=== PATIENT | male | born 1935 | race Caucasian/White ===

== ENCOUNTER 2019-09-02 20:13 | Observation (INO) ==
--- NOTE | 2019-09-02 20:27 | CT Scan Report ---
CT head/brain wo con CLINICAL HISTORY: Confusion. Carpal speech. Possible acute stroke. COMPARISON STUDY: No previous studies for comparison. TECHNIQUE: Axial CT of the brain is performed from the vertex to the skull base. IV contrast was not administered for this examination. A dose lowering technique was utilized adhering to the principles of ALARA. CT DOSE: 537.48 mGy.cm FINDINGS: No intra or extra-axial mass lesions are visualized. There is no CT evidence of acute cortical infarc tion. There is no evidence of midline shift. There is no acute hemorrhage. No calvarial fractures ar e visualized. There are patchy white matter hypodensities likely on a small vessel basis. There is no evidence of pathologic ventricular dilatation. There is no evidence of acute sinusitis IMPRESSION: No acute intracranial findings ACT 112: Negative or not required by law. Electronically signed by: Josias Donohue M.D. 09/02/2019 8:26 PM
[2019-09-02] MEDS ORDERED: ASPIRIN 81 MG CHEW PO STA (20:37)
[2019-09-02] MEDS ORDERED: SODIUM CHLORIDE 0.9% 1000ML 1,000 ML IV ONE (20:37)
[2019-09-02 20:41] LABS: Basophils # (auto) 0.04 K/uL (0-0.2); Basophils % (auto) 0.4 %; Eosinophils # (auto) 0.26 K/uL (0-0.5); Eosinophils % (auto) 2.8 %; Hematocrit (blood only) 41.9 % (42-52); Hemoglobin 13.8 g/dL (14.0-18.0); Immature Granulocytes # (auto) 0.03 K/uL (0.00-0.02); Immature Granulocytes % (auto) 0.3 %; Lymphocytes # (auto) 1.54 K/uL (1.2-3.4); Lymphocytes % (auto) 16.5 %; Mean Corpuscular Hemoglobin 29.1 pg (25-34); Mean Corpuscular Hgb Conc 32.9 g/dL (32-36); Mean Corpuscular Volume 88.2 fL (80-100); Mean Platelet Volume 9.7 fL (7.4-10.4); Monocytes # (auto) 0.61 K/uL (0.11-0.59); Monocytes % (auto) 6.6 %; Neutrophils # (auto) 6.83 K/uL (1.4-6.5); Neutrophils % (auto) 73.4 %; Platelet Count 179 K/uL (130-400); RDW Coefficient of Variation 13.2 % (11.5-14.5); RDW Standard Deviation 42.1 fL (36.4-46.3); Red Blood Count 4.75 M/uL (4.7-6.1); White Blood Count 9.31 K/uL (4.8-10.8)
[2019-09-02 20:53] LABS: Partial Thromboplastin Ratio 0.9; Partial Thromboplastin Time 24.3 Seconds (21.0-31.0); Prothrombin Time 10.3 Seconds (9.0-12.0)
[2019-09-02 20:57] LABS: iSTAT Hemoglobin 14.3 g/dl (14.0-18.0); iSTAT Ionized Calcium 1.25 mmol/l (1.12-1.32); iSTAT Potassium 4.7 mmol/L (3.3-5.0)
[2019-09-02 20:57] LABS: Alanine Aminotransferase 18 U/L (12-78); Albumin Level 4.1 gm/dl (3.4-5.0); Aspartate Aminotransferase 16 U/L (15-37); BUN Creatinine Ratio 26.3 (10-20); Blood Urea Nitrogen 53 mg/dl (7-18); Calcium 9.5 mg/dl (8.5-10.1); Carbon Dioxide 26 mmol/L (21-32); Chloride 109 mmol/L (98-107); Creatinine Clr Calc Pharmacy 33.9 ml/min; Est GFR (African American) 34.6; Est GFR (Non-African American) 29.8; Glucose 113 mg/dl (70-99); Magnesium 1.9 mg/dl (1.8-2.4); Potassium 4.6 mmol/L (3.5-5.1); Sodium 139 mmol/L (136-145)
[2019-09-02 21:07] LABS: Alkaline Phosphatase 91 U/L (45-117); Bilirubin,Total 0.3 mg/dl (0.2-1); Total Protein 8.1 gm/dl (6.4-8.2); Troponin I < 0.015 ng/ml (0-0.045)
--- NOTE | 2019-09-02 22:54 | Emergency Department Note ---
Entered by Alize Gonzales acting as a scribe for Clay Fung M.D. History of Present Illness General Chief complaint: Stroke Alert Stated complaint: TROUBLE BREATHING Time Seen by Provider: 09/02/19 20:19 Source: patient and RN notes reviewed History of Present Illness Onset (ago): hour(s) 1 Location: head Pain Consistency: + other (episode) Quality: + other (stroke like symptoms ) Associated symptoms: + other (+confused; +gargled speech; +memory loss; -vision issues ) The patient is an 84 year old male, with past medical history of type 2 diabetes and sciatica, who presents to the Emergency Room with complaints of an episode of stroke like symptoms that began approximately 1 hour ago. The RN reports the patient was last known well around 1929. 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 The RN states the po ent was fine at this point, but the RN states the patient made a phone call right after the client to call his son, and the RN states this is when symptoms were first noticed. The son reports the patient seemed confused and had gargled speech. The RN states the patient could not remember the year or his birthday upon arrival. The patient reports he felt as if he just could not get words out during the episode. He notes he felt embarrassed. He states he was able to speak some, but he states he generally felt discombobulated. The patient admits his symptoms are improving now, including his speech. He denies recent fall or vision troubles. Home Medications Home Medications Medication Instructions Recorded Confirmed Type aspirin 81 mg PO QAM 10/22/18 09/02/19 History atorvastatin 10 mg PO QPM 10/22/18 09/02/19 History levothyroxine 75 mcg PO QAM 10/22/18 09/02/19 History metformin 500 mg PO BIDM 10/22/18 09/02/19 History acetaminophen 500 mg PO Q6H PRN 05/26/19 09/02/19 History sildenafil (pulm.hypertension) 60 - 100 mg PO DIRECTED PRN 05/26/19 09/02/19 History [Revatio] cholecalciferol (vitamin D3) 2,000 unit PO QAM 09/02/19 09/02/19 History [Vitamin D3] Allergies Allergy/AdvReac Type Severity Reaction Status Date / Time No Known Allergies Allergy Verified 09/02/19 20:34 Past Med/Surg History Medical History Anxiety Diabetes mellitus, type 2 NIDDM Foot drop, right GERD (gastroesophageal reflux disease) Hearing deficit BL IONE History of sciatica History of skin cancer REMOVED FROM FACE AND BACK Hyperlipidemia Hypertension Hypothyroidism Osteoarthritis Pneumonia Poor historian Snores Surgical History History of colonoscopy History of herniorrhaphy BL INGUINAL History of left cataract surgery Family History Other No significant family history Social History Preferred Language: Cameroonian Communication Ability: Effective 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 and A total of 10 systems reviewed and were otherwise negative Physical Exam Vital Signs Vital Signs - 24 hr 09/02/19 20:16 09/02/19 20:50 09/02/19 21:31 Temperature 36.8 C Temperature Source Oral Pulse Rate 84 Pulse Rate [Right Finger] 76 76 Respiratory Rate 18 20 24 Respiratory Effort / Characteristics Non-Labored Respiratory Depth Normal Normal Respiratory Pattern Regular Blood Pressure 168/99 H Blood Pressure [Right Arm] 154/96 H 132/81 Blood Pressure Mean 122 Blood Pressure Mean [Right Arm] 115 98 Blood Pressure Position [Right Arm] Sitting Pulse Oximetry 96 96 98 Oxygen Delivery Method Room Air Room Air Sepsis Recent Fever Within 48 Hours No Sepsis Action Taken by Nursing No Action Required 09/02/19 22:26 Temperature Temperature Source Pulse Rate Pulse Rate [Right Finger] 85 Respiratory Rate 18 Respiratory Effort / Characteristics Non-Labored Spontaneous Respiratory Depth Normal Respiratory Pattern Blood Pressure Blood Pressure [Right Arm] 174/101 H Blood Pressure Mean Blood Pressure Mean [Right Arm] 125 Blood Pressure Position [Right Arm] Sitting Pulse Oximetry 98 Oxygen Delivery Method Room Air Sepsis Recent Fever Within 48 Hours Sepsis Action Taken by Nursing GENERAL: Awake, alert, well-appearing, in no distress HENT: Normocephalic, atraumatic. EYES: Normal conjunctiva. Sclera non-icteric. RESPIRATORY: Clear to auscultation. No wheezes. Normal respiratory effort. CARDIAC: Normal rate. Normal rhythm. Extremities warm and well perfused. GI: Soft, non-distended. No tenderness to palpation. RECTAL: Deferred. MUSCULOSKELETAL: Atraumatic. Chest examination reveals no tenderness. LOWER EXTREMITIES: Calves are equal size bilaterally and non-tender. No edema NEURO: Normal sensorium. No motor deficits noted. No facial droop. No slurred speech. No aphasia. Slightly decreased right leg sensation that the patient reports is baseline for him. SKIN: Warm and dry. No rash or jaundice noted. Course Course 2014: Past medical records reviewed. The patient was evaluated in room B1. A complete history and physical exam was performed. 2030: I discussed the patient's case with Dr. Arnold. 2124: I reevaluated and updated the patient on his case. 2209: I reviewed the patient's case with Dr. Valdez-Hospitalren[facility] Matt. Dr. Valdez will evaluate the patient for further management. Consultations Consultation #1: I discussed the patient's case with Dr. Arnold. Time: 20:30 Consultation #2: I reviewed the patient's case with Dr. Valdez-Jennifer Matt. Dr. Valdez will evaluate the patient for further management. Time: 22:10 Administered Medications Discontinued Medications Aspirin (Aspirin Chew) 324 mg PO NOW STA Stop: 09/02/19 20:38 Last Admin: 09/02/19 20:55 Dose: 324 mg Documented by: [id number] Sodium Chloride (Nss 1000ml) 1,000 mls @ 999 mls/hr IV .Q1H1M ONE Stop: 09/02/19 21:37 Last Infusion: 09/02/19 21:32 Dose: 0 mls/hr Documented by: [id number] Admin: 09/02/19 20:40 Dose: 999 mls/hr Documented by: [id number] Medical Decision Making Differential Diagnosis Differential Diagnosis includes but is not limited to ischemic Stroke, hemorrhagic stroke, bells palsy, mass, neoplasm, migraine headache, seizure, subarachnoid hemorrhage, TIA, and transient global amnesia. Medical Records Attestation: I reviewed the patient's medical records. Home Medications Current Medication List: was personally reviewed by me Laboratory Data Attestation: I reviewed the patient's lab results. Result diagrams: 09/02/19 20:34 09/02/19 20:34 Lab Results 09/02/19 09/02/19 09/02/19 Range/Units 20:34 20:34 20:34 WBC 9.31 (4.8-10.8) K/uL RBC 4.75 (4.7-6.1) M/uL Hgb 13.8 L (14.0-18.0) g/dL POC Hgb (14.0-18.0) g/dl Hct 41.9 L (42-52) % POC Hct (42-52) % MCV 88.2 (80-100) fL MCH 29.1 (25-34) pg MCHC 32.9 (32-36) g/dL RDW Std Deviation 42.1 (36.4-46.3) fL RDW Coeff of Umesh 13.2 (11.5-14.5) % Plt Count 179 (130-400) K/uL MPV 9.7 (7.4-10.4) fL Immature Gran % (Auto) 0.3 % Neut % (Auto) 73.4 % Lymph % (Auto) 16.5 % Alcorn % (Auto) 6.6 % Eos % (Auto) 2.8 % Baso % (Auto) 0.4 % Immature Gran # (Auto) 0.03 H (0.00-0.02) K/uL Neut # (Auto) 6.83 H (1.4-6.5) K/uL Lymph # (Auto) 1.54 (1.2-3.4) K/uL Alcorn # (Auto) 0.61 H (0.11-0.59) K/uL Eos # (Auto) 0.26 (0-0.5) K/uL Baso # (Auto) 0.04 (0-0.2) K/uL PT 10.3 (9.0-12.0) Seconds INR 1.0 (0.9-1.1) APTT 24.3 (21.0-31.0) Seconds PTT Ratio 0.9 POC Sodium (135-144) mmol/L Sodium 139 (136-145) mmol/L POC Potassium (3.3-5.0) mmol/L Potassium 4.6 (3.5-5.1) mmol/L POC Chloride (101-112) mmol/L Chloride 109 H (98-107) mmol/L Carbon Dioxide 26 (21-32) mmol/L POC Total CO2 (24-31) mEq/l Anion Gap 4.0 (3-11) POC Anion Gap (16-25) mmol/L POC BUN (7-18) mg/dl BUN 53 H (7-18) mg/dl Creatinine 2.02 H (0.6-1.4) mg/dl POC Creatinine (0.6-1.3) mg/dl Est Cr Clr Drug Dosing 33.9 ml/min Est GFR ( Amer) 34.6 Est GFR (Non-Af Amer) 29.8 BUN/Creatinine Ratio 26.3 H (10-20) Glucose 113 H (70-99) mg/dl POC Glucose (70-99) mg/dl POC Glucose (other) (70-99) mg/dl Calcium 9.5 (8.5-10.1) mg/dl POC Ioniz Calcium Ulices (1.12-1.32) mmol/l Magnesium 1.9 (1.8-2.4) mg/dl Total Bilirubin 0.3 (0.2-1) mg/dl AST 16 (15-37) U/L ALT 18 (12-78) U/L Alkaline Phosphatase 91 (45-117) U/L Troponin I < 0.015 (0-0.045) ng/ml Total Protein 8.1 (6.4-8.2) gm/dl Albumin 4.1 (3.4-5.0) gm/dl Globulin 4.0 (2.5-4.0) gm/dl Albumin/Globulin Ratio 1.0 (0.9-2) TSH 2.430 (0.300-4.500) uIu/ml Blood Type Antibody Screen 09/02/19 09/02/19 09/02/19 Range/Units 20:34 20:38 20:42 WBC (4.8-10.8) K/uL RBC (4.7-6.1) M/uL Hgb (14.0-18.0) g/dL POC Hgb 14.3 (14.0-18.0) g/dl Hct (42-52) % POC Hct 42 (42-52) % MCV (80-100) fL MCH (25-34) pg MCHC (32-36) g/dL RDW Std Deviation (36.4-46.3) fL RDW Coeff of Umesh (11.5-14.5) % Plt Count (130-400) K/uL MPV (7.4-10.4) fL Immature Gran % (Auto) % Neut % (Auto) % Lymph % (Auto) % Alcorn % (Auto) % Eos % (Auto) % Baso % (Auto) % Immature Gran # (Auto) (0.00-0.02) K/uL Neut # (Auto) (1.4-6.5) K/uL Lymph # (Auto) (1.2-3.4) K/uL Alcorn # (Auto) (0.11-0.59) K/uL Eos # (Auto) (0-0.5) K/uL Baso # (Auto) (0-0.2) K/uL PT (9.0-12.0) Seconds INR (0.9-1.1) APTT (21.0-31.0) Seconds PTT Ratio POC Sodium 139 (135-144) mmol/L Sodium (136-145) mmol/L POC Potassium 4.7 (3.3-5.0) mmol/L Potassium (3.5-5.1) mmol/L POC Chloride 107 (101-112) mmol/L Chloride (98-107) mmol/L Carbon Dioxide (21-32) mmol/L POC Total CO2 24 (24-31) mEq/l Anion Gap (3-11) POC Anion Gap 14.0 L (16-25) mmol/L POC BUN 48 H (7-18) mg/dl BUN (7-18) mg/dl Creatinine (0.6-1.4) mg/dl POC Creatinine 2.0 H (0.6-1.3) mg/dl Est Cr Clr Drug Dosing ml/min Est GFR ( Amer) Est GFR (Non-Af Amer) BUN/Creatinine Ratio (10-20) Glucose (70-99) mg/dl POC Glucose 97 (70-99) mg/dl POC Glucose (other) 112 H (70-99) mg/dl Calcium (8.5-10.1) mg/dl POC Ioniz Calcium Ulices 1.25 (1.12-1.32) mmol/l Magnesium (1.8-2.4) mg/dl Total Bilirubin (0.2-1) mg/dl AST (15-37) U/L ALT (12-78) U/L Alkaline Phosphatase (45-117) U/L Troponin I (0-0.045) ng/ml Total Protein (6.4-8.2) gm/dl Albumin (3.4-5.0) gm/dl Globulin (2.5-4.0) gm/dl Albumin/Globulin Ratio (0.9-2) TSH (0.300-4.500) uIu/ml Blood Type A Positive Antibody Screen NEGATIVE Imaging Data Radiologist's Impression: Radiology results as stated below per my review and the radiologist's interpretation: CT head/brain wo con CLINICAL HISTORY: Confusion. Carpal speech. Possible acute stroke. COMPARISON STUDY: No previous studies for comparison. TECHNIQUE: Axial CT of the brain is performed from the vertex to the skull base. IV contrast was not administered for this examination. A dose lowering technique was utilized adhering to the principles of ALARA. CT DOSE: 537.48 mGy.cm FINDINGS: No intra or extra-axial mass lesions are visualized. There is no CT evidence of acute cortical infarction. There is no evidence of midline shift. There is no acute hemorrhage. No calvarial fractures are visualized. There are patchy white matter hypodensities likely on a small vessel basis. There is no evidence of pathologic ventricular dilatation. There is no evidence of acute sinusitis IMPRESSION: No acute intracranial findings ACT 112: Negative or not required by law. Electronically signed by: Josias Donohue M.D. 09/02/2019 8:26 PM ECG Data Attestation: I personally reviewed and interpreted this ECG as follows: Indication: + other (stroke alert) Rate (beats per minute): 85 Rhythm: + normal sinus ECG Intervals/blocks: + Normal QT-c ECG Bivins: + Normal ECG ST segments: no ST depression and no ST elevation ECG Findings: no PACs Blood Pressure Blood Pressure Findings: Elevated blood pressure Blood Pressure Disposition: further management by hospitalist NICK Narrative Patient is a 84-year-old with a history of hypertension, hypothyroidism, and diabetes presenting today with onset around 730 of 30 to 45 minutes of aphasia and garbled speech. No other neurological deficits acutely reported. No pain reported. No trauma reported. Made a stroke alert in triage. CT head without acute findings. Basic labs show evidence of chronic kidney disease it does appear slightly worse than previous; this precludes CT angiograms and will need MRI/MRA workup as inpatient. NIH is currently 0 and appears back at baseline. Given full dose aspirin. Discussed with tele-stroke at [facility] who agree. No indication for TPA at this time given his lack of symptoms. No other acute abnormality noted. Believe this is consistent with a TIA. Discussed with the patient and the [facility] hospitalist for further evaluation in the hospital. Impression & Plan TIA (transient ischemic attack) Discharge Plan Visit Data Chief Complaint: Stroke Alert Stated Complaint: TROUBLE BREATHING Other Complaint: Neuro Symptoms/Deficit ED Provider: Clay Fung Discharge Problem: TIA (transient ischemic attack) Patient Disposition: Being Evaluated by Hospitalist Forms Stand Alone Forms: My [facility] [employer] Prescriptions Prescriptions: No Action metformin 500 mg Tablet 500 mg PO BIDM RF: 0 atorvastatin 10 mg Tablet 10 mg PO QPM RF: 0 aspirin 81 mg Tablet,Delayed Release (Dr/Ec) 81 mg PO QAM RF: 0 levothyroxine 75 mcg Tablet 75 mcg PO QAM RF: 0 acetaminophen 500 mg Tablet 500 mg PO Q6H PRN (Reason: Pain) RF: 0 sildenafil (pulm.hypertension) [Revatio] 20 mg Tablet 60 - 100 mg PO DIRECTED PRN (Reason: Edema) RF: 0 cholecalciferol (vitamin D3) [Vitamin D3] 2,000 unit Tablet 2,000 unit PO QAM RF: 0 Referrals Referrals: Pranay Addison MD [Primary Care Provider] - The scribe's documentation has been prepared under my direction and personally reviewed by me in its entirety. I confirm that the note above accurately refle cts all work, treatment, procedures, and medical decision making performed by me.
[2019-09-02 22:55] LABS: Appearance Urine Cloudy (Clear); Bacteria Urine Automated Negative (Negative); Bilirubin Urine Negative (Negative); Blood Urine Negative (Negative); Color Urine Yellow; Glucose Urine UA Negative (Negative); Ketones Urine Negative (Negative); Leukocyte Esterase Urine Trace (Negative); Nitrite Urine Negative (Negative); Protein Urine Negative (Negative); RBC Urine Automated 0-4 /hpf (0-4); Specific Gravity Urine 1.019 (1.000-1.030); Urobilinogen Urine Negative (Negative); WBC Urine Automated 0 /hpf (0-5)
--- NOTE | 2019-09-02 22:56 | History & Physical Report ---
Date of Service September 02, 2019 Assessment & Plan (1) TIA (transient ischemic attack): Presenting as aphasia symptoms ? Aspirin failure Hypertension, elevated secondary to above Hyperlipidemia on statin Rx DM2 on oral medications, reasonable control as of recent outpatient hemoglobin A1c of 7.21 May 2019 CRI, creatinine close to baseline OBS Medical telemetry Neurochecks Add Plavix to aspirin for possible aspirin failure for now MRI/MRA of the brain Additional stroke work-up pending MRI result update lipid profile, hemoglobin A1c Neurology consult RE TIA Permissive hypertension until stroke ruled out Basal insulin, ISS BG goal [id number] DVT prophylaxis Heparin subcu Full code Patient's children requesting updates from providers. Mr. Pranay Irizarry (son), contact #[phone]. Mali Grey (daughter), contact #[phone]. Patient family will notify [facility] [employer] of n first Taylor change from Obed to Smith on next outpatient visit. History of Present Illness Chief Complaint: Trouble getting words out Primary Care Provider: Pranay Addison MD Patient currently listed as Obed Irizarry (former name) and Quintura. History obtained from patient, family, and records. Medical history significant for hyperlipidemia, hypothyroidism, DM2 on oral medications, CRI (baseline creatinine 1.4-1.9). This afternoon patient had trouble getting words out while talking to a client on the phone. Symptoms persistent until patient got home. No headache, chest pain, S OB. No prior episodes as per patient. Stroke alert called upon arrival at the ER. Symptoms currently improving as per family. 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 Allergies Allergy/AdvReac Type Severity Reaction Status Date / Time No Known Allergies Allergy Verified 09/02/19 20:34 Home Medications Home Medications Medication Instructions Recorded Confirmed Type aspirin 81 mg PO QAM 10/22/18 09/02/19 History atorvastatin 10 mg PO QPM 10/22/18 09/02/19 History levothyroxine 75 mcg PO QAM 10/22/18 09/02/19 History metformin 500 mg PO BIDM 10/22/18 09/02/19 History acetaminophen 500 mg PO Q6H PRN 05/26/19 09/02/19 History sildenafil (pulm.hypertension) 60 - 100 mg PO DIRECTED PRN 05/26/19 09/02/19 History [Revatio] cholecalciferol (vitamin D3) 2,000 unit PO QAM 09/02/19 09/02/19 History [Vitamin D3] Past Med/Surg History Medical History Anxiety Diabetes mellitus, type 2 NIDDM Foot drop, right GERD (gastroesophageal reflux disease) Hearing deficit BL GAMBELL History of sciatica History of skin cancer REMOVED FROM FACE AND BACK Hyperlipidemia Hypertension Hypothyroidism Osteoarthritis Pneumonia Poor historian Snores Surgical History History of colonoscopy History of herniorrhaphy BL INGUINAL History of left cataract surgery Family History Other No significant family history Social History Preferred Language: Mongolian Communication Ability: Effective Pot Puller Required: No Beliefs That Will Affect Care: None Current Living Situation: Spouse Other Information That Helps Us Care for You: No Feels Safe at Home: Yes Safety Concerns: Feels Safe At This Time Smoking Status: Never smoker Do You Dip or Chew Tobacco: No ; Second Hand Exposure: No ; Tobacco Cessation Education Requested by Patient: No Hx Alcohol Use: No Hx Substance Use: No Review of Systems Review of Systems: As per HPI, all 10 systems reviewed, all other ROS negative Physical Exam Physical Exam: GENERAL: Comfortable, obese, slightly hard of hearing, some word finding difficulty, no respiratory distress SKIN: Normal color, warm HEENT: [place] palpebral conjunctivae, no ptosis, dry buccal mucosa NECK : Supple, no tenderness CHEST : CTA, no tenderness HEART : RRR, no obvious murmurs ABDOMEN: Some distention, nontender EXTREMITIES : No LE swelling/tenderness, no other conspicuous deformities noted NEUROLOGIC : Coherent, no facial asymmetry, mild hearing impairment, some word finding difficulty, no other gross focality Results & Data Vital Signs (Past 12 Hours) Vital Signs Temp Pulse Pulse Resp BP BP Pulse Ox 09/02/19 22:26 85 18 174/101 H 98 09/02/19 21:31 76 24 132/81 98 09/02/19 20:50 76 20 154/96 H 96 09/02/19 20:16 36.8 C 84 18 168/99 H 96 Laboratory Results Laboratory Results WBC 9.31 K/uL (4.8-10.8) 09/02/19 20:34 RBC 4.75 M/uL (4.7-6.1) 09/02/19 20:34 Hgb 13.8 g/dL (14.0-18.0) L 09/02/19 20:34 POC Hgb 14.3 g/dl (14.0-18.0) 09/02/19 20:42 Hct 41.9 % (42-52) L 09/02/19 20:34 POC Hct 42 % (42-52) 09/02/19 20:42 MCV 88.2 fL (80-100) 09/02/19: MCH 29.1 pg (25-34) 09/02/19 20: MCHC 32.9 g/dL (32-36) 09/02/19 20: RDW Std Deviation 42.1 fL (36.4-46.3) 09/02/19: RDW Coeff of Umesh 13.2 % (11.5-14.5) 09/02/19:34 Plt Count 179 K/uL (130-400) 09/02/19 20: MPV 9.7 fL (7.4-10.4) 09/02/19 20:34 Immature Gran % (Auto) 0.3 % 09/02/19 20:34 Neut % (Auto) 73.4 % 09/02/19 20:34 Lymph % (Auto) 16.5 % 09/02/19 20:34 [place] % (Auto) 6.6 % 09/02/19 20:34 Eos % (Auto) 2.8 % 09/02/19 20:34 Baso % (Auto) 0.4 % 09/02/19:34 Immature Gran # (Auto) 0.03 K/uL (0.00-0.02) H 09/02/19 20:34 Neut # (Auto) 6.83 K/uL (1.4-6.5) H 09/02/19 20:34 Lymph # (Auto) 1.54 K/uL (1.2-3.4) 09/02/19 20:34 Davidson # (Auto) 0.61 K/uL (0.11-0.59) H 09/02/19 20:34 Eos # (Auto) 0.26 K/uL (0-0.5) 09/02/19 20:34 Baso # (Auto) 0.04 K/uL (0-0.2) 09/02/19 20:34 PT 10.3 Seconds (9.0-12.0) 09/02/19 20:34 INR 1.0 (0.9-1.1) 09/02/19 20:34 APTT 24.3 Seconds (21.0-31.0) 09/02/19 20:34 PTT Ratio 0.9 09/02/19 20:34 POC Sodium 139 mmol/L (135-144) 09/02/19 20: Sodium 139 mmol/L (136-145) 09/02/19 20:34 POC Potassium 4.7 mmol/L (3.3-5.0) 09/02/19 20:42 Potassium 4.6 mmol/L (3.5-5.1) 09/02/19 20:34 POC Chloride 107 mmol/L (101-112) 09/02/19 20:42 Chloride 109 mmol/L (98-107) H 09/02/19 20:34 Carbon Dioxide 26 mmol/L (21-32) 09/02/19 20:34 POC Total CO2 24 mEq/l (24-31) 09/02/19 20:42 Anion Gap 4.0 (3-11) 09/02/19 20:34 POC Anion Gap 14.0 mmol/L (16-25) L 09/02/19 20:42 POC BUN 48 mg/dl (7-18) H 09/02/19 20:42 BUN 53 mg/dl (7-18) H 09/02/19 20:34 Creatinine 2.02 mg/dl (0.6-1.4) H 09/02/19 20:34 POC Creatinine 2.0 mg/dl (0.6-1.3) H 09/02/19 20:42 Est Cr Clr Drug Dosing 33.9 ml/min 09/02/19 20:34 Est GFR ( Amer) 34.6 09/02/19 20:34 Est GFR (Non-Af Amer) 29.8 09/02/19 20:34 BUN/Creatinine Ratio 26.3 (10-20) H 09/02/19 20:34 Glucose 113 mg/dl (70-99) H 09/02/19 20:34 POC Glucose 97 mg/dl (70-99) 09/02/19 20:38 POC Glucose (other) 112 mg/dl (70-99) H 09/02/19 20:42 Calcium 9.5 mg/dl (8.5-10.1) 09/02/19 20:34 POC Ioniz Calcium Ulices 1.25 mmol/l (1.12-1.32) 09/02/19 20:42 Magnesium 1.9 mg/dl (1.8-2.4) 09/02/19:34 Total Bilirubin 0.3 mg/dl (0.2-1) 09/02/19 20:34 AST 16 U/L (15-37) 09/02/19: ALT 18 U/L (12-78) 09/02/19: Alkaline Phosphatase 91 U/L (45-117) 09/02/19: Troponin I < 0.015 ng/ml (0-0.045) 09/02/19:34 Total Protein 8.1 gm/dl (6.4-8.2) 09/02/19: Albumin 4.1 gm/dl (3.4-5.0) 09/02/19: Globulin 4.0 gm/dl (2.5-4.0) 09/02/19 Albumin/Globulin Ratio 1.0 (0.9-2) 09/02/19: TSH 2.430 uIu/ml (0.300-4.500) 09/02/19 20:34 Urine Color Yellow 09/02/19: Urine Appearance Cloudy (Clear) A 09/02/19: Urine pH 5.0 (4.5-7.5) 09/02/19: Ur Specific [place] 1.019 (1.000-1.030) 09/02/19 22: Urine Protein Negative (Negative) 09/02/19: Urine Glucose (UA) Negative (Negative) 09/02/19 Urine Ketones Negative (Negative) 01/15/20 22:25 Urine Blood Negative (Negative) 09/02/19 22:25 Urine Nitrite Negative (Negative) 09/02/19 22:25 Urine Bilirubin Negative (Negative) 09/02/19 22: Urine Urobilinogen Negative (Negative) 09/02/19 22:25 Ur Leukocyte Esterase Trace (Negative) H 09/02/19 22:25 Urine WBC (Auto) 0 /hpf (0-5) 09/02/19 22:25 Urine RBC (Auto) 0-4 /hpf (0-4) 09/02/19 22: U Hyaline Cast (Auto) 1-5 /lpf (0-5) 09/02/19 22:25 U Epithel Cells (Auto) 5-10 /lpf (0-5) H 09/02/19 22:25 Urine Bacteria (Auto) Negative (Negative) 09/02/19 22:25 Blood Type A Positive 09/02/19 20:34 Antibody Screen NEGATIVE 09/02/19 20:[address] head: No acute intracranial findings Chest x-ray as per my interpretation cardiomegaly, atelectasis EKG as per my interpretation : Rate 85, NSR, LAD, LAFB, no ischemia
[2019-09-02] MEDS ORDERED: CLOPIDOGREL BISULFATE 75 MG TAB PO STA (23:03)
[2019-09-03] MEDS ORDERED: DEXTROSE 50% 50 ML SYRINGE IV PRN (00:56)
[2019-09-03] MEDS ORDERED: ACETAMINOPHEN 325 MG TAB PO PRN (00:56)
[2019-09-03] MEDS ORDERED: CARBOHYDRATES FOR HYPOGLYCEMIA PO PRN (00:56)
[2019-09-03] MEDS ORDERED: ACETAMINOPHEN 500 MG TAB PO PRN (00:56)
[2019-09-03] MEDS ORDERED: PROMETHAZINE HCL 12.5 MG in SODIUM CHLORIDE 0.9% 50 ML IV PRN (00:56)
[2019-09-03] MEDS ORDERED: GLUCAGON FOR INJ 1 MG VIAL SQ PRN (00:56)
[2019-09-03] MEDS ORDERED: GLUCOSE 10 TABS/TUBE PO PRN (00:56)
[2019-09-03] MEDS ORDERED: GLUCOSE 40% GEL 15 GM TUBE PO PRN (00:56)
[2019-09-03] MEDS ORDERED: NITROGLYCERIN SL 0.4 MG/TAB TAB SL PRN (00:56)
[2019-09-03] MEDS ORDERED: TRAMADOL HCL 50 MG TABLET PO PRN (00:56)
[2019-09-03] MEDS: INSULIN ASPART 100 UNITS/ML 3 ML PEN SC SCH ×5 (01:35→20:57)
[2019-09-03] MEDS: LEVOTHYROXINE SODIUM 75 MCG TABLET PO SCH (05:45)
[2019-09-03] MEDS: HEPARIN SOD 5,000 UNIT/0.5 ML VIAL SQ SCH ×3 (05:45→20:57)
[2019-09-03 06:09] LABS: Estimated Average Glucose 160 mg/dl; Hemoglobin A1C 7.2 % (4.5-5.6)
--- NOTE | 2019-09-03 07:01 | XRay Report ---
XR chest 1V portable CLINICAL HISTORY: 84 years-old Male presenting with renal failure. TECHNIQUE: Portable upright AP view of the chest was obtained. COMPARISON: 05/26/2019. FINDINGS: Cardiac silhouette moderately enlarged. Pulmonary vasculature is mildly engorged. Mild interstitial p rominence. Mildly low lung volumes. No focal opacity. No large effusion or pneumothorax. Degenerative changes of the thoracic spine. Left retrocardiac added shadow may represent a tortuous descending th oracic aorta or hiatal hernia. IMPRESSION: 1. Cardiomegaly with mild volume overload and congestive change. No sujatha pulmonary edema. 2. Low lung volumes with hypoventilatory changes. ACT 112: Negative or not required by law. Electronically signed by: Harvey Padgett M.D. 09/03/2019 6:59 AM
--- NOTE | 2019-09-03 07:33 | Magnetic Resonance Report ---
MRI OF THE BRAIN WITHOUT CONTRAST CLINICAL HISTORY: Transient ischemic attack DIFFICULTY WITH SPEECH. COMPARISON STUDY: [address] dated 09/02/2019 FINDINGS: Sagittal T1, axial diffusion, proton density and T2 weighted axial, coronal FLAIR, and axial T1-weigh raheem images were acquired. No intra or extra-axial mass lesions are visualized There is a 15 mm focus of restricted water diffusion involving the left caudate. The findings are ind icative of acute/subacute infarct. There is no evidence of ventricular dilatation. Proton density T2-weighted and FLAIR images reveal subtle increased FLAIR signal within the left caud ate consistent with an infarct, likely greater than 12 hours old. There are no abnormal flow voids. IMPRESSION: 15 mm focus of restricted water diffusion involving the left caudate. The findings are i ndicative of acute/subacute infarct. ACT 112: Negative or not required by law. Electronically signed by: Josias Donohue M.D. 09/03/2019 7:31 AM
--- NOTE | 2019-09-03 07:43 | Magnetic Resonance Report ---
MR angio head wo con CLINICAL HISTORY: 84 years-old Male presenting with TIA, contacting iterative disturbance, speech dif ficulty, acute to subacute left caudate infarct. TECHNIQUE: MR angiography of the head was performed without the use of intravenous contrast using 3-D [id number] technique. 3-D volumetric and/or maximum intensity projection (MIP) images were subse quently reconstructed for review. IV contrast: None. COMPARISON: None. FINDINGS: Localizer images: Unremarkable. Anterior circulation: Intracranial portions of the internal carotid arteries patent to the level of t he termini. Anterior cerebral arteries patent. Middle cerebral arteries patent. Anterior communicatin g artery patent. Posterior circulation: Codominant vertebral arteries. Intradural portions of the vertebral arteries p atent. Posterior inferior cerebellar arteries patent. Basilar artery patent. Anterior inferior cerebe llar arteries poorly visualized. Superior cerebellar arteries patent. Posterior cerebral arteries pat ent. Posterior communicating arteries patent. IMPRESSION: 1. No significant stenosis, aneurysm, or focal vessel occlusion. ACT 112: Negative or not required by law. Electronically signed by: Harvey Padgett M.D. 09/03/2019 7:42 AM
[2019-09-03] MEDS: ASPIRIN 81 MG ECTAB PO SCH (07:59)
[2019-09-03] MEDS: CLOPIDOGREL BISULFATE 75 MG TAB PO SCH (07:59)
[2019-09-03 08:00] LABS: Basophils # (auto) 0.03 K/uL (0-0.2); Basophils % (auto) 0.4 %; Eosinophils # (auto) 0.25 K/uL (0-0.5); Eosinophils % (auto) 3.5 %; Hematocrit (blood only) 37.8 % (42-52); Hemoglobin 12.6 g/dL (14.0-18.0); Immature Granulocytes # (auto) 0.03 K/uL (0.00-0.02); Immature Granulocytes % (auto) 0.4 %; Lymphocytes # (auto) 1.43 K/uL (1.2-3.4); Lymphocytes % (auto) 19.8 %; Mean Corpuscular Hgb Conc 33.3 g/dL (32-36); Mean Corpuscular Volume 86.9 fL (80-100); Mean Platelet Volume 9.5 fL (7.4-10.4); Monocytes # (auto) 0.54 K/uL (0.11-0.59); Monocytes % (auto) 7.5 %; Neutrophils # (auto) 4.94 K/uL (1.4-6.5); Neutrophils % (auto) 68.4 %; Platelet Count 153 K/uL (130-400); RDW Coefficient of Variation 13.1 % (11.5-14.5); Red Blood Count 4.35 M/uL (4.7-6.1); White Blood Count 7.22 K/uL (4.8-10.8)
[2019-09-03 08:26] LABS: BUN Creatinine Ratio 25.8 (10-20); Calcium 8.9 mg/dl (8.5-10.1); Creatinine Clr Calc Pharmacy 38.7 ml/min; Est GFR (African American) 40.3; Est GFR (Non-African American) 34.8; Potassium 4.5 mmol/L (3.5-5.1)
[2019-09-03] MEDS ORDERED: ASPIRIN 81 MG ECTAB PO SCH (09:00)
[2019-09-03] MEDS: INSULIN GLARGINE SOLOSTAR 100 UNITS/ML 3 ML PEN SC SCH (09:18)
--- NOTE | 2019-09-03 09:40 | Hospitalist Progress Note ---
Date of Service September 03, 2019 Assessment & Plan (1) Ischemic stroke: MRI brain 15 mm L caudate infarct Presenting as aphasia symptoms ? Aspirin failure - MRI/MRA of the brain obtained, significant for 15 mm left caudate infarct (as above) - pt admitted to Medical telemetry - remained in sinus rhythm - cont. Neurochecks - Add Plavix 75 mg daily to aspirin 81 mg daily x 21 days, then plavix alone for life - Neurology consult RE TIA - Echo - pending Hypertension - was elevated on admission, secondary to above - permissive hypertension on admission - now at goal Hyperlipidemia - cont. home statin - current lipid panel : LDL 66, TC 128, TG 75 DM2 on oral medications, reasonable control - current HbA1c 7.2% - Basal insulin, ISS BG goal [id number] - cont. to monitor CRI, creatinine close to baseline - current 1.76, was 1.66 in 05/2019 DVT prophylaxis Heparin subcu Code: Full code Patient's children can be contacted at Mr. Pranay Irizarry (son), contact #[phone]. Mali Grey (daughter), contact #[phone]. Patient family will notify [facility] of first name change from Obed to Smith on next outpatient visit. Subjective Patient is lying in bed, in no acute distress. Denies any chest pain, shortness of breath, abdominal pain, nausea or vomiting. Also denies any fevers or chills. 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 Says he still has the word finding difficulty and gets little confused. Review of Systems Review of Systems: All systems reviewed & are unremarkable except as noted in HPI & below Constitutional: no fever, no chills and no fatigue Respiratory: no cough and no dyspnea Cardiovascular: no chest pain, no palpitations and no edema Gastrointestinal: no abdominal pain, no nausea and no vomiting Neurologic: + abnormal speech (Word finding difficulty) Physical Exam Physical Exam: GENERAL: Elderly male lying in bed, in no acute distress, slightly hard of hearing, some word finding difficulty HEENT: Normocephalic, atraumatic, EOMI, PERRL, dry buccal mucosa NECK : Supple, no tenderness RESP : CTAB, no wheezing, rhonchi or crackles HEART : RRR, no obvious murmurs ABDOMEN: Normal bowel sounds, soft, obese, some distention, nontender EXTREMITIES : No LE swelling/tenderness, strength 5 out of 5 in all major muscle groups, moves all 4 extremities spontaneously SKIN: warm, dry NEUROLOGIC : Alert and oriented x3, no facial asymmetry, mild hearing impairment, some word finding difficulty, no sensory was noted, moves all 4 extremities spontaneously Results & Data Vital Signs (Past 12 Hours) Vital Signs Temp Pulse Pulse Resp BP BP BP 09/03/19 07:39 78 09/03/19 07:32 36.6 C 64 16 146/85 H 09/03/19 04:53 83 09/03/19 04:00 36.7 C 69 16 129/70 09/03/19 01:00 36.7 C 100 H 20 142/91 H 09/03/19 00:36 77 18 119/69 09/02/19 22:26 85 18 174/101 H Pulse Ox 09/03/19 07:39 09/03/19 07:32 94 09/03/19 04:53 09/03/19 04:00 97 09/03/19 01:00 96 09/03/19 00:36 96 09/02/19 22:26 98 Laboratory Results 09/03/19 09/03/19 09/03/19 Range/Units 07:35 07:35 01:21 WBC 7.22 (4.8-10.8) K/uL RBC 4.35 L (4.7-6.1) M/uL Hgb 12.6 L (14.0-18.0) g/dL POC Hgb (14.0-18.0) g/dl Hct 37.8 L (42-52) % POC Hct (42-52) % MCV 86.9 (80-100) fL MCH 29.0 (25-34) pg MCHC 33.3 (32-36) g/dL RDW Std Deviation 42.0 (36.4-46.3) fL RDW Coeff of Umesh 13.1 (11.5-14.5) % Plt Count 153 (130-400) K/uL MPV 9.5 (7.4-10.4) fL Immature Gran % (Auto) 0.4 % Neut % (Auto) 68.4 % Lymph % (Auto) 19.8 % Coles % (Auto) 7.5 % Eos % (Auto) 3.5 % Baso % (Auto) 0.4 % Immature Gran # (Auto) 0.03 H (0.00-0.02) K/uL Neut # (Auto) 4.94 (1.4-6.5) K/uL Lymph # (Auto) 1.43 (1.2-3.4) K/uL Coles # (Auto) 0.54 (0.11-0.59) K/uL Eos # (Auto) 0.25 (0-0.5) K/uL Baso # (Auto) 0.03 (0-0.2) K/uL PT (9.0-12.0) Seconds INR (0.9-1.1) APTT (21.0-31.0) Seconds PTT Ratio POC Sodium (135-144) mmol/L Sodium 139 (136-145) mmol/L POC Potassium (3.3-5.0) mmol/L Potassium 4.5 (3.5-5.1) mmol/L POC Chloride (101-112) mmol/L Chloride 110 H (98-107) mmol/L Carbon Dioxide 25 (21-32) mmol/L POC Total CO2 (24-31) mEq/l Anion Gap 4.0 (3-11) POC Anion Gap (16-25) mmol/L POC BUN (7-18) mg/dl BUN 46 H (7-18) mg/dl Creatinine 1.78 H (0.6-1.4) mg/dl POC Creatinine (0.6-1.3) mg/dl Est Cr Clr Drug Dosing 38.7 ml/min Est GFR ( Amer) 40.3 Est GFR (Non-Af Amer) 34.8 BUN/Creatinine Ratio 25.8 H (10-20) Glucose 113 H (70-99) mg/dl POC Glucose 100 H (70-99) mg/dl POC Glucose (other) (70-99) mg/dl Estimat Average Glucose mg/dl Hemoglobin A1c (4.5-5.6) % Calcium 8.9 (8.5-10.1) mg/dl POC Ioniz Calcium Ulices (1.12-1.32) mmol/l Magnesium (1.8-2.4) mg/dl Total Bilirubin (0.2-1) mg/dl AST (15-37) U/L ALT (12-78) U/L Alkaline Phosphatase (45-117) U/L Troponin I (0-0.045) ng/ml Total Protein (6.4-8.2) gm/dl Albumin (3.4-5.0) gm/dl Globulin (2.5-4.0) gm/dl Albumin/Globulin Ratio (0.9-2) Triglycerides 75 (0-150) mg/dl Cholesterol 128 (0-200) mg/dl LDL Cholesterol, Calc 66 mg/dl VLDL Cholesterol, Calc 15 mg/dl HDL Cholesterol 47 mg/dl Cholesterol/HDL Ratio 3 TSH (0.300-4.500) uIu/ml Urine Color Urine Appearance (Clear) Urine pH (4.5-7.5) Ur Specific [place] (1.000-1.030) Urine Protein (Negative) Urine Glucose (UA) (Negative) Urine Ketones (Negative) Urine Blood (Negative) Urine Nitrite (Negative) Urine Bilirubin (Negative) Urine Urobilinogen (Negative) Ur Leukocyte Esterase (Negative) Urine WBC (Auto) (0-5) /hpf Urine RBC (Auto) (0-4) /hpf U Hyaline Cast (Auto) (0-5) /lpf U Epithel Cells (Auto) (0-5) /lpf Urine Bacteria (Auto) (Negative) Blood Type Antibody Screen 09/02/19 09/02/19 09/02/19 Range/Units 22:25 20:42 20:38 WBC (4.8-10.8) K/uL RBC (4.7-6.1) M/uL Hgb (14.0-18.0) g/dL POC Hgb 14.3 (14.0-18.0) g/dl Hct (42-52) % POC Hct 42 (42-52) % MCV (80-100) fL MCH (25-34) pg MCHC (32-36) g/dL RDW Std Deviation (36.4-46.3) fL RDW Coeff of Umesh (11.5-14.5) % Plt Count (130-400) K/uL MPV (7.4-10.4) fL Immature Gran % (Auto) % Neut % (Auto) % Lymph % (Auto) % Coles % (Auto) % Eos % (Auto) % Baso % (Auto) % Immature Gran # (Auto) (0.00-0.02) K/uL Neut # (Auto) (1.4-6.5) K/uL Lymph # (Auto) (1.2-3.4) K/uL Coles # (Auto) (0.11-0.59) K/uL Eos # (Auto) (0-0.5) K/uL Baso # (Auto) (0-0.2) K/uL PT (9.0-12.0) Seconds INR (0.9-1.1) APTT (21.0-31.0) Seconds PTT Ratio POC Sodium 139 (135-144) mmol/L Sodium (136-145) mmol/L POC Potassium 4.7 (3.3-5.0) mmol/L Potassium (3.5-5.1) mmol/L POC Chloride 107 (101-112) mmol/L Chloride (98-107) mmol/L Carbon Dioxide (21-32) mmol/L POC Total CO2 24 (24-31) mEq/l Anion Gap (3-11) POC Anion Gap 14.0 L (16-25) mmol/L POC BUN 48 H (7-18) mg/dl BUN (7-18) mg/dl Creatinine (0.6-1.4) mg/dl POC Creatinine 2.0 H (0.6-1.3) mg/dl Est Cr Clr Drug Dosing ml/min Est GFR ( Amer) Est GFR (Non-Af Amer) BUN/Creatinine Ratio (10-20) Glucose (70-99) mg/dl POC Glucose 97 (70-99) mg/dl POC Glucose (other) 112 H (70-99) mg/dl Estimat Average Glucose mg/dl Hemoglobin A1c (4.5-5.6) % Calcium (8.5-10.1) mg/dl POC Ioniz Calcium Ulices 1.25 (1.12-1.32) mmol/l Magnesium (1.8-2.4) mg/dl Total Bilirubin (0.2-1) mg/dl AST (15-37) U/L ALT (12-78) U/L Alkaline Phosphatase (45-117) U/L Troponin I (0-0.045) ng/ml Total Protein (6.4-8.2) gm/dl Albumin (3.4-5.0) gm/dl Globulin (2.5-4.0) gm/dl Albumin/Globulin Ratio (0.9-2) Triglycerides (0-150) mg/dl Cholesterol (0-200) mg/dl LDL Cholesterol, Calc mg/dl VLDL Cholesterol, Calc mg/dl HDL Cholesterol mg/dl Cholesterol/HDL Ratio TSH (0.300-4.500) uIu/ml Urine Color Yellow Urine Appearance Cloudy A (Clear) Urine pH 5.0 (4.5-7.5) Ur Specific [place] 1.019 (1.000-1.030) Urine Protein Negative (Negative) Urine Glucose (UA) Negative (Negative) Urine Ketones Negative (Negative) Urine Blood Negative (Negative) Urine Nitrite Negative (Negative) Urine Bilirubin Negative (Negative) Urine Urobilinogen Negative (Negative) Ur Leukocyte Esterase Trace H (Negative) Urine WBC (Auto) 0 (0-5) /hpf Urine RBC (Auto) 0-4 (0-4) /hpf U Hyaline Cast (Auto) 1-5 (0-5) /lpf U Epithel Cells (Auto) 5-10 H (0-5) /lpf Urine Bacteria (Auto) Negative (Negative) Blood Type Antibody Screen 09/02/19 09/02/19 09/02/19 Range/Units 20:34 20:34 20:34 WBC (4.8-10.8) K/uL RBC (4.7-6.1) M/uL Hgb (14.0-18.0) g/dL POC Hgb (14.0-18.0) g/dl Hct (42-52) % POC Hct (42-52) % MCV (80-100) fL MCH (25-34) pg MCHC (32-36) g/dL RDW Std Deviation (36.4-46.3) fL RDW Coeff of Umesh (11.5-14.5) % Plt Count (130-400) K/uL MPV (7.4-10.4) fL Immature Gran % (Auto) % Neut % (Auto) % Lymph % (Auto) % Coles % (Auto) % Eos % (Auto) % Baso % (Auto) % Immature Gran # (Auto) (0.00-0.02) K/uL Neut # (Auto) (1.4-6.5) K/uL Lymph # (Auto) (1.2-3.4) K/uL Coles # (Auto) (0.11-0.59) K/uL Eos # (Auto) (0-0.5) K/uL Baso # (Auto) (0-0.2) K/uL PT (9.0-12.0) Seconds INR (0.9-1.1) APTT (21.0-31.0) Seconds PTT Ratio POC Sodium (135-144) mmol/L Sodium 139 (136-145) mmol/L POC Potassium (3.3-5.0) mmol/L Potassium 4.6 (3.5-5.1) mmol/L POC Chloride (101-112) mmol/L Chloride 109 H (98-107) mmol/L Carbon Dioxide 26 (21-32) mmol/L POC Total CO2 (24-31) mEq/l Anion Gap 4.0 (3-11) POC Anion Gap (16-25) mmol/L POC BUN (7-18) mg/dl BUN 53 H (7-18) mg/dl Creatinine 2.02 H (0.6-1.4) mg/dl POC Creatinine (0.6-1.3) mg/dl Est Cr Clr Drug Dosing 33.9 ml/min Est GFR ( Amer) 34.6 Est GFR (Non-Af Amer) 29.8 BUN/Creatinine Ratio 26.3 H (10-20) Glucose 113 H (70-99) mg/dl POC Glucose (70-99) mg/dl POC Glucose (other) (70-99) mg/dl Estimat Average Glucose 160 mg/dl Hemoglobin A1c 7.2 H (4.5-5.6) % Calcium 9.5 (8.5-10.1) mg/dl POC Ioniz Calcium Ulices (1.12-1.32) mmol/l Magnesium 1.9 (1.8-2.4) mg/dl Total Bilirubin 0.3 (0.2-1) mg/dl AST 16 (15-37) U/L ALT 18 (12-78) U/L Alkaline Phosphatase 91 (45-117) U/L Troponin I < 0.015 (0-0.045) ng/ml Total Protein 8.1 (6.4-8.2) gm/dl Albumin 4.1 (3.4-5.0) gm/dl Globulin 4.0 (2.5-4.0) gm/dl Albumin/Globulin Ratio 1.0 (0.9-2) Triglycerides (0-150) mg/dl Cholesterol (0-200) mg/dl LDL Cholesterol, Calc mg/dl VLDL Cholesterol, Calc mg/dl HDL Cholesterol mg/dl Cholesterol/HDL Ratio TSH 2.430 (0.300-4.500) uIu/ml Urine Color Urine Appearance (Clear) Urine pH (4.5-7.5) Ur Specific [place] (1.000-1.030) Urine Protein (Negative) Urine Glucose (UA) (Negative) Urine Ketones (Negative) Urine Blood (Negative) Urine Nitrite (Negative) Urine Bilirubin (Negative) Urine Urobilinogen (Negative) Ur Leukocyte Esterase (Negative) Urine WBC (Auto) (0-5) /hpf Urine RBC (Auto) (0-4) /hpf U Hyaline Cast (Auto) (0-5) /lpf U Epithel Cells (Auto) (0-5) /lpf Urine Bacteria (Auto) (Negative) Blood Type A Positive Antibody Screen NEGATIVE 09/02/19 09/02/19 Range/Units 20:34 20:34 WBC 9.31 (4.8-10.8) K/uL RBC 4.75 (4.7-6.1) M/uL Hgb 13.8 L (14.0-18.0) g/dL POC Hgb (14.0-18.0) g/dl Hct 41.9 L (42-52) % POC Hct (42-52) % MCV 88.2 (80-100) fL MCH 29.1 (25-34) pg MCHC 32.9 (32-36) g/dL RDW Std Deviation 42.1 (36.4-46.3) fL RDW Coeff of Umesh 13.2 (11.5-14.5) % Plt Count 179 (130-400) K/uL MPV 9.7 (7.4-10.4) fL Immature Gran % (Auto) 0.3 % Neut % (Auto) 73.4 % Lymph % (Auto) 16.5 % Coles % (Auto) 6.6 % Eos % (Auto) 2.8 % Baso % (Auto) 0.4 % Immature Gran # (Auto) 0.03 H (0.00-0.02) K/uL Neut # (Auto) 6.83 H (1.4-6.5) K/uL Lymph # (Auto) 1.54 (1.2-3.4) K/uL Coles # (Auto) 0.61 H (0.11-0.59) K/uL Eos # (Auto) 0.26 (0-0.5) K/uL Baso # (Auto) 0.04 (0-0.2) K/uL PT 10.3 (9.0-12.0) Seconds INR 1.0 (0.9-1.1) APTT 24.3 (21.0-31.0) Seconds PTT Ratio 0.9 POC Sodium (135-144) mmol/L Sodium (136-145) mmol/L POC Potassium (3.3-5.0) mmol/L Potassium (3.5-5.1) mmol/L POC Chloride (101-112) mmol/L Chloride (98-107) mmol/L Carbon Dioxide (21-32) mmol/L POC Total CO2 (24-31) mEq/l Anion Gap (3-11) POC Anion Gap (16-25) mmol/L POC BUN (7-18) mg/dl BUN (7-18) mg/dl Creatinine (0.6-1.4) mg/dl POC Creatinine (0.6-1.3) mg/dl Est Cr Clr Drug Dosing ml/min Est GFR ( Amer) Est GFR (Non-Af Amer) BUN/Creatinine Ratio (10-20) Glucose (70-99) mg/dl POC Glucose (70-99) mg/dl POC Glucose (other) (70-99) mg/dl Estimat Average Glucose mg/dl Hemoglobin A1c (4.5-5.6) % Calcium (8.5-10.1) mg/dl POC Ioniz Calcium Ulices (1.12-1.32) mmol/l Magnesium (1.8-2.4) mg/dl Total Bilirubin (0.2-1) mg/dl AST (15-37) U/L ALT (12-78) U/L Alkaline Phosphatase (45-117) U/L Troponin I (0-0.045) ng/ml Total Protein (6.4-8.2) gm/dl Albumin (3.4-5.0) gm/dl Globulin (2.5-4.0) gm/dl Albumin/Globulin Ratio (0.9-2) Triglycerides (0-150) mg/dl Cholesterol (0-200) mg/dl LDL Cholesterol, Calc mg/dl VLDL Cholesterol, Calc mg/dl HDL Cholesterol mg/dl Cholesterol/HDL Ratio TSH (0.300-4.500) uIu/ml Urine Color Urine Appearance (Clear) Urine pH (4.5-7.5) Ur Specific [place] (1.000-1.030) Urine Protein (Negative) Urine Glucose (UA) (Negative) Urine Ketones (Negative) Urine Blood (Negative) Urine Nitrite (Negative) Urine Bilirubin (Negative) Urine Urobilinogen (Negative) Ur Leukocyte Esterase (Negative) Urine WBC (Auto) (0-5) /hpf Urine RBC (Auto) (0-4) /hpf U Hyaline Cast (Auto) (0-5) /lpf U Epithel Cells (Auto) (0-5) /lpf Urine Bacteria (Auto) (Negative) Blood Type Antibody Screen Diagnostic Findings MRI 09/03/2019 FINDINGS: Sagittal T1, axial diffusion, proton density and T2 weighted axial, coronal FLAIR, and axial T1-weighted images were acquired. No intra or extra-axial mass lesions are visualized There is a 15 mm focus of restricted water diffusion involving the left caudate. The findings are indicative of acute/subacute infarct. There is no evidence of ventricular dilatation. Proton density T2-weighted and FLAIR images reveal subtle increased FLAIR signal within the left caudate consistent with an infarct, likely greater than 12 hours old. There are no abnormal flow voids. IMPRESSION: 15 mm focus of restricted water diffusion involving the left caudate. The findings are indicative of acute/subacute infarct. MRA 09/03 FINDINGS: Localizer images: Unremarkable. Anterior circulation: Intracranial portions of the internal carotid arteries patent to the level of the termini. Anterior cerebral arteries patent. Middle cerebral arteries patent. Anterior communicating artery patent. Posterior circulation: Codominant vertebral arteries. Intradural portions of the vertebral arteries patent. Posterior inferior cerebellar arteries patent. Basilar artery patent. Anterior inferior cerebellar arteries poorly visualized. Superior cerebellar arteries patent. Posterior cerebral arteries patent. Posterior communicating arteries patent. IMPRESSION: 1. No significant stenosis, aneurysm, or focal vessel occlusion. Medications Administered Current Inpatient Medications Acetaminophen (Tylenol) 650 mg PO Q4H PRN PRN Reason: Pain or Fever Stop: 10/03/19 00:55 Aspirin (Ecotrin Ectab) 81 mg PO QAM [facility] Stop: 10/03/19 08:59 Last Admin: 09/03/19 07:59 Dose: 81 mg Documented by: Atorvastatin Calcium (Lipitor) 10 mg PO QPM [facility] Stop: 10/03/19 20:59 Clopidogrel Bisulfate (Plavix) 75 mg PO QAM [facility] Stop: 10/03/19 08:59 Last Admin: 09/03/19 07:59 Dose: 75 mg Documented by: Dextrose (Dextrose 50%) 25 - 50 ml IV UD PRN; Protocol PRN Reason: Hypoglycemia Protocol Stop: 10/03/19 00:55 Glucagon (Glucagen) 1 mg SQ UD PRN; Protocol PRN Reason: Hypoglycemia Protocol Stop: 10/03/19 00:55 Glucose (Dex4 Glucose) 4 - 8 tabs PO UD PRN; Protocol PRN Reason: Hypoglycemia Protocol Stop: 10/03/19 00:55 Glucose (Glucose 40%) 15 - 30 gm PO UD PRN; Protocol PRN Reason: Hypoglycemia Protocol Stop: 10/03/19 00:55 Heparin Sodium (Porcine) (Heparin Sodium (Porcine)) 5,000 units SQ Q8 [facility] Stop: 10/03/19 05:59 Last Admin: 09/03/19 05:45 Dose: 5,000 units Documented by: Promethazine HCl 12.5 mg/ (Sodium Chloride) 50.5 mls @ 202 mls/hr IV Q6H PRN PRN Reason: Nausea And Vomiting Stop: 10/03/19 00:55 Insulin Aspart (Novolog Flexpen) 0 units SC ACHS [facility] Stop: 10/03/19 00:55 Last Admin: 09/03/19 09:18 Dose: 3 units Documented by: Insulin Glargine (Lantus Solostar Pen) 5 units SC DAILY [facility] Stop: 10/03/19 08:59 Last Admin: 09/03/19 09:18 Dose: 5 units Documented by: Levothyroxine Sodium (Synthroid) 75 mcg PO DAILYBB [facility] Stop: 10/03/19 06:29 Last Admin: 09/03/19 05:45 Dose: 75 mcg Documented by: Miscellaneous (Carbohydrates For Hypoglycemia) 15 - 30 gm PO UD PRN PRN Reason: Hypoglycemia Protocol Stop: 10/03/19 00:55 Nitroglycerin (Nitrostat) 0.4 mg SL UD PRN PRN Reason: Chest Pain Stop: 10/03/19 00:55 Tramadol HCl (Ultram) 25 mg PO Q4H PRN PRN Reason: Pain Stop: 10/03/19 00:55
[2019-09-03] MEDS ORDERED: PERFLUTREN LIPID MICROSPHERE (DEFINITY) IV ONE (13:39)
--- NOTE | 2019-09-03 15:04 | Neurology Consultation ---
Date of Consultation September 03, 2019 Assessment & Plan (1) Ischemic stroke: 1. MRI brain 15 mm L caudate infact 2. Carotid doppler -no significant stenosis 3. TTE- no ASD 4. start plavix 75 mg daily along with aspirin 81 mg daily x 21 day then plavix for life 5. PT/OT speech for any discharge needs 6. optimize HTN, HLD, DM LDL <70 7. ZIO as outpatient ok to discharge when medically stable follow up with neurology in 4-6 weeks after discharge Drea Menezes [facility] Supervising Physician Co-Signing Physician Notes I have seen and discussed above patient with Dr Drea Barr, neurology. Pt seen and examined. 30 min of expressive aphasia. MRI L caudate infarct, echo, neg, carotid neg. Exam notable for no aphasia, CN abnl UE abnl. Query min rle weakness. Imp caudate infarct, dual antipt as described .Rec zio as outpt. EDDIE Barr MD History of Present Illness Reason for Consultation: TIA/CVA Requesting Physician: Stephen Priest MD Attending Physician: Stephen Priest MD History of Present Illness Smith is an 84 year old male PMH-DM 2 and sciatica, who presents to [facility] with complaints of an episode dysphasia started about 1 hours prior to arrival. He was working and talking to a client on the phone just prior to 1930. he went to retrieve a job book and right after he picked up the book he returned home. He called his son and noticed he could get his words out. he was confused because he couldn't understand why he couldn't explain anything to his son. He felt as if he just could not get words out during the episode. He generally felt discombobulated. This lasted until he was admitted and his speech started to clear up. He has never had this happen in the past. His brother had a stroke but he is uncertain the circumstances. He was not aware that his blood pressure was elevated prior to the stroke. Never smoked, minimal caffeine, no EtoH or other drugs, he was on a baby aspirin daily prior to the event denies CP, SOB, abdominal pain, one sided weakness, numbness tingling falls, N, V, new bowel or bladder issues, falls. Allergies Allergy/AdvReac Type Severity Reaction Status Date / Time No Known Allergies Allergy Verified 09/02/19 20:34 Home Medications Home Medications Medication Instructions Recorded Confirmed Type aspirin 81 mg PO QAM 10/22/18 09/02/19 History atorvastatin 10 mg PO QPM 10/22/18 09/02/19 History levothyroxine 75 mcg PO QAM 10/22/18 09/02/19 History metformin 500 mg PO BIDM 10/22/18 09/02/19 History acetaminophen 500 mg PO Q6H PRN 05/26/19 09/02/19 History sildenafil (pulm.hypertension) 60 - 100 mg PO DIRECTED PRN 05/26/19 09/02/19 History [Revatio] cholecalciferol (vitamin D3) 2,000 unit PO QAM 09/02/19 09/02/19 History [Vitamin D3] Patient History Medical History Anxiety Diabetes mellitus, type 2 NIDDM Foot drop, right GERD (gastroesophageal reflux disease) Hearing deficit [place] History of sciatica History of skin cancer REMOVED FROM FACE AND BACK Hyperlipidemia Hypertension Hypothyroidism Osteoarthritis Pneumonia Poor historian Snores Surgical History History of colonoscopy History of herniorrhaphy BL INGUINAL History of left cataract surgery Family History Other No significant family history Social History Preferred Language: Senegalese Communication Ability: Effective 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 Beliefs That Will Affect Care: None Current Living Situation: Spouse Other Information That Helps Us Care for You: No Feels Safe at Home: Yes Safety Concerns: Feels Safe At This Time Smoking Status: Never smoker Do You Dip or Chew Tobacco: No ; Second Hand Exposure: No ; Tobacco Cessation Education Requested by Patient: No Hx Alcohol Use: No Hx Substance Use: No Physical Exam Physical Exam: Physical Exam: Constitutional: appearance over nourished, healthy and normal Ears, Nose, Mouth and Throat: mucous membranes moist, no injection and skin normal, eyes normal Cardiovascular: normal S-1 and S-2 and regular rate and rhythm Respiratory: clear to auscultation (CTA) Musculoskeletal: no peripheral edema and good distal pulses Skin: no stigmata of neurocutaneous disease noted and normal and intact Eyes: extraocular muscles intact (EOMI) and pupils equal, round and reactive to light (PERRL), gross peripheral vision intact NEUROLOGIC EXAMINATION: Mental status: Alert and interactive Oriented to [facility], identifies button, pen thumb. Oriented to person Speech fluent with no evidence of aphasia, no ifs ands or buts, closes eye, stick out tongue points to ceiling with right hand Cranial Nerves smile eye brow raise symmetric Reflexes: Deep tendon reflexes were symmetrical and graded 2/5. down going toes. Sensory: light cool vibration intact, GT proprioception intact Coordination: finger to nose no bi pass Gait/Stance: Posture normal. up and walking with PT tandem gait Motor: Negative for pronator drift of out stretched arms with eyes closed. Strength: biceps triceps deltoids hand manager parking intrinsics bilaterally 5/5, hip flex plantar flex ext bilaterally 5/5 Results & Data Vital Signs (Past 12 Hours) Vital Signs Temp Pulse Pulse Resp BP BP Pulse Ox 09/03/19 11:26 36.5 C 77 20 142/88 H 96 09/03/19 07:39 78 09/03/19 07:32 36.6 C 64 16 146/85 H 94 09/03/19 04:53 83 09/03/19 04:00 36.7 C 69 16 129/70 97 Laboratory Results Abnormal lab results 09/02/19 09/02/19 09/02/19 Range/Units 20:34 20:34 20:34 RBC (4.7-6.1) M/uL Hgb 13.8 L (14.0-18.0) g/dL Hct 41.9 L (42-52) % Immature Gran # (Auto) 0.03 H (0.00-0.02) K/uL Neut # (Auto) 6.83 H (1.4-6.5) K/uL [place] # (Auto) 0.61 H (0.11-0.59) K/uL Chloride 109 H (98-107) mmol/L POC Anion Gap (16-25) mmol/L POC BUN (7-18) mg/dl BUN 53 H (7-18) mg/dl Creatinine 2.02 H (0.6-1.4) mg/dl POC Creatinine (0.6-1.3) mg/dl BUN/Creatinine Ratio 26.3 H (10-20) Glucose 113 H (70-99) mg/dl POC Glucose (70-99) mg/dl POC Glucose (other) (70-99) mg/dl Hemoglobin A1c 7.2 H (4.5-5.6) % Urine Appearance (Clear) Ur Leukocyte Esterase (Negative) U Epithel Cells (Auto) (0-5) /[facility] 09/02/19 09/02/19 09/03/19 Range/Units 20:42 22:25 01:21 RBC (4.7-6.1) M/uL Hgb (14.0-18.0) g/dL Hct (42-52) % Immature Gran # (Auto) (0.00-0.02) K/uL Neut # (Auto) (1.4-6.5) K/uL [place] # (Auto) (0.11-0.59) K/uL Chloride (98-107) mmol/L POC Anion Gap 14.0 L (16-25) mmol/L POC BUN 48 H (7-18) mg/dl BUN (7-18) mg/dl Creatinine (0.6-1.4) mg/dl POC Creatinine 2.0 H (0.6-1.3) mg/dl BUN/Creatinine Ratio (10-20) Glucose (70-99) mg/dl POC Glucose 100 H (70-99) mg/dl POC Glucose (other) 112 H (70-99) mg/dl Hemoglobin A1c (4.5-5.6) % Urine Appearance Cloudy A (Clear) Ur Leukocyte Esterase Trace H (Negative) U Epithel Cells (Auto) 5-10 H (0-5) /[facility] 09/03/19 09/03/19 09/03/19 Range/Units 07:35 07:35 07:39 RBC 4.35 L (4.7-6.1) M/uL Hgb 12.6 L (14.0-18.0) g/dL Hct 37.8 L (42-52) % Immature Gran # (Auto) 0.03 H (0.00-0.02) K/uL Neut # (Auto) (1.4-6.5) K/uL [place] # (Auto) (0.11-0.59) K/uL Chloride 110 H (98-107) mmol/L POC Anion Gap (16-25) mmol/L POC BUN (7-18) mg/dl BUN 46 H (7-18) mg/dl Creatinine 1.78 H (0.6-1.4) mg/dl POC Creatinine (0.6-1.3) mg/dl BUN/Creatinine Ratio 25.8 H (10-20) Glucose 113 H (70-99) mg/dl POC Glucose 117 H (70-99) mg/dl POC Glucose (other) (70-99) mg/dl Hemoglobin A1c (4.5-5.6) % Urine Appearance (Clear) Ur Leukocyte Esterase (Negative) U Epithel Cells (Auto) (0-5) /lpf Diagnostic Findings CT head- No acute intracranial findings CXR- Cardiomegaly with mild volume overload and congestive change. No sujatha pulmonary edema. Low lung volumes with hypoventilatory changes. MRI brain -15 mm focus of restricted water diffusion involving the left caudate. The findings are indicative of acute/subacute infarct. MRA head-No significant stenosis, aneurysm, or focal vessel occlusion. carotid doppler-No hemodynamically significant stenosis seen within the carotid arteries. Moderate plaque formation bilaterally TTE- 55-60% EF no ASD
--- NOTE | 2019-09-03 16:09 | Ultrasound Report ---
US carotid doppler BI HISTORY: Mental status change L caudate infarct COMPARISON: None. TECHNIQUE: Real-time, grayscale, and color Doppler sonography of the carotid arteries was performed. Imaging reviewed in the transverse and longitudinal planes. All measurements were calculated based on NASCET criteria. FINDINGS: Antegrade flow is seen in the bilateral vertebral arteries. The brachial pressures are hemodynamically similar. Moderate plaque formation bilaterally The peak systolic velocity within the right ICA is 54. The right systolic ratio is 1.0. The peak systolic velocity within the left ICA is 47. The left systolic ratio is 0.8. IMPRESSION: No hemodynamically significant stenosis seen within the carotid arteries. Moderate plaque formation b ilaterally ACT 112: Negative or not required by law. The above report was generated using voice recognition software. It may contain grammatical, syntax or spelling errors. Electronically signed by: Jose F Lang M.D. 09/03/2019 4:08 PM
--- NOTE | 2019-09-03 16:46 | Electrocardiogram Report ---
Test Reason : Blood Pressure : / mmHG Vent. Rate : 085 BPM Atrial Rate : 085 BPM P-R Int : 176 ms QRS Dur : 094 ms QT Int : 360 ms P-R-T Axes : 033 -22 013 degrees QTc Int : 428 ms Normal sinus rhythm Normal ECG When compared with ECG of 26-MAY-2019 00:37, No significant change was found Confirmed by Adi Stiles ([id number]) on 09/03/2019 4:45:44 PM Referred By: REFERRED SELF Confirmed By:Adi Stiles
[2019-09-03] MEDS ORDERED: ATORVASTATIN 10 MG TAB PO SCH (21:00)
[2019-09-04] MEDS: LEVOTHYROXINE SODIUM 75 MCG TABLET PO SCH (05:59)
[2019-09-04] MEDS: HEPARIN SOD 5,000 UNIT/0.5 ML VIAL SQ SCH (05:59)
[2019-09-04] MEDS: ASPIRIN 81 MG ECTAB PO SCH (09:48)
[2019-09-04] MEDS: CLOPIDOGREL BISULFATE 75 MG TAB PO SCH (09:48)
[2019-09-04] MEDS: INSULIN GLARGINE SOLOSTAR 100 UNITS/ML 3 ML PEN SC SCH (09:48)
[2019-09-04] MEDS: INSULIN ASPART 100 UNITS/ML 3 ML PEN SC SCH ×2 (09:48→12:28)
--- NOTE | 2019-09-04 11:27 | Discharge Summary ---
Date of Service September 04, 2019 Admission HPI Per Admitting Provider Patient currently listed as Obed Irizarry (former name) and [place]. History obtained from patient, family, and records. Medical history significant for hyperlipidemia, hypothyroidism, DM2 on oral medications, CRI (baseline creatinine 1.4-1.9). This afternoon patient had trouble getting words out while talking to a client on the phone. Symptoms persistent until patient got home. No headache, chest pain, S OB. No prior episodes as per patient. Stroke alert called upon arrival at the ER. Symptoms currently improving as per family. 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 Admission Exam Per Admitting Provider GENERAL: Comfortable, obese, slightly hard of hearing, some word finding difficulty, no respiratory distress SKIN: Normal color, warm HEENT: [place] palpebral conjunctivae, no ptosis, dry buccal mucosa NECK : Supple, no tenderness CHEST : CTA, no tenderness HEART : RRR, no obvious murmurs ABDOMEN: Some distention, nontender EXTREMITIES : No LE swelling/tenderness, no other conspicuous deformities noted NEUROLOGIC : Coherent, no facial asymmetry, mild hearing impairment, some word finding difficulty, no other gross focality Principal Diagnosis Ischemic stroke (Left caudate) Discharge Exam GENERAL: Elderly male lying in bed, in no acute distress, slightly hard of hearing, some word finding difficulty HEENT: Normocephalic, atraumatic, EOMI, PERRL NECK : Supple, no tenderness RESP : CTAB, no wheezing, rhonchi or crackles HEART : RRR, no obvious murmurs ABDOMEN: Normal bowel sounds, soft, obese, some distention, nontender EXTREMITIES : No LE swelling/tenderness, strength 5 out of 5 in all major muscle groups, moves all 4 extremities spontaneously SKIN: warm, dry NEUROLOGIC : Alert and oriented x3, no facial asymmetry, mild hearing impairment, no sensory loss noted, moves all 4 extremities spontaneously Discharge Data Allergies Allergy/AdvReac Type Severity Reaction Status Date / Time No Known Allergies Allergy Verified 09/02/19 20:34 Consultations 09/02/19 23:01 ED Decision to Admit Stat 09/03/19 00:56 Consult Case Management - Discharge Planning Routine Consult Neurology Routine Ordered Studies 09/02/19 20:19 CT head/brain wo con Stat FINDINGS: No intra or extra-axial mass lesions are visualized. There is no CT evidence of acute cortical infarction. There is no evidence of midline shift. There is no acute hemorrhage. No calvarial fractures are visualized. There are patchy white matter hypodensities likely on a small vessel basis. There is no evidence of pathologic ventricular dilatation. There is no evidence of acute sinusitis IMPRESSION: No acute intracranial findings 09/03/19 00:56 MR angio head wo con Routine FINDINGS: Localizer images: Unremarkable. Anterior circulation: Intracranial portions of the internal carotid arteries patent to the level of the termini. Anterior cerebral arteries patent. Middle cerebral arteries patent. Anterior communicating artery patent. Posterior circulation: Codominant vertebral arteries. Intradural portions of the vertebral arteries patent. Posterior inferior cerebellar arteries patent. Basilar artery patent. Anterior inferior cerebellar arteries poorly visualized. Superior cerebellar arteries patent. Posterior cerebral arteries patent. Posterior communicating arteries patent. IMPRESSION: 1. No significant stenosis, aneurysm, or focal vessel occlusion. MR brain wo con Routine FINDINGS: Sagittal T1, axial diffusion, proton density and T2 weighted axial, coronal FLAIR, and axial T1-weighted images were acquired. No intra or extra-axial mass lesions are visualized There is a 15 mm focus of restricted water diffusion involving the left caudate. The findings are indicative of acute/subacute infarct. There is no evidence of ventricular dilatation. Proton density T2-weighted and FLAIR images reveal subtle increased FLAIR signal within the left caudate consistent with an infarct, likely greater than 12 hours old. There are no abnormal flow voids. IMPRESSION: 15 mm focus of restricted water diffusion involving the left caudate. The findings are indicative of acute/subacute infarct. 09/03/19 13:07 US carotid doppler BI Routine IMPRESSION: No hemodynamically significant stenosis seen within the carotid arteries. Moderate plaque formation bilaterally Hospital Course (1) Ischemic stroke: MRI brain 15 mm L caudate infarct Presenting as aphasia symptoms ? Aspirin failure - MRI/MRA of the brain obtained, significant for 15 mm left caudate infarct (as above) - pt admitted to Medical telemetry - remained in sinus rhythm - cont. Neurochecks - Add Plavix 75 mg daily to aspirin 81 mg daily x 21 days, then plavix alone for life - Neurology consult RE TIA, recommend outpt. ZIO patch for poss. arrhythmia monitoring - Echo - unremarkable, no interatrial shunt, EF 55-60%, mild AR, mild MR, mild TR Hypertension - was elevated on admission, secondary to above - permissive hypertension on admission - now at goal Hyperlipidemia - cont. home statin - current lipid panel : LDL 66, TC 128, TG 75 DM2 on oral medications, reasonable control - current HbA1c 7.2% - Basal insulin, ISS BG goal [id number] - cont. to monitor CRI, creatinine close to baseline - current 1.76, was 1.66 in 05/2019 DVT prophylaxis Heparin subcu Code: Full code Patient's children can be contacted at Mr. Pranay Irizarry (son), contact #[phone]. Mali Grey (daughter), contact #[phone]. Patient family will notify Harperer of first name change from Obed to Smith on next outpatient visit. Total Time Total Time Spent Total Time Spent (In Minutes): 40 Total Time Includes: Examination of the Patient, Discharge Planning, Medication Reconciliation and Communication With Other Providers Discharge Plan Discharge Items Patient Disposition: Home - Self-Care Reason For Visit: TIA Discharge Diagnosis: Ischemic stroke Activity: Resume your previous activity Activity Comment: as tolerated, pace yourself, ask for help as needed Non-emergency contact: Primary Care Provider and Neurologist Call non-emergency contact if: you have any medication questions and your symptoms worsen Follow-up/Referrals: Pranay Addison MD [Primary Care Provider] - 09/08/19 2:00 pm Diet: Carb Consistent or DM2 and Heart Healthy Addtl Attending Provider Instructions: Make sure to follow-up with primary care provider on September 08, at 2 PM, with Dr. Addison. You will also need to follow-up with neurology, Mrs. Drea Menezes on October 12, at 8 AM. Start taking a new medication, Plavix 75 mg daily along with aspirin 81 mg daily for next 21 days. Then continue to take Plavix alone, indefinitely. Make sure to continue taking your atorvastatin. It is recommended by neurology, that you have a study done for arrhythmia/irregular heartbeat, with ZIO patch, as outpatient. This can be arranged by your PCP. Please make sure to read instructions below in detail: Risk Factors for Stroke: You can reduce your chances of stroke by working with your medical provider to adopt a healthy lifestyle. Some specific ways to lower your chance of stroke are: * If you are a smoker, now is the time to stop smoking cigarettes * If you are diabetic, improve the control of your blood sugars * Avoid excessive amounts of alcohol * Control high blood pressure * Lose weight if you are overweight * Be sure to lead an active lifestyle * Eat a healthy diet low in salt, cholesterol and fat You should know about other risk factors for stroke that you are unable to control. These include: * Age 55 years or older * Male gender * Certain racial groups: , or / * Family History of Stroke, Mini stroke or Heart Attack * Sickle Cell Disease Follow Up: It is important for you to keep your follow up appointments with your medical provider. Who to Call and When: Medical Emergencies: Call 911 immediately if you experience any of the following warning signs and symptoms of Stroke: * Sudden numbness or weakness of the face, arm or leg, especially on one side of the body * Sudden confusion, trouble speaking or understanding * Sudden trouble seeing in one or both eyes * Sudden trouble walking, dizziness, loss of balance or coordination * Sudden severe headache with no cause Do not delay calling 911 if you experience any warning signs or symptoms of a stroke. Delay in seeking medical attention may affect what treatments can be given to you. . Pending Studies at Discharge: No Stand-Alone Forms: My [facility], Smoking Cessation Medications and DC Order Prescriptions: New clopidogrel 75 mg Tablet 75 mg PO QAM 30 Days Qty: 30 RF: 0 Continued metformin 500 mg Tablet 500 mg PO BIDM RF: 0 atorvastatin 10 mg Tablet 10 mg PO QPM RF: 0 aspirin 81 mg Tablet,Delayed Release (Dr/Ec) 81 mg PO QAM RF: 0 levothyroxine 75 mcg Tablet 75 mcg PO QAM RF: 0 acetaminophen 500 mg Tablet 500 mg PO Q6H PRN (Reason: Pain) RF: 0 sildenafil (pulm.hypertension) [Revatio] 20 mg Tablet 60 - 100 mg PO DIRECTED PRN (Reason: Edema) RF: 0 cholecalciferol (vitamin D3) [Vitamin D3] 2,000 unit Tablet 2,000 unit PO QAM RF: 0 Discharge Orders: Discharge Order (Routine); Ordered 09/04/19 Ordered By: Stephen Priest Admission Data Admit Date/Time: 09/02/19 23:00 Attending Provider: Stephen Priest Admit Provider: Oconer,Axel N. Primary Care Provider: Pranay Addison. Other Providers: Axel Valdez ; Drea Menezes ; Pranay Cisneros ; Drea Barr ; Dayday Ludwig Other Interventions: Discharge Summary Assessment (RN) Last Done: 09/04/19 11:42 DC Date/Time DO NOT enter until pt leaves facility: 09/04/19 13:51
--- NOTE | 2019-09-24 16:28 | Coding Query ---
A supporting diagnosis is required for the test/procedure performed on this patient in order for us to be reimbursed by the patient's insurance. Please provide a supporting diagnosis for the following test/procedure listed below next to the test name along with your signature. *If there is no additional diagnosis for this patient that would support the following test/procedure please document that below next to the test/procedure. Test(s)/Procedure(s) that require a supporting diagnosis: (CAROTID DOP)DUPLEX NECK ARTER DIAGNOSIS: TIA/CVA Provider Signature: Date: Thank you Lizeth Braxton Health Information Management Once completed, please kindly fax back to [phone] For questions please call [phone] KRISTA
== END 2019-09-04 13:51 | disposition home or self-care (01) ==
LOC: 2N 20:13 → ED 20:13 → MERGE 20:13 → SUATTDRO 23:00 → 2N 09-03 00:36

== ENCOUNTER 2020-07-08 11:03 | Inpatient (IN) ==
[2020-07-08] MEDS ORDERED: OPTIRAY 320 125ml IV ONE (11:19)
--- NOTE | 2020-07-08 11:34 | CT Scan Report ---
CT OF THE HEAD WITHOUT CONTRAST CLINICAL HISTORY: Stroke evaluation. Right-sided facial droop. Slurred speech. COMPARISON STUDY: Head CT September 02, 2019. MRI of the brain September 03, 2019. TECHNIQUE: Helical axial images of the head were obtained without IV contrast. Automated exposure con trol was utilized for the study. A dose lowering technique was utilized adhering to the principles o f ALARA. FINDINGS: No acute intracranial hemorrhage, midline shift or mass effect is present. Note is made of an old infarct within left caudate head measures 1.1 cm. The ventricular system is unremarkable. The basal cisterns are patent. No extra-axial collections are present. There are no findings to suggest a cute dural sinus thrombosis or acute territorial infarct. No significant calvarial abnormalities are present. Visualized portions of the sinuses and mastoid air cells are clear. IMPRESSION: No acute intracranial findings. ACT 112: Negative or not required by law. Electronically signed by: Luis Rubin M.D. 07/08/2020 11:33 AM
--- NOTE | 2020-07-08 11:38 | CT Scan Report ---
CTA ANGIOGRAPHY OF THE HEAD CLINICAL HISTORY: Stroke evaluation. COMPARISON STUDY: MRA of the head September 03, 2019. TECHNIQUE: Helical axial images of the head were obtained following uneventful intravenous administr ation of 119 cc of Optiray 320. Sagittal and coronal reconstructions were viewed as well as maximal i ntensity projections on an independent 3-D workstation. Automated exposure control was utilized for the study. A dose lowering technique was utilized adhering to the principles of ALARA. FINDINGS: No acute intracranial hemorrhage, midline shift or mass effect is present. The ventricular system is normal. The basilar cisterns are patent. There are no extra axial collections. No findings are noted to suggest acute dural sinus thrombosis or acute territorial infarct. There is an old infar ct within the left caudate head. The bilateral M1, M2, A1 and A2 segments are patent. No central vess el occlusion is noted. There is no intracranial aneurysm. Posterior circulation is intact. IMPRESSION: Unremarkable CTA of the head. No central vessel occlusion. ACT 112: Negative or not required by law. Electronically signed by: Luis Rubin M.D. 07/08/2020 11:37 AM
[2020-07-08 11:46] LABS: Basophils # (auto) 0.01 K/uL (0-0.2); Basophils % (auto) 0.2 %; Eosinophils # (auto) 0.09 K/uL (0-0.5); Eosinophils % (auto) 1.5 %; Hematocrit (blood only) 43.7 % (42-52); Hemoglobin 14.4 g/dL (14.0-18.0); Immature Granulocytes # (auto) 0.02 K/uL (0.00-0.02); Immature Granulocytes % (auto) 0.3 %; Lymphocytes # (auto) 1.03 K/uL (1.2-3.4); Lymphocytes % (auto) 16.7 %; Mean Corpuscular Volume 88.1 fL (80-100); Mean Platelet Volume 9.7 fL (7.4-10.4); Monocytes # (auto) 0.89 K/uL (0.11-0.59); Monocytes % (auto) 14.4 %; Neutrophils # (auto) 4.14 K/uL (1.4-6.5); Neutrophils % (auto) 66.9 %; Platelet Count 138 K/uL (130-400); RDW Standard Deviation 45.3 fL (36.4-46.3); Red Blood Count 4.96 M/uL (4.7-6.1); White Blood Count 6.18 K/uL (4.8-10.8)
[2020-07-08 11:46] LABS: iSTAT Creatinine 1.9 mg/dl (0.6-1.3); iSTAT Hemoglobin 15.3 g/dl (14.0-18.0); iSTAT Ionized Calcium 1.16 mmol/l (1.12-1.32); iSTAT Potassium 4.7 mmol/L (3.3-5.0)
--- NOTE | 2020-07-08 11:49 | CT Scan Report ---
NECK CTA HISTORY: Right-sided facial droop. Slurred speech. Stroke evaluation TECHNIQUE: Multiaxial CT images of the neck were performed following the intravenous administration o f contrast to evaluate the major cervical vessels. Maximum intensity projection images were also obta ined. All measurements were calculated based on NASCET criteria. A dose lowering technique was utili zed adhering to the principles of ALARA. COMPARISON STUDY: None. FINDINGS: The aortic arch and proximal great vessels are widely patent. There is no significant sten osis, occlusion, or dissection identified within the bilateral common carotid, internal carotid, or v ertebral arteries. Mild calcified plaque within the right carotid bifurcation. IMPRESSION: No significant stenosis, occlusion, or dissection identified within the carotid or vertebral arteries . ACT 112: Negative or not required by law. Electronically signed by: Jason Rooney M.D. 07/08/2020 11:48 AM
[2020-07-08 11:55] LABS: Partial Thromboplastin Ratio 0.9; Partial Thromboplastin Time 24.4 Seconds (21.0-31.0); Prothrombin Time 10.7 Seconds (9.0-12.0)
[2020-07-08 12:06] LABS: Alanine Aminotransferase 22 U/L (12-78); Albumin Level 3.9 gm/dl (3.4-5.0); Aspartate Aminotransferase 21 U/L (15-37); BUN Creatinine Ratio 24.8 (10-20); Blood Urea Nitrogen 51 mg/dl (7-18); Calcium 8.7 mg/dl (8.5-10.1); Carbon Dioxide 24 mmol/L (21-32); Chloride 107 mmol/L (98-107); Creatinine Clr Calc Pharmacy 31.9 ml/min; Est GFR (African American) 33.3; Est GFR (Non-African American) 28.8; Glucose 157 mg/dl (70-99); Magnesium 2.1 mg/dl (1.8-2.4); Potassium 4.5 mmol/L (3.5-5.1); Sodium 136 mmol/L (136-145)
--- NOTE | 2020-07-08 12:07 | Emergency Department Note ---
Impression & Plan Acute CVA (cerebrovascular accident), Dysarthria ED Provider Note NAME: PAULINE MODI AGE: 85 SEX: M : 1935 ARRIVES VIA: Walk-In INFORMANT: Patient, ED PROVIDER(S): Ryan Bell DO CHIEF COMPLAINT: Weakness HPI: The patient is an 85-year-old male who presented to the emergency department for an evaluation of dysarthria. The patient states he felt in his normal state of health last evening went to bed at his normal time. When he woke up today he was noticing that he was having difficulty speaking. The patient denied having headache. He denies having any fever or chills. He denies having any nausea or vomiting. His became aware of the symptoms when he was trying to talk to her. She also noticed that when he was drinking coffee the coffee was running down the left side of his mouth. She did not note any specific facial droop. She did not notice that he was confused. She did notice that he was having difficulty forming his words and this is atypical for him. The patient states that he has a history of a stroke in the spring. He is unsure of the cause of the stroke. He denies having any history of atrial fibrillation. He denies having any history of recent falls. He states his symptoms are mildly improved at this time. ROS: See above HPI for pertinent positives & negatives. A total of 10 systems reviewed and were otherwise negative. PAST MEDICAL HISTORY: See Below PAST SURGICAL HISTORY: See Below FAMILY HISTORY: See Below SOCIAL HISTORY: See Below HOME MEDICATIONS: See Below ALLERGIES: See Below VITALS: See Below PHYSICAL EXAMINATION: GENERAL: Patient is awake alert in no acute distress patient is resting comfortably and showing no signs of anxiety EYES: The conjunctivae are clear. The pupils are round and reactive. EARS, NOSE, MOUTH AND THROAT: The nose is without any evidence of any deformity. NECK: The neck is nontender and supple. RESPIRATORY: Normal respiratory effort is noted there is no evidence of wheezing rhonchi or rales CARDIOVASCULAR: Regular rate and rhythm noted there no murmurs rubs or gallops normal S1 normal S2. GASTROINTESTINAL: The abdomen is soft. Abdomen is nontender. MUSCULOSKELETAL/EXTREMITIES: There is no evidence of gross deformity full range of motion is noted in the hips and shoulders. SKIN: There is no obvious evidence of any rash. Trace pedal edema was noted bilaterally. NEUROLOGIC: Patient is awake alert and oriented x3. Speech is slurred. There is no definite facial droop noted. Embroiderer Hand strength is symmetric. The patient is able to hold each leg off the bed for greater than 5 seconds. MEDICAL DECISION MAKING: The patient is an 85-year-old male who presented to the emergency department for an evaluation of possible strokelike symptoms. The patient was noted to have a facial droop and difficulty speaking by his significant other. The patient's symptoms were mildly improved while he was in the emergency department. I discussed the patient's laboratory and radiographic studies with him as well as his significant other. The patient was made a stroke alert because his symptoms were greater than 3 hours ago no TPA was considered. He did not appear to have signs of large vessel occlusion. I discussed the patient's condition with him. Because of his symptoms I also [facility] He was also found to have an elevation in his creatinine compared to baseline. He was treated with IV fluids. Triage Nursing notes reviewed. Prior medical records reviewed Vital Signs: reviewed and remarkable for no significant abnormalities Differential diagnosis: Infection, dehydration, metabolic abnormality, hypo/hyperglycemia, electrolyte disturbance, anemia, hypoxia, cardiac sources, intracerebral event, toxicologic, neurologic, as well as other pathologies. ER treatment provided: See below Diagnostics interpreted by me: ECG: EKG was obtained in the emergency department. My interpretation is sinus rhythm at 98 bpm. Frequent PACs were noted. There were no PVCs. There was no acute ST segment abnormalities noted. This was compared to a tracing from September 02, 2019. The PACs are new otherwise no specific changes are noted. Cardiac Monitoring: An order was placed for continuous cardiac monitoring. The monitor shows a rate of 89 bpm with sinus rhythm. Laboratory studies: As stated above and show below. Imaging studies: See below Consultation(s): I discussed this case with Jackie who is [facility] ED COURSE: Procedures: none PDMP:reviewed and no issues Critical Care: I have personally spent greater than 40 minutes of critical care time in the direct management of this patient. This includes bedside care, interpretation of diagnostic studies, and testing, discussion with consultants, patient, and family members, and other required patient management activities. This 40 minutes is in excess of all separately billable procedures. Past Med/Surg History Medical History (Updated 07/08/20 @ 14:46 by Jackie Desai PA-C) Anxiety Diabetes mellitus, type 2 NIDDM Foot drop, right GERD (gastroesophageal reflux disease) Hearing deficit BL DIOMEDE History of sciatica History of skin cancer REMOVED FROM FACE AND BACK Hyperlipidemia Hypertension Hypothyroidism Osteoarthritis Pneumonia Poor historian Snores Surgical History History of colonoscopy History of herniorrhaphy BL INGUINAL History of left cataract surgery Family History Brother Stroke Mother Breast cancer Sister Breast cancer Social History Smoking Status: Never smoker Second Hand Exposure: No; Hx Alcohol Use: No Hx Substance Use: No Preferred Language: [place] Zealander Communication Ability: Effective Manager Employee Benefits Required: No Beliefs That Will Affect Care: None Current Living Situation: Spouse Feels Safe at Home: Yes Assistive Devices: Glasses Allergies Allergies Allergy/AdvReac Type Severity Reaction Status Date / Time lisinopril AdvReac Intermediate cough Verified 07/08/20 12:16 Home Meds Home Medications Medication Instructions Recorded Confirmed atorvastatin 10 mg PO QPM 10/22/18 07/08/20 levothyroxine 75 mcg PO QAM 10/22/18 07/08/20 metformin 500 mg PO BIDM 10/22/18 07/08/20 cholecalciferol (vitamin D3) 2,000 unit PO QAM 09/02/19 07/08/20 [Vitamin D3] clopidogrel 75 mg PO DAILY 07/08/20 07/08/20 Results & Data (ED) Vital Signs Vital Signs - 24 hr 07/08/20 11:04 07/08/20 11:31 07/08/20 11:38 Temperature 36.8 C Temperature Source Oral Pulse Rate 92 H 92 H 98 H Pulse Rate from SpO2 Sensor 99 H 99 H Respiratory Rate 20 19 24 Respiratory Effort / Characteristics Non-Labored Spontaneous Respiratory Depth Normal Respiratory Pattern Regular Blood Pressure 148/82 H 150/99 H Blood Pressure Mean 104 107 Pulse Oximetry 96 95 96 Oxygen Delivery Method Room Air Sepsis Recent Fever Within 48 Hours No Sepsis New/Unexplained Change in Mental Status N/A Sepsis Action Taken by Nursing No Action Required 07/08/20 11:45 07/08/20 12:00 07/08/20 12:15 Temperature Temperature Source Pulse Rate 93 H 79 118 H Pulse Rate from SpO2 Sensor 100 H 119 H 117 H Respiratory Rate 24 23 24 Respiratory Effort / Characteristics Respiratory Depth Respiratory Pattern Blood Pressure 132/85 Blood Pressure Mean 102 Pulse Oximetry 94 94 94 Oxygen Delivery Method Sepsis Recent Fever Within 48 Hours Sepsis New/Unexplained Change in Mental Status Sepsis Action Taken by Nursing 07/08/20 12:30 07/08/20 12:31 07/08/20 12:45 Temperature Temperature Source Pulse Rate 111 H 104 H 101 H Pulse Rate from SpO2 Sensor 103 H 105 H 102 H Respiratory Rate 19 17 Respiratory Effort / Characteristics Respiratory Depth Respiratory Pattern Blood Pressure 115/75 Blood Pressure Mean 80 Pulse Oximetry 95 98 99 Oxygen Delivery Method Sepsis Recent Fever Within 48 Hours Sepsis New/Unexplained Change in Mental Status Sepsis Action Taken by [facility] Medications Current Medication List: was personally reviewed by me Laboratory Data Attestation: I reviewed the patient's lab results. Result diagrams: 07/08/20 11:15 07/08/20 11:15 Lab Results 07/08/20 07/08/20 07/08/20 Range/Units 11:15 11:15 11:15 WBC 6.18 (4.8-10.8) K/uL RBC 4.96 (4.7-6.1) M/uL Hgb 14.4 (14.0-18.0) g/dL POC Hgb (14.0-18.0) g/dl Hct 43.7 (42-52) % POC Hct (42-52) % MCV 88.1 (80-100) fL MCH 29.0 (25-34) pg MCHC 33.0 (32-36) g/dL RDW Std Deviation 45.3 (36.4-46.3) fL RDW Coeff of Umesh 14.0 (11.5-14.5) % Plt Count 138 (130-400) K/uL MPV 9.7 (7.4-10.4) fL Immature Gran % (Auto) 0.3 % Neut % (Auto) 66.9 % Lymph % (Auto) 16.7 % Motley % (Auto) 14.4 % Eos % (Auto) 1.5 % Baso % (Auto) 0.2 % Neut # (Auto) 4.14 (1.4-6.5) K/uL Lymph # (Auto) 1.03 L (1.2-3.4) K/uL Motley # (Auto) 0.89 H (0.11-0.59) K/uL Eos # (Auto) 0.09 (0-0.5) K/uL Baso # (Auto) 0.01 (0-0.2) K/uL Immature Gran # (Auto) 0.02 (0.00-0.02) K/uL PT 10.7 (9.0-12.0) Seconds INR 1.0 (0.9-1.1) APTT 24.4 (21.0-31.0) Seconds PTT Ratio 0.9 POC Sodium (135-144) mmol/L Sodium 136 (136-145) mmol/L POC Potassium (3.3-5.0) mmol/L Potassium 4.5 (3.5-5.1) mmol/L POC Chloride (101-112) mmol/L Chloride 107 (98-107) mmol/L Carbon Dioxide 24 (21-32) mmol/L POC Total CO2 (24-31) mmol/L Anion Gap 5.0 (3-11) POC Anion Gap (16-25) mmol/L POC BUN (7-18) mg/dl BUN 51 H (7-18) mg/dl Creatinine 2.07 H (0.6-1.4) mg/dl POC Creatinine (0.6-1.3) mg/dl Est Cr Clr Drug Dosing 31.9 ml/min Est GFR ( Amer) 33.3 Est GFR (Non-Af Amer) 28.8 BUN/Creatinine Ratio 24.8 H (10-20) Glucose 157 H (70-99) mg/dl POC Glucose (other) (70-99) mg/dl Calcium 8.7 (8.5-10.1) mg/dl POC Ioniz Calcium Ulices (1.12-1.32) mmol/l Magnesium 2.1 (1.8-2.4) mg/dl Total Bilirubin 0.5 (0.2-1) mg/dl AST 21 (15-37) U/L ALT 22 (12-78) U/L Alkaline Phosphatase 100 (45-117) U/L Troponin I < 0.015 (0-0.045) ng/ml Total Protein 8.0 (6.4-8.2) gm/dl Albumin 3.9 (3.4-5.0) gm/dl Globulin 4.1 H (2.5-4.0) gm/dl Albumin/Globulin Ratio 1.0 (0.9-2) SARS-CoV-2, RNA, NAAT (NEGATIVE) SARS-CoV-2 Ag (Rapid) (Negative) 07/08/20 07/08/20 07/08/20 Range/Units 11:32 13:52 Unknown WBC (4.8-10.8) K/uL RBC (4.7-6.1) M/uL Hgb (14.0-18.0) g/dL POC Hgb 15.3 (14.0-18.0) g/dl Hct (42-52) % POC Hct 45 (42-52) % MCV (80-100) fL MCH (25-34) pg MCHC (32-36) g/dL RDW Std Deviation (36.4-46.3) fL RDW Coeff of Umesh (11.5-14.5) % Plt Count (130-400) K/uL MPV (7.4-10.4) fL Immature Gran % (Auto) % Neut % (Auto) % Lymph % (Auto) % Motley % (Auto) % Eos % (Auto) % Baso % (Auto) % Neut # (Auto) (1.4-6.5) K/uL Lymph # (Auto) (1.2-3.4) K/uL Motley # (Auto) (0.11-0.59) K/uL Eos # (Auto) (0-0.5) K/uL Baso # (Auto) (0-0.2) K/uL Immature Gran # (Auto) (0.00-0.02) K/uL PT (9.0-12.0) Seconds INR (0.9-1.1) APTT (21.0-31.0) Seconds PTT Ratio POC Sodium 139 (135-144) mmol/L Sodium (136-145) mmol/L POC Potassium 4.7 (3.3-5.0) mmol/L Potassium (3.5-5.1) mmol/L POC Chloride 106 (101-112) mmol/L Chloride (98-107) mmol/L Carbon Dioxide (21-32) mmol/L POC Total CO2 23 L (24-31) mmol/L Anion Gap (3-11) POC Anion Gap 15.0 L (16-25) mmol/L POC BUN 54 H (7-18) mg/dl BUN (7-18) mg/dl Creatinine (0.6-1.4) mg/dl POC Creatinine 1.9 H (0.6-1.3) mg/dl Est Cr Clr Drug Dosing ml/min Est GFR ( Amer) Est GFR (Non-Af Amer) BUN/Creatinine Ratio (10-20) Glucose (70-99) mg/dl POC Glucose (other) 159 H (70-99) mg/dl Calcium (8.5-10.1) mg/dl POC Ioniz Calcium Ulices 1.16 (1.12-1.32) mmol/l Magnesium (1.8-2.4) mg/dl Total Bilirubin (0.2-1) mg/dl AST (15-37) U/L ALT (12-78) U/L Alkaline Phosphatase (45-117) U/L Troponin I (0-0.045) ng/ml Total Protein (6.4-8.2) gm/dl Albumin (3.4-5.0) gm/dl Globulin (2.5-4.0) gm/dl Albumin/Globulin Ratio (0.9-2) SARS-CoV-2, RNA, NAAT POSITIVE A* (NEGATIVE) SARS-CoV-2 Ag (Rapid) Positive A* (Negative) Administered Medications Discontinued Medications Ioversol (Optiray 320 125ml) 119 ml IV ONCE ONE Stop: 07/08/20 11:20 Last Admin: 07/08/20 11:20 Dose: 119 ml Documented by: [id number] Imaging Data Radiologist's Impression: Patient: PAULINE MODI Admit Date: 07/08/20 MR#: [id number] Address1: [address] [place] [address] Acct ID:[id number] Address2: Date: 1935 [facility] Zip: [place] [address] Age: 85 Location: ED Sex: M Room/Bed: Att Phy: Diagnosis: POSSIBLE MINI STROKE Joanna Phy: Pranay Addison III, MD Service Date: 07/08/20 [facility] Phy: Interpreting Phy: Lius Rubin MD Admit Phy: Ordering Phy: Ryan Bell DO cc: ~ XR chest 1V portable CLINICAL HISTORY: weak COMPARISON STUDY: Chest radiograph 10/03/2019. FINDINGS: Lung volumes are mildly diminished. This is unchanged. There is no pneumothorax or pleural effusion. There is no evidence for pulmonary edema. Cardiomediastinal silhouette is stable. Left basilar opacity favors atelectasis. No consolidation is identified to suggest pneumonia. IMPRESSION: No significant change in appearance of the chest. Low lung volumes with left basilar opacity that favors atelectasis. ACT 112: Negative or not required by law. Electronically signed by: Luis Rubin M.D. 07/08/2020 12:38 PM Dictated: 07/08/20 1235 Transcribed: 07/08/20 1235 Patient: PAULINE MODI Admit Date: 07/08/20 MR#: [id number] Address1: [address] [place] [address] Acct ID:[id number] Address2: Date: 1935 [facility] Zip: [place] [address] Age: 85 Location: ED Sex: M Room/Bed: Att Phy: Diagnosis: POSSIBLE MINI STROKE Joanna Phy: Pranay Addison III, MD Service Date: 07/08/20 [facility] Phy: Interpreting Phy: Jason Rooney MD Admit Phy: Ordering Phy: Ryan Bell DO cc: ~ NECK CTA HISTORY: Right-sided facial droop. Slurred speech. Stroke evaluation TECHNIQUE: Multiaxial CT images of the neck were performed following the intravenous administration of contrast to evaluate the major cervical vessels. Maximum intensity projection images were also obtained. All measurements were calculated based on NASCET criteria. A dose lowering technique was utilized adhering to the principles of ALARA. COMPARISON STUDY: None. FINDINGS: The aortic arch and proximal great vessels are widely patent. There is no significant stenosis, occlusion, or dissection identified within the bilateral common carotid, internal carotid, or vertebral arteries. Mild calcified plaque within the right carotid bifurcation. IMPRESSION: No significant stenosis, occlusion, or dissection identified within the carotid or vertebral arteries. ACT 112: Negative or not required by law. Electronically signed by: Jason Rooney M.D. 07/08/2020 11:48 AM Dictated: 07/08/20 1137 Transcribed: 07/08/20 113 Patient: PAULINE MODI Admit Date: 07/08/20 MR#: [id number] Address1: [address] Acct ID:[id number] Address2: Date: 1935 [facility] Zip: [place] [address] Age: 85 Location: ED Sex: M Room/Bed: Att Phy: Diagnosis: POSSIBLE MINI STROKE Joanna Phy: Pranay Addison III, MD Service Date: 07/08/20 Fam Phy: Interpreting Phy: Luis Rubin MD Admit Phy: Ordering Phy: Ryan Bell DO cc: ~ CTA ANGIOGRAPHY OF THE HEAD CLINICAL HISTORY: Stroke evaluation. COMPARISON STUDY: MRA of the head September 03, 2019. TECHNIQUE: Helical axial images of the head were obtained following uneventful intravenous administration of 119 cc of Optiray 320. Sagittal and coronal reconstructions were viewed as well as maximal intensity projections on an independent 3-D workstation. Automated exposure control was utilized for the study. A dose lowering technique was utilized adhering to the principles of ALARA. FINDINGS: No acute intracranial hemorrhage, midline shift or mass effect is present. The ventricular system is normal. The basilar cisterns are patent. There are no extra axial collections. No findings are noted to suggest acute dural sinus thrombosis or acute territorial infarct. 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 The bilateral M1, M2, A1 and A2 segments are patent. No central vessel occlusion is noted. There is no intracranial aneurysm. Posterior circulation is intact. IMPRESSION: Unremarkable CTA of the head. No central vessel occlusion. ACT 112: Negative or not required by law. Electronically signed by: Luis Rubin M.D. 07/08/2020 11:37 AM Dictated: 07/08/20 1129 Transcribed: 07/08/20 1133 Patient: PAULINE MODI Admit Date: 07/08/20 MR#: [id number] Address1: [address] [facility] Acct ID:[id number] Address2: Date: 1935 [facility] Zip: [place] [address] Age: 85 Location: ED Sex: M Room/Bed: Att Phy: Diagnosis: POSSIBLE MINI STROKE Joanna Phy: Pranay Addison III, MD Service Date: 07/08/20 [facility] Phy: Interpreting Phy: Luis Rubin MD Admit Phy: Ordering Phy: Ryan Bell, cc: ~ CT OF THE HEAD WITHOUT CONTRAST CLINICAL HISTORY: Stroke evaluation. Right-sided facial droop. Slurred speech. COMPARISON STUDY: Head CT September 02, 2019. MRI of the brain September 03, 2019. TECHNIQUE: Helical axial images of the head were obtained without IV contrast. Automated exposure control was utilized for the study. A dose lowering technique was utilized adhering to the principles of ALARA. FINDINGS: No acute intracranial hemorrhage, midline shift or mass effect is present. Note is made of an old infarct within left caudate head measures 1.1 cm. The ventricular system is unremarkable. The basal cisterns are patent. No extra-axial collections are present. There are no findings to suggest acute dural sinus thrombosis or acute territorial infarct. No significant calvarial abnormalities are present. Visualized portions of the sinuses and mastoid air cells are clear. IMPRESSION: No acute intracranial findings. ACT 112: Negative or not required by law. Electronically signed by: Luis Rubin M.D. 07/08/2020 11:33 AM Dictated: 07/08/20 1128 Transcribed: 07/08/20 1129 Blood Pressure Blood Pressure Findings: Normal blood pressure Discharge Plan Visit Data Chief Complaint: TIA Symptoms Stated Complaint: POSSIBLE MINI STROKE ED Provider: Ryan Bell Discharge Problem: Acute CVA (cerebrovascular accident), Dysarthria Patient Disposition: Being Evaluated by Hospitalist Condition: Good Forms Stand Alone Forms: My [facility] rankdesk Prescriptions Prescriptions: No Action metformin 500 mg Tablet 500 mg PO BIDM RF: 0 atorvastatin 10 mg Tablet 10 mg PO QPM RF: 0 levothyroxine 75 mcg Tablet 75 mcg PO QAM RF: 0 clopidogrel 75 mg tablet 75 mg PO DAILY RF: 0 cholecalciferol (vitamin D3) [Vitamin D3] 2,000 unit Tablet 2,000 unit PO QAM RF: 0 Referrals Referrals: Pranay Addison MD [Primary Care Provider] -
[2020-07-08 12:11] LABS: Alkaline Phosphatase 100 U/L (45-117); Bilirubin,Total 0.5 mg/dl (0.2-1); Globulin 4.1 gm/dl (2.5-4.0); Troponin I < 0.015 ng/ml (0-0.045)
--- NOTE | 2020-07-08 12:40 | XRay Report ---
XR chest 1V portable CLINICAL HISTORY: weak COMPARISON STUDY: Chest radiograph 10/03/2019. FINDINGS: Lung volumes are mildly diminished. This is unchanged. There is no pneumothorax or pleural effusion. There is no evidence for pulmonary edema. Cardiomediastinal silhouette is stable. Left basi lar opacity favors atelectasis. No consolidation is identified to suggest pneumonia. IMPRESSION: No significant change in appearance of the chest. Low lung volumes with left basilar opa city that favors atelectasis. ACT 112: Negative or not required by law. Electronically signed by: Luis Rubin M.D. 07/08/2020 12:38 PM
--- NOTE | 2020-07-08 12:58 | Electrocardiogram Report ---
Test Reason : Blood Pressure : / mmHG Vent. Rate : 098 BPM Atrial Rate : 098 BPM P-R Int : 170 ms QRS Dur : 104 ms QT Int : 348 ms P-R-T Axes : 031 -35 015 degrees QTc Int : 444 ms Sinus rhythm with Premature atrial complexes Left axis deviation Poor R wave progression, consider anterior AR vs. lead placement vs. LVH Abnormal ECG When compared with ECG of 02-SEP-2019 20:26, Premature atrial complexes are now Present Confirmed by Ryan Orr ([id number]) on 07/08/2020 12:58:24 PM Referred By: REFERRED SELF Confirmed By:Ryan Orr
--- NOTE | 2020-07-08 13:20 | History & Physical Report ---
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 In ED he remained hemodynamically stable. He was mildly hypertensive. His CBC was generally unremarkable, CMP notable for elevated BUN 15, creatinine 2.07, glucose 157. He underwent head CT and CTA of head neck which revealed old left caudate infarct 1.1 cm but otherwise no other abnormality. He was recommended for admission for further stroke work-up. Of significance patient was hospitalized 08/2019 secondary to difficulty with speech. During that admission he was already on aspirin. MRI confirmed left caudate infarct. He was then placed on aspirin and Plavix regimen for 21 days and then Plavix therapy alone. admit to PCU consult neuro keep NPO until seen by speech rectal ASA 300mg MRI PT/OT/ST pema cantor anabel a.m. echocardiogram 08/2019 revealed EF 55 to 60%, aortic valve sclerosis, mild MR/TR, no ASD when NPO lifted increase statin to 40mg daily and continue plavix (3) Diabetes mellitus, type 2: last a1C 7.8 06/20/20 hold metformin recommend stricter control given recurrent stroke lantus/novolog per protocol (4) Hypertension: pt with hx of hypertension allow for permissive HTN currently not on any oral antihypertensives (5) Hyperlipidemia: continue statin increase from 10mg to 40mg when NPO lifted (6) CKD (chronic kidney disease) stage 3, GFR 30-59 ml/min: baseline cr 1.4-1.9 bun/cr 51 and 2.07 monitor renal fxn NSS 80cc/hr x 2 L - pt did have CTAs hold metformin, avoid nephrotoxic agents (7) Hypothyroidism: on levothyroxine as outpt (8) DVT prophylaxis: SCD/TEDS for now Disposition: admit to PCU Follow up: PCP Dr. Addison upon discharge Pt was seen and examined in collaboration with Dr. Deleon, please see addendum History of Present Illness Chief Complaint: Difficulty speaking and left-sided facial droop since this morning at 6 AM. 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 His last known time well was 8 PM last evening when he went to bed. is at bedside. He states when he woke up this morning he had difficulty speaking and getting words out, mild left facial droop and when he went for breakfast and try to drink his coffee it came out his left side. He denies any difficulty swallowing and did take his medications this morning including Plavix, Metformin, vitamin D and atorvastatin. He states he has been compliant with his Plavix. He denies any extremity weakness, fever, chills, sweats, dizziness, lightheadedness, headache, change in vision or hearing, sore throat, URI symptoms, chest pain, shortness of breath, nausea, vomiting, abdominal pain, change in bowel or urinary habits. He does have a chronic cough and attributes to postnasal drip but denies any change. He does admit to weight loss approximately 10 pounds over the last 2 weeks. He states over the last year or so he is went from 240 down to 200. feels he is not eating as well. confirms above symptoms. Of significance in [facility] patient is found under [facility]. In ED he remained hemodynamically stable. He was mildly hypertensive. His CBC was generally unremarkable, CMP notable for elevated BUN 15, creatinine 2.07, glucose 157. He underwent head CT and CTA of head neck which revealed old left caudate inf arct 1.1 cm but otherwise no other abnormality. He was recommended for admission for further stroke work-up. Of significance patient was hospitalized 08/2019 secondary to difficulty with speech. During that admission he was already on aspirin. MRI confirmed left caudate infarct. He was then placed on aspirin and Plavix regimen for 21 days and then Plavix therapy alone. Allergies Allergy/AdvReac Type Severity Reaction Status Date / Time lisinopril AdvReac Intermediate cough Verified 07/08/20 12:16 Home Medications Medication Instructions Recorded Confirmed Type atorvastatin 10 mg PO QPM 10/22/18 07/08/20 History levothyroxine 75 mcg PO QAM 10/22/18 07/08/20 History metformin 500 mg PO BIDM 10/22/18 07/08/20 History cholecalciferol (vitamin D3) 2,000 unit PO QAM 09/02/19 07/08/20 History [Vitamin D3] clopidogrel 75 mg PO DAILY 07/08/20 07/08/20 History Past Med/Surg History Medical History (Updated 07/08/20 @ 14:46 by Jackie Desai PA-C) Anxiety Diabetes mellitus, type 2 NIDDM Foot drop, right GERD (gastroesophageal reflux disease) Hearing deficit [facility] [place] History of sciatica History of skin cancer REMOVED FROM FACE AND BACK Hyperlipidemia Hypertension Hypothyroidism Osteoarthritis Pneumonia Poor historian [employer] Surgical History History of colonoscopy History of herniorrhaphy [facility] [place] History of left cataract surgery Family History Brother Stroke Mother Breast cancer Sister Breast cancer Social History Smoking Status: Never smoker Second Hand Exposure: No; Do You Dip or Chew Tobacco: No; Tobacco Cessation Education Requested by Patient: No Hx Alcohol Use: No Hx Substance Use: No Preferred Language: [place] Communication Ability: Effective 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 Beliefs That Will Affect Care: None Current Living Situation: Spouse Other Information That Helps Us Care for You: No Feels Safe at Home: Yes Safety Concerns: Feels Safe At This Time Assistive Devices: None Review of Systems Review of Systems: All systems reviewed & are unremarkable except as noted in HPI & below Physical Exam Physical Exam: Constitutional: WD/WN, vitals as above, NAD, sitting up in bed, pleasant, conversing easily, but does have slurred speech Head: Normocephalic, Atraumatic Eyes: PERRL, conjunctivae normal, anicteric sclerae ENMT: external ear and nose normal, oropharynx normal, uvula midline elevates upon phonation Neck: trachea midline, no thyromegaly normal visual inspection Respiratory: normal respiratory effort, lungs clear to auscultation, no wheeze, rales, rhonchi. Normal insp/exp effort, no accessory muscle use Cardiovascular: RRR, 1/6 LUIS ENRIQUE noted RUSB, no radiation to carotid,no edema Vessels: no JVD or carotid bruit Chest: normal inspection of chest Abdomen: normal bowel sounds, soft, nontender, no hepatosplenomegaly Musculoskeletal: no cyanosis or clubbing, extremities motor strength 5/5 Skin: no rashes, warm and dry normal turgor Neurologic: PERRL, EOMI, accommodation nl, trace left facial droop, positive dysarthria CN's II-XI otherwise intact bilaterally and moves all extremities, point to point intact Psychiatric: A+Ox3, euthymic affect : deferred Results & Data Results & Data ([facility]) Vital Signs (Past 12 Hours) Vital Signs Temp Pulse Resp BP Pulse Ox 07/08/20 11:45 93 H 24 94 07/08/20 11:38 98 H 24 96 07/08/20 11:31 92 H 19 150/99 H 95 07/08/20 11:04 36.8 C 92 H 20 148/82 H 96 Laboratory Results Short CBC 07/08/20 07/08/20 Range/Units 11:15 11:15 WBC 6.18 (4.8-10.8) K/uL Hgb 14.4 (14.0-18.0) g/dL Hct 43.7 (42-52) % Plt Count 138 (130-400) K/uL Creatinine 2.07 H (0.6-1.4) mg/dl BMP 07/08/20 11:15 Sodium 136 Potassium 4.5 Chloride 107 Carbon Dioxide 24 BUN 51 H Creatinine 2.07 H Glucose 157 H Calcium 8.7 Cardiac Enzymes 07/08/20 Range/Units 11:15 Troponin I < 0.015 (0-0.045) ng/ml Liver Function 07/08/20 Range/Units 11:15 Total Bilirubin 0.5 (0.2-1) mg/dl AST 21 (15-37) U/L ALT 22 (12-78) U/L Alkaline Phosphatase 100 (45-117) U/L Albumin 3.9 (3.4-5.0) gm/dl Diagnostic Findings CXR: IMPRESSION: No significant change in appearance of the chest. Low lung volumes with left basilar opacity that favors atelectasis. Head/Neck CTA: IMPRESSION: No significant stenosis, occlusion, or dissection identified within the carotid or vertebral arteries. IMPRESSION: Unremarkable CTA of the head. No central vessel occlusion. Head CT: FINDINGS: No acute intracranial hemorrhage, midline shift or mass effect is present. Note is made of an old infarct within left caudate head measures 1.1 cm. The ventricular system is unremarkable. The basal cisterns are patent. No extra-axial collections are present. There are no findings to suggest acute dural sinus thrombosis or acute territorial infarct. No significant calvarial abnormalities are present. Visualized portions of the sinuses and mastoid air cells are clear. IMPRESSION: No acute intracranial findings. Medications Administered Discontinued Medications Ioversol (Optiray 320 125ml) 119 ml IV ONCE ONE Stop: 07/08/20 11:20 Last Admin: 07/08/20 11: Dose: 119 ml Documented by: [id number] ECG Rate (beats per minute): 98 Rhythm: normal sinus Findings: + PAC Code Status & VTE Plan Code Status Full Code VTE Prophylaxis Plan VTE Prophylaxis will be ordered: Yes Supervising Physician Co-Signing Physician Notes Patient is an 85-year-old male with history of diabetes, hypertension, hyperlipidemia, hypothyroidism, pulmonary fibrosis, history of CVA and other medical problems presents with history of dysarthria, expressive aphasia and left-sided facial droop since this morning. Denies any focal weakness of extremities. He denies any odynophagia. Also denies chest pain, shortness of breath, dizziness. He admits to drinking coffee this morning which came out from left side. He also had chronic cough which she attributes to postnasal drip. Please review HPI for complete details of presentation. He was tested positive for Covid screen while in ED. CT head, head CTA, neck CTA were unremarkable. On exam patient is well-built and nourished, no apparent distress, normocephalic atraumatic,+ slurred speech, lungs--normal breath sounds, clear to auscultation, S1-S2,+ tachycardia, soft systolic murmur, no pedal edema, abdomen soft, nontender, normal bowel sounds, alert, awake, oriented, grossly no focal deficits other than dysarthria. Patient is admitted for management of strokelike symptoms. Unable to get MRI brain given positive Covid screen. Will repeat CT head tomorrow. Will consult neurology for input. Continue Plavix, Lipitor and consider adding aspirin if repeat CT suggestive of acute CVA. Monitor on telemetry to rule out any arrhythmias. Patient received aspirin suppository in ED. Agree with checking lipid panel, echo. Currently patient is saturating well on room air. He does not meet any criteria for remdesivir or dexamethasone. Will monitor for any desaturation. Covid markers will be checked. Will request speech eval, PT OT. I personally reviewed the record. Patient is interviewed and examined at bedside. Patient's care is coordinated with Jackie Desai PA-C. Please refer to the documentation above for details of patient's presentation and for discussion of other issues.
[2020-07-08] MEDS ORDERED: SODIUM CHLORIDE 0.9% 500 ML IV ONE (14:44)
[2020-07-08] MEDS ORDERED: ASPIRIN 300 MG SUPP PR ONE (18:30)
[2020-07-08] MEDS ORDERED: ONDANSETRON INJ 2 MG/ML 2 ML VIAL IV PRN (18:47)
[2020-07-08] MEDS ORDERED: DEXTROSE 50% 50 ML SYRINGE IV PRN (18:47)
[2020-07-08] MEDS ORDERED: GLUCAGON FOR INJ 1 MG VIAL SQ PRN (18:47)
[2020-07-08] MEDS ORDERED: GLUCOSE 10 TABS/TUBE PO PRN (18:47)
[2020-07-08] MEDS ORDERED: PHARMACIST DISCHARGE MED REC CONSULT PRN (18:47)
[2020-07-08] MEDS ORDERED: CARBOHYDRATES FOR HYPOGLYCEMIA PO PRN (18:47)
[2020-07-08] MEDS ORDERED: GLUCOSE 40% GEL 15 GM TUBE PO PRN (18:47)
[2020-07-08 20:02] LABS: D Dimer 470 ug/L FEU (0-500)
[2020-07-08 20:14] LABS: C Reactive Protein 1.32 mg/dl (0-0.29)
[2020-07-08] MEDS: INSULIN ASPART 100 UNITS/ML 3 ML PEN SC SCH ×2 (20:34→20:35)
[2020-07-08] MEDS: INSULIN GLARGINE SOLOSTAR 100 UNITS/ML 3 ML PEN SC SCH (20:35)
[2020-07-08] MEDS: SODIUM CHLORIDE 0.9% 1000ML 1,000 ML IV SCH (22:06)
[2020-07-08] MEDS: HEPARIN SOD 5,000 UNIT/0.5 ML VIAL SQ SCH (22:07)
[2020-07-09] MEDS: HEPARIN SOD 5,000 UNIT/0.5 ML VIAL SQ SCH ×3 (06:24→21:24)
[2020-07-09] MEDS: LEVOTHYROXINE SODIUM 75 MCG TABLET PO SCH (06:24)
[2020-07-09 06:49] LABS: Basophils # (auto) 0.01 K/uL (0-0.2); Basophils % (auto) 0.2 %; Eosinophils # (auto) 0.06 K/uL (0-0.5); Eosinophils % (auto) 1.2 %; Hematocrit (blood only) 41.9 % (42-52); Hemoglobin 13.8 g/dL (14.0-18.0); Immature Granulocytes # (auto) 0.01 K/uL (0.00-0.02); Immature Granulocytes % (auto) 0.2 %; Lymphocytes # (auto) 0.86 K/uL (1.2-3.4); Mean Corpuscular Hemoglobin 28.6 pg (25-34); Mean Corpuscular Hgb Conc 32.9 g/dL (32-36); Mean Corpuscular Volume 86.7 fL (80-100); Mean Platelet Volume 9.6 fL (7.4-10.4); Monocytes # (auto) 0.58 K/uL (0.11-0.59); Monocytes % (auto) 11.5 %; Neutrophils # (auto) 3.53 K/uL (1.4-6.5); Neutrophils % (auto) 69.9 %; Platelet Count 124 K/uL (130-400); RDW Coefficient of Variation 14.1 % (11.5-14.5); RDW Standard Deviation 44.1 fL (36.4-46.3); Red Blood Count 4.83 M/uL (4.7-6.1); White Blood Count 5.05 K/uL (4.8-10.8)
[2020-07-09 07:28] LABS: BUN Creatinine Ratio 25.5 (10-20); Calcium 8.2 mg/dl (8.5-10.1); Creatinine Clr Calc Pharmacy 36.3 ml/min; Est GFR (African American) 38.9; Est GFR (Non-African American) 33.6; Potassium 4.2 mmol/L (3.5-5.1)
[2020-07-09] MEDS: SODIUM CHLORIDE 0.9% 1000ML 1,000 ML IV SCH (09:27)
[2020-07-09] MEDS: CHOLECALCIFEROL 1,000 UNITS 25 MCG TAB PO SCH (09:28)
[2020-07-09] MEDS: CLOPIDOGREL BISULFATE 75 MG TAB PO SCH (09:28)
[2020-07-09] MEDS: ATORVASTATIN 40 MG TAB PO SCH (09:28)
[2020-07-09] MEDS: INSULIN GLARGINE SOLOSTAR 100 UNITS/ML 3 ML PEN SC SCH ×2 (09:30→20:53)
[2020-07-09] MEDS: INSULIN ASPART 100 UNITS/ML 3 ML PEN SC SCH ×4 (09:34→20:53)
--- NOTE | 2020-07-09 10:47 | Consultation Report ---
DATE OF CONSULTATION: 07/09/2020 REASON FOR CONSULTATION: Dysarthria. HISTORY OF PRESENT ILLNESS: The patient is an 85-year-old right-handed male with history of a left caudate stroke this year. He awakened yesterday morning with dysarthria and a left facial droop. Apparently, his last known well was 8:00 p.m. and he was not a candidate for TPA. He denied any dysphagia, change in vision, double vision, vertigo, unilateral weakness, or numbness. He was said to have a left facial droop. He denies any word finding difficulty. There is no accompanying headache. He has a chronic cough, which is unchanged. He has lost 10 pounds over the last 2 weeks, but he indicates that was voluntary. He has not had any head or neck injury. He is on Plavix monotherapy for stroke prophylaxis. The patient indicates he is somewhat improved today. PAST MEDICAL HISTORY: Notable for diabetes, right foot drop, reflux, hearing deficit, sciatica, skin cancer, hyperlipidemia, hypertension, hypothyroidism, osteoarthritis, pneumonia and snoring. PAST SURGICAL HISTORY: Colonoscopy, herniorrhaphy, bilateral inguinal hernia and left cataract surgery. SOCIAL HISTORY: Nonsmoker, nondrinker. The patient runs his own business. FAMILY HISTORY: Brother with stroke. None of his family members are currently ill. He has no known COVID exposure. HOME MEDICATIONS: Atorvastatin, levothyroxine, metformin, vitamin D3 and Plavix. ALLERGIES: LISINOPRIL WITH A SIDE EFFECT BEING COUGH. DIAGNOSTICS: White count, H and H and platelet count are normal; pCO2 is 23, BUN 54 and creatinine 2.07, which is above baseline. Glucose 157. Transaminases normal. LDL 74. COVID screen positive. Chest x-ray; low lung volumes with left basilar opacity favoring atelectasis. CTA of head and neck is unremarkable. CT of head shows an old infarct in the left caudate head. Electrocardiogram; sinus rhythm with PACs, left axis deviation. PHYSICAL EXAMINATION: VITAL SIGNS: 37.1, 109, 18, 136/86. NEUROLOGIC: The patient is awake and alert. His speech is dysarthric. He is oriented to person and place and time. No right/left confusion. Normal naming, repetitions and 3-step commands. His speech is dysarthric, possibly mildly nasally so. Pupils are equal. There is normal motility, normal visual stevenson, normal facial sensation. There is no sujatha unilateral facial weakness. Tongue appears to be midline. Tongue protrusion into cheek may be mildly weaker to the left than the right. Uvula elevates symmetrically. Gag is intact bilaterally. No tongue atrophy or fasciculations are noted. There is normal bulk and tone. There may be some mild atrophy of the tibialis anteriors bilaterally. Strength appears grossly symmetric and full. There may be some mild weakness of the left triceps and biceps, although the patient has left shoulder pain which limits the testing. There is not any obvious drift and there is not any obvious asymmetry of rapid alternating movements. His reflexes were symmetric. [id number] was mildly tremulous, but not dystaxic. [id number] was normal. Sensation is intact to light touch bilaterally. Hammer toes are noted, no peripheral embolic phenomenon noted in toes. IMPRESSION: Sudden dysarthria, suspect small stroke, localization unclear, difficult to localize due to the absence of other neurologic symptoms. Query brainstem. PLAN: MRI if MRI is able to perform on COVID positive patient. There is no urgency in getting one done, although the localization would be helpful. If it is unable to be performed could perform as outpt. Add aspirin to Plavix and patient will continue dual therapy. LDL seems close to goal, which is 70 or less. Good control of diabetes and blood pressure in the long run. The patient will need speech therapy. We will follow with you. KRISTA
--- NOTE | 2020-07-09 12:40 | CT Scan Report ---
HEAD CT NONCONTRAST CT DOSE: 614.27 mGy.cm HISTORY: Slurred speech. repeat for CVA TECHNIQUE: Multiaxial CT images of the head were performed without the use of intravenous contrast. A utomated exposure control was utilized for this study. A dose lowering technique was utilized adheri ng to the principles of ALARA. Comparison: Head CT 07/08/2020. Findings: The paranasal sinuses and mastoid air cells are clear. The calvarium and skull base are int act. There is no mass, hematoma, midline shift, acute infarct. White matter hypodensity is nonspecifi c but suggestive of microvascular ischemic change. The ventricles and sulci demonstrate mild age-rela raheem involutional changes. Old lacunar infarct within the left caudate is again noted. Impression: No significant change compared to the prior study. No acute intracranial abnormality. ACT 112: Negative or not required by law. Electronically signed by: Jason Rooney M.D. 07/09/2020 12:38 PM
[2020-07-09] MEDS: ASPIRIN 81 MG CHEW PO SCH (12:46)
--- NOTE | 2020-07-09 16:37 | Hospitalist Progress Note ---
Date of Service July 09, 2020 Assessment & Plan (1) Acute CVA (cerebrovascular accident): acute stroke deficit with confirmed finding of left frontal infarct on MRI. Cont ASA, Plavix and statin. Speech/Permissive HTN for 48 hours. PT/OT to see. PT is tolerating PO and ambulating close to baseline. He is mentating at baseline without deficits. (2) COVID-19: asymptomatic at this time and not requiring oxygen. CXR is clear. May be discharged from the hospital to quarantine with , who is also positive, at home x 10 days. (3) History of CVA (cerebrovascular accident): Has been on Plavix monotherapy. ASA added with new deficits. No events on telemetry reviewed overnight. (4) Diabetes mellitus, type 2: uncontrolled as outpatient, basal bolus insulin for now. hold metformin. (5) Hyperlipidemia: cont Lipitor 40mg daily. (6) CKD (chronic kidney disease) stage 3, GFR 30-59 ml/min: at baseline. re-evaluate metformin use at baseline. metformin not the best agent in someone >80 yrs old. (7) Hypothyroidism: chronic, stable. Cont home Synthroid (8) DVT prophylaxis: SCDs/ambulation Full Code Dispo-dc to home in am. Juanita Sky DO [facility] Hospitalist Admission and Anticipated Discharge Date Admission Date: July 08, 2020 Subjective cc: stroke like symptoms -awoke with dysarthria and facial droop -patient denies dysphagia -reports ?some improvement in dysarthria today -denies other stroke symptoms at this time. -denies cough, fevers, chills, tested +today but is not symptomatic Review of Systems Review of Systems: All systems reviewed & are unremarkable except as noted in Subjective Physical Exam Physical Exam: CONSTITUTIONAL: WNWD, vitals as above, generally well- appearing EYES: EOMI bilaterally, PERRL, normal conjunctivae, no scleral icterus ENT: external ear and nose normal, oropharynx clear, MMM NECK: trachea midline, no lymphadenopathy RESPIRATORY: clear to auscultation bilaterally, no crackles, rales or wheezes, normal respiratory effort CARDIOVASCULAR: regular rate and rhythm, S1 and 2 heard without murmurs, gallops or rubs, no JVD, no peripheral edema GASTROINTESTINAL: soft, nontender, nondistended, no guarding MUSCULOSKELETAL: strength 5/5 throughout, head is normocephalic and atraumatic SKIN: warm and dry NEUROLOGIC: patellar DTRs 2+ bilat. PERRL, EOMI, no facial palsy, + dysarthria. CN 2-12 grossly intact, no sensory deficit, normal cognition, abnl speech, no tremor PSYCHIATRIC: alert cooperative and oriented to person, place and time. Results & Data Results & Data ([facility]) Vital Signs (Past 12 Hours) Vital Signs Temp Pulse Pulse Resp BP Pulse Ox 07/09/20 16:04 94 H 07/09/20 11:44 37.1 C 96 H 20 138/81 95 07/09/20 07:56 37.1 C 109 H 18 136/86 95 Laboratory Results Short CBC 07/09/20 Range/Units 05:58 WBC 5.05 (4.8-10.8) K/uL Hgb 13.8 L (14.0-18.0) g/dL Hct 41.9 L (42-52) % Plt Count 124 L (130-400) K/uL BMP 07/09/20 05:58 Sodium 137 Potassium 4.2 Chloride 110 H Carbon Dioxide 23 BUN 46 H Creatinine 1.82 H Glucose 121 H Calcium 8.2 L Cardiac Enzymes 07/08/20 Range/Units 19:32 Total Creatine Kinase 108 (39-308) U/L Medications Administered Current Inpatient Medications Aspirin (Aspirin 81 Mg Chew) 81 mg PO DAILY ISAEL Stop: 08/08/20 10:29 Last Admin: 07/09/20 12:46 Dose: 81 mg Documented by: Atorvastatin Calcium (Atorvastatin 40 Mg Tab) 40 mg PO QA ISAEL Stop: 08/08/20 08:59 Last Admin: 07/09/20 09:28 Dose: 40 mg Documented by: Clopidogrel Bisulfate (Clopidogrel Bisulfate 75 Mg Tab) 75 mg PO DAILY ISAEL Stop: 08/08/20 08:59 Last Admin: 07/09/20 09:28 Dose: 75 mg Documented by: Dextrose (Dextrose 50% 50 Ml Syringe) 25 - 50 ml IV UD PRN; Protocol PRN Reason: Hypoglycemia Protocol Stop: 08/07/20 18:46 Glucagon (Glucagon For Inj 1 Mg Vial) 1 mg SQ UD PRN; Protocol PRN Reason: Hypoglycemia Protocol Stop: 08/07/20 18:46 Glucose (Glucose 10 Tabs/Tube) 4 - 8 tabs PO UD PRN; Protocol PRN Reason: Hypoglycemia Protocol Stop: 08/07/20 18:46 Glucose (Glucose 40% Gel 15 Gm Tube) 15 - 30 gm PO UD PRN; Protocol PRN Reason: Hypoglycemia Protocol Stop: 08/07/20 18:46 Heparin Sodium (Porcine) (Heparin Sod 5,000 Unit/0.5 Ml Vial) 5,000 units SQ Q8 ISAEL Stop: 08/07/20 21:59 Last Admin: 07/09/20 12:54 Dose: 5,000 units Documented by: Insulin Aspart (Insulin Aspart 100 Units/Ml 3 Ml Pen) 0 units SC ACHS [facility] Stop: 08/07/20 18:46 Last Admin: 07/09/20 12:55 Dose: 2 units Documented by: Insulin Glargine (Insulin Glargine Solostar 100 Units/Ml 3 Ml Pen) 0 units SC BID [facility]; Protocol Stop: 08/07/20 20:59 Last Admin: 07/09/20 09:30 Dose: Not Given Documented by: Levothyroxine Sodium (Levothyroxine Sodium 75 Mcg Tablet) 75 mcg PO DAILYBB [facility] Stop: 08/08/20 06:29 Last Admin: 07/09/20 06:24 Dose: 75 mcg Documented by: Miscellaneous (Carbohydrates For Hypoglycemia ) 15 - 30 gm PO UD PRN PRN Reason: Hypoglycemia Protocol Stop: 08/07/20 18:46 Miscellaneous Information (Pharmacist Discharge Med Rec Consult) 1 ea N/A UD PRN PRN Reason: Consult Stop: 08/07/20 18:46 Ondansetron HCl (Ondansetron Inj 2 Mg/Ml 2 Ml Vial) 4 mg IV Q6H PRN PRN Reason: Nausea Stop: 08/07/20 18:46 Vitamin D (Cholecalciferol 1,000 Units 25 Mcg Tab) 2,000 units PO QAM [facility] Stop: 08/08/20 08:59 Last Admin: 07/09/20 09:28 Dose: 2,000 units Documented by:
--- NOTE | 2020-07-09 18:06 | Magnetic Resonance Report ---
Brain MRI WITHOUT CONTRAST HISTORY: sudden dysarthria, no other signs, cov +, TECHNIQUE: Multiplanar multisequence MRI of the brain was performed without the use of contrast. COMPARISON STUDY: Head CT 07/09/2020. FINDINGS: There is a 1 cm focus of restricted diffusion within the left frontal periventricular white matter consistent with an acute infarct. The midline structures are intact. The ventricles and sulci demonstrate mild age-related involutional changes. There is no mass, hematoma, midline shift. Mild m ucosal thickening within the paranasal sinuses. The mastoid air cells are clear. The major vascular f low-voids at the skull base are well-maintained. IMPRESSION: A 1 cm acute left frontal periventricular infarct. ACT 112: Negative or not required by law. Electronically signed by: Jason Rooney M.D. 07/09/2020 6:05 PM
[2020-07-09] MEDS ORDERED: ACETAMINOPHEN 325 MG TAB PO STA (20:07)
[2020-07-09] MEDS ORDERED: SODIUM CHLORIDE 0.9% 500 ML IV ONE (20:10)
[2020-07-09 21:27] LABS: Thyroid Stimulating Hormone 0.977 uIu/ml (0.300-4.500)
[2020-07-09 23:06] LABS: Appearance Urine Clear (Clear); Bilirubin Urine Negative (Negative); Blood Urine Negative (Negative); Color Urine Yellow; Glucose Urine UA Negative (Negative); Ketones Urine Negative (Negative); Leukocyte Esterase Urine Negative (Negative); Nitrite Urine Negative (Negative); Protein Urine 1+ (Negative); RBC Urine Automated 0-4 /hpf (0-4); Specific Gravity Urine 1.025 (1.000-1.030); Urobilinogen Urine Negative (Negative)
[2020-07-09 23:40] LABS: Bacteria Urine Automated 1+ (Negative); Mucus Urine Present (None Prsent)
[2020-07-10] MEDS: HEPARIN SOD 5,000 UNIT/0.5 ML VIAL SQ SCH ×2 (05:20→12:21)
[2020-07-10] MEDS: LEVOTHYROXINE SODIUM 75 MCG TABLET PO SCH (05:20)
[2020-07-10 06:52] LABS: Basophils # (auto) 0.01 K/uL (0-0.2); Basophils % (auto) 0.2 %; Eosinophils # (auto) 0.04 K/uL (0-0.5); Eosinophils % (auto) 0.9 %; Hematocrit (blood only) 42.3 % (42-52); Hemoglobin 13.9 g/dL (14.0-18.0); Lymphocytes # (auto) 0.82 K/uL (1.2-3.4); Lymphocytes % (auto) 18.7 %; Mean Corpuscular Hemoglobin 28.8 pg (25-34); Mean Corpuscular Hgb Conc 32.9 g/dL (32-36); Mean Corpuscular Volume 87.8 fL (80-100); Mean Platelet Volume 9.5 fL (7.4-10.4); Monocytes # (auto) 0.57 K/uL (0.11-0.59); Neutrophils # (auto) 2.95 K/uL (1.4-6.5); Neutrophils % (auto) 67.2 %; Platelet Count 121 K/uL (130-400); RDW Coefficient of Variation 14.1 % (11.5-14.5); RDW Standard Deviation 45.4 fL (36.4-46.3); Red Blood Count 4.82 M/uL (4.7-6.1); White Blood Count 4.39 K/uL (4.8-10.8)
[2020-07-10 07:19] LABS: BUN Creatinine Ratio 23.1 (10-20); Calcium 8.6 mg/dl (8.5-10.1); Creatinine Clr Calc Pharmacy 34.2 ml/min; Est GFR (African American) 36.3; Est GFR (Non-African American) 31.3; Potassium 4.2 mmol/L (3.5-5.1)
[2020-07-10] MEDS ORDERED: METOPROLOL TARTRATE 25 MG TAB PO SCH (07:55)
[2020-07-10] MEDS: CHOLECALCIFEROL 1,000 UNITS 25 MCG TAB PO SCH (08:27)
[2020-07-10] MEDS: ATORVASTATIN 40 MG TAB PO SCH (08:27)
[2020-07-10] MEDS: CLOPIDOGREL BISULFATE 75 MG TAB PO SCH (08:27)
[2020-07-10] MEDS: ASPIRIN 81 MG CHEW PO SCH (08:27)
[2020-07-10] MEDS: INSULIN GLARGINE SOLOSTAR 100 UNITS/ML 3 ML PEN SC SCH (08:28)
[2020-07-10] MEDS: INSULIN ASPART 100 UNITS/ML 3 ML PEN SC SCH ×2 (08:29→12:21)
--- NOTE | 2020-07-10 08:42 | XRay Report ---
XR chest 1V portable CLINICAL HISTORY: fever COMPARISON STUDY: 07/08/2020 FINDINGS: The heart is enlarged. There are bibasilar opacities, atelectatic versus infectious/inflamm atory. There is no overt failure. There are no large pleural effusions.[ IMPRESSION: 1. Cardiomegaly 2. Low lung volumes with bibasilar opacities, atelectatic versus infectious/inflammatory. ACT 112: Negative or not required by law. Electronically signed by: Josias Donohue M.D. 07/10/2020 8:41 AM
[2020-07-10] MEDS ORDERED: STROKE PATIENT DISCHARGE STA (14:09)
--- NOTE | 2020-07-10 14:10 | Discharge Summary ---
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 His last known time well was 8 PM last evening when he went to bed. is at bedside. He states when he woke up this morning he had difficulty speaking and getting words out, mild left facial droop and when he went for breakfast and try to drink his coffee it came out his left side. He denies any difficulty swallowing and did take his medications this morning including Plavix, Metformin, vitamin D and atorvastatin. He states he has been compliant with his Plavix. He denies any extremity weakness, fever, chills, sweats, dizziness, lightheadedness, headache, change in vision or hearing, sore throat, URI symptoms, chest pain, shortness of breath, nausea, vomiting, abdominal pain, change in bowel or urinary habits. He does have a chronic cough and attributes to postnasal drip but denies any change. He does admit to weight loss approximately 10 pounds over the last 2 weeks. He states over the last year or so he is went from 240 down to 200. feels he is not eating as well. confirms above symptoms. Of significance in [facility] patient is found under [facility]. In ED he remained hemodynamically stable. He was mildly hypertensive. His CBC was generally unremarkable, CMP notable for elevated BUN 15, creatinine 2.07, glucose 157. He underwent head CT and CTA of head neck which revealed old left caudate infarct 1.1 cm but otherwise no other abnormality. He was recommended for admission for further stroke work-up. Of significance patient was hospitalized 08/2019 secondary to difficulty with speech. During that admission he was already on aspirin. MRI confirmed left caudate infarct. He was then placed on aspirin and Plavix regimen for 21 days and then Plavix therapy alone. Admission Exam Per Admitting Provider Constitutional: WD/WN, vitals as above, NAD, sitting up in bed, pleasant, conversing easily, but does have slurred speech Head: Normocephalic, Atraumatic Eyes: PERRL, conjunctivae normal, anicteric sclerae ENMT: external ear and nose normal, oropharynx normal, uvula midline elevates upon phonation Neck: trachea midline, no thyromegaly normal visual inspection Respiratory: normal respiratory effort, lungs clear to aus cultation, no wheeze, rales, rhonchi. Normal insp/exp effort, no accessory muscle use Cardiovascular: RRR, 1/6 LUIS ENRIQUE noted RUSB, no radiation to carotid,no edema Vessels: no JVD or carotid bruit Chest: normal inspection of chest Abdomen: normal bowel sounds, soft, nontender, no hepatosplenomegaly Musculoskeletal: no cyanosis or clubbing, extremities motor strength 5/5 Skin: no rashes, warm and dry normal turgor Neurologic: PERRL, EOMI, accommodation nl, trace left facial droop, positive dysarthria CN's II-XI otherwise intact bilaterally and moves all extremities, point to point intact Psychiatric: A+Ox3, euthymic affect : deferred Principal Diagnosis Acute L frontal stroke COVID-19 positive Discharge Exam CONSTITUTIONAL: WNWD, vitals as above, generally well-appearing EYES: EOMI bilaterally, PERRL, normal conjunctivae, no scleral icterus ENT: external ear and nose normal, oropharynx clear, MMM NECK: trachea midline, no lymphadenopathy RESPIRATORY: clear to auscultation bilaterally, no crackles, rales or wheezes, normal respiratory effort CARDIOVASCULAR: regular rate and rhythm, S1 and 2 heard without murmurs, gallops or rubs, no JVD, no peripheral edema GASTROINTESTINAL: soft, nontender, nondistended, no guarding MUSCULOSKELETAL: strength 5/5 throughout, head is normocephalic and atraumatic SKIN: warm and dry NEUROLOGIC: patellar DTRs 2+ bilat. PERRL, EOMI, no facial palsy, + dysarthria. CN 2-12 grossly intact, no sensory deficit, normal cognition, abnl speech, no tremor PSYCHIATRIC: alert cooperative and oriented to person, place and time. Discharge Data Allergies Allergy/AdvReac Type Severity Reaction Status Date / Time lisinopril AdvReac Intermediate cough Verified 07/08/20 12:16 Consultations 07/08/20 12:14 ED Decision to Admit Stat 07/08/20 12:27 Consult Neurology Routine 07/08/20 18:47 Consult Case Management - Discharge Planning Routine Ordered Studies 07/08/20 11:09 CT angio head w con Stat CT angio neck with con Stat CT head/brain wo con Stat 07/09/20 09:00 CT head/brain wo con Routine 07/09/20 10:23 MR brain wo con Routine Hospital Course (1) Acute CVA (cerebrovascular accident): acute stroke deficit with confirmed finding of left frontal infarct on MRI. Cont ASA, Plavix and statin. Permissive hypertension allowed for first 48 hours. At time of discharge he was mentating and ambulating at baseline and cleared to return home by PT and OT. (2) COVID-19: asymptomatic at this time and not requiring oxygen. CXR is clear. May be discharged from the hospital to quarantine with , who is also positive, at home x 10 days. (3) History of CVA (cerebrovascular accident): Has been on Plavix monotherapy. ASA added with new deficits. No events on telemetry during this hospitalization which was reviewed. (4) Diabetes mellitus, type 2: uncontrolled as outpatient, address this as outpatient with PCP. Total Time Total Time Spent Total Time Spent (In Minutes): 60 Total Time Includes: Examination of the Patient, Discharge Planning, Medication Reconciliation and Communication With Other Providers Discharge Plan Discharge Items Patient Disposition: Home - Self-Care Reason For Visit: STROKE SYMPTOMS Discharge Diagnosis: Acute L frontal stroke COVID-19 positive Condition on Discharge: Good Activity: Resume your previous activity Non-emergency contact: Primary Care Provider Call non-emergency contact if: you have any medication questions, your symptoms worsen, your pain is not controlled, your pain is worsening and you have a fever Follow-up/Referrals: Pranay Addison MD [Primary Care Provider] - Diet: Carb Consistent or DM2 Diet Texture: Easy to Chew Addtl Attending Provider Instructions: Please take all medications as instructed on discharge list below. It is recommended that you follow-up with your primary care physician with a telehealth visit within one week of discharge from the hospital to ensure you are still doing well. Someone will contact you regarding scheduling of this after the weekend. You have been started on a low dose beta buck called metoprolol to slow your heart rate. It is probable that this may be from coronavirus infection, and that you may no longer need metoprolol after you have recovered from this infection. This will need to be re-evaluated by your primary care physician during follow-up appointments over the next couple of months. Please follow the quarantine instructions for COVID-19 per CDC guidelines, which ask those who test positive to self-quarantine away from other people for a minimum of 10 days. Only come off quarantine if during the last 3 days of this quarantine you have no fever and have improved symptoms. For further public health guidance and quarantine information, please see the references listed below. It was a pleasure taking care of you! Please call if you have any questions or problems. You can reach a [facility] hospitalist on duty at [facility] 24 hours a day by calling [phone]. Take care of yourself. Juanita Sky, DO [facility] Hospitalist Addtl [employer] Provider Instructions: Home Isolation COVID-19 Instructions The following information about Home Isolation is from the CDC Website: https://www.cdc.gov/coronavirus/2019-ncov/hcp/ombavzgd-wistrun-rcwdgp.html Stay home except to get medical care People who are mildly ill with COVID-19 are able to isolate at home during their illness. You should restrict activities outside your home, except for getting medical care. Do not go to work, school, or public areas. Avoid using public transportation, ride-sharing, or taxis. Separate yourself from other people and animals in your home People: As much as possible, you should stay in a specific room and away from other people in your home. Also, you should use a separate bathroom, if available. Animals: You should restrict contact with pets and other animals while you are sick with COVID-19, just like you would around other people. Although there have not been reports of pets or other animals becoming sick with COVID-19, it is still recommended that people sick with COVID-19 limit contact with animals until more information is known about the virus. When possible, have another member of your household care for your animals while you are sick. If you are sick with COVID-19, avoid contact with your pet, including petting, snuggling, being kissed or licked, and sharing food. If you must care for your pet or be around animals while you are sick, wash your hands before and after you interact with pets and wear a face mask. Call ahead before visiting your doctor If you have a medical appointment, call the healthcare provider and tell them that you have or may have COVID-19. This will help the healthcare providers office take steps to keep other people from getting infected or exposed. Wear a face mask You should wear a face mask when you are around other people (e.g., sharing a room or vehicle) or pets and before you enter a healthcare providers office. If you are not able to wear a face mask (for example, because it causes trouble breathing), then people who live with you should not stay in the same room with you, or they should wear a face mask if they enter your room. Cover your coughs and sneezes Cover your mouth and nose with a tissue when you cough or sneeze. Throw used tissues in a lined trash can. Immediately wash your hands with soap and water for at least 20 seconds or, if soap and water are not available, clean your hands with an alcohol-based hand student development advisor that contains at least 60% alcohol. Clean your hands often Wash your hands often with soap and water for at least 20 seconds, especially after blowing your nose, coughing, or sneezing; going to the bathroom; and before eating or preparing food. If soap and water are not readily available, use an alcohol-based hand student development advisor with at least 60% alcohol, covering all surfaces of your hands and rubbing them together until they feel dry. Soap and water are the best option if hands are visibly dirty. Avoid touching your eyes, nose, and mouth with unwashed hands. Avoid sharing personal household items You should not share dishes, drinking glasses, cups, eating utensils, towels, or bedding with other people or pets in your home. After using these items, they should be washed thoroughly with soap and water. Clean all high-touch surfaces everyday High touch surfaces include counters, tabletops, doorknobs, bathroom fixtures, toilets, phones, keyboards, tablets, and bedside tables. Also, clean any surfaces that may have blood, stool, or body fluids on them. Use a household cleaning spray or wipe, according to the label instructions. Labels contain instructions for safe and effective use of the cleaning product including precautions you should take when applying the product, such as wearing gloves and making sure you have good ventilation during use of the product. Monitor your symptoms Seek prompt medical attention if your illness is worsening (e.g., difficulty breathing).Beforeseeking care, call your healthcare provider and tell them that you have, or are being evaluated for, COVID-19. Put on a face mask before you enter the facility. These steps will help the healthcare providers office to keep other people in the office or waiting room from getting infected or exposed. Ask your healthcare provider to call the local or state health department. Persons who are placed under active monitoring or facilitated self- monitoring should follow instructions provided by their local health department or occupational health professionals, as appropriate. When working with your local health department check their available hours. If you have a medical emergency and need to call 911, notify the dispatch personnel that you have, or are being evaluated for COVID-19. If possible, put on a face mask before emergency medical services arrive. Discontinuing home isolation Patients with confirmed COVID-19 should remain under home isolation precautions until the risk of secondary transmission to others is thought to be low. The decision to discontinue home isolation precautions should be made on a [id number] basis, in consultation with healthcare providers and [facility] and [facility] departments. Risk Factors for Stroke: You can reduce your chances of stroke by working with your medical provider to adopt a healthy lifestyle. Some specific ways to lower your chance of stroke are: * If you are a smoker, now is the time to stop smoking cigarettes * If you are diabetic, improve the control of your blood sugars * Avoid excessive amounts of alcohol * Control high blood pressure * Lose weight if you are overweight * Be sure to lead an active lifestyle * Eat a healthy diet low in salt, cholesterol and fat You should know about other risk factors for stroke that you are unable to control. These include: * Age 55 years or older * Male gender * Certain racial groups: , or / * Family History of Stroke, Mini stroke or Heart Attack * Sickle Cell Disease Follow Up: It is important for you to keep your follow up appointments with your medical provider. Who to Call and When: Medical Emergencies: Call 911 immediately if you experience any of the following warning signs and symptoms of Stroke: * Sudden numbness or weakness of the face, arm or leg, especially on one side of the body * Sudden confusion, trouble speaking or understanding * Sudden trouble seeing in one or both eyes * Sudden trouble walking, dizziness, loss of balance or coordination * Sudden severe headache with no cause Do not delay calling 911 if you experience any warning signs or symptoms of a stroke. Delay in seeking medical attention may affect what treatments can be given to you. . Pending Studies at Discharge: No Stand-Alone Forms: Medications to Prevent Stroke, [facility] Medications and DC Order Prescriptions: New atorvastatin 40 mg Tablet 40 mg PO QAM Qty: 30 RF: 1 metoprolol tartrate 25 mg Tablet 12.5 mg PO BID Qty: 30 RF: 0 aspirin 81 mg tablet,delayed release (DR/EC) 81 mg PO DAILY Qty: 90 RF: 1 Continued metformin 500 mg Tablet 500 mg PO BIDM RF: 0 levothyroxine 75 mcg Tablet 75 mcg PO QAM RF: 0 clopidogrel 75 mg tablet 75 mg PO DAILY RF: 0 cholecalciferol (vitamin D3) [Vitamin D3] 2,000 unit Tablet 2,000 unit PO QAM RF: 0 Discontinued atorvastatin 10 mg Tablet 10 mg PO QPM RF: 0 Discharge Orders: Discharge Order (Routine); Ordered 07/10/20 Ordered By: Juanita Sky Admission Data Admit Date/Time: 07/10/20 00:20 Attending Provider: Juanita Sky Admit Provider: Franco Deleon Primary Care Provider: Pranay Addison Other Providers: Drea Barr ; Franco Deleon ; [facility]
--- NOTE | 2020-07-10 14:28 | Pharmacy Report ---
Pharmacist Stroke Counseling - Date of Service July 10, 2020 - Scope: Pharmacy has been consulted to provide medication discharge counseling for this patient admitted with ischemic stroke as per the Pharmacist Discharge Counseling for Stroke Patients Protocol. - Medications on Discharge: Home Medications Medication Instructions Recorded Confirmed atorvastatin 10 mg PO QPM 10/22/18 07/08/20 levothyroxine 75 mcg PO QAM 10/22/18 07/08/20 metformin 500 mg PO BIDM 10/22/18 07/08/20 cholecalciferol (vitamin D3) 2,000 unit PO QAM 09/02/19 07/08/20 [Vitamin D3] clopidogrel 75 mg PO DAILY 07/08/20 07/08/20 New Rx's Medication Instructions Recorded aspirin 81 mg PO DAILY #90 tab 07/10/20 atorvastatin 40 mg PO QAM #30 tab 07/10/20 metoprolol tartrate 12.5 mg PO BID #30 tab 07/10/20 - Action: The above medications, specifically ones for stroke treatment/prophylaxis, have been reviewed in detail with the patient and/or patient employer relations representative(s) prior to discharge. This includes indication, common adverse reactions, drug interactions, and medication administration. Medication counseling has been employed using the teach-back method to ensure understanding. - Outcome: The patient and/or patient employer relations representative(s) have demonstrated understanding of the medications. Additional comments: * Spoke with patient via phone to provide discharge counseling. He is hard of hearing and unsure how much of the information he will retain. Explained to him that everything will be written down and given to him via discharge packe t. * Explained medication changes - atorvastatin incr' to 40mg (he can finish off old 10mg tablets by taking 4 of them); new metoprolol 12.5mg BID (noted tachycardia during admission); new aspirin (he is already taking clopidogrel 75mg) - advised to monitor for bleeding/bruising problems * Patient also has COVID; advised importance of quarantine. He should have family sampler pickup Rx's. Thank you for allowing pharmacy to be involved in the care of this patient. Please call [phone] with any additional questions
== END 2020-07-10 14:40 | disposition home or self-care (01) | DRG 64 ==
LOC: ED 11:03 → 2E 11:03 → SUATTDRO 12:27 → 2E 17:31

== ENCOUNTER 2022-02-08 09:50 | Inpatient (IN) ==
[~2022-02-08 09:50] MED LIST: ETOMIDATE 2 MG/ML 20 ML VIAL IV ONE; SUCCINYLCHOLINE CHLORIDE 20 MG/ML 10 ML VIAL IV ONE
[2022-02-08] MEDS ORDERED: RAPID SEQUENCE INDUCTION BAG ONE (09:55)
[2022-02-08] MEDS ORDERED: MIDAZOLAM BOLUS FROM BAG IV PRN (10:07)
[2022-02-08] MEDS ORDERED: STAT IV Infusion **Titration per Protocol STA ×4 (10:07→16:11)
[2022-02-08] MEDS ORDERED: fentaNYL citrate 2,500 MCG/250 ML BAG IV ONE (10:09)
[2022-02-08] MEDS ORDERED: MIDAZOLAM HCL 1 MG/ML 2ML VIAL ONE (10:11)
[2022-02-08] MEDS: fentaNYL citrate 2,500 MCG/250 ML BAG IV SCH (10:14)
[2022-02-08] MEDS ORDERED: SODIUM CHLORIDE 0.9% 1000ML 1,000 ML IV SCH ×3 (10:15→15:12)
[2022-02-08] MEDS ORDERED: PIPERACILLIN/TAZOBACTAM 4.5 GM/120 ML BAG IV ONE (10:17)
[2022-02-08] MEDS: MIDAZOLAM HCL 125 MG/250 ML BAG IV PRN (10:18)
--- NOTE | 2022-02-08 10:35 | XRay Report ---
XR chest 1V portable CLINICAL HISTORY: Dyspnea TECHNIQUE: Single frontal radiograph of the chest was obtained. Comparison: Comparison is made to chest radiograph 07/09/2020 FINDINGS: Endotracheal tube is seen with its tip 5 cm above the judith. The cardiomediastinal silhouette is sta ble. Lungs are underinflated but clear. No evidence of pleural effusion or pneumothorax. IMPRESSION: Endotracheal tube tip is 5 cm above the judith, satisfactory. ACT 112: Negative or not required by law. Electronically signed by: Seth Carrasco M.D. 02/08/2022 10:33 AM
--- NOTE | 2022-02-08 11:04 | CT Scan Report ---
CT head/brain wo con CLINICAL HISTORY: ACEVEDO resp failure COMPARISON STUDY: 07/09/2020 CT DOSE: 1377.16 mGycm TECHNIQUE: Standard CT of the Brain was performed without IV contrast. A dose lowering technique was utilized adhering to the principles of ALARA. FINDINGS: Extraaxial space: There is no evidence for subdural hematoma. There are no extra-axial fluid collecti ons. Ventricles and cisterns: The ventricles are mildly dilated bilaterally. There is no evidence for midl ine shift or mass effect. Parenchyma: There is no subarachnoid or intraparenchymal hemorrhage. There is no evidence for an acut e infarct or cerebral edema. There is mild cerebral cortical atrophy and decreased attenuation in the periventricular white matter representing remote small vessel disease. There are no gross mass lesio ns. Osseous structures: There is no evidence for an acute fracture. There is mild mucosal thickening invo lving the ethmoid air cells bilaterally. The remaining visualized paranasal sinuses are clear. The ma stoid air cells are clear bilaterally. Soft tissues: There is no evidence for focal soft tissue swelling. IMPRESSION: 1. No acute intracerebral pathology. 2. Mild cerebral cortical atrophy and remote small vessel disease. ACT 112: Negative or not required by law. Electronically signed by: Daniel Oliver M.D. 02/08/2022 11:02 AM
[2022-02-08 11:12] LABS: iSTAT Arterial Blood Gas HCO3 18 meg/L (19-24); iSTAT Arterial Blood Gas pCO2 42 mmHg (35-46); iSTAT Arterial Blood Gas pH 7.25 (7.35-7.45); iSTAT Arterial Blood Gas pO2 280 mmHg (80-95); iSTAT Carbon Dioxide 20 mmol/L (24-31); iSTAT Hematocrit 38 % (42-52); iSTAT Hemoglobin 12.9 g/dl (14.0-18.0); iSTAT Potassium 4.3 mmol/L (3.3-5.0); iSTAT Sodium 140 mmol/L (135-144)
[2022-02-08 11:24] LABS: Appearance Urine Cloudy (Clear); Bacteria Urine Automated Negative (Negative); Bilirubin Urine Negative (Negative); Blood Urine 3+ (Negative); Color Urine Dark Yellow; Epithelial Cell Urine Auto 20-30 /lpf (0-5); Glucose Urine UA Negative (Negative); Ketones Urine Trace (Negative); Leukocyte Esterase Urine Negative (Negative); Nitrite Urine Negative (Negative); Protein Urine 2+ (Negative); Specific Gravity Urine 1.017 (1.000-1.030); Urobilinogen Urine Negative (Negative)
[2022-02-08 11:27] LABS: INR 1.4 (0.9-1.1); Partial Thromboplastin Ratio 1.2; Partial Thromboplastin Time 32.8 Seconds (21.0-31.0); Prothrombin Time 15.1 Seconds (9.0-12.0)
[2022-02-08 11:36] LABS: Anion Gap 11 (3-11); BUN Creatinine Ratio 21.7 (10-20); Blood Urea Nitrogen 61 mg/dl (6-23); Calcium 8.2 mg/dl (8.5-10.1); Carbon Dioxide 16 mmol/L (21-32); Chloride 112 mmol/L (98-107); Est GFR (African American) 22.9 ml/min; Est GFR (Non-African American) 19.7 ml/min; Glucose 123 mg/dl (70-99(Fasting)); Potassium 4.3 mmol/L (3.5-5.1); Sodium 139 mmol/L (136-145)
[2022-02-08 11:43] LABS: iSTAT Hemoglobin 12.9 g/dl (14.0-18.0); iSTAT Ionized Calcium 1.17 mmol/l (1.12-1.32); iSTAT Potassium 4.4 mmol/L (3.3-5.0)
[2022-02-08 11:53] LABS: Amorphous Sediment Urine Present (None Prsent)
[2022-02-08 11:57] LABS: Hematocrit (blood only) 39.1 % (42-52); Hemoglobin 13.1 g/dL (14.0-18.0); Mean Corpuscular Hemoglobin 29.5 pg (25-34); Mean Corpuscular Hgb Conc 33.5 g/dL (32-36); Mean Corpuscular Volume 88.1 fL (80-100); Mean Platelet Volume 10.1 fL (7.4-10.4); Platelet Count 88 K/uL (130-400); RDW Coefficient of Variation 13.6 % (11.5-14.5); RDW Standard Deviation 44.3 fL (36.4-46.3); Red Blood Count 4.44 M/uL (4.7-6.1); White Blood Count 10.51 K/uL (4.8-10.8)
--- NOTE | 2022-02-08 11:57 | History & Physical Report ---
Date of Service February 08, 2022 Assessment & Plan (1) Acute respiratory failure with hypoxia: (2) AUBREE (acute kidney injury): (3) CKD (chronic kidney disease) stage 3, GFR 30-59 ml/min: (4) Elevated troponin: (5) Rhabdomyolysis: Plan: - Admit to ICU status post intubation and sedation -Initially was found to be hypoxic with O2 sats in the 70s by EMS in the field -Concern for pulmonary embolism with patient history of CVA, tachycardia, hypoxia, confusion - ABG: pH 7.25, PO2 280, HCO3 18, Co2 20 -Due to renal function, Cr. 2.8 (baseline 1.7) will hold off on CTA of the head neck and chest, if improvement in renal function tomorrow consider scanning -Start IV heparin without bolus to treat for likely underlying pulmonary embolism - no hx of bleeding, no anemia, mild hematuria possible due to cueto cath placement. -Continue supportive care with intubation/ventilation -BP is tenuous while on Versed and fentanyl, will monitor closely in the ICU, 80/60 currently, consider pressor support if no improvement after 3rd liter which is currently running in, will continue IVF with NSS at 150 mL/h after that -Blood cultures and urine cultures pending - UA appears to be grossly infected, likely underlying UTI, WBC of 10.5 with left shift - Abx with IV zosyn and vanc. Got 1 dose of daptomycin in the ER but hold this due to renal function -Checking renal ultrasound, 1 was conducted on 01/18/2022 as an outpatient which showed left-sided nephrolithiasis, no hydronephrosis, trabecular bladder -Troponin 1135, second set pending, trend Q6H x 3 -Lactate 6.7 -CK 26971 -Mag 1.5 - will replete with IV (6) Diabetes mellitus, type 2: Plan: - ISS with Accu-Cheks ACHS, last A1c was 7.5 in October 2021, recheck for tomorrow morning -Holding metformin and trajenta (7) Hypertension: Plan: -Hold metoprolol tartrate -Patient missed aspirin and Plavix today, placed on heparin drip, per day team tomorrow to hold these medications (8) Hyperlipidemia: Plan: -Hold statin due to rhabdomyolysis (9) Hypothyroidism: Plan: -Convert levothyroxine to IV if remains intubated tomorrow (10) History of CVA (cerebrovascular accident): Plan: -History of such in August and June 2020, no residual deficits -Follows with Dr. 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 He presents today after increased gait instability last evening. provides history as the patient is intubated during my evaluation. states that last evening the patient had a worsening gait and that he was struggling to walk around the house. He had multiple falls and ended up crawling back to the bedroom and went to bed around 8 PM. She heard him get up twice in the middle of the night and the first time to go use the bathroom and he fell in the bathroom and crawled back to bed again. He then got up later in the late morning at some unknown time, however did not come back to the room. She found him on the floor unable to get up, and he had laid there for approximately 4 hours. She called EMS and he was brought to the hospital. She notes that he was complaining of shaking and chills and turned the heat up to 77 in the house yesterday. She is unaware of what medications he takes as the patient manages these himself, but reports he uses a pillbox and took his medicines yesterday. Denies any recent changes in medications. Allergies Allergy/AdvReac Type Severity Reaction Status Date / Time lisinopril AdvReac Intermediate cough Verified 07/08/20 12:16 Home Medications Medication Instructions Recorded Confirmed Type levothyroxine 75 mcg tablet 75 mcg PO QAM 10/22/18 02/08/22 History metformin 500 mg tablet 500 mg PO BIDM 10/22/18 02/08/22 History cholecalciferol (vitamin D3) 50 2,000 unit PO QAM 09/02/19 02/08/22 History mcg (2,000 unit) tablet (Vitamin D3) clopidogrel 75 mg tablet 75 mg PO DAILY 07/08/20 02/08/22 History aspirin 81 mg tablet,delayed 81 mg PO DAILY #90 tab 07/10/20 02/08/22 Rx release metoprolol tartrate 25 mg tablet 12.5 mg PO BID #30 tab 07/10/20 02/08/22 Rx atorvastatin 10 mg tablet 10 mg PO DAILY 02/08/22 02/08/22 History linagliptin 5 mg tablet (Tradjenta) 5 mg PO DAILY 02/08/22 02/08/22 History Past Med/Surg History Medical History (Updated 02/08/22 @ 13:37 by Jared Kebede MD) Anxiety Diabetes mellitus, type 2 NIDDM Foot drop, right GERD (gastroesophageal reflux disease) Hearing deficit [place] History of sciatica History of skin cancer REMOVED FROM FACE AND BACK Hyperlipidemia Hypertension Hypothyroidism Hypovolemic shock Lactic acidosis Osteoarthritis Pneumonia Poor historian Snores Transaminitis Surgical History History of colonoscopy History of herniorrhaphy BL [place] History of left cataract surgery Family History Brother Stroke Mother Breast cancer Sister Breast cancer Social History Smoking Status: Unknown if ever smoked Second Hand Exposure: No; Hx Alcohol Use: No Hx Substance Use: No Preferred Language: Albanian Communication Ability: Impaired Medical Technician Assistant Required: No Beliefs That Will Affect Care: None Current Living Situation: Spouse Feels Safe at Home: Yes Assistive Devices: None Review of Systems Review of Systems: Unobtainable due to endotracheal tube Physical Exam Physical Exam: General: Sedated and intubated Head: Normocephalic, atraumatic ENT: PERRL, EOMI, no pharyngeal exudate, mucous membranes moist Chest: + Coarse breath sounds throughout, intubated Cardiac: Sinus tachycardia with heart rate in the 110s, no murmur, no JVD, normal peripheral pulses, good capillary refill Abdominal: NABS x 4 quadrants, soft, nondistended, nontender to palpation, no rebound or guarding Extremities: + Multiple abrasions over bilateral knees and elbows,+ Mottling of lower extremities and hands, no peripheral edema or erythema, calfs nontender to palpation : Cueto catheter draining cloudy, dark urine Neuro: Sedated, Babinski Reflex intact Results & Data Results & Data ([facility]) Vital Signs (Past 12 Hours) Vital Signs Temp Pulse Resp BP Pulse Ox 02/08/22 11:20 114 H 37 H 92 02/08/22 11:15 115 H 34 H 90/60 L 93 02/08/22 11:10 113 H 32 H 77/52 L 95 02/08/22 11:05 116 H 36 H 90/59 L 91 02/08/22 11:00 116 H 36 H 93/58 L 95 02/08/22 10:56 116 H 33 H 97 02/08/22 10:55 109 H 33 H 98 02/08/22 10:51 119 H 35 H 85/52 L 99 02/08/22 10:50 120 H 30 H 97 02/08/22 10:46 119 H 35 H 85/58 L 93 02/08/22 10:22 122 H 37 H 81/50 L 98 02/08/22 10:20 125 H 31 H 98 02/08/22 10:15 126 H 34 H 84 L 02/08/22 10:11 125 H 16 119/93 99 02/08/22 10:10 127 H 35 H 96 02/08/22 10:05 125 H 32 H 95 02/08/22 10:04 80 L 02/08/22 10:00 135 H 45 H 72 L 02/08/22 09:56 142 H 27 H 114/81 02/08/22 09:38 35.9 C L 118 H 36 H 119/83 83 L Laboratory Results 02/08/22 10:57 Urine Culture - Pending Urine,Indwelling Cath 02/08/22 10:46 Aerobic Blood Culture - Pending Blood Anaerobic Blood Culture - Pending 02/08/22 10:58 Aerobic Blood Culture - Pending Blood Anaerobic Blood Culture - Pending 02/08/22 02/08/22 02/08/22 11:04 10:57 10:57 WBC RBC Hgb POC Hgb 12.9 L 12.9 L Hct POC Hct 38 L 38 L MCV MCH MCHC RDW Std Deviation RDW Coeff of Umesh Plt Count MPV Immature Gran % (Auto) Neut % (Auto) Lymph % (Auto) [place] % (Auto) Eos % (Auto) Baso % (Auto) Neut # (Auto) Lymph # (Auto) [place] # (Auto) Eos # (Auto) Baso # (Auto) Immature Gran # (Auto) Echinocytes PT INR APTT PTT Ratio POC pH 7.25 L POC pCO2 42 POC pO2 280 H POC HCO3 18 L POC Total CO2 18 L 20 L POC Base Excess -9.0 POC ABG O2 Sat 100.0 H POC Sodium 142 140 Sodium POC Potassium 4.4 4.3 Potassium POC Chloride 111 Chloride Carbon Dioxide Anion Gap POC Anion Gap 19.0 POC BUN 54 H BUN Creatinine POC Creatinine 3.0 H Est Cr Clr Drug Dosing Est GFR ( Amer) Est GFR (Non-Af Amer) BUN/Creatinine Ratio Glucose POC Glucose (other) 125 H Calcium POC Ioniz Calcium Ulices 1.17 Phosphorus Magnesium Total Bilirubin AST ALT Alkaline Phosphatase Total Creatine Kinase Troponin I High Sens Total Protein Albumin Globulin Albumin/Globulin Ratio Urine Color Dark Yellow Urine Appearance Cloudy A Urine pH 5.0 Ur Specific [place] 1.017 Urine Protein 2+ H Urine Glucose (UA) Negative Urine Ketones Trace H Urine Blood 3+ H Urine Nitrite Negative Urine Bilirubin Negative Urine Urobilinogen Negative Ur Leukocyte Esterase Negative Urine WBC (Auto) 1-5 Urine RBC (Auto) 10-30 H U Hyaline Cast (Auto) 5-10 H U Epithel Cells (Auto) 20-30 H Urine Bacteria (Auto) Negative Amorphous Sediment Present A Granular Casts 5-10 H Urine Yeast Not Reportable SARS-CoV-2, RNA, NAAT 02/08/22 02/08/22 02/08/22 10:57 10:46 10:46 WBC RBC Hgb POC Hgb Hct POC Hct MCV MCH MCHC RDW Std Deviation RDW Coeff of Umesh Plt Count MPV Immature Gran % (Auto) Neut % (Auto) Lymph % (Auto) [place] % (Auto) Eos % (Auto) Baso % (Auto) Neut # (Auto) Lymph # (Auto) [place] # (Auto) Eos # (Auto) Baso # (Auto) Immature Gran # (Auto) Echinocytes PT 15.1 H INR 1.4 H APTT 32.8 H PTT Ratio 1.2 POC pH POC pCO2 POC pO2 POC HCO3 POC Total CO2 POC Base Excess POC ABG O2 Sat POC Sodium Sodium 139 POC Potassium Potassium 4.3 POC Chloride Chloride 112 H Carbon Dioxide 16 L Anion Gap 11 POC Anion Gap POC BUN BUN 61 H Creatinine 2.81 H POC Creatinine Est Cr Clr Drug Dosing Not Reportable Est GFR ( Amer) 22.9 Est GFR (Non-Af Amer) 19.7 BUN/Creatinine Ratio 21.7 H Glucose 123 H POC Glucose (other) Calcium 8.2 L POC Ioniz Calcium Ulices Phosphorus 3.7 Magnesium 1.5 L Total Bilirubin 1.1 H AST 318 H ALT 68 H Alkaline Phosphatase 60 Total Creatine Kinase 55177 H Troponin I High Sens 1135.1 H* Total Protein 6.1 Albumin 3.4 Globulin 2.7 Albumin/Globulin Ratio 1.3 Urine Color Urine Appearance Urine pH Ur Specific [place] Urine Protein Urine Glucose (UA) Urine Ketones Urine Blood Urine Nitrite Urine Bilirubin Urine Urobilinogen Ur Leukocyte Esterase Urine WBC (Auto) Urine RBC (Auto) U Hyaline Cast (Auto) U Epithel Cells (Auto) Urine Bacteria (Auto) Amorphous Sediment Granular Casts Urine Yeast SARS-CoV-2, RNA, NAAT NEGATIVE 02/08/22 10:46 WBC 10.51 RBC 4.44 L Hgb 13.1 L POC Hgb Hct 39.1 L POC Hct MCV 88.1 MCH 29.5 MCHC 33.5 RDW Std Deviation 44.3 RDW Coeff of Umesh 13.6 Plt Count 88 L MPV 10.1 Immature Gran % (Auto) 0.8 Neut % (Auto) 95.9 Lymph % (Auto) 1.4 [place] % (Auto) 1.8 Eos % (Auto) 0.0 Baso % (Auto) 0.1 Neut # (Auto) 10.08 H Lymph # (Auto) 0.15 L [place] # (Auto) 0.19 Eos # (Auto) 0.00 Baso # (Auto) 0.01 Immature Gran # (Auto) 0.08 H Echinocytes 1+ PT INR APTT PTT Ratio POC pH POC pCO2 POC pO2 POC HCO3 POC Total CO2 POC Base Excess POC ABG O2 Sat POC Sodium Sodium POC Potassium Potassium POC Chloride Chloride Carbon Dioxide Anion Gap POC Anion Gap POC BUN BUN Creatinine POC Creatinine Est Cr Clr Drug Dosing Est GFR ( Amer) Est GFR (Non-Af Amer) BUN/Creatinine Ratio Glucose POC Glucose (other) Calcium POC Ioniz Calcium Ulices Phosphorus Magnesium Total Bilirubin AST ALT Alkaline Phosphatase Total Creatine Kinase Troponin I High Sens Total Protein Albumin Globulin Albumin/Globulin Ratio Urine Color Urine Appearance Urine pH Ur Specific [place] Urine Protein Urine Glucose (UA) Urine Ketones Urine Blood Urine Nitrite Urine Bilirubin Urine Urobilinogen Ur Leukocyte Esterase Urine WBC (Auto) Urine RBC (Auto) U Hyaline Cast (Auto) U Epithel Cells (Auto) Urine Bacteria (Auto) Amorphous Sediment Granular Casts Urine Yeast SARS-CoV-2, RNA, NAAT Diagnostic Findings Chest X-Ray 02/08/22 10:04 XR chest 1V portable CLINICAL HISTORY: Dyspnea TECHNIQUE: Single frontal radiograph of the chest was obtained. Comparison: Comparison is made to chest radiograph 07/09/2020 FINDINGS: Endotracheal tube is seen with its tip 5 cm above the judith. The cardiomediastinal silhouette is stable. Lungs are underinflated but clear. No evidence of pleural effusion or pneumothorax. IMPRESSION: Endotracheal tube tip is 5 cm above the judith, satisfactory. ACT 112: Negative or not required by law. Electronically signed by: Seth Carrasco M.D. 02/08/2022 10:[address] 02/08/22 10:07 CT head/brain wo con CLINICAL HISTORY: ACEVEDO resp failure COMPARISON STUDY: 07/09/2020 CT DOSE: 1377.16 mGycm TECHNIQUE: Standard CT of the Brain was performed without IV contrast. A dose lowering technique was utilized adhering to the principles of ALARA. FINDINGS: Extraaxial space: There is no evidence for subdural hematoma. There are no extra-axial fluid collections. Ventricles and cisterns: The ventricles are mildly dilated bilaterally. There is no evidence for midline shift or mass effect. Parenchyma: There is no subarachnoid or intraparenchymal hemorrhage. There is no evidence for an acute infarct or cerebral edema. There is mild cerebral cortical atrophy and decreased attenuation in the periventricular white matter representing remote small vessel disease. There are no gross mass lesions. Osseous structures: There is no evidence for an acute fracture. There is mild mucosal thickening involving the ethmoid air cells bilaterally. The remaining visualized paranasal sinuses are clear. The mastoid air cells are clear bilaterally. Soft tissues: There is no evidence for focal soft tissue swelling. IMPRESSION: 1. No acute intracerebral pathology. 2. Mild cerebral cortical atrophy and remote small vessel disease. ACT 112: Negative or not required by law. Electronically signed by: Daniel Oliver M.D. 02/08/2022 11:02 AM Code Status & VTE Plan Code Status Full code - discussed with pts at bedside. Supervising Physician Co-Signing Physician Notes Patient is an 85-year-old male with history of hypertension, CVA, diabetes mellitus, CKD, pulmonary fibrosis and other medical problems presents with history of fall, ambulatory dysfunction, inability to get up from floor after he fell overnight. Patient is currently sedated and intubated while in ED and unable to provide any history. Most of the history is obtained from ER physician, staff, patient's . Patient fell X2 at home yesterday and has been struggling to ambulate around the house. Patient's informs that she believes he fell on the floor on his way to the bathroom in the middle of the night and laid on the floor for about 4 hours due to inability to get up from the floor. She also noticed him to be having some confusion. He complained of chills overnight. Patient was found to be significantly hypoxic while in ED, needing emergent intubation. He was also found to be hypotensive. Patient had been evaluated by main entree cook and cashier while in ED with bedside ultrasound which showed normal LV function and no significant dilation of RV. IVC appeared dilated. Please review HPI for complete details of presentation. Blood work showed hemoglobin 13.1, hematocrit 39.1, platelet 88K, WBC 10.51, INR 1.4, sodium 142, potassium 4.4, bicarbonate 16, BUN 61, creatinine 2.8, glucose 123, lactate 6.7, calcium 8.2, phosphorus 3.7, magnesium 1.5, total bilirubin 1.1, AST 318, ALT 68, alkaline [place] [address], troponin 1135, procalcitonin pending, TSH 1.6. Urinalysis abnormal with microscopic hematuria, no bacteria, WBC. Tox screen pending. Negative COVID screen. CT head showed no acute intracranial pathology. Chest x-ray showed no signs of pneumonia, pneumothorax, pleural effusion. On exam patient is intubated and sedated, EOMI, coarse breath sounds bilaterally, tachypneic, S1-S2, no murmur, 1+ pedal edema, multiple bruises on lower extremities, abdomen soft, nondistended, normal bowel sounds, complete neurological exam could not be performed. Patient is admitted for management of acute respiratory failure with hypoxia, acute metabolic encephalopathy, hypovolemic, ? Septic shock, rhabdomyolysis, acute kidney injury, lactic acidosis, acute metabolic acidosis and transaminitis. Continue vent support for respiratory failure. Started on broad-spectrum antibiotics Zosyn, Vanco. Blood, urine cultures obtained. Hold Lipitor. Aggressive IV fluids. Also started on pressors as recommended by ICU team. Received bicarbonate. As PE cannot be ruled out, given inability to do CTA due to renal insufficiency patient will be started on IV heparin for now. Monitor platelets closely while on IV heparin. CT abdomen to rule out other etiologies. Hepatitis panel also ordered. Avoid nephrotoxic agents as able. Monitor CK levels. Obtain ECHO, Trend Troponin. Will need Q4H BMP. Patient further management as per main entree cook and cashier. Appreciate input. I personally reviewed the record. Patient is interviewed and examined at bedside. Patient's care is coordinated with Evelyn Rollins PA-C. Please refer to the documentation above for details of patient's presentation and for discussion of other issues.
[2022-02-08 11:58] LABS: Basophils # (auto) 0.01 K/uL (0-0.2); Basophils % (auto) 0.1 %; Echinocytes 1+; Immature Granulocytes # (auto) 0.08 K/uL (0.00-0.02); Immature Granulocytes % (auto) 0.8 %; Lymphocytes # (auto) 0.15 K/uL (1.2-3.4); Lymphocytes % (auto) 1.4 %; Monocytes # (auto) 0.19 K/uL (0.11-0.59); Monocytes % (auto) 1.8 %; Neutrophils # (auto) 10.08 K/uL (1.4-6.5); Neutrophils % (auto) 95.9 %
[2022-02-08 12:02] LABS: Alanine Aminotransferase 68 U/L (7-52); Albumin Globulin Ratio 1.3 (0.9-2); Albumin Level 3.4 gm/dl (3.4-5.0); Alkaline Phosphatase 60 U/L (34-104); Aspartate Aminotransferase 318 U/L (13-39); Bilirubin,Total 1.1 mg/dl (0.2-1.0); Creatine Kinase 23363 U/L (30-223); Globulin 2.7 gm/dl (2.5-4.0); Magnesium 1.5 mg/dl (1.7-2.4); Phosphorus 3.7 mg/dl (2.5-4.9); Total Protein 6.1 gm/dl (6.0-8.3); Troponin I High Sensitivity 1135.1 pg/ml (0-20)
[2022-02-08] MEDS: MAGNESIUM SULFATE / D5W 1 GM/100 ML BAG IV SCH ×2 (12:31→13:01)
[2022-02-08] MEDS ORDERED: SODIUM BICARB 8.4% INJ 50 MEQ/50 ML SYR IV ONE (12:34)
[2022-02-08] MEDS: NOREPINEPHRINE/D5W 4 MG/250 ML PLCT IV SCH ×6 (12:55→23:26)
[2022-02-08] MEDS ORDERED: STAT IV STA ×2 (13:12→18:20)
--- NOTE | 2022-02-08 13:14 | Emergency Department Note ---
Impression & Plan Rhabdomyolysis, AUBREE (acute kidney injury), Elevated troponin, Respiratory failure, Hypovolemic shock ED Provider Note CHIEF COMPLAINT: Respiratory failure, weakness HISTORY OF PRESENT ILLNESS: This 86-year-old male patient presents to the emergency department with complaints of weakness, shortness of breath and inability to get up off of the ground. According to the patient's , he was in the bathroom approximately 8 or 9:00 last night. He fell and had difficulty getting up off of the floor. He crawled into the bedroom and was able to get into the bed. Sometime in the middle the night, she is unclear of what time that may be, he made it to the living room by holding onto the carmichael and the railing. states he was leaning to 1 side. He does have a history of an ischemic stroke. Patient fell and was not able to get up. was unable to assist in getting the patient up off the floor. They elected to leave him there for the duration of the night. This morning the patient's called the ambulance as she was still not able to get him up and he was "not breathing right." REVIEW OF SYSTEMS: A review of systems was performed with positives and pertinent negatives listed in the history of present illness. 10 systems were reviewed and are otherwise negative. ALLERGIES: see below MEDICATIONS: see below PMH: see below SOCIAL HISTORY: see below DDx: Infection, dehydration, metabolic abnormality, hypo/hyperglycemia, electrolyte disturbance, anemia, hypoxia, cardiac sources, intracerebral event, toxicologic, neurologic, as well as other pathologies. PHYSICAL EXAM: Vital signs reviewed. Noted to be tachycardic and hypoxic General: Critically ill-appearing, increased work of breathing, dusky/cyanotic appearing distal fingers and toes. HEENT: No scleral icterus, PERRLA, neck supple. Atraumatic. Cardiovascular: Tachycardic, regular, no extra sounds Pulmonary: Clear to auscultation bilaterally, shallow and rapid breathing Abdomen: Soft, nontender, nondistended, positive bowel sounds. Musculoskeletal: Atraumatic, no peripheral edema. Neurologic: Patient somnolent but arousable. States "don't do that" when I replaced the oxygen mask Skin: Warm, dry, patient is noted to the bilateral knees EMERGENCY DEPARTMENT COURSE/MDM: This patient was evaluated and appeared to be critically ill. IV access was obtained and laboratory work was drawn. The patient was hydrated with normal saline solution due to tachycardia. Supplemental oxygen was provided via nonrebreather. Patient was noted to be hypoxic and tachycardic. Required intubation secondary to hypoxia and respiratory failure. Full CODE STATUS was confirmed with his who arrived shortly after he did. Please see my procedure note below. Patient tolerated the intubation without difficulty. The patient was placed on IV fentanyl and Versed. Nursing staff had difficulty obtaining laboratory work. A Matthews catheter was placed and urine appeared to be cloudy and dark. It is negative for infection but is positive for blood. Patient was hydrated aggressively with normal saline solution, he did receive a 2 L normal saline solution bolus and was continued at 250 mL/h for third liter. IV Zosyn was ordered after blood cultures were obtained. Patient's laboratory work finally resulted with a creatinine of 2.81 with a BUN of 61. Patient's HS troponin is noted to be 1135 and total CK is 23,363. EKG reveals no evidence of acute ST segment change. I did discuss the case with the [facility] service, Dr. Deleon as well as Lisa Rollins PA-c. ICU Dr. Carmona was also consulted. I did discuss the possibility of CT angiogram of the head, neck and chest. The studies were ordered however performed a bedside ultrasound and felt the RV was not significantly compromised. They have requested Levophed drip and they will begin IV heparin. I was asked to place an order for Levophed drip as the patient's blood pressure remained hypotensive despite IV hydration. MONITORING: An order for cardiac monitoring was placed and the patient is noted to be in a sinus tachycardia at 135 beats per minute. RADIOLOGY: Below PROCEDURE:Endotracheal Intubation Indication respiratory failure The patient was on 100% oxygen via NRB prior to the procedure. Suction, airway equipment, RSI drugs, respiratory equipment, and appropriate personnel were prepared prior to the initiation of the procedure. A time out was taken. Induction was performed with IV after observing the clinical benefit of the medications, the airway was easily visualized utilizing a scope. A 7.5 size ETT tube was placed atraumatically to 26 cm using standard technique. The cuff inflated without signs of malfunction. There were bilateral breath sounds, positive colormetric change, no gastric sounds, a good capnography waveform, and post procedure pulse oximetry was 93%. Post intubation sedation and paralysis was administered using fentanyl and Versed. There were no complications. EKG: Sinus tachycardia at 124 bpm with a left axis deviation. Possible anterior lateral infarct. No PVC, no PAC. QTC of 439. Normal ST segments. DISPOSITION: Admission/ICU I have personally spent greater than 60 minutes of critical care time in the direct management of this patient. This includes bedside care, interpretation of diagnostic studies, and testing, discussion with consultants, patient, and family members, and other required patient management activities. This 60 minutes is in excess of all separately billable procedures. Past Med/Surg History Medical History (Updated 02/08/22 @ 14:55 by Amalia Rodriguez MD) Anxiety Diabetes mellitus, type 2 NIDDM Foot drop, right GERD (gastroesophageal reflux disease) Hearing deficit BL [place] History of sciatica History of skin cancer REMOVED FROM FACE AND BACK Hyperlipidemia Hypertension Hypothyroidism Hypovolemic shock Lactic acidosis Osteoarthritis Pneumonia Poor historian Snores Transaminitis Surgical History History of colonoscopy History of herniorrhaphy BL INGUINAL History of left cataract surgery Family History Brother Stroke Mother Breast cancer Sister Breast cancer Social History Smoking Status: Unknown if ever smoked Second Hand Exposure: No; Hx Alcohol Use: No Hx Substance Use: No Preferred Language: Sudanese Communication Ability: Impaired Seed Laboratory Assistant Required: No Beliefs That Will Affect Care: None Current Living Situation: Spouse Feels Safe at Home: Yes Assistive Devices: None Allergies Allergies Allergy/AdvReac Type Severity Reaction Status Date / Time lisinopril AdvReac Intermediate cough Verified 07/08/20 12:16 Home Meds Home Medications Medication Instructions Recorded Confirmed levothyroxine 75 mcg tablet 75 mcg PO QAM 10/22/18 02/08/22 metformin 500 mg tablet 500 mg PO BIDM 10/22/18 02/08/22 cholecalciferol (vitamin D3) 50 2,000 unit PO QAM 09/02/19 02/08/22 mcg (2,000 unit) tablet (Vitamin D3) clopidogrel 75 mg tablet 75 mg PO DAILY 07/08/20 02/08/22 atorvastatin 10 mg tablet 10 mg PO DAILY 02/08/22 02/08/22 linagliptin 5 mg tablet (Tradjenta) 5 mg PO DAILY 02/08/22 02/08/22 Previous Rx's Medication Instructions Recorded aspirin 81 mg tablet,delayed 81 mg PO DAILY #90 tab 07/10/20 release metoprolol tartrate 25 mg tablet 12.5 mg PO BID #30 tab 07/10/20 Results & Data (ED) Vital Signs Vital Signs - 24 hr 02/08/22 09:38 02/08/22 09:56 02/08/22 10:00 Temperature 35.9 C L Temperature Source Rectal Pulse Rate 118 H 142 H 135 H Pulse Rate from SpO2 Sensor 180 H Respiratory Rate 36 H 27 H 45 H Respiratory Effort / Characteristics Non-Labored Respiratory Depth Shallow Blood Pressure 119/83 114/81 Blood Pressure Mean 95 92 Pulse Oximetry 83 L 72 L Oxygen Delivery Method Non-rebreather Non-rebreather Oxygen Flow Rate 15 Fraction of Inspired Oxygen Sepsis Recent Fever Within 48 Hours No Sepsis New/Unexplained Change in Mental Status Yes Sepsis Action Taken by Nursing Physician Notified End-Tidal CO2 27 02/08/22 10:04 02/08/22 10:05 02/08/22 10:10 Temperature Temperature Source Pulse Rate 125 H 127 H Pulse Rate from SpO2 Sensor 127 H Respiratory Rate 32 H 35 H Respiratory Effort / Characteristics Respiratory Depth Blood Pressure Blood Pressure Mean Pulse Oximetry 80 L 95 96 Oxygen Delivery Method Non-rebreather Oxygen Flow Rate Fraction of Inspired Oxygen 100 Sepsis Recent Fever Within 48 Hours Sepsis New/Unexplained Change in Mental Status Sepsis Action Taken by Nursing End-Tidal CO2 42 28 02/08/22 10:11 02/08/22 10:15 02/08/22 10:20 Temperature Temperature Source Pulse Rate 125 H 126 H 125 H Pulse Rate from SpO2 Sensor 129 H 127 H 125 H Respiratory Rate 16 34 H 31 H Respiratory Effort / Characteristics Respiratory Depth Blood Pressure 119/93 Blood Pressure Mean 101 Pulse Oximetry 99 84 L 98 Oxygen Delivery Method Oxygen Flow Rate Fraction of Inspired Oxygen Sepsis Recent Fever Within 48 Hours Sepsis New/Unexplained Change in Mental Status Sepsis Action Taken by Nursing End-Tidal CO2 38 23 38 02/08/22 10:22 02/08/22 10:46 02/08/22 10:50 Temperature Temperature Source Pulse Rate 122 H 119 H 120 H Pulse Rate from SpO2 Sensor 123 H 120 H 121 H Respiratory Rate 37 H 35 H 30 H Respiratory Effort / Characteristics Respiratory Depth Blood Pressure 81/50 L 85/58 L Blood Pressure Mean 60 67 Pulse Oximetry 98 93 97 Oxygen Delivery Method Oxygen Flow Rate Fraction of Inspired Oxygen Sepsis Recent Fever Within 48 Hours Sepsis New/Unexplained Change in Mental Status Sepsis Action Taken by Nursing End-Tidal CO2 41 21 35 02/08/22 10:51 02/08/22 10:55 02/08/22 10:56 Temperature Temperature Source Pulse Rate 119 H 109 H 116 H Pulse Rate from SpO2 Sensor 122 H 119 H 116 H Respiratory Rate 35 H 33 H 33 H Respiratory Effort / Characteristics Respiratory Depth Blood Pressure 85/52 L Blood Pressure Mean 63 Pulse Oximetry 99 98 97 Oxygen Delivery Method Oxygen Flow Rate Fraction of Inspired Oxygen Sepsis Recent Fever Within 48 Hours Sepsis New/Unexplained Change in Mental Status Sepsis Action Taken by Nursing End-Tidal CO2 39 38 38 02/08/22 11:00 02/08/22 11:05 02/08/22 11:10 Temperature Temperature Source Pulse Rate 116 H 116 H 113 H Pulse Rate from SpO2 Sensor 121 H Respiratory Rate 36 H 36 H 32 H Respiratory Effort / Characteristics Respiratory Depth Blood Pressure 93/58 L 90/59 L 77/52 L Blood Pressure Mean 69 69 60 Pulse Oximetry 95 91 95 Oxygen Delivery Method Oxygen Flow Rate Fraction of Inspired Oxygen 60 60 60 Sepsis Recent Fever Within 48 Hours Sepsis New/Unexplained Change in Mental Status Sepsis Action Taken by Nursing End-Tidal CO2 38 36 36 02/08/22 11:15 02/08/22 11:20 02/08/22 11:25 Temperature Temperature Source Pulse Rate 115 H 114 H 113 H Pulse Rate from SpO2 Sensor 115 H 117 H 113 H Respiratory Rate 34 H 37 H 36 H Respiratory Effort / Characteristics Respiratory Depth Blood Pressure 90/60 L 100/63 Blood Pressure Mean 70 75 Pulse Oximetry 93 92 93 Oxygen Delivery Method Mechanical Vent Oxygen Flow Rate Fraction of Inspired Oxygen 60 60 Sepsis Recent Fever Within 48 Hours Sepsis New/Unexplained Change in Mental Status Sepsis Action Taken by Nursing End-Tidal CO2 36 37 36 02/08/22 11:30 02/08/22 11:35 02/08/22 11:40 Temperature Temperature Source Pulse Rate 134 H 118 H 131 H Pulse Rate from SpO2 Sensor 134 H 119 H 131 H Respiratory Rate 34 H 40 H 36 H Respiratory Effort / Characteristics Respiratory Depth Blood Pressure 93/60 L 109/68 109/77 Blood Pressure Mean 71 81 87 Pulse Oximetry 95 96 97 Oxygen Delivery Method Mechanical Vent Oxygen Flow Rate Fraction of Inspired Oxygen Sepsis Recent Fever Within 48 Hours Sepsis New/Unexplained Change in Mental Status Sepsis Action Taken by Nursing End-Tidal CO2 38 36 38 02/08/22 11:45 02/08/22 11:50 02/08/22 11:55 Temperature Temperature Source Pulse Rate 128 H 114 H 122 H Pulse Rate from SpO2 Sensor 128 H 114 H 132 H Respiratory Rate 35 H 35 H 34 H Respiratory Effort / Characteristics Respiratory Depth Blood Pressure 90/54 L 100/70 Blood Pressure Mean 66 80 Pulse Oximetry 97 95 97 Oxygen Delivery Method Oxygen Flow Rate Fraction of Inspired Oxygen Sepsis Recent Fever Within 48 Hours Sepsis New/Unexplained Change in Mental Status Sepsis Action Taken by Nursing End-Tidal CO2 36 37 38 02/08/22 12:00 02/08/22 12:05 02/08/22 12:10 Temperature Temperature Source Pulse Rate 116 H 113 H 118 H Pulse Rate from SpO2 Sensor 115 H 114 H 118 H Respiratory Rate 35 H 34 H 23 Respiratory Effort / Characteristics Respiratory Depth Blood Pressure 102/77 110/65 Blood Pressure Mean 85 80 Pulse Oximetry 96 96 97 Oxygen Delivery Method Oxygen Flow Rate Fraction of Inspired Oxygen Sepsis Recent Fever Within 48 Hours Sepsis New/Unexplained Change in Mental Status Sepsis Action Taken by Nursing End-Tidal CO2 40 40 33 02/08/22 12:11 02/08/22 12:13 02/08/22 12:15 Temperature Temperature Source Pulse Rate 117 H 118 H 116 H Pulse Rate from SpO2 Sensor 117 H 118 H 116 H Respiratory Rate 29 H 29 H 32 H Respiratory Effort / Characteristics Respiratory Depth Blood Pressure 75/48 L 74/49 L 75/47 L Blood Pressure Mean 57 57 56 Pulse Oximetry 94 93 94 Oxygen Delivery Method Mechanical Vent Mechanical Vent Oxygen Flow Rate Fraction of Inspired Oxygen Sepsis Recent Fever Within 48 Hours Sepsis New/Unexplained Change in Mental Status Sepsis Action Taken by Nursing End-Tidal CO2 41 34 42 02/08/22 12:20 02/08/22 12:25 02/08/22 12:30 Temperature Temperature Source Pulse Rate 117 H 116 H 115 H Pulse Rate from SpO2 Sensor 117 H 117 H 115 H Respiratory Rate 36 H 34 H 33 H Respiratory Effort / Characteristics Respiratory Depth Blood Pressure 88/52 L Blood Pressure Mean 64 Pulse Oximetry 95 95 95 Oxygen Delivery Method Oxygen Flow Rate Fraction of Inspired Oxygen 60 60 60 Sepsis Recent Fever Within 48 Hours Sepsis New/Unexplained Change in Mental Status Sepsis Action Taken by Nursing End-Tidal CO2 38 35 41 02/08/22 12:31 02/08/22 12:35 02/08/22 12:40 Temperature Temperature Source Pulse Rate 116 H 107 H 117 H Pulse Rate from SpO2 Sensor 116 H 116 H 117 H Respiratory Rate 36 H 36 H 30 H Respiratory Effort / Characteristics Respiratory Depth Blood Pressure 91/53 L 116/67 Blood Pressure Mean 65 83 Pulse Oximetry 95 95 95 Oxygen Delivery Method Oxygen Flow Rate Fraction of Inspired Oxygen 60 60 60 Sepsis Recent Fever Within 48 Hours Sepsis New/Unexplained Change in Mental Status Sepsis Action Taken by Nursing End-Tidal CO2 38 36 46 02/08/22 12:45 02/08/22 12:50 02/08/22 12:55 Temperature Temperature Source Pulse Rate 117 H 116 H 114 H Pulse Rate from SpO2 Sensor 117 H 116 H 114 H Respiratory Rate 32 H 30 H 28 H Respiratory Effort / Characteristics Respiratory Depth Blood Pressure 85/56 L 76/53 L 81/53 L Blood Pressure Mean 65 60 62 Pulse Oximetry 94 94 94 Oxygen Delivery Method Oxygen Flow Rate Fraction of Inspired Oxygen 60 60 60 Sepsis Recent Fever Within 48 Hours Sepsis New/Unexplained Change in Mental Status Sepsis Action Taken by Nursing End-Tidal CO2 39 41 38 02/08/22 13:00 02/08/22 13:05 02/08/22 13:10 Temperature Temperature Source Pulse Rate 115 H 123 H 122 H Pulse Rate from SpO2 Sensor 115 H 123 H 118 H Respiratory Rate 30 H 37 H 31 H Respiratory Effort / Characteristics Respiratory Depth Blood Pressure 86/57 L 82/61 L Blood Pressure Mean 66 68 Pulse Oximetry 94 95 94 Oxygen Delivery Method Oxygen Flow Rate Fraction of Inspired Oxygen 60 60 50 Sepsis Recent Fever Within 48 Hours Sepsis New/Unexplained Change in Mental Status Sepsis Action Taken by Nursing End-Tidal CO2 36 39 39 02/08/22 13:11 02/08/22 13:15 02/08/22 13:20 Temperature Temperature Source Pulse Rate 121 H 115 H 111 H Pulse Rate from SpO2 Sensor 123 H 115 H 111 H Respiratory Rate 35 H 28 H 27 H Respiratory Effort / Characteristics Respiratory Depth Blood Pressure 93/62 L 92/55 L 89/55 L Blood Pressure Mean 72 67 66 Pulse Oximetry 94 93 90 Oxygen Delivery Method Oxygen Flow Rate Fraction of Inspired Oxygen 50 50 50 Sepsis Recent Fever Within 48 Hours Sepsis New/Unexplained Change in Mental Status Sepsis Action Taken by Nursing End-Tidal CO2 39 44 41 02/08/22 13:25 02/08/22 13:30 02/08/22 13:35 Temperature Temperature Source Pulse Rate 113 H 113 H 111 H Pulse Rate from SpO2 Sensor 114 H 113 H 112 H Respiratory Rate 28 H 31 H 30 H Respiratory Effort / Characteristics Respiratory Depth Blood Pressure 92/61 L 95/60 L 94/59 L Blood Pressure Mean 71 71 70 Pulse Oximetry 92 93 92 Oxygen Delivery Method Oxygen Flow Rate Fraction of Inspired Oxygen 50 50 50 Sepsis Recent Fever Within 48 Hours Sepsis New/Unexplained Change in Mental Status Sepsis Action Taken by Nursing End-Tidal CO2 38 41 36 02/08/22 13:40 02/08/22 13:45 02/08/22 13:50 Temperature Temperature Source Pulse Rate 111 H 115 H Pulse Rate from SpO2 Sensor 111 H 114 H Respiratory Rate 35 H 35 H 36 H Respiratory Effort / Characteristics Respiratory Depth Blood Pressure 97/63 L 103/68 Blood Pressure Mean 74 79 Pulse Oximetry 92 98 Oxygen Delivery Method Oxygen Flow Rate Fraction of Inspired Oxygen 50 50 50 Sepsis Recent Fever Within 48 Hours Sepsis New/Unexplained Change in Mental Status Sepsis Action Taken by Nursing End-Tidal CO2 39 39 37 Home Medications Current Medication List: was personally reviewed by me Laboratory Data Attestation: I reviewed the patient's lab results. Result diagrams: 02/08/22 10:46 02/08/22 10:46 Lab Results 02/08/22 02/08/22 02/08/22 Range/Units 10:46 10:46 10:46 WBC 10.51 (4.8-10.8) K/uL RBC 4.44 L (4.7-6.1) M/uL Hgb 13.1 L (14.0-18.0) g/dL POC Hgb (14.0-18.0) g/dl Hct 39.1 L (42-52) % POC Hct (42-52) % MCV 88.1 (80-100) fL MCH 29.5 (25-34) pg MCHC 33.5 (32-36) g/dL RDW Std Deviation 44.3 (36.4-46.3) fL RDW Coeff of Umesh 13.6 (11.5-14.5) % Plt Count 88 L (130-400) K/uL MPV 10.1 (7.4-10.4) fL Immature Gran % (Auto) 0.8 % Neut % (Auto) 95.9 % Lymph % (Auto) 1.4 % Dixon % (Auto) 1.8 % Eos % (Auto) 0.0 % Baso % (Auto) 0.1 % Neut # (Auto) 10.08 H (1.4-6.5) K/uL Lymph # (Auto) 0.15 L (1.2-3.4) K/uL Dixon # (Auto) 0.19 (0.11-0.59) K/uL Eos # (Auto) 0.00 (0-0.5) K/uL Baso # (Auto) 0.01 (0-0.2) K/uL Immature Gran # (Auto) 0.08 H (0.00-0.02) K/uL Echinocytes 1+ PT 15.1 H (9.0-12.0) Seconds INR 1.4 H (0.9-1.1) APTT 32.8 H (21.0-31.0) Seconds PTT Ratio 1.2 Sample Site POC pH (7.35-7.45) POC pCO2 (35-46) mmHg POC pO2 (80-95) mmHg POC HCO3 (19-24) verito/L POC Total CO2 (24-31) mmol/L POC Base Excess (-9-1.8) verito/L POC ABG O2 Sat (90-95) % Lorenzo Test O2 Delivery Device POC O2 Rate Minute Ventilation POC FiO2 % Tidal Volume PEEP POC Sodium (135-144) mmol/L Sodium 139 (136-145) mmol/L POC Potassium (3.3-5.0) mmol/L Potassium 4.3 (3.5-5.1) mmol/L POC Chloride (101-112) mmol/L Chloride 112 H (98-107) mmol/L Carbon Dioxide 16 L (21-32) mmol/L Anion Gap 11 (3-11) POC Anion Gap (16-25) mmol/L POC BUN (7-18) mg/dl BUN 61 H (6-23) mg/dl Creatinine 2.81 H (0.6-1.4) mg/dl POC Creatinine (0.6-1.3) mg/dl Est Cr Clr Drug Dosing Not Reportable Est GFR ( Amer) 22.9 ml/min Est GFR (Non-Af Amer) 19.7 ml/min BUN/Creatinine Ratio 21.7 H (10-20) Glucose 123 H (70-99(Fasting)) mg/dl POC Glucose (other) (70-99) mg/dl Lactate (0.4-2.0) mmol/L Calcium 8.2 L (8.5-10.1) mg/dl POC Ioniz Calcium Ulices (1.12-1.32) mmol/l Phosphorus 3.7 (2.5-4.9) mg/dl Magnesium 1.5 L (1.7-2.4) mg/dl Total Bilirubin 1.1 H (0.2-1.0) mg/dl AST 318 H (13-39) U/L ALT 68 H (7-52) U/L Alkaline Phosphatase 60 (34-104) U/L Total Creatine Kinase 83403 H (30-223) U/L Troponin I High Sens 1135.1 H* (0-20) pg/ml Total Protein 6.1 (6.0-8.3) gm/dl Albumin 3.4 (3.4-5.0) gm/dl Globulin 2.7 (2.5-4.0) gm/dl Albumin/Globulin Ratio 1.3 (0.9-2) Procalcitonin (0-0.5) ng/ml TSH (0.300-4.500) uIu/ml Urine Color Urine Appearance (Clear) Urine pH (4.5-7.5) Ur Specific [place] (1.000-1.030) Urine Protein (Negative) Urine Glucose (UA) (Negative) Urine Ketones (Negative) Urine Blood (Negative) Urine Nitrite (Negative) Urine Bilirubin (Negative) Urine Urobilinogen (Negative) Ur Leukocyte Esterase (Negative) Urine WBC (Auto) (0-5) /hpf Urine RBC (Auto) (0-4) /hpf U Hyaline Cast (Auto) (0-5) /lpf U Epithel Cells (Auto) (0-5) /lpf Urine Bacteria (Auto) (Negative) Amorphous Sediment (None Prsent) Granular Casts (0) /lpf Urine Yeast Urine Opiates Screen (Neg) Ur Methadone, Qual (Neg) Urine Barbiturates (Neg) Ur Phencyclidine (PCP) (Neg) U Amphetamin/Meth Scrn (Neg) MDMA (Ecstasy) Screen (Neg) U Benzodiazepines Scrn (Neg) Ur Cocaine Metabolite (Neg) U Marijuana (THC) Screen (Neg) SARS-CoV-2, RNA, NAAT (NEGATIVE) 02/08/22 02/08/22 02/08/22 Range/Units 10:57 10:57 10:57 WBC (4.8-10.8) K/uL RBC (4.7-6.1) M/uL Hgb (14.0-18.0) g/dL POC Hgb 12.9 L (14.0-18.0) g/dl Hct (42-52) % POC Hct 38 L (42-52) % MCV (80-100) fL MCH (25-34) pg MCHC (32-36) g/dL RDW Std Deviation (36.4-46.3) fL RDW Coeff of Umesh (11.5-14.5) % Plt Count (130-400) K/uL MPV (7.4-10.4) fL Immature Gran % (Auto) % Neut % (Auto) % Lymph % (Auto) % Dixon % (Auto) % Eos % (Auto) % Baso % (Auto) % Neut # (Auto) (1.4-6.5) K/uL Lymph # (Auto) (1.2-3.4) K/uL Dixon # (Auto) (0.11-0.59) K/uL Eos # (Auto) (0-0.5) K/uL Baso # (Auto) (0-0.2) K/uL Immature Gran # (Auto) (0.00-0.02) K/uL Echinocytes PT (9.0-12.0) Seconds INR (0.9-1.1) APTT (21.0-31.0) Seconds PTT Ratio Sample Site POC pH 7.25 L (7.35-7.45) POC pCO2 42 (35-46) mmHg POC pO2 280 H (80-95) mmHg POC HCO3 18 L (19-24) verito/L POC Total CO2 20 L (24-31) mmol/L POC Base Excess -9.0 (-9-1.8) verito/L POC ABG O2 Sat 100.0 H (90-95) % Lorenzo Test O2 Delivery Device POC O2 Rate Minute Ventilation POC FiO2 % Tidal Volume PEEP POC Sodium 140 (135-144) mmol/L Sodium (136-145) mmol/L POC Potassium 4.3 (3.3-5.0) mmol/L Potassium (3.5-5.1) mmol/L POC Chloride (101-112) mmol/L Chloride (98-107) mmol/L Carbon Dioxide (21-32) mmol/L Anion Gap (3-11) POC Anion Gap (16-25) mmol/L POC BUN (7-18) mg/dl BUN (6-23) mg/dl Creatinine (0.6-1.4) mg/dl POC Creatinine (0.6-1.3) mg/dl Est Cr Clr Drug Dosing Est GFR ( Amer) ml/min Est GFR (Non-Af Amer) ml/min BUN/Creatinine Ratio (10-20) Glucose (70-99(Fasting)) mg/dl POC Glucose (other) (70-99) mg/dl Lactate (0.4-2.0) mmol/L Calcium (8.5-10.1) mg/dl POC Ioniz Calcium Ulices (1.12-1.32) mmol/l Phosphorus (2.5-4.9) mg/dl Magnesium (1.7-2.4) mg/dl Total Bilirubin (0.2-1.0) mg/dl AST (13-39) U/L ALT (7-52) U/L Alkaline Phosphatase (34-104) U/L Total Creatine Kinase (30-223) U/L Troponin I High Sens (0-20) pg/ml Total Protein (6.0-8.3) gm/dl Albumin (3.4-5.0) gm/dl Globulin (2.5-4.0) gm/dl Albumin/Globulin Ratio (0.9-2) Procalcitonin (0-0.5) ng/ml TSH (0.300-4.500) uIu/ml Urine Color Dark Yellow Urine Appearance Cloudy A (Clear) Urine pH 5.0 (4.5-7.5) Ur Specific [place] 1.017 (1.000-1.030) Urine Protein 2+ H (Negative) Urine Glucose (UA) Negative (Negative) Urine Ketones Trace H (Negative) Urine Blood 3+ H (Negative) Urine Nitrite Negative (Negative) Urine Bilirubin Negative (Negative) Urine Urobilinogen Negative (Negative) Ur Leukocyte Esterase Negative (Negative) Urine WBC (Auto) 1-5 (0-5) /hpf Urine RBC (Auto) 10-30 H (0-4) /hpf U Hyaline Cast (Auto) 5-10 H (0-5) /lpf U Epithel Cells (Auto) 20-30 H (0-5) /lpf Urine Bacteria (Auto) Negative (Negative) Amorphous Sediment Present A (None Prsent) Granular Casts 5-10 H (0) /lpf Urine Yeast Not Reportable Urine Opiates Screen (Neg) Ur Methadone, Qual (Neg) Urine Barbiturates (Neg) Ur Phencyclidine (PCP) (Neg) U Amphetamin/Meth Scrn (Neg) MDMA (Ecstasy) Screen (Neg) U Benzodiazepines Scrn (Neg) Ur Cocaine Metabolite (Neg) U Marijuana (THC) Screen (Neg) SARS-CoV-2, RNA, NAAT NEGATIVE (NEGATIVE) 02/08/22 02/08/22 02/08/22 Range/Units 10:57 11:04 12:18 WBC (4.8-10.8) K/uL RBC (4.7-6.1) M/uL Hgb (14.0-18.0) g/dL POC Hgb 12.9 L (14.0-18.0) g/dl Hct (42-52) % POC Hct 38 L (42-52) % MCV (80-100) fL MCH (25-34) pg MCHC (32-36) g/dL RDW Std Deviation (36.4-46.3) fL RDW Coeff of Umesh (11.5-14.5) % Plt Count (130-400) K/uL MPV (7.4-10.4) fL Immature Gran % (Auto) % Neut % (Auto) % Lymph % (Auto) % Dixon % (Auto) % Eos % (Auto) % Baso % (Auto) % Neut # (Auto) (1.4-6.5) K/uL Lymph # (Auto) (1.2-3.4) K/uL Dixon # (Auto) (0.11-0.59) K/uL Eos # (Auto) (0-0.5) K/uL Baso # (Auto) (0-0.2) K/uL Immature Gran # (Auto) (0.00-0.02) K/uL Echinocytes PT (9.0-12.0) Seconds INR (0.9-1.1) APTT (21.0-31.0) Seconds PTT Ratio Sample Site POC pH (7.35-7.45) POC pCO2 (35-46) mmHg POC pO2 (80-95) mmHg POC HCO3 (19-24) verito/L POC Total CO2 18 L (24-31) mmol/L POC Base Excess (-9-1.8) verito/L POC ABG O2 Sat (90-95) % Lorenzo Test O2 Delivery Device POC O2 Rate Minute Ventilation POC FiO2 % Tidal Volume PEEP POC Sodium 142 (135-144) mmol/L Sodium (136-145) mmol/L POC Potassium 4.4 (3.3-5.0) mmol/L Potassium (3.5-5.1) mmol/L POC Chloride 111 (101-112) mmol/L Chloride (98-107) mmol/L Carbon Dioxide (21-32) mmol/L Anion Gap (3-11) POC Anion Gap 19.0 (16-25) mmol/L POC BUN 54 H (7-18) mg/dl BUN (6-23) mg/dl Creatinine (0.6-1.4) mg/dl POC Creatinine 3.0 H (0.6-1.3) mg/dl Est Cr Clr Drug Dosing Est GFR ( Amer) ml/min Est GFR (Non-Af Amer) ml/min BUN/Creatinine Ratio (10-20) Glucose (70-99(Fasting)) mg/dl POC Glucose (other) 125 H (70-99) mg/dl Lactate 6.7 H* (0.4-2.0) mmol/L Calcium (8.5-10.1) mg/dl POC Ioniz Calcium Ulices 1.17 (1.12-1.32) mmol/l Phosphorus (2.5-4.9) mg/dl Magnesium (1.7-2.4) mg/dl Total Bilirubin (0.2-1.0) mg/dl AST (13-39) U/L ALT (7-52) U/L Alkaline Phosphatase (34-104) U/L Total Creatine Kinase (30-223) U/L Troponin I High Sens (0-20) pg/ml Total Protein (6.0-8.3) gm/dl Albumin (3.4-5.0) gm/dl Globulin (2.5-4.0) gm/dl Albumin/Globulin Ratio (0.9-2) Procalcitonin (0-0.5) ng/ml TSH (0.300-4.500) uIu/ml Urine Color Urine Appearance (Clear) Urine pH (4.5-7.5) Ur Specific [place] (1.000-1.030) Urine Protein (Negative) Urine Glucose (UA) (Negative) Urine Ketones (Negative) Urine Blood (Negative) Urine Nitrite (Negative) Urine Bilirubin (Negative) Urine Urobilinogen (Negative) Ur Leukocyte Esterase (Negative) Urine WBC (Auto) (0-5) /hpf Urine RBC (Auto) (0-4) /hpf U Hyaline Cast (Auto) (0-5) /lpf U Epithel Cells (Auto) (0-5) /lpf Urine Bacteria (Auto) (Negative) Amorphous Sediment (None Prsent) Granular Casts (0) /lpf Urine Yeast Urine Opiates Screen Neg (Neg) Ur Methadone, Qual Neg (Neg) Urine Barbiturates Neg (Neg) Ur Phencyclidine (PCP) Neg (Neg) U Amphetamin/Meth Scrn Neg (Neg) MDMA (Ecstasy) Screen Neg (Neg) U Benzodiazepines Scrn Neg (Neg) Ur Cocaine Metabolite Neg (Neg) U Marijuana (THC) Screen Neg (Neg) SARS-CoV-2, RNA, NAAT (NEGATIVE) 02/08/22 02/08/22 02/08/22 Range/Units 12:18 12:18 14:21 WBC (4.8-10.8) K/uL RBC (4.7-6.1) M/uL Hgb (14.0-18.0) g/dL POC Hgb (14.0-18.0) g/dl Hct (42-52) % POC Hct (42-52) % MCV (80-100) fL MCH (25-34) pg MCHC (32-36) g/dL RDW Std Deviation (36.4-46.3) fL RDW Coeff of Umesh (11.5-14.5) % Plt Count (130-400) K/uL MPV (7.4-10.4) fL Immature Gran % (Auto) % Neut % (Auto) % Lymph % (Auto) % Dixon % (Auto) % Eos % (Auto) % Baso % (Auto) % Neut # (Auto) (1.4-6.5) K/uL Lymph # (Auto) (1.2-3.4) K/uL Dixon # (Auto) (0.11-0.59) K/uL Eos # (Auto) (0-0.5) K/uL Baso # (Auto) (0-0.2) K/uL Immature Gran # (Auto) (0.00-0.02) K/uL Echinocytes PT (9.0-12.0) Seconds INR (0.9-1.1) APTT (21.0-31.0) Seconds PTT Ratio Sample Site L Radial POC pH 7.33 L (7.35-7.45) POC pCO2 36 (35-46) mmHg POC pO2 93 (80-95) mmHg POC HCO3 19 (19-24) verito/L POC Total CO2 20 L (24-31) mmol/L POC Base Excess -7.0 (-9-1.8) verito/L POC ABG O2 Sat 97.0 H (90-95) % Lorenzo Test Pass O2 Delivery Device Ventilator POC O2 Rate 16 Minute Ventilation 12.2 POC FiO2 50 % Tidal Volume 450 PEEP 5 POC Sodium (135-144) mmol/L Sodium (136-145) mmol/L POC Potassium (3.3-5.0) mmol/L Potassium (3.5-5.1) mmol/L POC Chloride (101-112) mmol/L Chloride (98-107) mmol/L Carbon Dioxide (21-32) mmol/L Anion Gap (3-11) POC Anion Gap (16-25) mmol/L POC BUN (7-18) mg/dl BUN (6-23) mg/dl Creatinine (0.6-1.4) mg/dl POC Creatinine (0.6-1.3) mg/dl Est Cr Clr Drug Dosing Est GFR ( Amer) ml/min Est GFR (Non-Af Amer) ml/min BUN/Creatinine Ratio (10-20) Glucose (70-99(Fasting)) mg/dl POC Glucose (other) (70-99) mg/dl Lactate (0.4-2.0) mmol/L Calcium (8.5-10.1) mg/dl POC Ioniz Calcium Ulices (1.12-1.32) mmol/l Phosphorus (2.5-4.9) mg/dl Magnesium (1.7-2.4) mg/dl Total Bilirubin (0.2-1.0) mg/dl AST (13-39) U/L ALT (7-52) U/L Alkaline Phosphatase (34-104) U/L Total Creatine Kinase (30-223) U/L Troponin I High Sens (0-20) pg/ml Total Protein (6.0-8.3) gm/dl Albumin (3.4-5.0) gm/dl Globulin (2.5-4.0) gm/dl Albumin/Globulin Ratio (0.9-2) Procalcitonin > 200.00 H (0-0.5) ng/ml TSH 1.641 (0.300-4.500) uIu/ml Urine Color Urine Appearance (Clear) Urine pH (4.5-7.5) Ur Specific [place] (1.000-1.030) Urine Protein (Negative) Urine Glucose (UA) (Negative) Urine Ketones (Negative) Urine Blood (Negative) Urine Nitrite (Negative) Urine Bilirubin (Negative) Urine Urobilinogen (Negative) Ur Leukocyte Esterase (Negative) Urine WBC (Auto) (0-5) /hpf Urine RBC (Auto) (0-4) /hpf U Hyaline Cast (Auto) (0-5) /lpf U Epithel Cells (Auto) (0-5) /lpf Urine Bacteria (Auto) (Negative) Amorphous Sediment (None Prsent) Granular Casts (0) /lpf Urine Yeast Urine Opiates Screen (Neg) Ur Methadone, Qual (Neg) Urine Barbiturates (Neg) Ur Phencyclidine (PCP) (Neg) U Amphetamin/Meth Scrn (Neg) MDMA (Ecstasy) Screen (Neg) U Benzodiazepines Scrn (Neg) Ur Cocaine Metabolite (Neg) U Marijuana (THC) Screen (Neg) SARS-CoV-2, RNA, NAAT (NEGATIVE) Administered Medications Fentanyl Citrate (Fentanyl Bolus From Bag) 50 mcg IV Q60M PRN PRN Reason: Pain or Agitation Stop: 02/22/22 10:06 Last Admin: 02/08/22 12:02 Dose: 50 mcg Documented by: [id number] Admin: 02/08/22 10:14 Dose: 50 mcg Documented by: [id number] Fentanyl Citrate (Fentanyl Citrate) 2,500 mcg in 250 mls @ 2.5 mls/hr IV .Q96H ISAEL; Protocol Stop: 02/22/22 10:14 Last Titration: 02/08/22 13:14 Dose: 25 mcg/hr, 2.5 mls/hr Documented by: [id number] Cosigned by: [id number] Titration: 02/08/22 12:18 Dose: 20 mcg/hr, 2 mls/hr Documented by: [id number] Cosigned by: [id number] Titration: 02/08/22 11:58 Dose: 25 mcg/hr, 2.5 mls/hr Documented by: [id number] Cosigned by: [id number] Titration: 02/08/22 11:15 Dose: 15 mcg/hr, 1.5 mls/hr Documented by: [id number] Cosigned by: [id number] Admin: 02/08/22 10:14 Dose: 25 mcg/hr, 2.5 mls/hr Documented by: [id number] Cosigned by: [id number] Midazolam HCl (Versed) 125 mg in 250 mls @ 2 mls/hr IV .Q96H PRN; Protocol PRN Reason: Agitation Stop: 03/10/22 10:06 Last Titration: 02/08/22 13:07 Dose: 1 mg/hr, 2 mls/hr Documented by: [id number] Cosigned by: [id number] Titration: 02/08/22 11:15 Dose: 0.5 mg/hr, 1 mls/hr Documented by: [id number] Cosigned by: [id number] Admin: 02/08/22 10:18 Dose: 1 mg/hr, 2 mls/hr Documented by: [id number] Cosigned by: [id number] Norepinephrine Bitartrate (Levophed/D5w) 4 mg in 250 mls @ 18.563 mls/hr IV .[id number] [facility]; Protocol Stop: 03/10/22 12:59 Last Titration: 02/08/22 13:22 Dose: 0.11 mcg/kg/min, 40.8 mls/hr Documented by: [id number] Titration: 02/08/22 13:06 Dose: 0.09 mcg/kg/min, 33.4 mls/hr Documented by: [id number] Titration: 02/08/22 13:00 Dose: 0.07 mcg/kg/min, 26 mls/hr Documented by: [id number] Admin: 02/08/22 12:55 Dose: 0.05 mcg/kg/min, 18.6 mls/hr Documented by: [id number] Cosigned by: [id number] Sodium Bicarbonate 150 meq/ (Dextrose) 1,150 mls @ 125 mls/hr IV .Q9H12M [facility] Stop: 03/10/22 13:29 Last Admin: 02/08/22 13:44 Dose: 125 mls/hr Documented by: [id number] Midazolam HCl (Midazolam Bolus From Bag) 2 mg IV Q60M PRN PRN Reason: Sedation Stop: 03/10/22 10:06 Last Admin: 02/08/22 14:06 Dose: 1 mg Documented by: [id number] Discontinued Medications Fentanyl Citrate (Fentanyl Citrate 2,500 Mcg/250 Ml Bag) Confirm Administered Dose 2,500 mcg IV .STK-MED ONE Stop: 02/08/22 10:10 Last Admin: 02/08/22 11:07 Dose: Not Given Documented by: [id number] Sodium Chloride (Nss 1000ml) 1,000 mls @ 999 mls/hr IV .Q1H1M ISAEL Stop: 02/08/22 11:15 Last Infusion: 02/08/22 11:30 Dose: 0 mls/hr Documented by: [id number] Admin: 02/08/22 10:27 Dose: 999 mls/hr Documented by: [id number] Piperacillin Sod/Tazobactam Sod (Zosyn) 4.5 gm in 120 mls @ 240 mls/hr IV NOW ONE Stop: 02/08/22 10:46 Last Infusion: 02/08/22 12:09 Dose: 0 mls/hr Documented by: [id number] Admin: 02/08/22 11:26 Dose: 240 mls/hr Documented by: [id number] Sodium Chloride (Nss 1000ml) 1,000 mls @ 250 mls/hr IV .Q4H ISAEL Stop: 03/10/22 11:14 Last Infusion: 02/08/22 13:45 Dose: 0 mls/hr Documented by: [id number] Admin: 02/08/22 11:16 Dose: 250 mls/hr Documented by: [id number] Magnesium Sulfate/Dextrose (Magnesium Sulfate / D5w) 1 gm in 100 mls @ 200 mls/hr IV Q30M ISAEL Stop: 02/08/22 13:25 Last Infusion: 02/08/22 13:44 Dose: 0 mls/hr Documented by: [id number] Admin: 02/08/22 13:01 Dose: 200 mls/hr Documented by: [id number] Infusion: 02/08/22 13:01 Dose: 0 mls/hr Documented by: [id number] Admin: 02/08/22 12:31 Dose: 200 mls/hr Documented by: [id number] Midazolam HCl (Midazolam Hcl 1 Mg/Ml 2ml Vial) Confirm Administered Dose 4 mg .ROUTE .STK-MED ONE Stop: 02/08/22 10:12 Last Increment: 02/08/22 10:15 Dose: 2 mg Documented by: [id number] Miscellaneous (Rapid Sequence Induction Bag) Confirm Administered Dose 1 ea .ROUTE .STK-MED ONE Stop: 02/08/22 09:56 Last Admin: 02/08/22 11:16 Dose: 1 ea Documented by: [id number] Miscellaneous (Stat Iv Infusion Titration Per Protocol) 1 ea N/A NOW STA Stop: 02/08/22 10:08 Last Admin: 02/08/22 11:30 Dose: 1 ea Documented by: [id number] Miscellaneous (Stat Iv Infusion Titration Per Protocol) 1 ea N/A NOW STA Stop: 02/08/22 12:52 Last Admin: 02/08/22 13:00 Dose: 1 ea Documented by: [id number] Sodium Bicarbonate (Sodium Bicarb 8.4% Inj 50 Meq/50 Ml Syr) Confirm Administered Dose 100 meq IV .STK-MED ONE Stop: 02/08/22 12:35 Last Admin: 02/08/22 12:35 Dose: 100 meq Documented by: [id number] Imaging Data Attestation: I personally reviewed and interpreted this imaging study as follows: Radiologist's Impression: Chest X-Ray 02/08/22 10:04 XR chest 1V portable CLINICAL HISTORY: Dyspnea TECHNIQUE: Single frontal radiograph of the chest was obtained. Comparison: Comparison is made to chest radiograph 07/09/2020 FINDINGS: Endotracheal tube is seen with its tip 5 cm above the judith. The cardio mediastinal silhouette is stable. Lungs are underinflated but clear. No evidence of pleural effusion or pneumothorax. IMPRESSION: Endotracheal tube tip is 5 cm above the judith, satisfactory. ACT 112: Negative or not required by law. Electronically signed by: Seth Carrasco M.D. 02/08/2022 10:[address] 02/08/22 10:07 CT head/brain wo con CLINICAL HISTORY: ACEVEDO resp failure COMPARISON STUDY: 07/09/2020 CT DOSE: 1377.16 mGycm TECHNIQUE: Standard CT of the Brain was performed without IV contrast. A dose lowering technique was utilized adhering to the principles of ALARA. FINDINGS: Extraaxial space: There is no evidence for subdural hematoma. There are no extra-axial fluid collections. Ventricles and cisterns: The ventricles are mildly dilated bilaterally. There is no evidence for midline shift or mass effect. Parenchyma: There is no subarachnoid or intraparenchymal hemorrhage. There is no evidence for an acute infarct or cerebral edema. There is mild cerebral cortical atrophy and decreased attenuation in the periventricular white matter representing remote small vessel disease. There are no gross mass lesions. Osseous structures: There is no evidence for an acute fracture. There is mild mucosal thickening involving the ethmoid air cells bilaterally. The remaining visualized paranasal sinuses are clear. The mastoid air cells are clear bilaterally. Soft tissues: There is no evidence for focal soft tissue swelling. IMPRESSION: 1. No acute intracerebral pathology. 2. Mild cerebral cortical atrophy and remote small vessel disease. ACT 112: Negative or not required by law. Electronically signed by: Daniel Oliver M.D. 02/08/2022 11:02 AM Abdomen/Pelvis CT 02/08/22 13:15 CT abd pelvis wo con CLINICAL HISTORY: renal failure, sepsis TECHNIQUE: Helical axial images of the abdomen and pelvis were obtained. Automated dose lowering techniques and/or adjustment according to patient size were utilized for this exam. This exam was performed without intravenous con trast. CT DOSE: 1065.97 mGy.cm COMPARISON: Comparison is made to CT chest 01/25/2015 FINDINGS: Lower chest: Cardiomegaly is seen. There is bilateral atelectasis. Liver: A hepatic cyst is seen. Gallbladder and biliary tree: No calcified gallstones. Normal caliber wall. No intra- or extrahepatic biliary ductal dilation. Pancreas: Fatty replacement of the pancreas is seen. Spleen: Unremarkable. Adrenals: Unremarkable. Kidneys and ureters: Perinephric stranding is noted bilaterally. Bladder: Matthews catheter is seen, wall thickening is seen compatible with chronic outlet obstruction. Reproductive organs: Prostatomegaly is seen. Bowel: Diverticulosis is seen without evidence of diverticulitis. The appendix is normal. An enteric tube is noted which terminates in the stomach. There is suggestion of a duodenal diverticulum. Lymph nodes Retroperitoneal: Unremarkable. Mesenteric: Unremarkable. Pelvic: Unremarkable. Peritoneum: Normal. Vessels: Unremarkable. Abdominal wall: Unremarkable. Bones: Degenerative changes in the visualized spine. IMPRESSION: Markedly bilateral perinephric stranding is seen, increased from prior baseline. No evidence of hydronephrosis is seen. This may represent pyelonephritis versus chronic outlet obstruction in a patient with prostatomegaly. Correlation with urinalysis is recommended. ACT 112: Negative or not required by law. Electronically signed by: Seth Carrasco M.D. 02/08/2022 2:12 PM Blood Pressure Blood Pressure Findings: Low blood pressure Blood Pressure Disposition: further management by hospitalist Discharge Plan Visit Data Chief Complaint: Altered Mental Status Stated Complaint: ALOC ED Provider: Amalia Rodriguez Discharge Problem: Rhabdomyolysis, AUBREE (acute kidney injury), Elevated troponin, Respiratory failure, Hypovolemic shock Patient Disposition: Being Evaluated by Hospitalist Discharge Instructions Interventions: ED Discharge Assessment Last Done: 02/08/22 14:00 Forms Stand Alone Forms: My [employer] Prescriptions Prescriptions: No Action metformin 500 mg Tablet 500 mg PO BIDM RF: 0 levothyroxine 75 mcg Tablet 75 mcg PO QAM RF: 0 clopidogrel 75 mg tablet 75 mg PO DAILY RF: 0 metoprolol tartrate 25 mg Tablet 12.5 mg PO BID Qty: 30 RF: 0 aspirin 81 mg tablet,delayed release (DR/EC) 81 mg PO DAILY Qty: 90 RF: 1 cholecalciferol (vitamin D3) [Vitamin D3] 2,000 unit Tablet 2,000 unit PO QAM RF: 0 atorvastatin 10 mg tablet 10 mg PO DAILY RF: 0 Tradjenta 5 mg tablet 5 mg PO DAILY RF: 0 Referrals Referrals: Pranay Addison MD [Primary Care Provider] -
[2022-02-08] MEDS ORDERED: VANCOMYCIN CONSULT ACTIVE PRN ×2 (13:33→15:12)
--- NOTE | 2022-02-08 13:33 | Critical Care Consultation ---
Date of Consultation February 08, 2022 Assessment & Plan (1) Hypovolemic shock: (2) Rhabdomyolysis: (3) AUBREE (acute kidney injury): (4) Acute respiratory failure with hypoxia: (5) Elevated troponin: (6) Lactic acidosis: (7) Transaminitis: 86-year-old male with a history of CVA, hypothyroidism, diabetes mellitus type 2, CKD stage III and hyperlipidemia presenting to the hospital due to altered mental status and hypoxemia. He was found to be in rhabdomyolysis with a downtime of approximately 4 hours. Neurologic: Patient currently encephalopathic on presentation. Likely metabolic encephalopathy. Urine drug screen ordered. CT head negative for acute bleed. Will need to consider MRI of the brain and EEG if he continues with encephalopathy. He does have a history of ischemic stroke. Pulmonary: Continue lung protective ventilation strategy. Hypoxemia likely initially due to poor inspiratory effort and hypoventilation. There is a possibility of underlying pulmonary embolism. Bedside echo does not demonstrate significant RV strain. We will obtain formal echo to be read by cardiology. Will empirically initiate the patient on heparin infusion without a bolus. We will consider CTA of the chest if improvement in creatinine. Cardiovascular: Patient with evidence of hypovolemic shock. Troponin elevated. Troponin elevation may be due to rhabdomyolysis. We will obtain formal echo as noted above. Heparin infusion. We will initiate Levophed to maintain maps above 65. We will need to consider placement of an arterial line and a central line if he remains persistently hypotensive. Gastrointestinal: NPO. Place OG tube. Will obtain CT of the abdomen/pelvis. Check acetaminophen level given transaminitis. Transaminitis may also be related to rhabdomyolysis. Acute hepatitis panel ordered. Consider N-acetylcysteine. Renal: CT of the abdomen/pelvis to evaluate for intra-abdominal pathology and obstructive uropathy. Patient with AUBREE likely secondary to ischemic ATN, hypovolemia and rhabdomyolysis. Check BMP every 6. CK every 12. We will start the patient on a bicarbonate infusion to alkalinize the urine and help resolve the metabolic acidosis. 2 A of bicarb given in the ER. Follow urine output closely. Salicylate level ordered. Infectious disease: We will start the patient on vancomycin. We will also start cefepime and Flagyl empirically. Patient received a dose of Zosyn in the ER. Blood cultures, urine cultures and sputum cultures will be obtained. Hematologic: Mild hemodilution no anemia. INR and PTT mildly elevated. Likely sepsis related. Endocrine: History of hypothyroidism and diabetes. TSH pending. Maintain euglycemia. We will consider addition of stress dose steroids if refractory hypotension. Lines and tubes: 3 peripheral IVs and Matthews catheter in place. ET tube placed 02/08. VTE prophylaxis: Heparin infusion CODE STATUS: Full code Family at bedside: updated at bedside. Disposition: I have personally spent 56 minutes of critical care time in the direct management of this patient. This is a life/limb threatening event. This includes time spent evaluating patient, direct bedside care, chart review, placing orders, interpretation of diagnostic studies, discussion with consultants, patient, and family members, as well as other required patient management activities. This time is exclusive of all separately billable procedures, and teaching time and separate from and in addition to any other critical care service time. Thank you for allowing us to participate in the care of this patient. History of Present Illness Reason for Consultation: Acute hypoxemic respiratory failure and hemodynamic instability History of Present Illness 85-year-old male with a past medical history of CVA, hypertension, diabetes mellitus type 2, CKD stage III, hypothyroidism, prior COVID-19 infection and hernia repair presenting to the ER due to altered mental status and respiratory failure. Patient is unable to provide any history given that he is currently intubated. Collateral history is obtained from the patient's , hospital staff, bedside nursing and the ER notes. Apparently he had multiple falls last night with worsening confusion. He was found down in the morning and he laid there for approximately 4 hours. EMS was called. He was apparently having rigors last night. In the ER he was found to be profoundly hypoxic on room air and altered. He was ultimately intubated. He is received 2 L of crystalloids and Zosyn. He is currently on a fentanyl infusion. Mean arterial pressures hover around 65mmhg. Lactic acidosis identified on labs. CK significantly elevated. PaO2 improved significantly with intubation. Bedside [id number] ultrasound performed by me of the heart and abdomen. LV function appears to be intact. RV does not appear to be significantly dilated. No significant pericardial effusion seen. IVC appears dilated with minimal respiratory variation. Ultrasound of the abdomen does not reveal significantly dilated kidneys. No free fluid noted in the abdomen. Allergies Allergy/AdvReac Type Severity Reaction Status Date / Time lisinopril AdvReac Intermediate cough Verified 07/08/20 12:16 Home Medications Medication Instructions Recorded Confirmed Type levothyroxine 75 mcg tablet 75 mcg PO QAM 10/22/18 07/08/20 History metformin 500 mg tablet 500 mg PO BIDM 10/22/18 07/08/20 History cholecalciferol (vitamin D3) 50 2,000 unit PO QAM 09/02/19 07/08/20 History mcg (2,000 unit) tablet (Vitamin D3) clopidogrel 75 mg tablet 75 mg PO DAILY 07/08/20 07/08/20 History aspirin 81 mg tablet,delayed 81 mg PO DAILY #90 tab 07/10/20 Rx release metoprolol tartrate 25 mg tablet 12.5 mg PO BID #30 tab 07/10/20 Rx atorvastatin 10 mg tablet 10 mg 02/08/22 History linagliptin 5 mg tablet (Tradjenta) 5 mg PO DAILY 02/08/22 02/08/22 History Patient History Medical History (Updated 02/08/22 @ 13:37 by Jared Kebede MD) Anxiety Diabetes mellitus, type 2 NIDDM Foot drop, right GERD (gastroesophageal reflux disease) Hearing deficit BL [place] History of sciatica History of skin cancer REMOVED FROM FACE AND BACK Hyperlipidemia Hypertension Hypothyroidism Hypovolemic shock Lactic acidosis Osteoarthritis Pneumonia Poor historian Snores Transaminitis Surgical History History of colonoscopy History of herniorrhaphy BL INGUINAL History of left cataract surgery Family History Brother Stroke Mother Breast cancer Sister Breast cancer Social History Smoking Status: Unknown if ever smoked Second Hand Exposure: No; Hx Alcohol Use: No Hx Substance Use: No Preferred Language: Kazakh 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 Eyes: Pupils are equal round and reactive to light. Conjunctivae are normal. Anicteric sclera. Ears nose, mouth and throat: Endotracheal tube in place. Neck: Trachea is midline. Visual inspection is normal. Respiratory: Coarse rhonchi noted bilaterally. Increased work of breathing with tachypnea. Cardiovascular: Regular rate and rhythm. No murmurs. 2+ pitting edema in the lower extremities. Gastrointestinal: Normal bowel sounds, soft, nontender and nondistended. No hepatosplenomegaly noted. Musculoskeletal: Bruising and areas of ecchymosis noted on the legs and knees. Skin: No rashes, warm dry and intact. Neurologic: Unable to fully assess given that he is sedated. Psychiatric: Unable to fully assess. Results & Data Results & Data ([facility]) Vital Signs (Past 12 Hours) Vital Signs Temp Pulse Resp BP Pulse Ox 02/08/22 13:15 115 H 28 H 92/55 L 93 02/08/22 13:11 121 H 35 H 93/62 L 94 02/08/22 13:10 118 H 29 H 94 02/08/22 13:05 123 H 37 H 82/61 L 95 02/08/22 13:00 115 H 30 H 86/57 L 94 02/08/22 12:55 114 H 28 H 81/53 L 94 02/08/22 12:50 116 H 30 H 76/53 L 94 02/08/22 12:45 117 H 32 H 85/56 L 94 02/08/22 12:40 117 H 30 H 116/67 95 02/08/22 12:35 107 H 36 H 95 02/08/22 12:31 116 H 36 H 91/53 L 95 02/08/22 12:30 115 H 33 H 95 02/08/22 12:25 116 H 34 H 95 02/08/22 12:20 117 H 36 H 88/52 L 95 02/08/22 12:15 116 H 32 H 75/47 L 94 02/08/22 12:13 118 H 29 H 74/49 L 93 02/08/22 12:11 117 H 29 H 75/48 L 94 02/08/22 12:10 118 H 23 97 02/08/22 12:05 113 H 34 H 110/65 96 02/08/22 12:00 116 H 35 H 102/77 96 02/08/22 11:55 122 H 34 H 100/70 97 02/08/22 11:50 114 H 35 H 95 02/08/22 11:45 128 H 35 H 90/54 L 97 02/08/22 11:40 131 H 36 H 109/77 97 02/08/22 11:35 118 H 40 H 109/68 96 02/08/22 11:30 134 H 34 H 93/60 L 95 02/08/22 11:25 113 H 36 H 100/63 93 02/08/22 11:20 114 H 37 H 92 02/08/22 11:15 115 H 34 H 90/60 L 93 02/08/22 11:10 113 H 32 H 77/52 L 95 02/08/22 11:05 116 H 36 H 90/59 L 91 02/08/22 11:00 116 H 36 H 93/58 L 95 02/08/22 10:56 116 H 33 H 97 02/08/22 10:55 109 H 33 H 98 02/08/22 10:51 119 H 35 H 85/52 L 99 02/08/22 10:50 120 H 30 H 97 02/08/22 10:46 119 H 35 H 85/58 L 93 02/08/22 10:22 122 H 37 H 81/50 L 98 02/08/22 10:20 125 H 31 H 98 02/08/22 10:15 126 H 34 H 84 L 02/08/22 10:11 125 H 16 119/93 99 02/08/22 10:10 127 H 35 H 96 02/08/22 10:05 125 H 32 H 95 02/08/22 10:04 80 L 02/08/22 10:00 135 H 45 H 72 L 02/08/22 09:56 142 H 27 H 114/81 02/08/22 09:38 35.9 C L 118 H 36 H 119/83 83 L Coding Level of Care Code Critical Care 1st 30-74 mins Diagnoses Rhabdomyolysis M62.82 AUBREE (acute kidney injury) N17.9 Acute respiratory failure with hypoxia J96.01 Hypovolemic shock R57.1 Elevated troponin R77.8 Lactic acidosis E87.2 Transaminitis R74.01 Time Spent (min) 56
[2022-02-08] MEDS: SODIUM BICARBONATE 8.4% 150 MEQ in DEXTROSE 5% 1,000 ML IV SCH ×2 (13:44→22:58)
--- NOTE | 2022-02-08 14:13 | CT Scan Report ---
CT abd pelvis wo con CLINICAL HISTORY: renal failure, sepsis TECHNIQUE: Helical axial images of the abdomen and pelvis were obtained. Automated dose lowering tech niques and/or adjustment according to patient size were utilized for this exam. This exam was perfor med without intravenous contrast. CT DOSE: 1065.97 mGy.cm COMPARISON: Comparison is made to CT chest 01/25/2015 FINDINGS: Lower chest: Cardiomegaly is seen. There is bilateral atelectasis. Liver: A hepatic cyst is seen. Gallbladder and biliary tree: No calcified gallstones. Normal caliber wall. No intra- or extrahepatic biliary ductal dilation. Pancreas: Fatty replacement of the pancreas is seen. Spleen: Unremarkable. Adrenals: Unremarkable. Kidneys and ureters: Perinephric stranding is noted bilaterally. Bladder: Matthews catheter is seen, wall thickening is seen compatible with chronic outlet obstruction. Reproductive organs: Prostatomegaly is seen. Bowel: Diverticulosis is seen without evidence of diverticulitis. The appendix is normal. An enteric tube is noted which terminates in the stomach. There is suggestion of a duodenal diverticulum. Lymph nodes Retroperitoneal: Unremarkable. Mesenteric: Unremarkable. Pelvic: Unremarkable. Peritoneum: Normal. Vessels: Unremarkable. Abdominal wall: Unremarkable. Bones: Degenerative changes in the visualized spine. IMPRESSION: Markedly bilateral perinephric stranding is seen, increased from prior baseline. No evidence of hydro nephrosis is seen. This may represent pyelonephritis versus chronic outlet obstruction in a patient w ith prostatomegaly. Correlation with urinalysis is recommended. ACT 112: Negative or not required by law. Electronically signed by: Seth Carrasco M.D. 02/08/2022 2:12 PM
[2022-02-08 14:25] LABS: Amphetamines+Metham, Urine Neg (Neg); Barbiturates, Urine Neg (Neg); Benzodiazepine, Urine Neg (Neg); Cocaine, Urine Neg (Neg); MDMA (Ecstacy), Urine Neg (Neg); Methadone, Urine Neg (Neg); Opiate, Urine Neg (Neg); Phencyclidine, Urine Neg (Neg)
[2022-02-08 14:40] LABS: iSTAT Allen Test Pass; iSTAT Arterial Blood Gas HCO3 19 meg/L (19-24); iSTAT Arterial Blood Gas pCO2 36 mmHg (35-46); iSTAT Arterial Blood Gas pH 7.33 (7.35-7.45); iSTAT Arterial Blood Gas pO2 93 mmHg (80-95); iSTAT Carbon Dioxide 20 mmol/L (24-31); iSTAT FiO2 50 %; iSTAT Site L Radial
[2022-02-08] MEDS ORDERED: MAGNESIUM SULFATE / D5W 1 GM/100 ML BAG IV ONE (15:00)
[2022-02-08] MEDS ORDERED: VANCOMYCIN HCL 2,000 MG in SODIUM CHLORIDE 0.9% 500 ML IV ONE (15:00)
[2022-02-08] MEDS ORDERED: GLUCOSE 40% GEL 15 GM TUBE PO PRN (15:12)
[2022-02-08] MEDS ORDERED: CARBOHYDRATES FOR HYPOGLYCEMIA PO PRN (15:12)
[2022-02-08] MEDS ORDERED: HEPARIN SODIUM/DEXTROSE 25,000 UNITS/500 ML BAG IV SCH (15:12)
[2022-02-08] MEDS ORDERED: PIPERACILLIN/TAZOBACTAM 3.375 GM in DEXTROSE 5% 100 ML IV SCH (15:12)
[2022-02-08] MEDS ORDERED: NOREPINEPHRINE/D5W 4 MG/250 ML PLCT IV SCH (15:12)
[2022-02-08] MEDS ORDERED: SODIUM BICARBONATE 8.4% INJ 50 MEQ/50 ML VIAL IV ONE (15:12)
[2022-02-08] MEDS ORDERED: GLUCAGON FOR INJ 1 MG VIAL SQ PRN (15:12)
[2022-02-08] MEDS ORDERED: VANCOMYCIN HCL 2,500 MG in SODIUM CHLORIDE 0.9% 500 ML IV ONE (15:12)
[2022-02-08] MEDS ORDERED: GLUCOSE 10 TABS/TUBE PO PRN (15:12)
[2022-02-08] MEDS ORDERED: Patient's HEIGHT &/or WEIGHT Needed SCH (15:15)
--- NOTE | 2022-02-08 15:43 | Pharmacy Report ---
Pharmacy [facility] Short Note - Date of Service February 08, 2022 - Assessment & Plan Assessment 86 year old M receiving vancomycin/cefepime/flagyl for treatment of empiric indication. Pertinent microbiologic data includes: N/A. Day # []/[] of antimicrobial therapy. Plan Vancomycin * Due to acute kidney injury and CrCl < 30 mL/min, will dose vancomycin by levels * vancomycin 2000 mg IV x 1 (20 mg/kg) * Random level ordered for tomorrow morning Pharmacy will continue to follow and will adjust dose/frequency as necessary. Thank you.
[2022-02-08] MEDS ORDERED: NORMOSOL-R 1,000 ML IV ONE (16:17)
--- NOTE | 2022-02-08 16:19 | Procedure Note ---
Procedure Note Date of Service February 08, 2022 Note RIGHT FEMORAL CENTRAL LINE PROCEDURE NOTE: Procedure: Femoral Central Line Placement Indication: Central Drug Administration, Poor Venous Access, Multiple Lab Draws Necessary, etc. Anesthesia: 5 mL lidocaine 1% Consent was signed and placed on the chart prior to procedure. Indication, risks, and benefits were explained at length. A time-out was completed verifying correct patient, procedure, site, positioning, and implants(s) or special equipment if applicable. Patients right groin was cleansed and draped in the typical sterile fashion using Chloraprep. The Femoral Vein and Femoral Artery were identified using ultrasound. The superficial tissue was anesthetized using 5 mL of 1% lidocaine without epinephrine under direct visualization with the ultrasound. After adequate anesthetization was achieved, the Femoral Vein was cannulated under direct ultrasound guidance using an introducer needle on a syringe. Good venous blood return was maintained prior to removal of syringe from introducer needle. Using Seldinger Technique, a guide wire was advanced through the introducer needle without resistance. The introducer needle was removed and ultrasound images were obtained of the guide wire within the Femoral Vein and saved to the patients medical record. A small incision was made in penetrating fashion at the guide wire insertion site utilizing an 11 blade scalpel. The dilator was advanced to the vessel without resistance. The dilator was exchanged for the triple lumen catheter which was advanced into the vessel without resistance. The guide wire was removed intact from the catheter without issue. Claves were placed on each catheter tip with confirmation of good blood flow from each lumen. Each port was easily flushed with sterile saline. The catheter was placed at the hub and sutured in place. BioPatch was applied to the catheter and a sterile Tegaderm dressing was applied over the catheter with careful attention to sterility. Patient tolerated procedure well. No immediate complications were met. Images obtained are saved for permanent record Procedural Ultrasound Guidance utilized Coding CPT Codes Tubes, Drains, and Vasc Access - Tubes, Drains, and Vasc Access: [id number] Place catheter in vein superior or inferior vena cava ([id number]) Tubes, Drains, and Vasc Access - Tubes, Drains, and Vasc Access: [id number] Ultrasound Guidance For Vascular ([id number]) [facility] Procedure Codes (Charges) Tubes, Drains, and Vasc Access Procedure 1: Tubes, Drains, and Vasc Access: [id number] Place catheter in vein superior or inferior vena cava Procedure 2: Tubes, Drains, and Vasc Access: [id number] Ultrasound Guidance For Vascular
[2022-02-08] MEDS: VASOPRESSIN 20 UNITS in 0.9 % SODIUM CHLORIDE 100 ML IV SCH ×2 (16:39→22:58)
[2022-02-08] MEDS: metroNIDAZOLE 500 MG/100 ML BAG IV SCH ×2 (16:41→23:52)
[2022-02-08] MEDS: INSULIN ASPART PER UNIT SC SCH ×2 (16:57→20:13)
[2022-02-08 17:41] LABS: iSTAT Art Bld Gas pCO2 Correct 31 mmHg (35-46); iSTAT Arterial Blood Gas HCO3 16 meg/L (19-24); iSTAT Arterial Blood Gas pCO2 31 mmHg (35-46); iSTAT Arterial Blood Gas pH 7.32 (7.35-7.45); iSTAT Arterial Blood Gas pO2 101 mmHg (80-95); iSTAT Arterial Blood Gas pO2 C 101; iSTAT Carbon Dioxide 17 mmol/L (24-31); iSTAT FiO2 60 %; iSTAT Hematocrit 38 % (42-52); iSTAT Hemoglobin 12.9 g/dl (14.0-18.0); iSTAT Potassium 3.7 mmol/L (3.3-5.0); iSTAT Site Art Line; iSTAT Sodium 137 mmol/L (135-144)
--- NOTE | 2022-02-08 17:51 | Procedure Note ---
Procedure Note Date of Service February 08, 2022 Note ARTERIAL LINE PROCEDURE NOTE: Procedure: Arterial Line Placement Indication: Monitoring on Pressors Consent was signed and placed on the chart prior to procedure. Indication, risks, and benefits were explained at length. A time-out was completed verifying correct patient, procedure, site, positioning, and implant(s) or special equipment if applicable. Patients left wrist was prepped and draped in the usual sterile fashion. Ultrasound guidance was used to aid needle placement. A 20g Arrow arterial line was introduced into the radial artery. Catheter was threaded, and the needle was removed with appropriate blood return. Good waveform was observed. The patient tolerated the procedure well. Blood Loss: Minimal Complications: None Coding CPT Codes Tubes, Drains, and Vasc Access - Tubes, Drains, and Vasc Access: [id number] Insertion Catheter, Artery ([id number]) Tubes, Drains, and Vasc Access - Tubes, Drains, and Vasc Access: [id number] Ultrasound Guidance For Vascular ([id number]) [facility] [place] Procedure Codes (Charges) Tubes, Drains, and Vasc Access Procedure 1: Tubes, Drains, and Vasc Access: [id number] Insertion Catheter, Artery Procedure 2: Tubes, Drains, and Vasc Access: [id number] Ultrasound Guidance For Vascular
[2022-02-08 18:01] LABS: BUN Creatinine Ratio 20.5 (10-20); Calcium 7.4 mg/dl (8.5-10.1); Creatinine Clr Calc Pharmacy 20.5 ml/min; Est GFR (African American) 19.8 ml/min; Est GFR (Non-African American) 17.1 ml/min; Potassium 3.9 mmol/L (3.5-5.1)
[2022-02-08] MEDS: CEFEPIME 2,000 MG in SYRINGE 0 ML IV SCH (18:08)
[2022-02-08 18:14] LABS: Acetaminophen < 3 ug/ml (10-30); Salicylate < 3.0 mg/dl (3.0-30)
[2022-02-08] MEDS ORDERED: CALCIUM GLUCONATE 10% 1,000 MG in DEXTROSE 5% 50 ML IV ONE (18:20)
[2022-02-08] MEDS ORDERED: NORMOSOL-R 500 ML IV ONE (18:21)
[2022-02-08] MEDS ORDERED: ACETAMINOPHEN 1000 MG/100 ML IV IV ONE ×2 (18:36→18:38)
[2022-02-08] MEDS: Heparin IV Adult Wt-Based Standard *NO* Bolus Protocol IV SCH (19:23)
[2022-02-08 19:44] LABS: A calco-baum cmplx NotReported Not Detected (NotDetected); Bact fragilis Not Reported Not Detected (NotDetected); C auris Not Reported Not Detected (NotDetected); Calbicans Not Reported Not Detected (NotDetected); Candida glabrata Not Reported Not Detected (NotDetected); Candida krusei Not Reported Not Detected (NotDetected); Cneoformans/gatti Not Reported Not Detected (NotDetected); Cparapsilosis Not Reported Not Detected (NotDetected); Ctropicalis Not Reported Not Detected (NotDetected); E cloacae compx Not Reported Not Detected (NotDetected); Efaecalis Not Reported Not Detected (NotDetected); Efaecium Not Reported Not Detected (NotDetected); Enterobacterales Not Reported Not Detected (NotDetected); Escherichia coli Not Reported Not Detected (NotDetected); H influenzae Not Reported Not Detected (NotDetected); K aerogenes Not Reported Not Detected (NotDetected); Koxytoca Not Reported Not Detected (NotDetected); Kpneumoniae grp Not Reported Not Detected (NotDetected); Lmonocyt Not Reported Not Detected (NotDetected); N meningitidis Not Reported Not Detected (NotDetected); P aeruginosa Not Reported Not Detected (NotDetected); Proteus spp Not Reported Not Detected (NotDetected); Salmonella spp Not Reported Not Detected (NotDetected); Smarcescens Not Reported Not Detected (NotDetected); Staph lugdunensis Not Reported Not Detected (NotDetected); Staphaureus Not Reported DETECTED (NotDetected); Staphepi Not Reported Not Detected (NotDetected); Staphylococcus spp. DETECTED (NotDetected); Stenmaltophilia Not Reported Not Detected (NotDetected); Strep agal(GrpB) Not Reported Not Detected (NotDetected); Strep pneum Not Reported Not Detected (NotDetected); Strep pyog (GrpA) Not Reported Not Detected (NotDetected); Strep spp Not Reported Not Detected (NotDetected); mecAC+MREJ Resistant Gene MRSA Not Detected (NotDetected)
[2022-02-08 19:53] LABS: Staph spp. Not Reported DETECTED (NotDetected)
[2022-02-08 20:26] LABS: BUN Creatinine Ratio 18.8 (10-20); Calcium 6.9 mg/dl (8.5-10.1); Creatinine Clr Calc Pharmacy 18.8 ml/min; Est GFR (African American) 17.8 ml/min; Est GFR (Non-African American) 15.3 ml/min; Potassium 4.1 mmol/L (3.5-5.1)
[2022-02-08 20:38] LABS: Troponin I High Sensitivity 3659.9 pg/ml (0-20)
[2022-02-08 20:42] LABS: iSTAT Art Bld Gas pCO2 Correct 34 mmHg (35-46); iSTAT Art Bld Gas pH Corrected 7.241 (7.35-7.45); iSTAT Arterial Blood Gas HCO3 14 meg/L (19-24); iSTAT Arterial Blood Gas pCO2 30 mmHg (35-46); iSTAT Arterial Blood Gas pH 7.28 (7.35-7.45); iSTAT Arterial Blood Gas pO2 111 mmHg (80-95); iSTAT Arterial Blood Gas pO2 C 130; iSTAT Carbon Dioxide 15 mmol/L (24-31); iSTAT FiO2 40 %; iSTAT Hematocrit 36 % (42-52); iSTAT Hemoglobin 12.2 g/dl (14.0-18.0); iSTAT Site Art Line; iSTAT Sodium 134 mmol/L (135-144)
[2022-02-08] MEDS ORDERED: CALCIUM CHLORIDE 10% 500 MG in DEXTROSE 5% 50 ML IV STA (21:36)
[2022-02-08] MEDS ORDERED: SODIUM BICARB 8.4% INJ 50 MEQ/50 ML SYR IV STA (21:37)
[2022-02-09] MEDS: Double Conc 32mcg/mL; 16mg in 500mL IV SCH ×4 (01:19→20:37)
[2022-02-09] MEDS ORDERED: ACETAMINOPHEN 1,000 MG/100 ML VIAL IV PRN (02:30)
[2022-02-09 03:43] LABS: Hematocrit (blood only) 39.9 % (42-52); Hemoglobin 13.2 g/dL (14.0-18.0); Mean Corpuscular Hemoglobin 28.9 pg (25-34); Mean Corpuscular Hgb Conc 33.1 g/dL (32-36); Mean Corpuscular Volume 87.3 fL (80-100); Mean Platelet Volume 10.3 fL (7.4-10.4); Platelet Count 38 K/uL (130-400); RDW Coefficient of Variation 14.1 % (11.5-14.5); Red Blood Count 4.57 M/uL (4.7-6.1); White Blood Count 16.67 K/uL (4.8-10.8)
[2022-02-09 03:44] LABS: Platelet Estimate Decreased (Normal)
[2022-02-09 04:45] LABS: Troponin I High Sensitivity 5446.5 pg/ml (0-20)
[2022-02-09 04:47] LABS: Albumin Globulin Ratio 1.2 (0.9-2); Albumin Level 2.7 gm/dl (3.4-5.0); BUN Creatinine Ratio 17.1 (10-20); Bilirubin,Total 1.8 mg/dl (0.2-1.0); Calcium 7.1 mg/dl (8.5-10.1); Chol HDL Ratio 5.9 (0-5); Creatinine Clr Calc Pharmacy 16.4 ml/min; Est GFR (African American) 15.1 ml/min; Globulin 2.2 gm/dl (2.5-4.0); Magnesium 2.2 mg/dl (1.7-2.4); Phosphorus 5.7 mg/dl (2.5-4.9); Potassium 4.9 mmol/L (3.5-5.1); Total Protein 4.9 gm/dl (6.0-8.3)
[2022-02-09] MEDS ORDERED: SODIUM CHLORIDE 0.9% 1000ML 500 ML IV ONE (04:53)
[2022-02-09] MEDS ORDERED: SODIUM BICARB 8.4% INJ 50 MEQ/50 ML SYR IV STA (04:53)
[2022-02-09] MEDS ORDERED: CALCIUM CHLORIDE 10% 1,000 MG in DEXTROSE 5% 50 ML IV STA (04:53)
[2022-02-09 04:57] LABS: iSTAT Art Bld Gas pCO2 Correct 37 mmHg (35-46); iSTAT Arterial Blood Gas HCO3 15 meg/L (19-24); iSTAT Arterial Blood Gas pCO2 34 mmHg (35-46); iSTAT Arterial Blood Gas pH 7.26 (7.35-7.45); iSTAT Arterial Blood Gas pO2 61 mmHg (80-95); iSTAT Arterial Blood Gas pO2 C 70; iSTAT Carbon Dioxide 16 mmol/L (24-31); iSTAT FiO2 30 %; iSTAT Hematocrit 40 % (42-52); iSTAT Hemoglobin 13.6 g/dl (14.0-18.0); iSTAT Site Art Line; iSTAT Sodium 133 mmol/L (135-144)
[2022-02-09] MEDS: LEVOTHYROXINE SODIUM 75 MCG TABLET PO SCH (05:13)
[2022-02-09] MEDS ORDERED: INSULIN ASPART PER UNIT SC SCH (06:00)
[2022-02-09] MEDS: VASOPRESSIN 20 UNITS in 0.9 % SODIUM CHLORIDE 100 ML IV SCH ×2 (07:05→15:48)
[2022-02-09] MEDS ORDERED: FUROSEMIDE 40 MG/4 ML VIAL IV ONE (07:22)
--- NOTE | 2022-02-09 07:42 | Electrocardiogram Report ---
Test Reason : Blood Pressure : / mmHG Vent. Rate : 124 BPM Atrial Rate : 124 BPM P-R Int : 168 ms QRS Dur : 102 ms QT Int : 306 ms P-R-T Axes : 035 -35 -07 degrees QTc Int : 439 ms Sinus tachycardia Left axis deviation Poor R wave progression, consider anterior OH vs. lead placement vs. LVH Abnormal ECG When compared with ECG of 08-Jul-2020 11:33, Premature atrial complexes are no longer Present Confirmed by Scottie Cook ([id number]) on 02/09/2022 7:41:57 AM Referred By: REFERRED SELF Confirmed By:Scottie Cook
--- NOTE | 2022-02-09 08:02 | XRay Report ---
XR chest 1V portable CLINICAL HISTORY: f/u COMPARISON STUDY: Chest radiograph February 08, 2022. FINDINGS: Tip of endotracheal tube is approximately 2.6 cm above the judith. Tip of nasogastric tube is at least within the distal body of the stomach. There is no pneumothorax. Cardiomegaly is again no raheem. Bibasilar opacities have increased. There is no evidence for pulmonary edema. Possible trace krysta ateral pleural effusions. IMPRESSION: 1. Tip of endotracheal tube approximately 2.6 cm above the judith. 2. Increase in bibasilar opacities which could reflect pneumonia or atelectasis. Possible trace bilat eral pleural effusions. No pneumothorax. 3. Cardiomegaly. ACT 112: Negative or not required by law. Electronically signed by: Luis Rubin M.D. 02/09/2022 8:00 AM
[2022-02-09] MEDS ORDERED: STAT IV Infusion **Titration per Protocol STA ×2 (08:08→10:10)
--- NOTE | 2022-02-09 08:35 | Critical Care Progress Note ---
Date of Service February 09, 2022 Assessment & Plan (1) Hypovolemic shock: (2) Rhabdomyolysis: (3) AUBREE (acute kidney injury): (4) Acute respiratory failure with hypoxia: (5) Elevated troponin: (6) Lactic acidosis: (7) Transaminitis: (8) Thrombocytopenia: Plan: 86-year-old male with a history of CVA, hypothyroidism, diabetes mellitus type 2, CKD stage III and hyperlipidemia presenting to the hospital due to altered mental status and hypoxemia. He was found to be in rhabdomyolysis with a downtime of approximately 4 hours. Neurologic: Patient currently encephalopathic on presentation. Likely metabolic encephalopathy. Urine drug screen ordered. CT head negative for acute bleed. Will need to consider MRI of the brain and EEG if he continues with encephalopathy. He does have a history of ischemic stroke. Pulmonary: Continue lung protective ventilation strategy. Hypoxemia likely initially due to poor inspiratory effort and hypoventilation. There is a possibility of underlying pulmonary embolism. Bedside echo does not demonstrate significant RV strain. Formal echo ordered. We will consider CTA of the chest if improvement in creatinine. Will hold on heparin infusion at this time given that the source of hypotension appears to be septic shock. Patient has worsening thrombocytopenia. Cardiovascular: Hypovolemic/septic shock. Maintain mean arterial pressure above 65. Troponin elevation may be due to rhabdomyolysis. We will obtain formal echo as noted above. Heparin infusion held due to thrombocytopenia. Continue Levophed and vasopressin. Phenylephrine added due to patient's significant tachycardia and very high doses of Levophed. Stop aspirin and plavix. Gastrointestinal: NPO. Place OG tube. CT abdomen/pelvis with perinephric stranding suggestive of possible pyelonephritis. Acetaminophen level within normal limits. Tr ansaminitis likely due to shock and rhabdomyolysis. Acute hepatitis panel ordered. Pantoprazole 40 twice daily. Renal: Patient with UABREE likely secondary to ischemic ATN, hypovolemia and rhabdomyolys is. Creatinine trending up and urine output poor. Patient with refractory acidosis. Nephrology consulted. Patient unlikely to tolerate hemodialysis and unlikely to be stable enough for transfer to a tertiary center for CRRT. Continue bicarbonate infusion to alkalinize the urine and help resolve the metabolic acidosis. We will give empiric 80 mg IV Lasix to help with urine output. Salicylate level negative on admission. Prognosis is extremely poor due to the patient's profound renal failure. Nephro consulted. Infectious disease: Staph species discovered on both blood culture sets. Urine cultures pending. Patient on vancomycin, cefepime and Flagyl. Nasal MRSA negative. Patient in profound septic shock. Hematologic: No obvious sites of bleeding. Hemoglobin stable. Platelet count with profound thrombocytopenia. Peripheral smear pending. Likely consumptive coagulopathy. Hold anticoagulation. Endocrine: TSH within normal limits. Maintain euglycemia. Will initiate stress dose steroids. Lines and tubes: Right femoral vein catheter placed 02/08/2022. Left radial art line placed 02/08/2022. Matthews placed 02/08/2022. ET tube placed 02/08. VTE prophylaxis: Holding chemical ppx CODE STATUS: Full code Family at bedside: Not available at bedside currently. Disposition: I have personally spent 51 minutes of critical care time in the direct management of this patient. This is a life/limb threatening event. This includes time spent evaluating patient, direct bedside care, chart review, placing orders, interpretation of diagnostic studies, discussion with consultants, patient, and family members, as well as other required patient management activities. This time is exclusive of all separately billable procedures, and teaching time and separate from and in addition to any other critical care service time. Thank you for allowing us to participate in the care of this patient. Admission and Anticipated Discharge Date Admission Date: February 08, 2022 Subjective Patient intubated and sedated. Remains on high amounts of vasopressor support. Unresponsive to commands. Urine output minimal overnight. Review of Systems Review of Systems: Unobtainable due to cognitive status and Unobtainable due to endotracheal tube Physical Exam Physical Exam: Constitutional: Intubated and on mechanical ventilation. Eyes: Pupils are equal round and reactive to light. Conjunctivae are normal. Anicteric sclera. Ears nose, mouth and throat: Endotracheal tube in place. Neck: Trachea is midline. Visual inspection is normal. Respiratory: Coarse rhonchi noted bilaterally. Increased work of breathing with tachypnea. Cardiovascular: Regular rate and rhythm. No murmurs. 2+ pitting edema in the lower extremities. Gastrointestinal: Normal bowel sounds, soft, nontender and nondistended. No hepatosplenomegaly noted. Musculoskeletal: Bruising and areas of ecchymosis noted on the legs and knees. Skin: No rashes, warm dry and intact. Neurologic: Unable to fully assess given that he is sedated. Psychiatric: Unable to fully assess. Results & Data Results & Data ([facility]) Vital Signs (Past 12 Hours) Vital Signs Temp Pulse Resp BP Pulse Ox Pulse Ox 02/09/22 06:30 119 H 17 95/62 L 96 02/09/22 06:00 126 H 18 83/59 L 99 02/09/22 05:30 124 H 16 90/59 L 97 02/09/22 05:00 120 H 17 103/67 97 02/09/22 04:30 120 H 20 83/59 L 95 02/09/22 04:00 39 C H 125 H 22 86/63 L 100 02/09/22 03:40 124 H 24 96 02/09/22 03:30 125 H 23 84/60 L 97 02/09/22 03:00 124 H 21 84/60 L 96 02/09/22 02:30 39.1 C H 123 H 21 87/62 L 96 02/09/22 02:00 39.0 C H 120 H 20 88/61 L 96 02/09/22 01:30 118 H 20 88/60 L 95 02/09/22 01:00 118 H 22 85/59 L 96 02/09/22 00:30 117 H 23 90/60 L 96 02/09/22 00:00 38.9 C H 118 H 25 H 85/58 L 96 98 02/08/22 23:30 117 H 24 81/60 L 96 02/08/22 23:10 118 H 24 96 02/08/22 23:00 39.2 C H 118 H 24 88/52 L 97 02/08/22 22:30 39.3 C H 118 H 24 86/57 L 97 02/08/22 22:00 39.6 C H 112 H 25 H 81/54 L 95 02/08/22 21:30 39.8 C H 107 H 21 02/08/22 21:00 39.8 C H 120 H 25 H 95/67 L 96 02/08/22 20:30 39.9 C H 121 H 26 H 99 Coding Level of Care Code Critical Care 1st 30-74 mins Diagnoses Hypovolemic shock R57.1 Rhabdomyolysis M62.82 Rhabdomyolysis type: non-traumatic AUBREE (acute kidney injury) N17.9 Acute respiratory failure with hypoxia J96.01 Elevated troponin R77.8 Lactic acidosis E87.2 Transaminitis R74.01 Thrombocytopenia D69.6 Time Spent (min) 51 (1) Rhabdomyolysis Rhabdomyolysis type: non-traumatic Qualified Code(s): M62.82 - Rhabdomyolysis
[2022-02-09] MEDS: PHENYLEPHRINE HCL 20 MG in DEXTROSE 5% 500 ML IV SCH ×3 (08:43→22:42)
[2022-02-09] MEDS: metroNIDAZOLE 500 MG/100 ML BAG IV SCH ×2 (08:44→16:19)
[2022-02-09] MEDS ORDERED: CHOLECALCIFEROL 1,000 UNITS 25 MCG TAB PO SCH (09:00)
[2022-02-09] MEDS ORDERED: CLOPIDOGREL BISULFATE 75 MG TAB PO SCH (09:00)
[2022-02-09] MEDS ORDERED: ASPIRIN 81 MG CHEW PO SCH (09:00)
[2022-02-09] MEDS: PANTOprazole 40 MG in SYRINGE 0 ML IV SCH ×2 (09:30→21:25)
[2022-02-09 09:31] LABS: Estimated Average Glucose 151 mg/dl; Hemoglobin A1C 6.9 % (4.5-5.6)
[2022-02-09] MEDS: HYDROCORTISONE SOD 50 MG in SYRINGE 0 ML IV SCH ×3 (09:42→21:23)
[2022-02-09] MEDS: SODIUM BICARBONATE 8.4% 150 MEQ in DEXTROSE 5% 1,000 ML IV SCH ×2 (09:42→17:56)
[2022-02-09] MEDS ORDERED: INSULIN PROTOCOL GOAL RANGE ONE (10:10)
[2022-02-09] MEDS ORDERED: SEVERE STRESS LEVEL ONE (10:10)
--- NOTE | 2022-02-09 10:29 | Pharmacy Report ---
Pharmacy [facility] Short Note - Date of Service February 09, 2022 - Assessment & Plan Assessment 86 year old M receiving IV vancomycin, cefepime, and flagyl empirically in the setting of septic shock. Blood cultures (+) 4/4 MSSA. MRSA nasal (-). Patient is intubated, sedated, and requiring vasopressor support - critically ill with multisystem organ failure. SCr 2.81 -->3.97 today. Plan to continue broad spectrum antimicrobial therapy at this time given clinical status. Day # 2 of antimicrobial therapy. Plan Vancomycin * AUC/ALLAN is the preferred PK/PD target for vancomycin, however given profound AUBREE, plan to dose by levels. * S/p vancomycin 2gm load last evening ~ 1800. Random level this AM - 17.7mg/mL (~0300), which is even less at this time. Indicates clearance. It is safe to re-dose. * Vanc 1000mg (~10mg/kg) IV X 1 * Random level 6/25 AM to guide further dosing Pharmacy will continue to follow and will adjust dose/frequency as necessary. Thank you.
[2022-02-09] MEDS ORDERED: VANCOMYCIN HCL 1,250 MG in SODIUM CHLORIDE 0.9% 250 ML IV ONE (10:30)
[2022-02-09] MEDS ORDERED: VANCOMYCIN HCL 1,000 MG in SODIUM CHLORIDE 0.9% 250 ML IV ONE (10:30)
[2022-02-09] MEDS: INSULIN REGULAR 250 UNITS in SODIUM CHLORIDE 0.9% 247.5 ML IV SCH (11:01)
--- NOTE | 2022-02-09 12:39 | Electrocardiogram Report ---
Test Reason : Blood Pressure : / mmHG Vent. Rate : 125 BPM Atrial Rate : 125 BPM P-R Int : 166 ms QRS Dur : 094 ms QT Int : 304 ms P-R-T Axes : 023 082 037 degrees QTc Int : 438 ms Sinus tachycardia Low voltage QRS Borderline ECG When compared with ECG of 08-FEB-2022 10:11, (unconfirmed) QRS axis Shifted right Confirmed by Ryan Orr ([id number]) on 02/09/2022 12:38:46 PM Referred By: REFERRED SELF Confirmed By:Ryan Orr
--- NOTE | 2022-02-09 12:41 | Nephrology Consultation ---
Date of Consultation February 09, 2022 Assessment & Plan (1) AUBREE (acute kidney injury): Patient with a acute kidney injury due to ischemic and toxic ATN in setting of sepsis and rhabdomyolysis. Creatinine is 3.97 from a baseline of 2. Patient is anuric. He has hyperkalemia and metabolic acidosis. Patient will benefit dialysis but he is unable to tolerate intermittent hemodialysis due to septic shock. He is requiring maximum of 3 pressors and even with that blood pressure is low. Discussed risks and benefits of dialysis with the patient's Sun and son Pranay. They understand that patient cannot tolerate intermittent hemodialysis in the state which is available here. He could potentially tolerate CRRT but is not available here and would need transfer to tertiary center. Per ICU attending, patient is not stable enough for transfer. Family agrees to wait for another 24 hours before making a decision. -We will continue bicarb drip -Monitor input output -no need for diuretics unless worsening hypoxia -If blood pressure improves, we can attempt intermittent hemodialysis with low blood flows (2) Rhabdomyolysis: CK is downtrending with IV fluids. Will monitor CK daily. (3) Respiratory failure: Patient is on mechanical ventilation per ICU. CXR showed cardiomegally but no pulm vascular congestion. Will conitnue to assess potential need for ultrafiltration if BP improves. History of Present Illness Reason for Consultation: Acute renal failure, rhabdomyolysis Requesting Physician: Raheem Angela MD Attending Physician: Raheem Angela MD History of Present Illness This is 86-year-old male with history of type 2 diabetes, hypertension, hypothyroidism, CVA and CKD stage III baseline creatinine of 2 who was admitted on 02/08/2022 after being found down for several hours. Patient is intubated and unable to give history. History provided by the Sun and patient's son Pranay. Patient has been having ambulatory dysfunction few days prior to the fall. Patient fell in the night while going to the bathroom. cannot tell how long patient was down. med care manager found him hypoxic. He required intubation in the emergency room. Patient is now septic requiring 3 pressors and even with that blood pressure remains low. He has tachycardia with heart rate in the 120s. Blood cultures are growing staph aureus. He is anuric and had a CK of 34 then downtrending to about 24,000 now. He also has metabolic acidosis with bicarb of 15, BUN of 68 and creatinine of 3.97. His potassium is 5. Chest x- ray showed cardiomegaly and bibasilar opacities. Allergies Allergy/AdvReac Type Severity Reaction Status Date / Time lisinopril AdvReac Intermediate cough Verified 07/08/20 12:16 Home Medications Medication Instructions Recorded Confirmed Type levothyroxine 75 mcg tablet 75 mcg PO QAM 10/22/18 02/08/22 History metformin 500 mg tablet 500 mg PO BIDM 10/22/18 02/08/22 History cholecalciferol (vitamin D3) 50 2,000 unit PO QAM 09/02/19 02/08/22 History mcg (2,000 unit) tablet (Vitamin D3) clopidogrel 75 mg tablet 75 mg PO DAILY 07/08/20 02/08/22 History aspirin 81 mg tablet,delayed 81 mg PO DAILY #90 tab 07/10/20 02/08/22 Rx release metoprolol tartrate 25 mg tablet 12.5 mg PO BID #30 tab 07/10/20 02/08/22 Rx atorvastatin 10 mg tablet 10 mg PO DAILY 02/08/22 02/08/22 History linagliptin 5 mg tablet (Tradjenta) 5 mg PO DAILY 02/08/22 02/08/22 History Patient History Medical History (Updated 02/09/22 @ 08:25 by Jared Kebede MD) Anxiety Diabetes mellitus, type 2 NIDDM Foot drop, right GERD (gastroesophageal reflux disease) Hearing deficit BL [place] History of sciatica History of skin cancer REMOVED FROM FACE AND BACK Hyperlipidemia Hypertension Hypothyroidism Hypovolemic shock Lactic acidosis Osteoarthritis Pneumonia Poor historian Snores Thrombocytopenia Transaminitis Surgical History History of colonoscopy History of herniorrhaphy BL INGUINAL History of left cataract surgery Family History Brother Stroke Mother Breast cancer Sister Breast cancer Social History Smoking Status: Never smoker Second Hand Exposure: No; Hx Alcohol Use: No Hx Substance Use: No Preferred Language: Portuguese Communication Ability: Unable Change Control Analyst Required: No Beliefs That Will Affect Care: None marital status: Current Living Situation: Spouse Feels Safe at Home: Yes Assistive Devices: Hearing Aid - Left Review of Systems Review of Systems: Unable to obtain due to intubation Physical Exam Physical Exam: General exam: Intubated and sedated HEENT: Pupils are equal and minimally reactive to light Neck: No JVD Respiratory system: Clear breath sounds bilaterally. Gastrointestinal: Abdomen is soft, non distended, non tender, bowel sounds are present CVS: Regular rate and rhythm. No murmurs, rubs or gallops Musculoskeletal: No joint or muscle tenderness Extremities: Non tender, no edema, peripheral pulses are present Neuro: Intubated, nonresponsive Skin: Cyanotic extremities Results & Data ([facility]) Vital Signs (Past 12 Hours) Vital Signs Temp Pulse Resp BP Pulse Ox 02/09/22 11:04 117 H 25 H 94 02/09/22 09:59 25 H 02/09/22 08:31 119 H 19 02/09/22 06:30 119 H 17 95/62 L 96 02/09/22 06:00 126 H 18 83/59 L 99 02/09/22 05:30 124 H 16 90/59 L 97 02/09/22 05:00 120 H 17 103/67 97 02/09/22 04:30 120 H 20 83/59 L 95 02/09/22 04:00 39 C H 125 H 22 86/63 L 100 02/09/22 03:40 124 H 24 96 02/09/22 03:30 125 H 23 84/60 L 97 02/09/22 03:00 124 H 21 84/60 L 96 02/09/22 02:30 39.1 C H 123 H 21 87/62 L 96 02/09/22 02:00 39.0 C H 120 H 20 88/61 L 96 02/09/22 01:30 118 H 20 88/60 L 95 02/09/22 01:00 118 H 22 85/59 L 96 Laboratory Results 02/09/22 03:03 02/09/22 02/09/22 03:03 03:03 WBC 16.67 H RBC 4.57 L MCV 87.3 MCH 28.9 MCHC 33.1 RDW Std Deviation 45.0 RDW Coeff of Umesh 14.1 Plt Count 38 L D MPV 10.3 Phosphorus 5.7 H D Albumin 2.7 L (1) Rhabdomyolysis Rhabdomyolysis type: non-traumatic Qualified Code(s): M62.82 - Rhabdomyolysis (2) Respiratory failure Chronicity: acute on chronic Respiratory failure complication: hypoxia Qualified Code(s): J96.21 - Acute and chronic respiratory failure with hypoxia
[2022-02-09] MEDS: INSULIN ASPART PER UNIT SC SCH ×3 (13:58→21:25)
--- NOTE | 2022-02-09 16:45 | Hospitalist Progress Note ---
Date of Service February 09, 2022 Assessment & Plan (1) Acute respiratory failure with hypoxia: Plan: Brought into ER via ambulance with increasing shortness of breath and lethargy and unable to get up from floor following a fall Initially was found to be hypoxic with O2 sats in the 70s by EMS in the field Concern for pulmonary embolism with patient history of CVA, tachycardia, hypoxia, confusion - ABG: pH 7.25, PO2 280, HCO3 18, Co2 20 He was intubated in the emergency room and was admitted to ICU Appreciate consultative sales associate input and recommendation Remains intubated in the ICU and sedated (2) Septic shock: Plan: Admitted with high fever, high white count, hypotension, renal impairment and increasing lactic acid - UA appears to be grossly infected, likely underlying UTI, WBC of 10.5 with left shift - Abx with IV zosyn and vanc. Got 1 dose of daptomycin in the ER but hold this due to renal function -Checking renal ultrasound, 1 was conducted on 01/18/2022 as an outpatient which showed left-sided nephrolithiasis, no hydronephrosis, trabecular bladder Blood and urine culture have been taken-blood culture is growing gram-positive cocci in clusters Has been getting reasonable amount of fluid Repeat lactate remains elevated Clinically condition has not been changed Has been on pressor resents to maintain blood pressure Elevated LFTs likely secondary to shock liver Mottled appearance of the appendices-prognosis remains poor (3) AUBREE (acute kidney injury): Plan: Baseline creatinine around 1.7 Creatinine noted to be high at 2.8 on admission and that went up further Appreciate nephrology input and recommendation (4) CKD (chronic kidney disease) stage 3, GFR 30-59 ml/min: (5) Elevated troponin: Plan: -Troponin 1135, second set pending, trend Q6H x 3 -Doubt any ACS -Echo is grossly intact (6) Rhabdomyolysis: Plan: Secondary to fall and remained on the ground CK level is elevated to 23,360 Has been getting reasonable amount of intravenous fluid Will monitor kidney function and the CK level (7) Diabetes mellitus, type 2: Plan: - ISS with Accu-Cheks ACHS, last A1c was 7.5 in October 2021, recheck for tomorrow morning -Holding metformin and trajenta -Has been getting insulin drip (8) Hypertension: Plan: -Hold metoprolol tartrate -Patient missed aspirin and Plavix today, placed on heparin drip, per day team tomorrow to hold these medications -Presented with hypotensive shock secondary to sepsis -Has been requiring pressor agents to maintain blood pressure (9) Hyperlipidemia: Plan: -Hold statin due to rhabdomyolysis (10) Hypothyroidism: Plan: -Convert levothyroxine to IV if remains intubated tomorrow (11) History of CVA (cerebrovascular accident): Plan: -History of such in August and June 2020, no residual deficits -Follows with Dr. iJn with [facility] neurology -Aspirin and Plavix as above FEN: PIV x 2, 18 and 20 guage/ NSS/ NPO DVT PPx: - teds, scds, heparin drip CODE: Full code Dispo: From home, likely to remain in the hospital x 1-2 days Admission and Anticipated Discharge Date Admission Date: February 08, 2022 Subjective 02/09/2022 The patient was seen and examined in ICU He remains intubated and sedated Review of Systems Review of Systems: Unobtainable due to endotracheal tube Physical Exam Physical Exam: Remained reasonably stable on mechanical ventilator and sedation Constitutional: well developed, well nourished, + ill appearing and + obese Eyes: Closed Neck: Supple Respiratory: no respiratory distress Auscultation: + diminished lung sounds and + crackles (Coarse crackles bilaterally and transmitted sounds from trachea) Cardiovascular: Rate/Rhythm: regular rate, regular rhythm and + tachycardic Heart Sounds: normal S1 and normal S2; no murmur Extremities: + edema (1+ edema bilaterally) Gastrointestinal (Abdomen): Inspection/Auscultation: normal bowel sounds; abdomen not distended Percussion/Palpation: abdomen soft Musculoskeletal: No acute arthritis in any joint Skin: Mottled appearance in the distal upper and lower extremities Neurologic: Remains sedated on mechanical ventilator Results & Data Results & Data ([facility]) Vital Signs (Past 12 Hours) Vital Signs Temp Pulse Resp BP Pulse Ox Pulse Ox 02/09/22 16:30 126 H 02/09/22 16:00 93 02/09/22 15:30 128 H 25 H 101/74 97 02/09/22 15:00 37.8 C H 127 H 25 H 106/74 94 02/09/22 14:41 127 H 25 H 94 02/09/22 14:30 127 H 25 H 105/75 94 02/09/22 14:00 37.9 C H 128 H 25 H 106/82 94 02/09/22 13:30 128 H 25 H 109/74 95 02/09/22 13:00 38.1 C H 127 H 25 H 107/65 94 02/09/22 12:30 127 H 25 H 102/71 98 02/09/22 12:00 38.1 C H 117 H 25 H 96/73 L 97 02/09/22 11:30 117 H 25 H 101/67 96 02/09/22 11:04 117 H 25 H 94 02/09/22 11:00 38.0 C H 116 H 25 H 100/68 94 02/09/22 10:30 127 H 25 H 94/75 L 94 02/09/22 10:00 38.0 C H 130 H 25 H 90/70 L 94 02/09/22 09:59 25 H 02/09/22 09:30 131 H 19 106/73 95 02/09/22 09:00 38.0 C H 130 H 20 105/78 91 02/09/22 08:31 119 H 19 02/09/22 08:30 133 H 20 105/70 87 L 02/09/22 08:00 38.0 C H 131 H 19 101/68 97 93 02/09/22 07:30 120 H 19 102/68 96 02/09/22 07:00 38.1 C H 118 H 18 85/66 L 97 02/09/22 06:30 119 H 17 95/62 L 96 02/09/22 06:00 126 H 18 83/59 L 99 02/09/22 05:30 124 H 16 90/59 L 97 02/09/22 05:00 120 H 17 103/67 97 Laboratory Results Short CBC 02/09/22 Range/Units 03:03 WBC 16.67 H (4.8-10.8) K/uL Hgb 13.2 L (14.0-18.0) g/dL Hct 39.9 L (42-52) % Plt Count 38 L D (130-400) K/uL BMP 02/08/22 02/08/22 02/09/22 17:19 19:49 03:03 Sodium 138 136 133 L Potassium 3.9 4.1 4.9 Chloride 109 H 107 101 Carbon Dioxide 16 L 14 L 15 L BUN 65 H 65 H 68 H Creatinine 3.17 H D 3.46 H 3.97 H D Glucose 223 H 258 H 296 H Calcium 7.4 L 6.9 L 7.1 L Cardiac Enzymes 02/08/22 02/09/22 Range/Units 17:26 03:03 Total Creatine Kinase 09462 H 72130 H (30-223) U/L Liver Function 02/09/22 Range/Units 03:03 Total Bilirubin 1.8 H D (0.2-1.0) mg/dl AST 955 H (13-39) U/L ALT 446 H (7-52) U/L Alkaline Phosphatase 54 (34-104) U/L Albumin 2.7 L (3.4-5.0) gm/dl Medications Administered Current Inpatient Medications Dextrose (Dextrose 50% 50 Ml Syringe) 25 - 50 ml IV UD PRN; Protocol PRN Reason: Hypoglycemia Protocol Stop: 03/10/22 15:11 Fentanyl Citrate (Fentanyl Bolus From Bag) 50 mcg IV Q60M PRN PRN Reason: Pain or Agitation Stop: 02/22/22 10:06 Last Admin: 02/08/22 12:02 Dose: 50 mcg Documented by: Glucagon (Glucagon For Inj 1 Mg Vial) 1 mg SQ UD PRN; Protocol PRN Reason: Hypoglycemia Protocol Stop: 03/10/22 15:11 Glucose (Glucose 10 Tabs/Tube) 4 - 8 tabs PO UD PRN; Protocol PRN Reason: Hypoglycemia Protocol Stop: 03/10/22 15:11 Glucose (Glucose 40% Gel 15 Gm Tube) 15 - 30 gm PO UD PRN; Protocol PRN Reason: Hypoglycemia Protocol Stop: 03/10/22 15:11 Fentanyl Citrate (Fentanyl Citrate) 2,500 mcg in 250 mls @ 5 mls/hr IV .Q50H ISAEL; Protocol Stop: 02/22/22 10:14 Last Titration: 02/09/22 07:01 Dose: 50 mcg/hr, 5 mls/hr Documented by: Midazolam HCl (Versed) 125 mg in 250 mls @ 8 mls/hr IV .[id number] PRN; Protocol PRN Reason: Agitation Stop: 03/10/22 10:06 Last Titration: 02/09/22 07:01 Dose: 4 mg/hr, 8 mls/hr Documented by: Sodium Bicarbonate 150 meq/ (Dextrose) 1,150 mls @ 125 mls/hr IV .Q9H12M ISAEL Stop: 03/10/22 13:29 Last Admin: 02/09/22 09:42 Dose: 125 mls/hr Documented by: Cefepime HCl 2,000 mg/ Syringe 20 mls @ 5.5 mls/min IV Q24H [facility]; Protocol Stop: 02/18/22 16:59 Last Admin: 02/08/22 18:08 Dose: 5.5 mls/min Documented by: Metronidazole (Flagyl) 500 mg in 100 mls @ 100 mls/hr IV Q8H ISAEL Stop: 02/10/22 13:44 Last Admin: 02/09/22 16:19 Dose: 100 mls/hr Documented by: Vasopressin 20 units/ Sodium (Chloride) 101 mls @ 12.12 mls/hr IV .Q8H20M ISAEL Stop: 03/10/22 16:14 Last Admin: 02/09/22 15:48 Dose: 0.04 unit/min, 12.1 mls/hr Documented by: Norepinephrine Bitartrate (Levophed/D5w) 16 mg in 500 mls @ 57.42 mls/hr IV .Q8H43M [facility]; Protocol Stop: 03/11/22 01:29 Last Titration: 02/09/22 15:40 Dose: 0.32 mcg/kg/min, 57.4 mls/hr Documented by: Phenylephrine HCl 20 mg/ (Dextrose) 502 mls @ 82.228 mls/hr IV .Q6H7M [facility]; Protocol Stop: 03/11/22 08:14 Last Titration: 02/09/22 10:30 Dose: 0.56 mcg/kg/min, 82.2 mls/hr Documented by: Pantoprazole Sodium 40 mg/ (Syringe) 10 mls @ 5 mls/min IV BID [facility] Stop: 03/11/22 08:59 Last Admin: 02/09/22 09:30 Dose: 5 mls/min Documented by: Hydrocortisone Sodium (Succinate 50 mg/ Syringe) 1 mls @ 4 mls/min IV Q6H [facility]AEL Stop: 03/11/22 08:59 Last Admin: 02/09/22 15:44 Dose: 4 mls/min Documented by: Insulin Human Regular 250 (units/ Sodium Chloride) 250 mls @ 7.2 mls/hr IV .Q24H [facility]; Protocol Stop: 03/11/22 10:14 Last Titration: 02/09/22 15:00 Dose: 7.2 units/hr, 7.2 mls/hr Documented by: Insulin Aspart (Insulin Aspart Per Unit) 0 units SC ACHS [facility] Stop: 03/11/22 11:29 Last Admin: 02/09/22 13:58 Dose: Not Given Documented by: Levothyroxine Sodium (Levothyroxine Sodium 75 Mcg Tablet) 75 mcg PO DAILY@0600 [facility] Stop: 03/11/22 05:59 Last Admin: 02/09/22 05:13 Dose: 75 mcg Documented by: Midazolam HCl (Midazolam Bolus From Bag) 2 mg IV Q60M PRN PRN Reason: Sedation Stop: 03/10/22 10:06 Last Admin: 02/08/22 14:06 Dose: 1 mg Documented by: Miscellaneous (Carbohydrates For Hypoglycemia ) 15 - 30 gm PO UD PRN PRN Reason: Hypoglycemia Protocol Stop: 03/10/22 15:11 Miscellaneous Information (Vancomycin Consult Active) 1 ea N/A UD PRN PRN Reason: Consult Stop: 03/10/22 13:32 Vitamin D (Cholecalciferol 1,000 Units 25 Mcg Tab) 2,000 units PO QAM [facility] Stop: 03/11/22 08:59 (1) Rhabdomyolysis Rhabdomyolysis type: non-traumatic Qualified Code(s): M62.82 - Rhabdomyolysis
[2022-02-09] MEDS: MIDAZOLAM HCL 125 MG/250 ML BAG IV PRN (17:38)
[2022-02-09] MEDS: fentaNYL citrate 2,500 MCG/250 ML BAG IV SCH (17:40)
[2022-02-09 18:22] LABS: Hematocrit (blood only) 37.5 % (42-52); Mean Corpuscular Hemoglobin 29.9 pg (25-34); Mean Corpuscular Volume 86.2 fL (80-100); Platelet Count 27 K/uL (130-400); RDW Standard Deviation 44.5 fL (36.4-46.3); Red Blood Count 4.35 M/uL (4.7-6.1); White Blood Count 17.79 K/uL (4.8-10.8)
[2022-02-09 18:28] LABS: Basophils # (auto) 0.04 K/uL (0-0.2); Basophils % (auto) 0.2 %; Echinocytes 2+; Eosinophils # (auto) 0.01 K/uL (0-0.5); Eosinophils % (auto) 0.1 %; Immature Granulocytes # (auto) 0.14 K/uL (0.00-0.02); Immature Granulocytes % (auto) 0.8 %; Lymphocytes # (auto) 0.77 K/uL (1.2-3.4); Lymphocytes % (auto) 4.3 %; Mean Corpuscular Hgb Conc 34.7 g/dL (32-36); Monocytes % (auto) 5.1 %; Neutrophils # (auto) 15.93 K/uL (1.4-6.5); Neutrophils % (auto) 89.5 %; Platelet Estimate SIGNIFIC DECREASED (Normal)
[2022-02-09 18:35] LABS: iSTAT Allen Test Pass; iSTAT Arterial Blood Gas HCO3 19 meg/L (19-24); iSTAT Arterial Blood Gas pCO2 35 mmHg (35-46); iSTAT Arterial Blood Gas pH 7.34 (7.35-7.45); iSTAT Arterial Blood Gas pO2 73 mmHg (80-95); iSTAT Carbon Dioxide 20 mmol/L (24-31); iSTAT FiO2 40 %; iSTAT Site Art Line
[2022-02-09] MEDS: CEFEPIME 2,000 MG in SYRINGE 0 ML IV SCH (18:39)
[2022-02-09] MEDS: DOXYCYCLINE HYCLATE 100 MG in DEXTROSE 5% 100 ML IV SCH (18:39)
[2022-02-09 19:50] LABS: Troponin I High Sensitivity 4293.4 pg/ml (0-20)
[2022-02-09 19:53] LABS: Calcium 6.7 mg/dl (8.5-10.1); Creatinine Clr Calc Pharmacy 14.6 ml/min; Est GFR (Non-African American) 11.2 ml/min; Potassium 4.6 mmol/L (3.5-5.1)
[2022-02-10] MEDS: metroNIDAZOLE 500 MG/100 ML BAG IV SCH ×2 (00:16→20:05)
[2022-02-10] MEDS: VASOPRESSIN 20 UNITS in 0.9 % SODIUM CHLORIDE 100 ML IV SCH ×2 (00:16→12:00)
[2022-02-10] MEDS: HYDROCORTISONE SOD 50 MG in SYRINGE 0 ML IV SCH ×4 (02:42→20:14)
[2022-02-10] MEDS: SODIUM BICARBONATE 8.4% 150 MEQ in DEXTROSE 5% 1,000 ML IV SCH (02:42)
[2022-02-10] MEDS: PHENYLEPHRINE HCL 20 MG in DEXTROSE 5% 500 ML IV SCH ×7 (02:45→22:24)
[2022-02-10 03:53] LABS: HBSAG NON-REACTIVE (NON-REACTIVE); Hepatitis A Antibody IgM NON-REACTIVE (NON-REACTIVE); Hepatitis B Core Antibody IgM NON-REACTIVE (NON-REACTIVE)
[2022-02-10 04:15] LABS: iSTAT Art Bld Gas pCO2 Correct 39 mmHg (35-46); iSTAT Arterial Blood Gas HCO3 23 meg/L (19-24); iSTAT Arterial Blood Gas pCO2 36 mmHg (35-46); iSTAT Arterial Blood Gas pH 7.42 (7.35-7.45); iSTAT Arterial Blood Gas pO2 61 mmHg (80-95); iSTAT Arterial Blood Gas pO2 C 69; iSTAT Carbon Dioxide 24 mmol/L (24-31); iSTAT FiO2 40 %; iSTAT Hematocrit 36 % (42-52); iSTAT Hemoglobin 12.2 g/dl (14.0-18.0); iSTAT Potassium 4.2 mmol/L (3.3-5.0); iSTAT Site Art Line; iSTAT Sodium 129 mmol/L (135-144)
[2022-02-10 05:38] LABS: INR 1.3 (0.9-1.1); Prothrombin Time 13.9 Seconds (9.0-12.0)
[2022-02-10] MEDS: DOXYCYCLINE HYCLATE 100 MG in DEXTROSE 5% 100 ML IV SCH ×2 (05:45→17:32)
[2022-02-10] MEDS: LEVOTHYROXINE SODIUM 75 MCG TABLET PO SCH (05:48)
[2022-02-10 06:00] LABS: Albumin Level 2.2 gm/dl (3.4-5.0); BUN Creatinine Ratio 16.3 (10-20); Bilirubin,Total 2.2 mg/dl (0.2-1.0); Creatinine Clr Calc Pharmacy 14.6 ml/min; Est GFR (African American) 12.2 ml/min; Est GFR (Non-African American) 10.5 ml/min; Globulin 2.1 gm/dl (2.5-4.0); Magnesium 1.8 mg/dl (1.7-2.4); Phosphorus 4.2 mg/dl (2.5-4.9); Potassium 4.3 mmol/L (3.5-5.1); Total Protein 4.3 gm/dl (6.0-8.3)
[2022-02-10 06:17] LABS: Hematocrit (blood only) 35.8 % (42-52); Hemoglobin 12.3 g/dL (14.0-18.0); Mean Corpuscular Hemoglobin 28.7 pg (25-34); Mean Corpuscular Hgb Conc 34.4 g/dL (32-36); Mean Corpuscular Volume 83.6 fL (80-100); Mean Platelet Volume 13.1 fL (7.4-10.4); Platelet Count 27 K/uL (130-400); RDW Coefficient of Variation 14.1 % (11.5-14.5); Red Blood Count 4.28 M/uL (4.7-6.1); White Blood Count 19.84 K/uL (4.8-10.8)
[2022-02-10 06:18] LABS: Platelet Estimate SIGNIFIC DECREASED (Normal)
[2022-02-10] MEDS: INSULIN ASPART PER UNIT SC SCH ×4 (07:30→20:15)
--- NOTE | 2022-02-10 07:43 | XRay Report ---
XR chest 1V portable HISTORY: 86 years-old Male f/u up acute respiratory failure COMPARISON: Chest radiograph 02/09/2022 TECHNIQUE: Portable AP view of the chest FINDINGS: The cardiac silhouette is enlarged with pulmonary vascular congestion.. Endotracheal tube overlies th e midline, 1.9 cm superior to the judith. Enteric tube projects over the stomach. No pneumothorax. La yering pleural effusions with bibasilar consolidation, progressed on the right. Pulmonary vascular co ngestion. Bones appear grossly intact. IMPRESSION: 1. Endotracheal and enteric tube placement as above. 2. Cardiomegaly with pulmonary vascular congestion. 3. Layering pleural effusions with bibasilar consolidation, progressed on the right. ACT 112: Negative or not required by law. The above report was generated using voice recognition software. It may contain grammatical, syntax o r spelling errors. Electronically signed by: Johnathan Crockett M.D. 02/10/2022 7:42 AM
[2022-02-10] MEDS ORDERED: STAT IV STA (08:58)
[2022-02-10] MEDS ORDERED: cefTRIAXone SODIUM 2,000 MG in DEXTROSE 5% 50 ML IV SCH (09:00)
[2022-02-10] MEDS ORDERED: CALCIUM GLUCONATE 10% 2,000 MG in DEXTROSE 5% 50 ML IV ONE (09:30)
[2022-02-10] MEDS: PANTOprazole 40 MG in SYRINGE 0 ML IV SCH ×2 (09:35→20:14)
--- NOTE | 2022-02-10 09:44 | Nephrology Progress Note ---
Date of Service February 10, 2022 Assessment & Plan (1) AUBREE (acute kidney injury): Plan: Patient with a acute kidney injury due to ischemic and toxic ATN in setting of sepsis and rhabdomyolysis. Creatinine is 4.7 from a baseline of 2. Patient is anuric. Metabolic acidosis and hyperkalemia have improved with bicarb drip. Patient would benefit dialysis but he is unable to tolerate intermittent hemodialysis due to septic shock. He is requiring maximum of 3 pressors and even with that blood pressure is low. Family opted to wait until today to see the progress before making decisions. There will be family meeting with the ICU attending. Prognosis remains guarded. Palliative care consult is recommended -Monitor input output -no need for diuretics unless worsening hypoxia -If blood pressure improves, we can attempt intermittent hemodialysis with low blood flows although this is also not likely to improve his overall prognosis -Discussed case with the ICU attending (2) Rhabdomyolysis: Plan: CK is downtrending with IV fluids. Will monitor CK daily. (3) Respiratory failure: Plan: Patient is on mechanical ventilation per ICU. CXR showed cardiomegally but no pulm vascular congestion. Will conitnue to assess potential need for ultrafiltration if BP improves. Admission and Anticipated Discharge Date Admission Date: February 08, 2022 Subjective Seen for acute renal failure and rhabdomyolysis. Patient remains critically ill, intubated and, on 3 pressors. He is anuric. And he has mottled skin on the extremities Review of Systems Review of Systems: Unable to obtain due to intubation Physical Exam Physical Exam: General exam: Intubated and sedated HEENT: Pupils are equal and minimally reactive to light Neck: No JVD Respiratory system: Clear breath sounds bilaterally. Gastrointestinal: Abdomen is soft, non distended, non tender, bowel sounds are present CVS: Regular rate and rhythm. No murmurs, rubs or gallops Musculoskeletal: No joint or muscle tenderness Extremities: Non tender, no edema, peripheral pulses are present Neuro: Intubated, nonresponsive Skin: Cyanotic mottled skin extremities Results & Data ([facility]) Vital Signs (Past 12 Hours) Vital Signs Temp Pulse Pulse Resp BP BP BP 02/10/22 06:00 38.8 C H 115 H 25 H 103/60 02/10/22 05:00 38.8 C H 122 H 25 H 105/59 L 02/10/22 04:00 38.8 C H 123 H 121 H 25 H 102/69 102/69 105/60 02/10/22 03:55 123 H 25 H 02/10/22 03:00 38.8 C H 123 H 123 H 25 H 109/70 107/57 L 02/10/22 02:00 38.8 C H 123 H 25 H 107/70 02/10/22 01:30 38.6 C H 123 H 25 H 103/68 02/10/22 01:00 38.6 C H 124 H 25 H 106/69 02/10/22 00:30 123 H 25 H 112/75 02/10/22 00:00 38.5 C H 124 H 25 H 119/81 02/09/22 23:30 123 H 25 H 111/74 02/09/22 23:18 127 H 25 H 86/62 L 02/09/22 23:10 122 H 25 H 02/09/22 23:00 38.4 C H 124 H 25 H 109/75 02/09/22 22:30 124 H 25 H 110/75 02/09/22 22:00 38.4 C H 124 H 25 H 111/76 BP Pulse Ox Pulse Ox 02/10/22 06:00 101/70 96 02/10/22 05:00 96/75 L 96 02/10/22 04:00 94 02/10/22 03:55 93 02/10/22 03:00 109/70 94 02/10/22 02:00 94 02/10/22 01:30 92 02/10/22 01:00 96 02/10/22 00:30 95 02/10/22 00:00 95 94 02/09/22 23:30 94 02/09/22 23:18 94 02/09/22 23:10 95 02/09/22 23:00 94 02/09/22 22:30 95 02/09/22 22:00 95 Laboratory Results 02/10/22 05:13 02/09/22 02/10/22 02/10/22 17:24 05:13 05:13 WBC 17.79 H 19.84 H RBC 4.35 L 4.28 L MCV 86.2 83.6 MCH 29.9 28.7 MCHC 34.7 34.4 RDW Std Deviation 44.5 43.0 RDW Coeff of Umesh 14.0 14.1 Plt Count 27 L* 27 L* MPV 11.0 H 13.1 H Phosphorus 4.2 D Albumin 2.2 L (1) Rhabdomyolysis Rhabdomyolysis type: non-traumatic Qualified Code(s): M62.82 - Rhabdomyolysis (2) Respiratory failure Chronicity: acute on chronic Respiratory failure complication: hypoxia Qualified Code(s): J96.21 - Acute and chronic respiratory failure with hypoxia
[2022-02-10] MEDS ORDERED: ACETAMINOPHEN 1000 MG/100 ML IV IV ONE ×2 (10:01→11:13)
[2022-02-10] MEDS: ceFAZolin 1000MG 1,000 MG/7.5 ML SYR IV SCH ×2 (10:12→22:30)
[2022-02-10] MEDS: Double Conc 32mcg/mL; 16mg in 500mL IV SCH (10:19)
--- NOTE | 2022-02-10 10:46 | Critical Care Progress Note ---
Date of Service February 10, 2022 Assessment & Plan (1) Hypovolemic shock: (2) Rhabdomyolysis: (3) AUBREE (acute kidney injury): (4) Acute respiratory failure with hypoxia: (5) Elevated troponin: (6) Lactic acidosis: (7) Transaminitis: (8) Thrombocytopenia: Plan: 86-year-old male with a history of CVA, hypothyroidism, diabetes mellitus type 2, CKD stage III and hyperlipidemia presenting to the hospital due to altered mental status and hypoxemia. He was found to be in rhabdomyolysis with a downtime of approximately 4 hours. Neurologic: Patient currently encephalopathic on presentation. Likely metabolic encephalopathy. Urine drug screen ordered. CT head negative for acute bleed. Will need to consider MRI of the brain and EEG if he continues with encephalopathy. He does have a history of ischemic stroke. Pulmonary: Continue lung protective ventilation strategy. Hypoxemia likely initially due to poor inspiratory effort and hypoventilation. Echo not suggestive of RV failure. Unlikely to be hemodynamically significant pulmonary embolism especially in the context of septic shock. Cardiovascular: Hypovolemic/septic shock. Maintain mean arterial pressure above 65. Troponin elevation may be due to rhabdomyolysis. Formal echo noted. LVEF and RVEF intact Continue Levophed and vasopressin. Phenylephrine added due to patient's significant tachycardia and very high doses of Levophed. Stopped aspirin and plavix. Gastrointestinal: NPO. Place OG tube. CT abdomen/pelvis with perinephric stranding suggestive of possible pyelonephritis. Acetaminophen level within normal limits. Transaminitis likely due to shock and rhabdomyolysis. Acute hepatitis panel ordered. Pantoprazole 40 twice daily. Renal: Patient with AUBREE likely secondary to ischemic ATN, hypovolemia and rhabdomyolysis. Creatinine trending up and urine output poor. Patient with refractory acidosis. Nephrology consulted. Patient unlikely to tolerate hemodialysis and unlikely to be stable enough for transfer to a tertiary center for CRRT. Bicarbonate infusion discontinued due to hypocalcemia normalization of bicarbonate levels. pH improved today. Urine output remains minimal. Infectious disease: Pansensitive staph aureus growing from blood cultures. Vancomycin and cefepime discontinued. Ancef ordered. Continue Flagyl. Urine cultures with mixed nancie. Nasal MRSA negative. Patient in profound septic shock. Hematologic: No obvious sites of bleeding. Hemoglobin stable. Platelet count with profound thrombocytopenia. Peripheral smear reviewed. Likely consumptive coagulopathy. Hold anticoagulation. Endocrine: TSH within normal limits. Maintain euglycemia. Will initiate stress dose steroids. Lines and tubes: Right femoral vein catheter placed 02/08/2022. Left radial art line placed 02/08/2022. Matthews placed 02/08/2022. ET tube placed 02/08. VTE prophylaxis: Holding chemical ppx CODE STATUS: Full code Family at bedside: Updated at bedside Disposition: I have personally spent 55 minutes of critical care time in the direct management of this patient. This is a life/limb threatening event. This includes time spent evaluating patient, direct bedside care, chart review, placing orders, interpretation of diagnostic studies, discussion with consultants, patient, and family members, as well as other required patient management activities. This time is exclusive of all separately billable procedures, and teaching time and separate from and in addition to any other critical care service time. Thank you for allowing us to participate in the care of this patient. Admission and Anticipated Discharge Date Admission Date: February 08, 2022 Subjective Patient seen and examined. Remains on 3 vasopressors. Currently on Versed and fentanyl. Unresponsive to commands. Remains febrile and hemodynamically unstable. Minimal vent support. Review of Systems Review of Systems: Unobtainable due to cognitive status and Unobtainable due to endotracheal tube Physical Exam Physical Exam: Constitutional: Intubated and on mechanical ventilation. Eyes: Pupils are equal round and reactive to light. Conjunctivae are normal. Anicteric sclera. Ears nose, mouth and throat: Endotracheal tube in place. Neck: Trachea is midline. Visual inspection is normal. Respiratory: Coarse rhonchi noted bilaterally. Increased work of breathing with tachypnea. Cardiovascular: Regular rate and rhythm. No murmurs. 2+ pitting edema in the lower extremities. Gastrointestinal: Normal bowel sounds, soft, nontender and nondistended. No hepatosplenomegaly noted. Musculoskeletal: Bruising and areas of ecchymosis noted on the legs and knees. Skin: No rashes, warm dry and intact. Neurologic: Unable to fully assess given that he is sedated. Psychiatric: Unable to fully assess. Results & Data Results & Data ([facility]) Vital Signs (Past 12 Hours) Vital Signs Temp Pulse Pulse Resp BP BP BP 02/10/22 06:00 38.8 C H 115 H 25 H 103/60 02/10/22 05:00 38.8 C H 122 H 25 H 105/59 L 02/10/22 04:00 38.8 C H 123 H 121 H 25 H 102/69 102/69 105/60 02/10/22 03:55 123 H 25 H 02/10/22 03:00 38.8 C H 123 H 123 H 25 H 109/70 107/57 L 02/10/22 02:00 38.8 C H 123 H 25 H 107/70 02/10/22 01:30 38.6 C H 123 H 25 H 103/68 02/10/22 01:00 38.6 C H 124 H 25 H 106/69 02/10/22 00:30 123 H 25 H 112/75 02/10/22 00:00 38.5 C H 124 H 25 H 119/81 02/09/22 23:30 123 H 25 H 111/74 02/09/22 23:18 127 H 25 H 86/62 L 02/09/22 23:10 122 H 25 H 02/09/22 23:00 38.4 C H 124 H 25 H 109/75 BP Pulse Ox Pulse Ox 02/10/22 06:00 101/70 96 02/10/22 05:00 96/75 L 96 02/10/22 04:00 94 02/10/22 03:55 93 02/10/22 03:00 109/70 94 02/10/22 02:00 94 02/10/22 01:30 92 02/10/22 01:00 96 02/10/22 00:30 95 02/10/22 00:00 95 94 02/09/22 23:30 94 02/09/22 23:18 94 02/09/22 23:10 95 02/09/22 23:00 94 Coding Level of Care Code Critical Care 1st 30-74 mins Diagnoses Hypovolemic shock R57.1 Rhabdomyolysis M62.82 Rhabdomyolysis type: non-traumatic AUBREE (acute kidney injury) N17.9 Acute respiratory failure with hypoxia J96.01 Elevated troponin R77.8 Lactic acidosis E87.2 Transaminitis R74.01 Thrombocytopenia D69.6 Time Spent (min) 55 (1) Rhabdomyolysis Rhabdomyolysis type: non-traumatic Qualified Code(s): M62.82 - Rhabdomyolysis
[2022-02-10] MEDS ORDERED: STAT IV Infusion **Titration per Protocol STA (11:49)
--- NOTE | 2022-02-10 13:17 | Hospitalist Progress Note ---
Date of Service February 10, 2022 Assessment & Plan (1) Acute respiratory failure with hypoxia: Plan: Brought into ER via ambulance with increasing shortness of breath and lethargy and unable to get up from floor following a fall Initially was found to be hypoxic with O2 sats in the 70s by EMS in the field Concern for pulmonary embolism with patient history of CVA, tachycardia, hypoxia, confusion - ABG: pH 7.25, PO2 280, HCO3 18, Co2 20 He was intubated in the emergency room and was admitted to ICU Appreciate household assistant input and recommendation Remains intubated in the ICU and sedated No improvement of his condition (2) Septic shock: Plan: Admitted with high fever, high white count, hypotension, renal impairment and increasing lactic acid - UA appears to be grossly infected, likely underlying UTI, WBC of 10.5 with left shift - Abx with IV zosyn and vanc. Got 1 dose of daptomycin in the ER but hold this due to renal function -Checking renal ultrasound, 1 was conducted on 01/18/2022 as an outpatient which showed left-sided nephrolithiasis, no hydronephrosis, trabecular bladder Blood and urine culture have been taken-blood culture is growing gram-positive cocci in clusters Has been getting reasonable amount of fluid Repeat lactate remains elevated Clinically condition has not been changed Has been on pressor resents to maintain blood pressure Elevated LFTs likely secondary to shock liver Mottled appearance of the appendices-prognosis remains poor Blood cultures are growing MSSA and antibiotic is changed to intravenous cefazolin and remains on IV doxycycline as well Remains hyperthermic with increasing white count, procalcitonin remains elevated and platelet counts are decreasing Transaminitis LFTs have been worsening Secondary to shock liver Thrombocytopenia Likely secondary to sepsis No therapeutic anticoagulant (3) AUBREE (acute kidney injury): Plan: Baseline creatinine around 1.7 Creatinine noted to be high at 2.8 on admission and that went up further Appreciate nephrology input and recommendation Creatinine has been worsening (4) CKD (chronic kidney disease) stage 3, GFR 30-59 ml/min: (5) Elevated troponin: Plan: -Troponin 1135, second set pending, trend Q6H x 3 -Doubt any ACS -Echo is grossly intact (6) Rhabdomyolysis: Plan: Secondary to fall and remained on the ground CK level is elevated to 23,360 Has been getting reasonable amount of intravenous fluid Will monitor kidney function and the CK level We will monitor CK level (7) Diabetes mellitus, type 2: Plan: - ISS with Accu-Chejefry LOWES, last A1c was 7.5 in October 2021, recheck for tomorrow morning -Holding metformin and trajenta -Has been getting insulin drip (8) Hypertension: Plan: -Hold metoprolol tartrate -Patient missed aspirin and Plavix today, placed on heparin drip, per day team tomorrow to hold these medications -Presented with hypotensive shock secondary to sepsis -Has been requiring pressor agents to maintain blood pressure (9) Hyperlipidemia: Plan: -Hold statin due to rhabdomyolysis (10) Hypothyroidism: Plan: -Convert levothyroxine to IV if remains intubated tomorrow (11) History of CVA (cerebrovascular accident): Plan: -History of such in August and June 2020, no residual deficits -Follows with Dr. Jin with [facility] neurology -Aspirin and Plavix as above FEN: PIV x 2, 18 and 20 guage/ NSS/ NPO DVT PPx: - teds, scds, CODE: Full code Dispo: From home, likely to remain in the hospital x 1-2 days Prognosis is very poor Admission and Anticipated Discharge Date Admission Date: February 08, 2022 Subjective 02/09/2022 The patient was seen and examined in ICU He remains intubated and sedated 02/10/2022 The patient was seen and examined in ICU He remains intubated and sedated with pressor support Review of Systems Review of Systems: Unobtainable due to endotracheal tube Physical Exam Physical Exam: Remained reasonably stable on mechanical ventilator and sedation Constitutional: well developed, well nourished, + ill appearing and + obese Eyes: Closed ENMT: external ear and nose normal, oropharynx normal Neck: trachea midline, no thyromegaly Respiratory: no respiratory distress Auscultation: + diminished lung sounds and + crackles (Coarse crackles bilaterally and transmitted sounds from trachea) Cardiovascular: Rate/Rhythm: regular rate, regular rhythm and + tachycardic Heart Sounds: normal S1 and normal S2; no murmur Extremities: + edema (1+ edema bilaterally) Gastrointestinal (Abdomen): Inspection/Auscultation: normal bowel sounds; abdomen not distended Percussion/Palpation: abdomen soft Musculoskeletal: No acute arthritis in any joint Skin: Mottled appearance of the distal upper and lower extremities Neurologic: Remains sedated and intubated Results & Data Results & Data ([facility]) Vital Signs (Past 12 Hours) Vital Signs Temp Pulse Pulse Resp BP BP BP 02/10/22 11:30 86 25 H 02/10/22 08:30 38.6 C H 117 H 25 H 02/10/22 08:00 38.6 C H 115 H 25 H 113/79 02/10/22 07:30 38.7 C H 116 H 25 H 02/10/22 07:20 102 H 25 H 02/10/22 06:00 38.8 C H 115 H 25 H 103/60 02/10/22 05:00 38.8 C H 122 H 25 H 105/59 L 02/10/22 04:00 38.8 C H 123 H 121 H 25 H 102/69 102/69 105/60 02/10/22 03:55 123 H 25 H 02/10/22 03:00 38.8 C H 123 H 123 H 25 H 109/70 107/57 L 02/10/22 02:00 38.8 C H 123 H 25 H 107/70 02/10/22 01:30 38.6 C H 123 H 25 H 103/68 BP Pulse Ox Pulse Ox 02/10/22 11:30 95 02/10/22 08:30 95 02/10/22 08:00 97 97 02/10/22 07:30 97 02/10/22 07:20 96 02/10/22 06:00 101/70 96 02/10/22 05:00 96/75 L 96 02/10/22 04:00 94 02/10/22 03:55 93 02/10/22 03:00 109/70 94 02/10/22 02:00 94 02/10/22 01:30 92 Laboratory Results Short CBC 02/09/22 02/10/22 Range/Units 17:24 05:13 WBC 17.79 H 19.84 H (4.8-10.8) K/uL Hgb 13.0 L 12.3 L (14.0-18.0) g/dL Hct 37.5 L 35.8 L (42-52) % Plt Count 27 L* 27 L* (130-400) K/uL BMP 02/09/22 02/10/22 17:24 05:13 Sodium 132 L 129 L Potassium 4.6 4.3 Chloride 96 L 93 L Carbon Dioxide 17 L 22 BUN 76 H 77 H Creatinine 4.48 H D 4.73 H* Glucose 260 H 203 H Calcium 6.7 L 6.0 L Liver Function 02/10/22 Range/Units 05:13 Total Bilirubin 2.2 H (0.2-1.0) mg/dl AST 1331 H (13-39) U/L ALT 944 H (7-52) U/L Alkaline Phosphatase 77 (34-104) U/L Albumin 2.2 L (3.4-5.0) gm/dl Medications Administered Current Inpatient Medications Dextrose (Dextrose 50% 50 Ml Syringe) 25 - 50 ml IV UD PRN; Protocol PRN Reason: Hypoglycemia Protocol Stop: 03/10/22 15:11 Fentanyl Citrate (Fentanyl Bolus From Bag) 50 mcg IV Q60M PRN PRN Reason: Pain or Agitation Stop: 02/22/22 10:06 Last Admin: 02/08/22 12:02 Dose: 50 mcg Documented by: Glucagon (Glucagon For Inj 1 Mg Vial) 1 mg SQ UD PRN; Protocol PRN Reason: Hypoglycemia Protocol Stop: 03/10/22 15:11 Glucose (Glucose 10 Tabs/Tube) 4 - 8 tabs PO UD PRN; Protocol PRN Reason: Hypoglycemia Protocol Stop: 03/10/22 15:11 Glucose (Glucose 40% Gel 15 Gm Tube) 15 - 30 gm PO UD PRN; Protocol PRN Reason: Hypoglycemia Protocol Stop: 03/10/22 15:11 Fentanyl Citrate (Fentanyl Citrate) 2,500 mcg in 250 mls @ 5 mls/hr IV .Q50H ISAEL; Protocol Stop: 02/22/22 10:14 Last Titration: 02/09/22 19:13 Dose: 50 mcg/hr, 5 mls/hr Documented by: Midazolam HCl (Versed) 125 mg in 250 mls @ 8 mls/hr IV .[id number] PRN; Protocol PRN Reason: Agitation Stop: 03/10/22 10:06 Last Titration: 02/09/22 19:13 Dose: 4 mg/hr, 8 mls/hr Documented by: Norepinephrine Bitartrate (Levophed/D5w) 16 mg in 500 mls @ 39.476 mls/hr IV .[id number] ISAEL; Protocol Stop: 03/11/22 01:29 Last Admin: 02/10/22 10:19 Dose: 0.22 mcg/kg/min, 39.5 mls/hr Documented by: Phenylephrine HCl 20 mg/ (Dextrose) 502 mls @ 176.202 mls/hr IV .Q2H51M ISAEL; Protocol Stop: 03/11/22 08:14 Last Admin: 02/10/22 10:19 Dose: 1.2 mcg/kg/min, 176.2 mls/hr Documented by: Pantoprazole Sodium 40 mg/ (Syringe) 10 mls @ 5 mls/min IV BID ISAEL Stop: 03/11/22 08:59 Last Admin: 02/10/22 09:35 Dose: 5 mls/min Documented by: Hydrocortisone Sodium (Succinate 50 mg/ Syringe) 1 mls @ 4 mls/min IV Q6H ISAEL Stop: 03/11/22 08:59 Last Admin: 02/10/22 09:34 Dose: 4 mls/min Documented by: Insulin Human Regular 250 (units/ Sodium Chloride) 250 mls @ 12.4 mls/hr IV .[id number] ISAEL; Protocol Stop: 03/11/22 10:14 Last Titration: 02/10/22 06:00 Dose: 12.4 units/hr, 12.4 mls/hr Documented by: Doxycycline Hyclate 100 mg/ (Dextrose) 110 mls @ 50 mls/hr IV Q12H [facility] Stop: 02/11/22 17:29 Last Infusion: 02/10/22 12:09 Dose: Infused Documented by: Cefazolin Sodium (Ancef 1000mg) 1,000 mg in 7.5 mls @ 2.5 mls/min IV Q12H [facility]; Protocol Stop: 02/24/22 09:59 Last Admin: 02/10/22 10:12 Dose: 2.5 mls/min Documented by: Vasopressin 20 units/ Sodium (Chloride) 101 mls @ 12.12 mls/hr IV .Q8H20M ISAEL Stop: 03/12/22 11:59 Insulin Aspart (Insulin Aspart Per Unit) 0 units SC ACHS [facility] Stop: 03/11/22 11:29 Last Admin: 02/09/22 21:25 Dose: Not Given Documented by: Levothyroxine Sodium (Levothyroxine Sodium 75 Mcg Tablet) 75 mcg PO DAILY@0600 [facility] Stop: 03/11/22 05:59 Last Admin: 02/10/22 05:48 Dose: 75 mcg Documented by: Midazolam HCl (Midazolam Bolus From Bag) 2 mg IV Q60M PRN PRN Reason: Sedation Stop: 03/10/22 10:06 Last Admin: 02/08/22 14:06 Dose: 1 mg Documented by: Miscellaneous (Carbohydrates For Hypoglycemia ) 15 - 30 gm PO UD PRN PRN Reason: Hypoglycemia Protocol Stop: 03/10/22 15:11 Vitamin D (Cholecalciferol 1,000 Units 25 Mcg Tab) 2,000 units PO QAM [facility] Stop: 03/11/22 08:59 (1) Rhabdomyolysis Rhabdomyolysis type: non-traumatic Qualified Code(s): M62.82 - Rhabdomyolysis
[2022-02-10] MEDS ORDERED: NORMOSOL-R 500 ML IV ONE (16:37)
[2022-02-10] MEDS: INSULIN REGULAR 250 UNITS in SODIUM CHLORIDE 0.9% 247.5 ML IV SCH (17:20)
[2022-02-10 17:39] LABS: Albumin Level 2.2 gm/dl (3.4-5.0); BUN Creatinine Ratio 15.6 (10-20); Bilirubin,Total 2.8 mg/dl (0.2-1.0); Creatinine Clr Calc Pharmacy 13.8 ml/min; Est GFR (African American) 11.4 ml/min; Est GFR (Non-African American) 9.8 ml/min; Globulin 2.3 gm/dl (2.5-4.0); Potassium 3.7 mmol/L (3.5-5.1); Total Protein 4.5 gm/dl (6.0-8.3); Troponin I High Sensitivity 1627.1 pg/ml (0-20)
[2022-02-10] MEDS ORDERED: SODIUM CHLORIDE 0.9% 1000ML 1,000 ML IV ONE (19:16)
[2022-02-10] MEDS: PHENYLEPHRINE HCL 40 MG in SODIUM CHLORIDE 0.9% 500 ML IV SCH (19:37)
[2022-02-10] MEDS: DEXTROSE 50% 50 ML SYRINGE IV PRN ×2 (20:47→22:18)
[2022-02-11] MEDS: PHENYLEPHRINE HCL 40 MG in SODIUM CHLORIDE 0.9% 500 ML IV SCH ×4 (00:13→22:50)
[2022-02-11] MEDS: HYDROCORTISONE SOD 50 MG in SYRINGE 0 ML IV SCH ×4 (03:00→21:00)
[2022-02-11] MEDS: VASOPRESSIN 20 UNITS in 0.9 % SODIUM CHLORIDE 100 ML IV SCH (03:00)
[2022-02-11] MEDS: INSULIN ASPART PER UNIT SC SCH ×5 (04:00→20:59)
[2022-02-11] MEDS: DOXYCYCLINE HYCLATE 100 MG in DEXTROSE 5% 100 ML IV SCH (05:44)
[2022-02-11] MEDS: LEVOTHYROXINE SODIUM 75 MCG TABLET PO SCH (05:44)
[2022-02-11 06:05] LABS: Albumin Level 2.2 gm/dl (3.4-5.0); Bilirubin,Total 3.4 mg/dl (0.2-1.0); Globulin 2.2 gm/dl (2.5-4.0); Magnesium 1.7 mg/dl (1.7-2.4); Phosphorus 5.1 mg/dl (2.5-4.9); Total Protein 4.4 gm/dl (6.0-8.3)
[2022-02-11 06:06] LABS: BUN Creatinine Ratio 15.8 (10-20); Calcium 5.8 mg/dl (8.5-10.1); Creatinine Clr Calc Pharmacy 13.5 ml/min; Est GFR (Non-African American) 9.5 ml/min; Potassium 4.8 mmol/L (3.5-5.1)
[2022-02-11] MEDS ORDERED: CALCIUM CHLORIDE 10% 1,000 MG in DEXTROSE 5% 50 ML IV STA (06:14)
[2022-02-11 06:16] LABS: iSTAT Art Bld Gas pCO2 Correct 35 mmHg (35-46); iSTAT Art Bld Gas pH Corrected 7.385 (7.35-7.45); iSTAT Arterial Blood Gas HCO3 21 meg/L (19-24); iSTAT Arterial Blood Gas pCO2 34 mmHg (35-46); iSTAT Arterial Blood Gas pH 7.39 (7.35-7.45); iSTAT Arterial Blood Gas pO2 75 mmHg (80-95); iSTAT Arterial Blood Gas pO2 C 77; iSTAT Carbon Dioxide 22 mmol/L (24-31); iSTAT FiO2 40 %; iSTAT Hematocrit 38 % (42-52); iSTAT Hemoglobin 12.9 g/dl (14.0-18.0); iSTAT Potassium 4.7 mmol/L (3.3-5.0); iSTAT Site Art Line; iSTAT Sodium 123 mmol/L (135-144)
[2022-02-11 06:18] LABS: Hematocrit (blood only) 36.6 % (42-52); Hemoglobin 12.5 g/dL (14.0-18.0); Mean Corpuscular Hgb Conc 34.2 g/dL (32-36); Mean Corpuscular Volume 84.9 fL (80-100); Nucleated RBC # (auto) 0.08 K/uL (0-0); Nucleated RBC % (auto) 0.4 %; Platelet Count 18 K/uL (130-400); Platelet Estimate SIGNIFIC DECREASED (Normal); RDW Coefficient of Variation 14.1 % (11.5-14.5); RDW Standard Deviation 44.1 fL (36.4-46.3); Red Blood Count 4.31 M/uL (4.7-6.1); White Blood Count 20.14 K/uL (4.8-10.8)
--- NOTE | 2022-02-11 08:37 | Critical Care Progress Note ---
Date of Service February 11, 2022 Assessment & Plan (1) Hypovolemic shock: (2) Rhabdomyolysis: (3) AUBREE (acute kidney injury): (4) Acute respiratory failure with hypoxia: (5) Elevated troponin: (6) Lactic acidosis: (7) Transaminitis: (8) Thrombocytopenia: Plan: 86-year-old male with a history of CVA, hypothyroidism, diabetes mellitus type 2, CKD stage III and hyperlipidemia presenting to the hospital due to altered mental status and hypoxemia. He was found to be in rhabdomyolysis with a downtime of approximately 4 hours. Neurologic: Patient currently encephalopathic on presentation. Likely metabolic encephalopathy. Urine drug screen negative. CT head negative for acute bleed. Will need to consider MRI of the brain and EEG if he continues with encephalopathy. He does have a history of ischemic stroke. Versed and fentanyl have been placed on hold for a sedation vacation. Pulmonary: Continue lung protective ventilation strategy. Hypoxemia likely initially due to poor inspiratory effort and hypoventilation. Echo not suggestive of RV failure. Unlikely to be hemodynamically significant pulmonary embolism especially in the context of septic shock. Chest x-ray with bilateral layering pleural effusions. Cardiovascular: Hypovolemic/septic shock. Maintain mean arterial pressure above 65. Troponin elevation may be due to rhabdomyolysis. Formal echo noted. LVEF and RVEF intact. Aspirin and Plavix on hold due to thrombocytopenia. Continue to wean pressors as able. We will discontinue vasopressin and phenylephrine at this point. Gastrointestinal: NPO. OG tube in place. CT abdomen/pelvis with perinephric stranding suggestive of possible pyelonephritis. Acetaminophen level within normal limits. Transaminitis likely due to shock and rhabdomyolysis. Acute hepatitis panel ordered. Pantoprazole 40 twice daily. Renal: Patient with AUBREE likely secondary to ischemic ATN, hypovolemia and rhabdomyolysis. Creatinine trending up and urine output poor. Patient poor candidate for hemodialysis given hypotension. Hemodialysis can be considered in the near future if he does not make any urine and his hemodynamics improved. Aggressively replace calcium. ABG substantially improved from initial presentation. Mild respiratory alkalosis with a minimal metabolic acidosis. Infectious disease: Pansensitive staph aureus growing from blood cultures. Vancomycin and cefepime discontinued. Ancef ordered. Continue Flagyl. Continue doxycycline. Urine cultures with mixed nancie. Nasal MRSA negative. Repeat blood cultures ordered to demonstrate clearance. Hematologic: No obvious sites of bleeding. Hemoglobin stable. Platelet count with profound thrombocytopenia. Peripheral smear reviewed. Likely consumptive coagulopathy. Hold anticoagulation. Endocrine: TSH within normal limits. Maintain euglycemia. Wean stress dose steroids to 50 mg 3 times daily. Lines and tubes: Right femoral vein catheter placed 02/08/2022. Left radial art line placed 02/08/2022. Matthews placed 02/08/2022. ET tube placed 02/08. VTE prophylaxis: Holding chemical ppx CODE STATUS: Full code Family at bedside: Updated at bedside Disposition: I have personally spent 38 minutes of critical care time in the direct management of this patient. This is a life/limb threatening event. This includes time spent evaluating patient, direct bedside care, chart review, placing orders, interpretation of diagnostic studies, discussion with consultants, patient, and family members, as well as other required patient management activities. This time is exclusive of all separately billable procedures, and teaching time and separate from and in addition to any other critical care service time. Thank you for allowing us to participate in the care of this patient. Admission and Anticipated Discharge Date Admission Date: February 08, 2022 Subjective Patient seen and examined this morning. Urine output has been minimal over night. Pressor requirements have been weaned down. Patient only on low-dose phenylephrine and vasopressin. Versed and fentanyl have been placed on pause. Review of Systems Review of Systems: All systems reviewed & are unremarkable except as noted in HPI & below Physical Exam Physical Exam: Constitutional: Intubated and on mechanical ventilation. Eyes: Pupils are equal round and reactive to light. Conjunctivae are normal. Anicteric sclera. Ears nose, mouth and throat: Endotracheal tube in place. Neck: Trachea is midline. Visual inspection is normal. Respiratory: Coarse rhonchi noted bilaterally. Increased work of breathing with tachypnea. Cardiovascular: Regular rate and rhythm. No murmurs. 2+ pitting edema in the lower extremities. Diminished pedal pulses bilaterally. Gastrointestinal: Normal bowel sounds, soft, nontender and nondistended. No hepatosplenomegaly noted. Musculoskeletal: Bruising and areas of ecchymosis noted on the legs and knees. Skin: No rashes, warm dry and intact. Neurologic: Unable to fully assess given that he is sedated. Psychiatric: Unable to fully assess. Results & Data Results & Data ([facility]) Vital Signs (Past 12 Hours) Vital Signs Temp Pulse Resp BP Pulse Ox Pulse Ox 06/26/22 06:00 37.3 C 90 22 115/80 97 02/11/22 05:19 37.4 C 90 19 128/93 98 02/11/22 05:00 37.5 C 90 22 123/91 97 02/11/22 04:45 92 H 22 97 02/11/22 04:14 37.7 C H 93 H 24 152/88 H 95 02/11/22 04:00 37.8 C H 92 H 23 128/79 95 02/11/22 03:00 37.9 C H 92 H 23 120/84 94 02/11/22 02:00 37.9 C H 97 H 24 145/84 H 96 02/11/22 01:12 37.9 C H 104 H 22 107/78 93 02/11/22 01:00 37.9 C H 105 H 22 95 02/11/22 00:58 37.9 C H 104 H 22 154/109 H 95 02/11/22 00:02 37.8 C H 117 H 22 105/78 95 02/11/22 00:00 94 02/10/22 23:30 114 H 22 96 02/10/22 23:00 37.7 C H 121 H 22 129/88 96 02/10/22 22:52 37.7 C H 0 L 22 115/83 97 02/10/22 22:04 37.6 C H 100 H 22 123/78 96 02/10/22 22:01 37.6 C H 100 H 22 144/85 H 97 02/10/22 22:00 37.6 C H 104 H 22 97 02/10/22 21:00 37.5 C 113 H 22 118/85 93 Coding Level of Care Code Critical Care 1st 30-74 mins Diagnoses Hypovolemic shock R57.1 Rhabdomyolysis M62.82 Rhabdomyolysis type: non-traumatic AUBREE (acute kidney injury) N17.9 Acute respiratory failure with hypoxia J96.01 Elevated troponin R77.8 Lactic acidosis E87.2 Transaminitis R74.01 Thrombocytopenia D69.6 Time Spent (min) 38 (1) Rhabdomyolysis Rhabdomyolysis type: non-traumatic Qualified Code(s): M62.82 - Rhabdomyolysis
[2022-02-11] MEDS: PANTOprazole 40 MG in SYRINGE 0 ML IV SCH ×2 (08:44→21:00)
[2022-02-11] MEDS: ceFAZolin 1000MG 1,000 MG/7.5 ML SYR IV SCH (09:46)
--- NOTE | 2022-02-11 11:22 | Nephrology Progress Note ---
Date of Service February 11, 2022 Assessment & Plan (1) AUBREE (acute kidney injury): Plan: Patient with a acute kidney injury due to ischemic and toxic ATN in setting of sepsis and rhabdomyolysis. Creatinine is 5.1 from a baseline of 2. Patient is anuric. Metabolic acidosis and hyperkalemia have improved with bicarb drip. Patient would benefit dialysis but he is unable to tolerate intermittent hemodialysis due to septic shock. Pressor requirements have reduced and patient is now only on Levophed. Family opted to wait until tomorrow to see the progress before making decisions. No indication for urgent dialysis today. If hemodynamics remained stable tomorrow, will consider dialysis -Monitor input output -no need for diuretics unless worsening hypoxia -If blood pressure improves, we can attempt intermittent hemodialysis with low blood flows although this is also not likely to improve his overall prognosis -Discussed case with the ICU attending (2) Rhabdomyolysis: Plan: CK is downtrending with IV fluids. Will monitor CK daily. (3) Respiratory failure: Plan: Patient is on mechanical ventilation per ICU. CXR showed cardiomegally but no pulm vascular congestion. Will conitnue to assess potential need for ultrafiltration if BP improves. Admission and Anticipated Discharge Date Admission Date: February 08, 2022 Subjective Seen for acute renal failure and rhabdomyolysis. Patient remains intubated and sedated. He remains anuric. and daughter at the bedside. Review of Systems Review of Systems: Unable to obtain due to intubation Physical Exam Physical Exam: General exam: Intubated and sedated HEENT: Pupils are equal and minimally reactive to light Neck: No JVD Respiratory system: Clear breath sounds bilaterally. Gastrointestinal: Abdomen is soft, non distended, non tender, bowel sounds are present CVS: Regular rate and rhythm. No murmurs, rubs or gallops Musculoskeletal: No joint or muscle tenderness Extremities: Non tender, no edema, peripheral pulses are present Neuro: Intubated, nonresponsive Skin: Cyanotic mottled skin extremities Results & Data ([facility]) Vital Signs (Past 12 Hours) Vital Signs Temp Pulse Resp BP Pulse Ox Pulse Ox 02/11/22 11:00 36.6 C 80 26 H 114/69 95 02/11/22 10:45 36.6 C 79 22 111/69 95 02/11/22 10:30 36.6 C 81 30 H 114/69 94 02/11/22 10:15 36.6 C 80 26 H 112/68 94 02/11/22 10:00 36.7 C 92 H 23 116/69 95 02/11/22 09:45 36.7 C 92 H 30 H 116/67 97 02/11/22 09:30 36.8 C 93 H 30 H 94/60 L 97 02/11/22 09:15 36.9 C 90 31 H 95/64 L 93 02/11/22 09:00 37.0 C 94 H 30 H 94/58 L 91 02/11/22 08:55 37.0 C 95 H 24 96/61 L 91 02/11/22 08:45 37.0 C 94 H 31 H 97/65 L 92 02/11/22 08:30 37.0 C 93 H 23 104/71 93 02/11/22 08:15 37.0 C 91 H 20 116/82 94 02/11/22 08:00 37.1 C 93 H 22 109/80 94 91 02/11/22 07:45 37.1 C 91 H 22 94 02/11/22 07:30 37.1 C 90 22 94 02/11/22 07:25 91 H 22 94 02/11/22 07:15 37.1 C 88 22 98 02/11/22 07:00 37.1 C 88 22 120/83 99 02/11/22 06:45 37.2 C 88 22 98 02/11/22 06:30 37.2 C 89 22 98 02/11/22 06:15 37.2 C 90 22 97 02/11/22 06:00 37.3 C 90 22 115/80 97 02/11/22 05:19 37.4 C 90 19 128/93 98 02/11/22 05:00 37.5 C 90 22 123/91 97 02/11/22 04:45 92 H 22 97 02/11/22 04:14 37.7 C H 93 H 24 152/88 H 95 02/11/22 04:00 37.8 C H 92 H 23 128/79 95 02/11/22 03:00 37.9 C H 92 H 23 120/84 94 02/11/22 02:00 37.9 C H 97 H 24 145/84 H 96 02/11/22 01:12 37.9 C H 104 H 22 107/78 93 06/26/22 01:00 37.9 C H 105 H 22 95 02/11/22 00:58 37.9 C H 104 H 22 154/109 H 95 02/11/22 00:02 37.8 C H 117 H 22 105/78 95 02/11/22 00:00 94 02/10/22 23:30 114 H 22 96 Laboratory Results 02/11/22 05:06 02/10/22 02/11/22 02/11/22 16:55 05:06 05:06 WBC 20.14 H RBC 4.31 L MCV 84.9 MCH 29.0 MCHC 34.2 RDW Std Deviation 44.1 RDW Coeff of Umesh 14.1 Plt Count 18 L* Phosphorus 5.1 H Albumin 2.2 L 2.2 L (1) Rhabdomyolysis Rhabdomyolysis type: non-traumatic Qualified Code(s): M62.82 - Rhabdomyolysis (2) Respiratory failure Chronicity: acute on chronic Respiratory failure complication: hypoxia Qualified Code(s): J96.21 - Acute and chronic respiratory failure with hypoxia
[2022-02-11] MEDS ORDERED: SODIUM BICARB 8.4% INJ 50 MEQ/50 ML SYR IV STA (11:37)
--- NOTE | 2022-02-11 13:08 | Hospitalist Progress Note ---
Date of Service February 11, 2022 Assessment & Plan (1) Acute respiratory failure with hypoxia: Plan: Brought into ER via ambulance with increasing shortness of breath and lethargy and unable to get up from floor following a fall Initially was found to be hypoxic with O2 sats in the 70s by EMS in the field Concern for pulmonary embolism with patient history of CVA, tachycardia, hypoxia, confusion - ABG: pH 7.25, PO2 280, HCO3 18, Co2 20 He was intubated in the emergency room and was admitted to ICU Appreciate customer services manager input and recommendation Remains intubated in the ICU and sedated No improvement of his condition Remains intubated and sedated without any significant improvement of current condition (2) Septic shock: Plan: Admitted with high fever, high white count, hypotension, renal impairment and increasing lactic acid - UA appears to be grossly infected, likely underlying UTI, WBC of 10.5 with left shift - Abx with IV zosyn and vanc. Got 1 dose of daptomycin in the ER but hold this due to renal function -Checking renal ultrasound, 1 was conducted on 01/18/2022 as an outpatient which showed left-sided nephrolithiasis, no hydronephrosis, trabecular bladder Blood and urine culture have been taken-blood culture is growing gram-positive cocci in clusters Has been getting reasonable amount of fluid Repeat lactate remains elevated Clinically condition has not been changed Has been on pressor resents to maintain blood pressure Elevated LFTs likely secondary to shock liver Mottled appearance of the appendices-prognosis remains poor Blood cultures are growing MSSA and antibiotic is changed to intravenous cefazolin and remains on IV doxycycline as well Remains hyperthermic with increasing white count, procalcitonin remains elevated and platelet counts are decreasing Likely source of bacteremia seems to be from his skin break at the heels and anterior knees on both sides Still no signs of control of infection White count remains elevated and creatinine has been deteriorating though fever has subsided We will continue current antibiotic Transaminitis LFTs have been worsening Secondary to shock liver Thrombocytopenia Likely secondary to sepsis No therapeutic anticoagulant Platelets are decreasing (3) AUBREE (acute kidney injury): Plan: Baseline creatinine around 1.7 Creatinine noted to be high at 2.8 on admission and that went up further Appreciate nephrology input and recommendation Creatinine has been worsening (4) CKD (chronic kidney disease) stage 3, GFR 30-59 ml/min: (5) Elevated troponin: Plan: -Troponin 1135, second set pending, trend Q6H x 3 -Doubt any ACS -Echo is grossly intact (6) Rhabdomyolysis: Plan: Secondary to fall and remained on the ground CK level is elevated to 23,360 Has been getting reasonable amount of intravenous fluid Will monitor kidney function and the CK level We will monitor CK level-total CK level has improved significantly, went down to 7392 from 23,000 (7) Diabetes mellitus, type 2: Plan: - ISS with Accu-Cheks ACHS, last A1c was 7.5 in October 2021, recheck for tomorrow morning -Holding metformin and trajenta -Has been getting insulin drip (8) Hypertension: Plan: -Hold metoprolol tartrate -Patient missed aspirin and Plavix today, placed on heparin drip, per day team tomorrow to hold these medications -Presented with hypotensive shock secondary to sepsis -Has been requiring pressor agents to maintain blood pressure (9) Hyperlipidemia: Plan: -Hold statin due to rhabdomyolysis (10) Hypothyroidism: Plan: -Convert levothyroxine to IV if remains intubated tomorrow (11) History of CVA (cerebrovascular accident): Plan: -History of such in August and June 2020, no residual deficits -Follows with Dr. Jin with [facility] neurology -Aspirin and Plavix as above FEN: PIV x 2, 18 and 20 guage/ NSS/ NPO DVT PPx: - teds, scds, CODE: Full code Dispo: From home, likely to remain in the hospital x 1-2 days Prognosis is very poor Admission and Anticipated Discharge Date Admission Date: February 08, 2022 Subjective 02/09/2022 The patient was seen and examined in ICU He remains intubated and sedated 02/10/2022 The patient was seen and examined in ICU He remains intubated and sedated with pressor support 02/11/2022 The patient was seen and examined in ICU He remains intubated and sedated with pressor support Review of Systems Review of Systems: Unobtainable due to endotracheal tube Physical Exam Physical Exam: Remained reasonably stable on mechanical ventilator and sedation Constitutional: well developed, well nourished, + ill appearing and + obese ENMT: external ear and nose normal, oropharynx normal Neck: trachea midline, no thyromegaly Respiratory: no respiratory distress Auscultation: + diminished lung sounds and + crackles (Coarse crackles bilaterally and transmitted sounds from trachea) Cardiovascular: Rate/Rhythm: regular rate, regular rhythm and + tachycardic Heart Sounds: normal S1 and normal S2; no murmur Extremities: + edema (1+ edema bilaterally) Gastrointestinal (Abdomen): Inspection/Auscultation: normal bowel sounds; abdomen not distended Percussion/Palpation: abdomen soft Musculoskeletal: No acute arthritis in any joint Skin: Mottled appearance involving the extremities of the upper and lower limbs and seems to be progressing proximally Neurologic: Remains sedated Results & Data Results & Data ([facility]) Vital Signs (Past 12 Hours) Vital Signs Temp Pulse Resp BP Pulse Ox Pulse Ox 02/11/22 11:30 36.6 C 81 27 H 104/65 95 02/11/22 11:15 36.6 C 81 22 113/70 94 02/11/22 11:00 36.6 C 80 26 H 114/69 95 02/11/22 10:45 36.6 C 79 22 111/69 95 02/11/22 10:30 36.6 C 81 30 H 114/69 94 02/11/22 10:15 36.6 C 80 26 H 112/68 94 02/11/22 10:00 36.7 C 92 H 23 116/69 95 02/11/22 09:45 36.7 C 92 H 30 H 116/67 97 02/11/22 09:30 36.8 C 93 H 30 H 94/60 L 97 02/11/22 09:15 36.9 C 90 31 H 95/64 L 93 02/11/22 09:00 37.0 C 94 H 30 H 94/58 L 91 02/11/22 08:55 37.0 C 95 H 24 96/61 L 91 02/11/22 08:45 37.0 C 94 H 31 H 97/65 L 92 02/11/22 08:30 37.0 C 93 H 23 104/71 93 02/11/22 08:15 37.0 C 91 H 20 116/82 94 02/11/22 08:00 37.1 C 93 H 22 109/80 94 91 02/11/22 07:45 37.1 C 91 H 22 94 02/11/22 07:30 37.1 C 90 22 94 02/11/22 07:25 91 H 22 94 02/11/22 07:15 37.1 C 88 22 98 02/11/22 07:00 37.1 C 88 22 120/83 99 02/11/22 06:45 37.2 C 88 22 98 02/11/22 06:30 37.2 C 89 22 98 02/11/22 06:15 37.2 C 90 22 97 02/11/22 06:00 37.3 C 90 22 115/80 97 02/11/22 05:19 37.4 C 90 19 128/93 98 02/11/22 05:00 37.5 C 90 22 123/91 97 02/11/22 04:45 92 H 22 97 02/11/22 04:14 37.7 C H 93 H 24 152/88 H 95 02/11/22 04:00 37.8 C H 92 H 23 128/79 95 02/11/22 03:00 37.9 C H 92 H 23 120/84 94 02/11/22 02:00 37.9 C H 97 H 24 145/84 H 96 02/11/22 01:12 37.9 C H 104 H 22 107/78 93 Laboratory Results Short CBC 02/11/22 Range/Units 05:06 WBC 20.14 H (4.8-10.8) K/uL Hgb 12.5 L (14.0-18.0) g/dL Hct 36.6 L (42-52) % Plt Count 18 L* (130-400) K/uL BMP 02/10/22 02/11/22 16:55 05:06 Sodium 124 L 124 L Potassium 3.7 4.8 D Chloride 89 L 89 L Carbon Dioxide 22 19 L BUN 78 H 81 H Creatinine 5.00 H* 5.14 H* Glucose 104 H 104 H Calcium 6.0 L 5.8 L* Cardiac Enzymes 02/11/22 Range/Units 05:06 Total Creatine Kinase 7392 H (30-223) U/L Liver Function 02/10/22 02/11/22 Range/Units 16:55 05:06 Total Bilirubin 2.8 H 3.4 H (0.2-1.0) mg/dl AST 1300 H 1262 H (13-39) U/L ALT 985 H 917 H (7-52) U/L Alkaline Phosphatase 151 H 121 H (34-104) U/L Albumin 2.2 L 2.2 L (3.4-5.0) gm/dl Medications Administered Current Inpatient Medications Dextrose (Dextrose 50% 50 Ml Syringe) 25 - 50 ml IV UD PRN; Protocol PRN Reason: Hypoglycemia Protocol Stop: 03/10/22 15:11 Last Admin: 02/10/22 22:18 Dose: 25 ml Documented by: Fentanyl Citrate (Fentanyl Bolus From Bag) 50 mcg IV Q60M PRN PRN Reason: Pain or Agitation Stop: 02/22/22 10:06 Last Admin: 02/08/22 12:02 Dose: 50 mcg Documented by: Glucagon (Glucagon For Inj 1 Mg Vial) 1 mg SQ UD PRN; Protocol PRN Reason: Hypoglycemia Protocol Stop: 03/10/22 15:11 Glucose (Glucose 10 Tabs/Tube) 4 - 8 tabs PO UD PRN; Protocol PRN Reason: Hypoglycemia Protocol Stop: 03/10/22 15:11 Glucose (Glucose 40% Gel 15 Gm Tube) 15 - 30 gm PO UD PRN; Protocol PRN Reason: Hypoglycemia Protocol Stop: 03/10/22 15:11 Fentanyl Citrate (Fentanyl Citrate) 2,500 mcg in 250 mls @ 0 mls/hr IV .Q0M ISAEL; Protocol Stop: 02/22/22 10:14 Last Titration: 02/11/22 08:00 Dose: 0 mcg/hr, 0 mls/hr Documented by: Midazolam HCl (Versed) 125 mg in 250 mls @ 0 mls/hr IV .Q0M PRN; Protocol PRN Reason: Agitation Stop: 03/10/22 10:06 Last Titration: 02/11/22 08:00 Dose: 0 mg/hr, 0 mls/hr Documented by: Norepinephrine Bitartrate (Levophed/D5w) 16 mg in 500 mls @ 10.766 mls/hr IV .Q24H ISAEL; Protocol Stop: 03/11/22 01:29 Last Titration: 02/11/22 05:00 Dose: Infused Documented by: Pantoprazole Sodium 40 mg/ (Syringe) 10 mls @ 5 mls/min IV BID [facility]AEL Stop: 03/11/22 08:59 Last Admin: 02/11/22 08:44 Dose: 5 mls/min Documented by: Doxycycline Hyclate 100 mg/ (Dextrose) 110 mls @ 50 mls/hr IV Q12H [facility] Stop: 02/11/22 17:29 Last Infusion: 02/11/22 10:05 Dose: Infused Documented by: Vasopressin 20 units/ Sodium (Chloride) 101 mls @ 0 mls/hr IV .Q0M [facility] Stop: 03/12/22 11:59 Last Infusion: 02/11/22 08:00 Dose: 0 unit/min, 0 mls/hr Documented by: Phenylephrine HCl 40 mg/ (Sodium Chloride) 504 mls @ 88.452 mls/hr IV .Q5H42M [facility]; Protocol Stop: 03/12/22 18:29 Last Titration: 02/11/22 12:29 Dose: 1.2 mcg/kg/min, 88.5 mls/hr Documented by: Hydrocortisone Sodium (Succinate 50 mg/ Syringe) 1 mls @ 4 mls/min IV TID [facility] Stop: 03/13/22 08:59 Last Admin: 02/11/22 09:48 Dose: 4 mls/min Documented by: Cefazolin Sodium (Ancef 1000mg) 1,000 mg in 7.5 mls @ 2.5 mls/min IV Q24H [facility]; Protocol Stop: 02/24/22 09:59 Insulin Aspart (Insulin Aspart Per Unit) 0 units SC Q4 [facility] Stop: 03/13/22 03:59 Last Admin: 02/11/22 12:18 Dose: Not Given Documented by: Levothyroxine Sodium (Levothyroxine Sodium 75 Mcg Tablet) 75 mcg PO DAILY@0600 [facility] Stop: 03/11/22 05:59 Last Admin: 02/11/22 05:44 Dose: 75 mcg Documented by: Midazolam HCl (Midazolam Bolus From Bag) 2 mg IV Q60M PRN PRN Reason: Sedation Stop: 03/10/22 10:06 Last Admin: 02/08/22 14:06 Dose: 1 mg Documented by: Miscellaneous (Carbohydrates For Hypoglycemia ) 15 - 30 gm PO UD PRN PRN Reason: Hypoglycemia Protocol Stop: 03/10/22 15:11 Vitamin D (Cholecalciferol 1,000 Units 25 Mcg Tab) 2,000 units PO QAM [facility] Stop: 03/11/22 08:59 (1) Rhabdomyolysis Rhabdomyolysis type: non-traumatic Qualified Code(s): M62.82 - Rhabdomyolysis
--- NOTE | 2022-02-11 13:08 | XRay Report ---
XR chest 1V portable CLINICAL HISTORY: Dyspnea TECHNIQUE: Single frontal radiograph of the chest was obtained. Comparison: Comparison is made to chest radiograph 02/10/2022 FINDINGS: Lines and tubes are stable. Cardiomegaly is noted. Prominence and cephalization of the vasculature is seen. Airspace opacity in the bilateral lower lungs noted. Bilateral pleural effusions are suggested . IMPRESSION: Bilateral lower lung predominant airspace opacities which likely represent layering effusion with or without superimposed atelectasis, pneumonia, and/or aspiration. ACT 112: Negative or not required by law. Electronically signed by: Seth Carrasco M.D. 02/11/2022 1:05 PM
[2022-02-11 13:26] LABS: BUN Creatinine Ratio 15.2 (10-20); Calcium 5.8 mg/dl (8.5-10.1); Creatinine Clr Calc Pharmacy 12.1 ml/min; Est GFR (African American) 9.6 ml/min; Est GFR (Non-African American) 8.3 ml/min; Magnesium 1.7 mg/dl (1.7-2.4); Phosphorus 5.6 mg/dl (2.5-4.9); Potassium 4.6 mmol/L (3.5-5.1)
[2022-02-11] MEDS ORDERED: STAT IV STA (13:29)
[2022-02-11] MEDS ORDERED: CALCIUM GLUCONATE 10% 2,000 MG in DEXTROSE 5% 50 ML IV ONE (13:29)
[2022-02-12] MEDS: INSULIN ASPART PER UNIT SC SCH ×6 (01:00→20:53)
[2022-02-12] MEDS: LEVOTHYROXINE SODIUM 75 MCG TABLET PO SCH (05:47)
[2022-02-12 05:48] LABS: iSTAT Art Bld Gas pCO2 Correct 31 mmHg (35-46); iSTAT Art Bld Gas pH Corrected 7.467 (7.35-7.45); iSTAT Arterial Blood Gas HCO3 23 meg/L (19-24); iSTAT Arterial Blood Gas pCO2 32 mmHg (35-46); iSTAT Arterial Blood Gas pH 7.46 (7.35-7.45); iSTAT Arterial Blood Gas pO2 72 mmHg (80-95); iSTAT Arterial Blood Gas pO2 C 69; iSTAT Carbon Dioxide 23 mmol/L (24-31); iSTAT FiO2 40 %; iSTAT Hematocrit 36 % (42-52); iSTAT Hemoglobin 12.2 g/dl (14.0-18.0); iSTAT Potassium 4.6 mmol/L (3.3-5.0); iSTAT Site Art Line; iSTAT Sodium 124 mmol/L (135-144)
[2022-02-12 06:12] LABS: INR 1.3 (0.9-1.1)
[2022-02-12 06:24] LABS: Hematocrit (blood only) 35.4 % (42-52); Hemoglobin 12.4 g/dL (14.0-18.0); Mean Corpuscular Hemoglobin 28.9 pg (25-34); Mean Corpuscular Volume 82.5 fL (80-100); Platelet Count 25 K/uL (130-400); RDW Coefficient of Variation 13.9 % (11.5-14.5); RDW Standard Deviation 41.8 fL (36.4-46.3); Red Blood Count 4.29 M/uL (4.7-6.1); White Blood Count 25.85 K/uL (4.8-10.8)
[2022-02-12 06:26] LABS: ALC (manual) 0.88 K/uL (1.2-3.4); ANC (manual) 24.12 K/uL (1.4-6.5); Dohle Bodies 1+; Echinocytes 1+; Lymphocytes # (manual) 0.88 K/uL (1.2-3.4); Lymphocytes % (manual) 3.4 %; Metamyelocytes # (manual) 0.21 K/uL (0-0); Metamyelocytes % (manual) 0.8 %; Monocytes # (manual) 0.65 K/uL (0.11-0.59); Monocytes % (manual) 2.5 %; Neutrophils # (manual) 24.12 K/uL (1.4-6.5); Neutrophils % (manual) 93.3 %; Platelet Estimate SIGNIFIC DECREASED (Normal)
[2022-02-12 06:49] LABS: Creatinine Clr Calc Pharmacy 11.8 ml/min; Est GFR (African American) 9.3 ml/min
[2022-02-12 06:51] LABS: Albumin Level 2.1 gm/dl (3.4-5.0); BUN Creatinine Ratio 16.8 (10-20); Bilirubin,Total 3.9 mg/dl (0.2-1.0); Calcium 5.9 mg/dl (8.5-10.1); Globulin 2.2 gm/dl (2.5-4.0); Magnesium 1.9 mg/dl (1.7-2.4); Phosphorus 6.3 mg/dl (2.5-4.9); Potassium 4.7 mmol/L (3.5-5.1); Total Protein 4.3 gm/dl (6.0-8.3)
--- NOTE | 2022-02-12 07:07 | XRay Report ---
XR chest 1V portable HISTORY: 86 years-old Male f/u acute respiratory failure COMPARISON: Chest radiograph 02/11/2022 TECHNIQUE: Semierect AP view of the chest FINDINGS: Endotracheal tube overlies the midline, 1.2 cm superior to the judith. Distal tip of enteric tube pro jects over the gastric body. The heart is moderately enlarged with pulmonary vascular congestion. There is no pneumothorax. Layeri ng pleural effusions with bibasilar predominant consolidation, right greater than left redemonstrated without significant change. The lungs are hypoinflated. Degenerative changes of the shoulders and sp ine. IMPRESSION: 1. Low-lying endotracheal tube could be slightly retracted. Satisfactory positioning of the enteric t ube. 2. Cardiomegaly with unchanged layering pleural effusions and bibasilar predominant consolidation. 3. No pneumothorax. ACT 112: Negative or not required by law. The above report was generated using voice recognition software. It may contain grammatical, syntax o r spelling errors. Electronically signed by: Johnathan Crockett M.D. 02/12/2022 7:05 AM
[2022-02-12] MEDS: HYDROCORTISONE SOD 50 MG in SYRINGE 0 ML IV SCH ×3 (08:20→21:50)
[2022-02-12] MEDS ORDERED: STAT IV STA (08:39)
[2022-02-12] MEDS ORDERED: FUROSEMIDE 40 MG/4 ML VIAL IV ONE (08:58)
[2022-02-12] MEDS: PHENYLEPHRINE HCL 40 MG in SODIUM CHLORIDE 0.9% 500 ML IV SCH (09:00)
[2022-02-12] MEDS ORDERED: CALCIUM GLUCONATE 10% 2,000 MG in DEXTROSE 5% 50 ML IV ONE (09:00)
[2022-02-12] MEDS: PANTOprazole 40 MG in SYRINGE 0 ML IV SCH ×2 (10:00→21:50)
--- NOTE | 2022-02-12 10:05 | Critical Care Progress Note ---
Date of Service February 12, 2022 Assessment & Plan (1) Hypovolemic shock: (2) Rhabdomyolysis: (3) AUBREE (acute kidney injury): (4) Acute respiratory failure with hypoxia: (5) Elevated troponin: (6) Lactic acidosis: (7) Transaminitis: (8) Thrombocytopenia: Plan: 86-year-old male with a history of CVA, hypothyroidism, diabetes mellitus type 2, CKD stage III and hyperlipidemia presenting to the hospital due to altered mental status and hypoxemia. He was found to be in rhabdomyolysis with a downtime of approximately 4 hours. Neurologic: Patient currently encephalopathic on presentation. Likely metabolic encephalopathy. Urine drug screen negative. CT head negative for acute bleed. Will need to consider MRI of the brain and EEG if he continues with encephalopathy. He does have a history of ischemic stroke. Versed and fentanyl have been placed on hold for a sedation vacation: >24 hours at this point. Pulmonary: Continue lung protective ventilation strategy. Hypoxemia likely initially due to poor inspiratory effort and hypoventilation. Echo not suggestive of RV failure. Unlikely to be hemodynamically significant pulmonary embolism especially in the context of septic shock. Cardiovascular: Hypovolemic/septic shock. Maintain mean arterial pressure above 65. Troponin elevation may be due to rhabdomyolysis. Formal echo noted. LVEF and RVEF intact. Aspirin and Plavix on hold due to thrombocytopenia. Continue to wean pressors as able. We will discontinue vasopressin and phenylephrine at this point. Gastrointestinal: NPO. OG tube in place. CT abdomen/pelvis with perinephric stranding suggestive of possible pyelonephritis. Acetaminophen level within normal limits. Transaminitis likely due to shock and rhabdomyolysis. Acute hepatitis panel ordered. Pantoprazole 40 twice daily. Renal: Patient with AUBREE likely secondary to ischemic ATN, hypovolemia and rhabdomyolysis. Creatinine trending up and urine output poor. Patient poor candidate for hemodialysis given hypotension. Hemodialysis can be considered in the near future if he does not make any urine and his hemodynamics improved. Aggressively replace calcium. ABG substantially improved from initial presentation. Mild respiratory alkalosis with a minimal metabolic acidosis. Infectious disease: Pansensitive staph aureus growing from blood cultures. Vancomycin and cefepime discontinued. Ancef ordered. Continue Flagyl. Continue doxycycline. Urine cultures with mixed nancie. Nasal MRSA negative. Repeat blood cultures ordered to demonstrate clearance. Hematologic: No obvious sites of bleeding. Hemoglobin stable. Platelet count with profound thrombocytopenia. Peripheral smear reviewed. Likely consumptive coagulopathy. Hold anticoagulation. Endocrine: TSH within normal limits. Maintain euglycemia. Wean stress dose steroids to 50 mg 3 times daily. Lines and tubes: Right femoral vein catheter placed 02/08/2022. Left radial art line placed 02/08/2022. Matthews placed 02/08/2022. ET tube placed 02/08. VTE prophylaxis: Holding chemical ppx CODE STATUS: Full code Family at bedside: Updated at bedside Disposition: ICU Patient was discussed in multidisciplinary rounds I have personally spent 90 minutes of critical care time in the direct yehuda gement of this patient. This is a life/limb threatening event. This includes time spent evaluating patient, direct bedside care, chart review, placing orders, interpretation of diagnostic studies, discussion with consultants, patient, and family members, as well as other required patient management activities. This time is exclusive of all separately billable procedures, and teaching time and separate from and in addition to any other critical care service time. Admission and Anticipated Discharge Date Admission Date: February 08, 2022 Supervising Physician Co-Signing Physician Notes Had an extensive telephone conversation with the patient's son. He will be talking with his sisters and mother with regard to goals of care. At this point we will continue holding off dialysis and aggressive measures. The general impression I receive is they would more than likely move towards comfort as the patient's son reports that his father would not want additional aggressive measures and would be unhappy with his current state. Overall there is a very poor prognosis and I think a high likelihood of significant dependence on his ADLs, probable need for enteral access as well as issues with dialysis and long- term access for IV antibiotics given the bacteremia. Subjective No overnight events Review of Systems Review of Systems: Unobtainable due to endotracheal tube Physical Exam Physical Exam: General: Sedated. nontoxic. Skin: Warm, dry, Head: Atraumatic Ears, nose, mouth and throat: airway obscured by endotracheal tube Cardiovascular: Decreased peripheral perfusion Respiratory: Ventilator settings reviewed Gastrointestinal: Non distended Musculoskeletal: Bluish/dusky discoloration of his distal phalanges Results & Data Results & Data ([facility]) Vital Signs (Past 12 Hours) Vital Signs Temp Pulse Resp BP Pulse Ox Pulse Ox 02/12/22 08:00 92 H 94 02/12/22 07:18 81 25 H 95 02/12/22 06:00 36.3 C L 81 23 100/69 95 02/12/22 05:00 36.4 C L 78 23 100/65 96 02/12/22 04:00 36.4 C L 100 H 28 H 106/71 95 02/12/22 03:00 36.5 C 94 H 27 H 133/86 97 02/12/22 02:00 36.5 C 94 H 22 145/83 H 94 02/12/22 01:00 36.5 C 102 H 21 119/77 95 02/12/22 00:15 36.5 C 99 H 26 H 123/87 95 02/12/22 00:00 36.5 C 100 H 22 120/90 95 95 02/11/22 23:45 36.5 C 99 H 22 136/87 96 02/11/22 23:30 36.5 C 100 H 23 133/84 95 02/11/22 23:15 36.5 C 81 27 H 123/75 94 02/11/22 23:06 80 25 H 95 02/11/22 23:00 36.5 C 81 25 H 95 02/11/22 22:30 36.6 C 80 23 95 02/11/22 22:15 36.6 C 80 23 104/69 93 Critical Care Results & Data Vital Signs (Past 12 Hours) Vital Signs Temp Pulse Resp BP Pulse Ox Pulse Ox 02/12/22 08:00 92 H 94 02/12/22 07:18 81 25 H 95 02/12/22 06:00 36.3 C L 81 23 100/69 95 02/12/22 05:00 36.4 C L 78 23 100/65 96 02/12/22 04:00 36.4 C L 100 H 28 H 106/71 95 02/12/22 03:00 36.5 C 94 H 27 H 133/86 97 02/12/22 02:00 36.5 C 94 H 22 145/83 H 94 02/12/22 01:00 36.5 C 102 H 21 119/77 95 02/12/22 00:15 36.5 C 99 H 26 H 123/87 95 02/12/22 00:00 36.5 C 100 H 22 120/90 95 95 02/11/22 23:45 36.5 C 99 H 22 136/87 96 02/11/22 23:30 36.5 C 100 H 23 133/84 95 02/11/22 23:15 36.5 C 81 27 H 123/75 94 02/11/22 23:06 80 25 H 95 02/11/22 23:00 36.5 C 81 25 H 95 02/11/22 22:30 36.6 C 80 23 95 02/11/22 22:15 36.6 C 80 23 104/69 93 Lab & Micro Results (Past 24 Hours) RBC 4.61 M/uL (4.7-6.1) L 02/13/22 WBC 30.26 K/uL (4.8-10.8) H* 02/13/22 Hgb 13.3 g/dL (14.0-18.0) L 02/13/22 Hct 37.9 % (42-52) L 02/13/22 MCV 82.2 fL (80-100) 02/13/22 MCH 28.9 pg (25-34) 02/13/22 MCHC 35.1 g/dL (32-36) 02/13/22 RDW Standard Deviation 42.2 fL (36.4-46.3) 02/13/22 RDW Coefficient of Variation 14.0 % (11.5-14.5) 02/13/22 Plt Count 27 K/uL (130-400) L* 02/13/22 Na 125 mmol/L (136-145) L 02/13/22 K 4.7 mmol/L (3.5-5.1) 02/13/22 Cl 89 mmol/L (98-107) L 02/13/22 CO2 19 mmol/L (21-32) L 02/13/22 Anion Gap 17 (3-11) H 02/13/22 BUN 119 mg/dl (6-23) H 02/13/22 Creatinine 6.68 mg/dl (0.6-1.4) H* 02/13/22 Estimated GFR ( Amer) 8.0 ml/min 02/13/22 Estimated GFR (Non-Af Amer) 6.9 ml/min 02/13/22 BUN/Creatinine Ratio 17.8 (10-20) 02/13/22 Glu 150 mg/dl (70-99(Fasting)) H 02/13/22 Ca 5.8 mg/dl (8.5-10.1) L* 02/13/22 Phosphorus Level 8.0 mg/dl (2.5-4.9) H 02/13/22 Total Bilirubin 5.5 mg/dl (0.2-1.0) H 02/13/22 Direct Bilirubin 3.6 mg/dl (0-0.2) H 02/13/22 AST 373 U/L (13-39) H 02/13/22 ALT 96 U/L (7-52) H 02/13/22 Alkaline Phosphatase 201 U/L (34-104) H 02/13/22 TP 4.4 gm/dl (6.0-8.3) L 02/13/22 Albumin 2.1 gm/dl (3.4-5.0) L 02/13/22 Mg 2.0 mg/dl (1.7-2.4) 02/13/22 05:33 02/13/22 Calcium Level 5.8 mg/dl (8.5-10.1) L* 02/13/22 05:33 02/13/22 Prothromb Time International Ratio 1.4 (0.9-1.1) H 02/13/22 05:33 02/13/22 Lorenzo Test NA 02/13/22 04:45 02/13/22 Microbiology 02/10/22 19:16 Aerobic Blood Culture - Preliminary Blood Gram positive cocci clusters Anaerobic Blood Culture - Preliminary No growth in Anaerobic bottle after 24 hours. 02/10/22 18:26 Aerobic Blood Culture - Preliminary Blood No growth in Aerobic bottle after 24 hours. Anaerobic Blood Culture - Preliminary No growth in Anaerobic bottle after 24 hours. Diagnostic Findings (Past 24 Hours) Chest X-Ray 02/11/22 07:00 XR chest 1V portable CLINICAL HISTORY: Dyspnea TECHNIQUE: Single frontal radiograph of the chest was obtained. Comparison: Comparison is made to chest radiograph 02/10/2022 FINDINGS: Lines and tubes are stable. Cardiomegaly is noted. Prominence and cephalization of the vasculature is seen. Airspace opacity in the bilateral lower lungs noted. Bilateral pleural effusions are suggested. IMPRESSION: Bilateral lower lung predominant airspace opacities which likely represent layering effusion with or without superimposed atelectasis, pneumonia, and/or aspiration. ACT 112: Negative or not required by law. Electronically signed by: Seth Carrasco M.D. 02/11/2022 1:05 PM Chest X-Ray 02/12/22 07:00 XR chest 1V portable HISTORY: 86 years-old Male f/u acute respiratory failure COMPARISON: Chest radiograph 02/11/2022 TECHNIQUE: Semierect AP view of the chest FINDINGS: Endotracheal tube overlies the midline, 1.2 cm superior to the judith. Distal tip of enteric tube projects over the gastric body. The heart is moderately enlarged with pulmonary vascular congestion. There is no pneumothorax. Layering pleural effusions with bibasilar predominant consolidation, right greater than left redemonstrated without significant change. The lungs are hypoinflated. Degenerative changes of the shoulders and spine. IMPRESSION: 1. Low-lying endotracheal tube could be slightly retracted. Satisfactory positioning of the enteric tube. 2. Cardiomegaly with unchanged layering pleural effusions and bibasilar predominant consolidation. 3. No pneumothorax. ACT 112: Negative or not required by law. The above report was generated using voice recognition software. It may contain grammatical, syntax or spelling errors. Electronically signed by: Johnathan Crockett M.D. 02/12/2022 7:05 AM I & O Totals 24 Hours 02/11/22 02/12/22 02/13/22 06:59 06:59 06:59 Intake Total 6068.545 / 6068.545 1456.989 / 1456.989 202.103 / 202.103 Output Total 81 / 81 92 / 92 Balance 5987.545 / 5987.545 1364.989 / 1364.989 201.103 / 201.103 Cumulative 02/08/22 09:38 thru 02/12/22 08:00 Intake Total 22758.922 Output Total 734 Balance 88929.922 RT Ventilator Mngmt (Last Documented) Ventilator Ordered Settings Ventilator Support Mode Assist Control 02/12/22 08:00 Respiratory Rate 25 02/12/22 07:18 Ventilator Tidal Volume 450 02/12/22 08:00 Setting Minute Ventilation 10.5 02/12/22 07:18 Ventilator Positive Pressure 24 02/10/22 15:00 Support Setting Positive End Expiratory 5 02/12/22 08:00 Pressure Fraction of Inspired Oxygen 40 02/12/22 08:00 Machine Comment RT found patient on RR 22. 02/10/22 19:28 Ventilator - PT Measurements Respiratory Rate 25 Exhaled Tidal Volume 451 Minute Ventilation 10.5 Peak Inspiratory Airway 20 Pressure Plateau Pressure 18.4 Respiratory Cycle Inspiratory: 1:3.0 Expiratory Ratio Inspiratory Phase Time 0.75 End-Tidal CO2 23 Static Lung Compliance 33.66 Dynamic Lung Compliance 30.07 Normal Static Lung Compliance 47.00 Patient Measurements Comment FIO2 weaned to 50%. Coding Level of Care Code Critical Care ea addt'l 30 min Diagnoses Hypovolemic shock R57.1 Rhabdomyolysis M62.82 Rhabdomyolysis type: non-traumatic AUBREE (acute kidney injury) N17.9 Acute respiratory failure with hypoxia J96.01 Elevated troponin R77.8 Lactic acidosis E87.2 Transaminitis R74.01 Thrombocytopenia D69.6 (1) Rhabdomyolysis Rhabdomyolysis type: non-traumatic Qualified Code(s): M62.82 - Rhabdomyolysis
--- NOTE | 2022-02-12 10:27 | Nephrology Progress Note ---
Date of Service February 12, 2022 Assessment & Plan (1) AUBREE (acute kidney injury): Plan: Patient with a acute kidney injury due to ischemic and toxic ATN in setting of sepsis and rhabdomyolysis. Creatinine is 5.1 from a baseline of 2. Patient is anuric. Metabolic acidosis and hyperkalemia have improved with bicarb drip. Patient would benefit dialysis but he is unable to tolerate intermittent hemodialysis due to septic shock. Pressor requirements have reduced and patient is now only on Levophed. Patient remains comatose despite being off sedation. He also has ischemic peripheries. Overall prognosis is guarded. Family still discussing going forward. Family will have a meeting with a power saw operator. -Monitor input output -no need for diuretics unless worsening hypoxia -If blood pressure improves, we can attempt intermittent hemodialysis with low blood flows although this is also not likely to improve his overall prognosis -Discussed case with the ICU attending -Palliative care consult is recommended (2) Rhabdomyolysis: Plan: CK is about 12,000 today will monitor CK daily. (3) Respiratory failure: Plan: Patient is on mechanical ventilation per ICU. CXR showed cardiomegally but no pulm vascular congestion. Will conitnue to assess potential need for ultrafiltration if BP improves. Admission and Anticipated Discharge Date Admission Date: February 08, 2022 Subjective Seen for acute renal failure. Patient remains critically ill, intubated on Levophed and anuric. He has been off sedation for at least 24 hours but remains unresponsive Review of Systems Review of Systems: Unable to obtain due to intubation Physical Exam Physical Exam: General exam: Intubated and unresponsive HEENT: Pupils are equal and minimally reactive to light Neck: No JVD Respiratory system: Clear breath sounds bilaterally. Gastrointestinal: Abdomen is soft, non distended, non tender, bowel sounds are present CVS: Regular rate and rhythm. No murmurs, rubs or gallops Musculoskeletal: No joint or muscle tenderness Extremities: Non tender, no edema, peripheral pulses are present Neuro: Intubated, nonresponsive Skin: Cyanotic mottled skin extremities Results & Data ([facility]) Vital Signs (Past 12 Hours) Vital Signs Temp Pulse Resp BP Pulse Ox Pulse Ox 02/12/22 08:00 92 H 94 02/12/22 07:18 81 25 H 95 02/12/22 06:00 36.3 C L 81 23 100/69 95 02/12/22 05:00 36.4 C L 78 23 100/65 96 02/12/22 04:00 36.4 C L 100 H 28 H 106/71 95 02/12/22 03:00 36.5 C 94 H 27 H 133/86 97 02/12/22 02:00 36.5 C 94 H 22 145/83 H 94 02/12/22 01:00 36.5 C 102 H 21 119/77 95 02/12/22 00:15 36.5 C 99 H 26 H 123/87 95 02/12/22 00:00 36.5 C 100 H 22 120/90 95 95 02/11/22 23:45 36.5 C 99 H 22 136/87 96 02/11/22 23:30 36.5 C 100 H 23 133/84 95 02/11/22 23:15 36.5 C 81 27 H 123/75 94 02/11/22 23:06 80 25 H 95 02/11/22 23:00 36.5 C 81 25 H 95 02/11/22 22:30 36.6 C 80 23 95 Laboratory Results 02/12/22 05:40 02/11/22 02/12/22 02/12/22 12:42 05:40 05:40 WBC 25.85 H RBC 4.29 L MCV 82.5 MCH 28.9 MCHC 35.0 RDW Std Deviation 41.8 RDW Coeff of Umesh 13.9 Plt Count 25 L* Phosphorus 5.6 H 6.3 H Albumin 2.1 L (1) Rhabdomyolysis Rhabdomyolysis type: non-traumatic Qualified Code(s): M62.82 - Rhabdomyolysis (2) Respiratory failure Chronicity: acute on chronic Respiratory failure complication: hypoxia Qualified Code(s): J96.21 - Acute and chronic respiratory failure with hypoxia
[2022-02-12] MEDS: ceFAZolin 1000MG 1,000 MG/7.5 ML SYR IV SCH (11:01)
--- NOTE | 2022-02-12 11:24 | CT Scan Report ---
CT OF THE HEAD WITHOUT CONTRAST CLINICAL HISTORY: encephalopathy COMPARISON STUDY: MRI of the brain July 09, 2020. Head CT T. February [address] DOSE: 638.56 mGycm TECHNIQUE: Helical axial images of the head were obtained without IV contrast. Automated exposure con trol was utilized for the study. A dose lowering technique was utilized adhering to the principles o f ALARA. FINDINGS: No acute intracranial hemorrhage, midline shift or mass effect is present. Ventricular syst em is unremarkable. Basal cisterns are patent. There are no extra axial collections. Exam is mildly c ompromised by motion artifact. An old 1.1 cm infarct within left caudate nucleus is noted. Small amou nt of fluid within left mastoid air cells is noted. There is trace fluid within the right mastoid air cells. There is mild sinus mucosal thickening. Adenoids are prominent, partially imaged on this exam . This could be related to intubation. Multifocal scalp soft tissue swelling/edema is present. There is also right periorbital soft tissue swelling. IMPRESSION: 1. No acute intracranial findings. 2. Nonspecific right periorbital and scalp soft tissue swelling. ACT 112: Negative or not required by law. Electronically signed by: Luis Rubin M.D. 02/12/2022 11:22 AM
--- NOTE | 2022-02-12 17:21 | Hospitalist Progress Note ---
Date of Service February 12, 2022 Assessment & Plan (1) Acute respiratory failure with hypoxia: Plan: Brought into ER via ambulance with increasing shortness of breath and lethargy and unable to get up from floor following a fall Initially was found to be hypoxic with O2 sats in the 70s by EMS in the field Concern for pulmonary embolism with patient history of CVA, tachycardia, hypoxia, confusion - ABG: pH 7.25, PO2 280, HCO3 18, Co2 20 He was intubated in the emergency room and was admitted to ICU Appreciate finisher denture input and recommendation Remains intubated in the ICU and sedated No improvement of his condition Remains intubated and sedated without any significant improvement of current condition Remains sedated on vent//unresponsive (2) Septic shock: Plan: Admitted with high fever, high white count, hypotension, renal impairment and increasing lactic acid - UA appears to be grossly infected, likely underlying UTI, WBC of 10.5 with left shift - Abx with IV zosyn and vanc. Got 1 dose of daptomycin in the ER but hold this due to renal function -Checking renal ultrasound, 1 was conducted on 01/18/2022 as an outpatient which showed left-sided nephrolithiasis, no hydronephrosis, trabecular bladder Blood and urine culture have been taken-blood culture is growing gram-positive cocci in clusters Has been getting reasonable amount of fluid Repeat lactate remains elevated Clinically condition has not been changed Has been on pressor resents to maintain blood pressure Elevated LFTs likely secondary to shock liver Mottled appearance of the appendices-prognosis remains poor Blood cultures are growing MSSA and antibiotic is changed to intravenous cefazolin and remains on IV doxycycline as well Remains hyperthermic with increasing white count, procalcitonin remains elevated and platelet counts are decreasing Likely source of bacteremia seems to be from his skin break at the heels and anterior knees on both sides Still no signs of control of infection White count remains elevated and creatinine has been deteriorating though fever has subsided We will continue current antibiotic Increasing mottled appearance of the extremities-condition has not been getting any better Transaminitis LFTs have been worsening Secondary to shock liver Thrombocytopenia Likely secondary to sepsis No therapeutic anticoagulant Platelets are decreasing (3) AUBREE (acute kidney injury): Plan: Baseline creatinine around 1.7 Creatinine noted to be high at 2.8 on admission and that went up further Appreciate nephrology input and recommendation Creatinine has been worsening and the patient is not for dialysis as of yet Still requiring Levophed to maintain blood pressure (4) CKD (chronic kidney disease) stage 3, GFR 30-59 ml/min: (5) Elevated troponin: Plan: -Troponin 1135, second set pending, trend Q6H x 3 -Doubt any ACS -Echo is grossly intact (6) Rhabdomyolysis: Plan: Secondary to fall and remained on the ground CK level is elevated to 23,360 Has been getting reasonable amount of intravenous fluid Will monitor kidney function and the CK level We will monitor CK level-total CK level has improved significantly, went down to 7392 from 23,000 CPK level has been increasing (7) Diabetes mellitus, type 2: Plan: - ISS with Accu-Cheks ACHS, last A1c was 7.5 in October 2021, recheck for tomorrow morning -Holding metformin and trajenta -Has been getting insulin drip (8) Hypertension: Plan: -Hold metoprolol tartrate -Patient missed aspirin and Plavix today, placed on heparin drip, per day team tomorrow to hold these medications -Presented with hypotensive shock secondary to sepsis -Has been requiring pressor agents to maintain blood pressure -Remains hypotensive on pressors and (9) Hyperlipidemia: Plan: -Hold statin due to rhabdomyolysis (10) Hypothyroidism: Plan: -Convert levothyroxine to IV if remains intubated tomorrow (11) History of CVA (cerebrovascular accident): Plan: -History of such in August and June 2020, no residual deficits -Follows with Dr. Jin with [facility] neurology -Aspirin and Plavix as above FEN: PIV x 2, 18 and 20 guage/ NSS/ NPO DVT PPx: - teds, scds, CODE: Full code Dispo: From home, likely to remain in the hospital x 1-2 days Prognosis is very poor-the finisher denture is keeping in touch with the family members Admission and Anticipated Discharge Date Admission Date: February 08, 2022 Subjective 02/09/2022 The patient was seen and examined in ICU He remains intubated and sedated 02/10/2022 The patient was seen and examined in ICU He remains intubated and sedated with pressor support 02/11/2022 The patient was seen and examined in ICU He remains intubated and sedated with pressor support 02/12/2022 The patient was seen and examined in ICU in presence of the family members He remains intubated and unresponsive Physical Exam Physical Exam: Remained reasonably stable on mechanical ventilator and sedation Constitutional: well developed, well nourished, + ill appearing and + obese ENMT: external ear and nose normal, oropharynx normal Neck: trachea midline, no thyromegaly Respiratory: no respiratory distress Auscultation: + diminished lung sounds and + crackles (Coarse crackles bilaterally and transmitted sounds from trachea) Cardiovascular: Rate/Rhythm: regular rate, regular rhythm and + tachycardic Heart Sounds: normal S1 and normal S2; no murmur Extremities: + edema (1+ edema bilaterally) Gastrointestinal (Abdomen): Inspection/Auscultation: normal bowel sounds; abdomen not distended Percussion/Palpation: abdomen soft Skin: Mottled appearance of the distal extremities Neurologic: Remains intubated and sedated but mostly unresponsive Results & Data Results & Data ([facility]) Vital Signs (Past 12 Hours) Vital Signs Temp Pulse Resp BP Pulse Ox Pulse Ox 02/12/22 16:00 101 H 96 02/12/22 15:15 99 H 25 H 97 02/12/22 12:30 36.2 C L 101 H 32 H 96 02/12/22 12:00 36.3 C L 99 H 26 H 88/61 L 95 02/12/22 11:30 36.3 C L 91 H 29 H 95 02/12/22 11:15 36.3 C L 98 H 32 H 95 02/12/22 11:00 36.3 C L 103 H 25 H 118/79 02/12/22 10:55 100 H 26 H 95 02/12/22 10:15 36.3 C L 107 H 29 H 93 02/12/22 10:00 36.2 C L 92 H 26 H 93 02/12/22 09:45 36.2 C L 91 H 29 H 94 02/12/22 09:30 36.2 C L 89 24 94 02/12/22 09:15 36.3 C L 98 H 23 94 02/12/22 09:00 36.3 C L 91 H 28 H 104/68 94 02/12/22 08:45 36.3 C L 92 H 28 H 95 02/12/22 08:30 36.4 C L 82 23 95 02/12/22 08:15 36.4 C L 89 24 96 02/12/22 08:00 36.4 C L 82 25 H 102/69 95 94 02/12/22 07:45 36.4 C L 81 26 H 95 02/12/22 07:30 36.4 C L 81 32 H 95 02/12/22 07:18 81 25 H 95 02/12/22 07:15 36.4 C L 96 H 28 H 95 02/12/22 07:00 36.4 C L 101 H 26 H 106/77 95 02/12/22 06:45 36.4 C L 81 24 96 02/12/22 06:30 36.3 C L 82 28 H 95 02/12/22 06:15 36.3 C L 80 24 95 02/12/22 06:00 36.3 C L 81 23 100/69 95 Laboratory Results Short CBC 02/12/22 Range/Units 05:40 WBC 25.85 H (4.8-10.8) K/uL Hgb 12.4 L (14.0-18.0) g/dL Hct 35.4 L (42-52) % Plt Count 25 L* (130-400) K/uL BMP 02/12/22 05:40 Sodium 125 L Potassium 4.7 Chloride 89 L Carbon Dioxide 21 BUN 99 H Creatinine 5.91 H* Glucose 111 H Calcium 5.9 L* Cardiac Enzymes 02/12/22 Range/Units 05:40 Total Creatine Kinase 53830 H (30-223) U/L Liver Function 02/12/22 Range/Units 05:40 Total Bilirubin 3.9 H (0.2-1.0) mg/dl AST 702 H (13-39) U/L ALT 325 H (7-52) U/L Alkaline Phosphatase 152 H (34-104) U/L Albumin 2.1 L (3.4-5.0) gm/dl Medications Administered Current Inpatient Medications Dextrose (Dextrose 50% 50 Ml Syringe) 25 - 50 ml IV UD PRN; Protocol PRN Reason: Hypoglycemia Protocol Stop: 03/10/22 15:11 Last Admin: 02/10/22 22:18 Dose: 25 ml Documented by: Glucagon (Glucagon For Inj 1 Mg Vial) 1 mg SQ UD PRN; Protocol PRN Reason: Hypoglycemia Protocol Stop: 03/10/22 15:11 Glucose (Glucose 10 Tabs/Tube) 4 - 8 tabs PO UD PRN; Protocol PRN Reason: Hypoglycemia Protocol Stop: 03/10/22 15:11 Glucose (Glucose 40% Gel 15 Gm Tube) 15 - 30 gm PO UD PRN; Protocol PRN Reason: Hypoglycemia Protocol Stop: 03/10/22 15:11 Pantoprazole Sodium 40 mg/ (Syringe) 10 mls @ 5 mls/min IV BID [facility] Stop: 03/11/22 08:59 Last Admin: 02/12/22 10:00 Dose: 5 mls/min Documented by: Phenylephrine HCl 40 mg/ (Sodium Chloride) 504 mls @ 29.484 mls/hr IV .Q17H6M [facility]; Protocol Stop: 03/12/22 18:29 Last Titration: 02/12/22 16:02 Dose: 0.4 mcg/kg/min, 29.5 mls/hr Documented by: Hydrocortisone Sodium (Succinate 50 mg/ Syringe) 1 mls @ 4 mls/min IV TID [facility] Stop: 03/13/22 08:59 Last Admin: 02/12/22 13:28 Dose: 4 mls/min Documented by: Cefazolin Sodium (Ancef 1000mg) 1,000 mg in 7.5 mls @ 2.5 mls/min IV Q24H [facility]; Protocol Stop: 02/24/22 09:59 Last Admin: 02/12/22 11:01 Dose: 2.5 mls/min Documented by: Insulin Aspart (Insulin Aspart Per Unit) 0 units SC Q4 [facility] Stop: 03/13/22 03:59 Last Admin: 02/12/22 16:00 Dose: Not Given Documented by: Levothyroxine Sodium (Levothyroxine Sodium 75 Mcg Tablet) 75 mcg PO DAILY@0600 [facility] Stop: 03/11/22 05:59 Last Admin: 02/12/22 05:47 Dose: 75 mcg Documented by: Miscellaneous (Carbohydrates For Hypoglycemia ) 15 - 30 gm PO UD PRN PRN Reason: Hypoglycemia Protocol Stop: 03/10/22 15:11 Vitamin D (Cholecalciferol 1,000 Units 25 Mcg Tab) 2,000 units PO QAM [facility] Stop: 03/11/22 08:59 (1) Rhabdomyolysis Rhabdomyolysis type: non-traumatic Qualified Code(s): M62.82 - Rhabdomyolysis
--- NOTE | 2022-02-12 20:03 | Communication Note ---
Date of Service: February 12, 20221924: Patient's and daughter were at bedside and requesting results of recent head CT as well as update. Extensive discussion with family regarding cur rent care as well as ongoing decision making process. Patient's daughter had questions about dialysis as well as patient's mental status. I did explain that while the patient's CT did not show any significant findings, the limitation of CT in this setting would likely not show extensive anoxia or small CVAs. Additionally, we did discuss that if we did start HD, there is a high likelihood that the patient will require continued HD for the remainder of his life. indicated that he would not want this. I did also explain that the patient has been without sedation for >24 hours without any purposeful movement or wakefulness and why this is a concern to us. We discussed that the patient, given the likely needs of HD, possible trach for ventilator support, and ongoing IV medications, that the patient will likely require LTACH and/or extended penitentiary stay. Both and daughter indicate that this would not be in alignment with the patient's wishes. At this point, and daughter report that family are leaning towards comfort measures. They did have questions about comfort measures which I answered to the best of my ability. They do not wish to proceed with VISUAL EDUCATION DIRECTOR at this time as there is a daughter who will be traveling tomorrow from [place] to be here. I did explain that we will continue current course until family wishes for us to proceed with VISUAL EDUCATION DIRECTOR. I will communicate our conversation with daylight attending. I have personally spent 32 minutes of critical care time in the direct management of this patient. This is a life/limb threatening event. This includes time spent evaluating patient, direct bedside care, chart review, placing orders, interpretation of diagnostic studies, discussion with consultants, patient, and family members, as well as other required patient management activities. This time is exclusive of all separately billable procedures, and teaching time and separate from and in addition to any other critical care service time. Coding Level of Care Code Critical Care tyrone vanessat'l 30 min Time Spent (min) 32
[2022-02-13] MEDS: INSULIN ASPART PER UNIT SC SCH ×6 (00:17→19:29)
[2022-02-13 04:58] LABS: iSTAT Art Bld Gas pCO2 Correct 33 mmHg (35-46); iSTAT Art Bld Gas pH Corrected 7.406 (7.35-7.45); iSTAT Arterial Blood Gas HCO3 21 meg/L (19-24); iSTAT Arterial Blood Gas pCO2 33 mmHg (35-46); iSTAT Arterial Blood Gas pH 7.41 (7.35-7.45); iSTAT Arterial Blood Gas pO2 80 mmHg (80-95); iSTAT Arterial Blood Gas pO2 C 80; iSTAT Carbon Dioxide 22 mmol/L (24-31); iSTAT Hematocrit 38 % (42-52); iSTAT Hemoglobin 12.9 g/dl (14.0-18.0); iSTAT Potassium 4.8 mmol/L (3.3-5.0); iSTAT Sodium 124 mmol/L (135-144)
[2022-02-13 04:59] LABS: iSTAT FiO2 40 %; iSTAT Site Art Line
[2022-02-13] MEDS: PHENYLEPHRINE HCL 40 MG in SODIUM CHLORIDE 0.9% 500 ML IV SCH (05:36)
[2022-02-13] MEDS: LEVOTHYROXINE SODIUM 75 MCG TABLET PO SCH (05:39)
[2022-02-13 06:15] LABS: INR 1.4 (0.9-1.1); Prothrombin Time 14.9 Seconds (9.0-12.0)
[2022-02-13 06:29] LABS: Platelet Count 27 K/uL (130-400)
[2022-02-13 06:37] LABS: Albumin Level 2.1 gm/dl (3.4-5.0); BUN Creatinine Ratio 17.8 (10-20); Bilirubin Direct 3.6 mg/dl (0-0.2); Bilirubin,Total 5.5 mg/dl (0.2-1.0); Calcium 5.8 mg/dl (8.5-10.1); Creatinine Clr Calc Pharmacy 10.4 ml/min; Est GFR (Non-African American) 6.9 ml/min; Potassium 4.7 mmol/L (3.5-5.1); Total Protein 4.4 gm/dl (6.0-8.3)
[2022-02-13 07:24] LABS: Hematocrit (blood only) 37.9 % (42-52); Hemoglobin 13.3 g/dL (14.0-18.0); Mean Corpuscular Hemoglobin 28.9 pg (25-34); Mean Corpuscular Hgb Conc 35.1 g/dL (32-36); Mean Corpuscular Volume 82.2 fL (80-100); RDW Standard Deviation 42.2 fL (36.4-46.3); Red Blood Count 4.61 M/uL (4.7-6.1); White Blood Count 30.26 K/uL (4.8-10.8)
[2022-02-13] MEDS: PANTOprazole 40 MG in SYRINGE 0 ML IV SCH (08:17)
[2022-02-13] MEDS: HYDROCORTISONE SOD 50 MG in SYRINGE 0 ML IV SCH ×2 (08:18→15:18)
--- NOTE | 2022-02-13 09:05 | XRay Report ---
XR chest 1V portable CLINICAL HISTORY: f/u COMPARISON STUDY: Chest radiograph February 12, 2022. FINDINGS: Tip of endotracheal tube is partially obscured on this exam but likely approximately 1.1 cm above the judith. Tip of nasogastric tube is within the body of the stomach. No pneumothorax is pres ent. Small bilateral pleural effusions are again noted with bibasilar opacities. Lung aeration is sli ghtly improved. Interstitial thickening has slightly improved. Cardiomegaly is again noted. IMPRESSION: 1. Tip of endotracheal tube partially obscured but approximately 1.1 cm above the judith. 2. Bilateral pleural effusions with persistent bibasilar opacities which could reflect consolidation or atelectasis. Mild improvement in right lung aeration. 3. Mild improvement in pulmonary edema. ACT 112: Negative or not required by law. Electronically signed by: Luis Rubin M.D. 02/13/2022 9:03 AM
[2022-02-13 09:15] LABS: ALC (manual) 0.27 K/uL (1.2-3.4); Echinocytes 1+; Hypogranular Neutrophils 1+; Lymphocytes # (manual) 0.27 K/uL (1.2-3.4); Lymphocytes % (manual) 0.9 %; Monocytes # (manual) 2.09 K/uL (0.11-0.59); Monocytes % (manual) 6.9 %; Neutrophils % (manual) 92.2 %
--- NOTE | 2022-02-13 09:56 | Critical Care Progress Note ---
Date of Service February 13, 2022 Assessment & Plan (1) Hypovolemic shock: (2) Rhabdomyolysis: (3) AUBREE (acute kidney injury): (4) Acute respiratory failure with hypoxia: (5) Elevated troponin: (6) Lactic acidosis: (7) Transaminitis: (8) Thrombocytopenia: Plan: 86-year-old male with a history of CVA, hypothyroidism, diabetes mellitus type 2, CKD stage III and hyperlipidemia presenting to the hospital due to altered mental status and hypoxemia. He was found to be in rhabdomyolysis with a downtime of approximately 4 hours. Neurologic: Patient currently encephalopathic on presentation. Likely metabolic encephalopathy. Urine drug screen negative. CT head negative for acute bleed. Will need to consider MRI of the brain and EEG if he continues with encephalopathy. He does have a history of ischemic stroke. Versed and fentanyl have been placed on hold for a sedation vacation: >48 hours at this point. Pulmonary: Continue lung protective ventilation strategy. Hypoxemia likely initially due to poor inspiratory effort and hypoventilation. Echo not suggestive of RV failure. Unlikely to be hemodynamically significant pulmonary embolism especially in the context of septic shock. Cardiovascular: Hypovolemic/septic shock. Maintain mean arterial pressure above 65. Troponin elevation may be due to rhabdomyolysis. Formal echo noted. LVEF and RVEF intact. Aspirin and Plavix on hold due to thrombocytopenia. Continue to wean pressors as able. We will discontinue vasopressin and phenylephrine at this point. Gastrointestinal: NPO. OG tube in place. CT abdomen/pelvis with perinephric stranding suggestive of possible pyelonephritis. Acetaminophen level within normal limits. Transaminitis likely due to shock and rhabdomyolysis. Acute hepatitis panel ordered. Pantoprazole 40 twice daily. Renal: Patient with AUBREE likely secondary to ischemic ATN, hypovolemia and rhabdomyolysis. Creatinine trending up and urine output poor. Patient poor candidate for hemodialysis given hypotension. Hemodialysis can be considered in the near future if he does not make any urine and his hemodynamics improved. Aggressively replace calcium. ABG substantially improved from initial presentation. Mild respiratory alkalosis with a minimal metabolic acidosis. Infectious disease: Pansensitive staph aureus growing from blood cultures. Vancomycin and cefepime discontinued. Ancef ordered. Continue Flagyl. Continue doxycycline. Urine cultures with mixed nancie. Nasal MRSA negative. Repeat blood cultures ordered to demonstrate clearance. Hematologic: No obvious sites of bleeding. Hemoglobin stable. Platelet count with profound thrombocytopenia. Peripheral smear reviewed. Likely consumptive coagulopathy. Hold anticoagulation. Endocrine: TSH within normal limits. Maintain euglycemia. Wean stress dose steroids to 50 mg 3 times daily. Lines and tubes: Right femoral vein catheter placed 02/08/2022. Left radial art line placed 02/08/2022. Matthews placed 02/08/2022. ET tube placed 02/08. VTE prophylaxis: Holding chemical ppx CODE STATUS: Full code Family at bedside: Updated at bedside Disposition: ICU Patient was discussed in multidisciplinary rounds I have personally spent 50 minutes of critical care time in the direct yehuda gement of this patient. This is a life/limb threatening event. This includes time spent evaluating patient, direct bedside care, chart review, placing orders, interpretation of diagnostic studies, discussion with consultants, patient, and family members, as well as other required patient management activities. This time is exclusive of all separately billable procedures, and teaching time and separate from and in addition to any other critical care service time. Admission and Anticipated Discharge Date Admission Date: February 08, 2022 Subjective No overnight events Review of Systems Review of Systems: Unobtainable due to endotracheal tube Physical Exam Physical Exam: General: Encephalopathic Skin: Warm, dry, Head: Atraumatic Ears, nose, mouth and throat: airway obscured by endotracheal tube Cardiovascular: Decreased peripheral perfusion Respiratory: Ventilator settings reviewed Gastrointestinal: Non distended Musculoskeletal: Bluish/dusky discoloration of his distal phalanges Results & Data Results & Data ([facility]) Vital Signs (Past 12 Hours) Vital Signs Temp Pulse Resp BP Pulse Ox Pulse Ox 02/13/22 08:18 96 H 25 H 98 02/13/22 06:00 106 H 22 98 02/13/22 05:00 109 H 28 H 121/84 96 02/13/22 04:00 36.9 C 107 H 28 H 119/76 97 02/13/22 03:08 104 H 23 98 02/13/22 03:00 106 H 27 H 121/79 98 02/13/22 02:00 105 H 30 H 120/78 98 02/13/22 01:00 98 H 32 H 123/83 98 02/13/22 00:00 36.6 C 104 H 26 H 116/67 97 96 02/12/22 23:00 104 H 25 H 111/77 98 02/12/22 22:56 93 H 27 H 97 02/12/22 22:00 100 H 30 H 104/71 97 Critical Care Results & Data Vital Signs (Past 12 Hours) Vital Signs Temp Pulse Resp BP Pulse Ox Pulse Ox 02/13/22 08:18 96 H 25 H 98 02/13/22 06:00 106 H 22 98 02/13/22 05:00 109 H 28 H 121/84 96 02/13/22 04:00 36.9 C 107 H 28 H 119/76 97 02/13/22 03:08 104 H 23 98 02/13/22 03:00 106 H 27 H 121/79 98 02/13/22 02:00 105 H 30 H 120/78 98 02/13/22 01:00 98 H 32 H 123/83 98 02/13/22 00:00 36.6 C 104 H 26 H 116/67 97 96 02/12/22 23:00 104 H 25 H 111/77 98 02/12/22 22:56 93 H 27 H 97 02/12/22 22:00 100 H 30 H 104/71 97 Lab & Micro Results (Past 24 Hours) No Data to Display No Data to Display Ionized Calcium 0.72 mmol/L (1.12-1.32) L* 02/13/22 10:17 02/13/22 Microbiology 02/10/22 19:16 Aerobic Blood Culture - Preliminary Blood Coag neg staph not lugdunensis Anaerobic Blood Culture - Preliminary No growth in Anaerobic bottle after 48 hours. 02/10/22 18:26 Aerobic Blood Culture - Preliminary Blood Staphylococcus aureus Anaerobic Blood Culture - Preliminary No growth in Anaerobic bottle after 48 hours. Diagnostic Findings (Past 24 Hours) Head CT 02/12/22 10:16 CT OF THE HEAD WITHOUT CONTRAST CLINICAL HISTORY: encephalopathy COMPARISON STUDY: MRI of the brain July 09, 2020. Head CT T. February [address] DOSE: 638.56 mGycm TECHNIQUE: Helical axial images of the head were obtained without IV contrast. Automated exposure control was utilized for the study. A dose lowering technique was utilized adhering to the principles of ALARA. FINDINGS: No acute intracranial hemorrhage, midline shift or mass effect is present. Ventricular system is unremarkable. Basal cisterns are patent. There are no extra axial collections. Exam is mildly compromised by motion artifact. An old 1.1 cm infarct within left caudate nucleus is noted. Small amount of fluid within left mastoid air cells is noted. There is trace fluid within the right mastoid air cells. There is mild sinus mucosal thickening. Adenoids are prominent, partially imaged on this exam. This could be related to intubation. Multifocal scalp soft tissue swelling/edema is present. There is also right periorbital soft tissue swelling. IMPRESSION: 1. No acute intracranial findings. 2. Nonspecific right periorbital and scalp soft tissue swelling. ACT 112: Negative or not required by law. Electronically signed by: Luis Rubin M.D. 02/12/2022 11:22 AM Chest X-Ray 02/13/22 07:00 XR chest 1V portable CLINICAL HISTORY: f/u COMPARISON STUDY: Chest radiograph February 12, 2022. FINDINGS: Tip of endotracheal tube is partially obscured on this exam but likely approximately 1.1 cm above the judith. Tip of nasogastric tube is within the body of the stomach. No pneumothorax is present. Small bilateral pleural effusions are again noted with bibasilar opacities. Lung aeration is slightly improved. Interstitial thickening has slightly improved. Cardiomegaly is again noted. IMPRESSION: 1. Tip of endotracheal tube partially obscured but approximately 1.1 cm above the judith. 2. Bilateral pleural effusions with persistent bibasilar opacities which could reflect consolidation or atelectasis. Mild improvement in right lung aeration. 3. Mild improvement in pulmonary edema. ACT 112: Negative or not required by law. Electronically signed by: Luis Rubin M.D. 02/13/2022 9:03 AM I & O Totals 24 Hours 02/12/22 02/13/22 02/14/22 06:59 06:59 06:59 Intake Total 1456.989 / 1456.989 780.667 / 780.667 48.183 / 48.183 Output Total 92 / 92 128 / 128 Balance 1364.989 / 1364.989 652.667 / 652.667 48.183 / 48.183 Cumulative 02/08/22 09:38 thru 02/13/22 07:14 Intake Total 89489.669 Output Total 861 Balance 24162.669 RT Ventilator Mngmt (Last Documented) Ventilator Ordered Settings Ventilator Support Mode Assist Control 02/13/22 08:18 Respiratory Rate 25 02/13/22 08:18 Ventilator Tidal Volume 450 02/13/22 08:18 Setting Minute Ventilation 9.1 02/13/22 08:18 Ventilator Positive Pressure 24 02/10/22 15:00 Support Setting Positive End Expiratory 5 02/13/22 08:18 Pressure Fraction of Inspired Oxygen 30 02/13/22 08:18 Machine Comment RT found patient on RR 22. 02/10/22 19:28 Ventilator - PT Measurements Respiratory Rate 25 Exhaled Tidal Volume 344 Minute Ventilation 9.1 Peak Inspiratory Airway 26 Pressure Plateau Pressure 17.5 Respiratory Cycle Inspiratory: 1:3 Expiratory Ratio Inspiratory Phase Time 0.75 End-Tidal CO2 30 Static Lung Compliance 27.52 Dynamic Lung Compliance 16.38 Normal Static Lung Compliance 44.00 Patient Measurements Comment FIO2 weaned to 50%. Coding Level of Care Code Critical Care 1st 30-74 mins Diagnoses Hypovolemic shock R57.1 Rhabdomyolysis M62.82 Rhabdomyolysis type: non-traumatic AUBREE (acute kidney injury) N17.9 Acute respiratory failure with hypoxia J96.01 Elevated troponin R77.8 Lactic acidosis E87.2 Transaminitis R74.01 Thrombocytopenia D69.6 (1) Rhabdomyolysis Rhabdomyolysis type: non-traumatic Qualified Code(s): M62.82 - Rhabdomyolysis
[2022-02-13] MEDS: ceFAZolin 1000MG 1,000 MG/7.5 ML SYR IV SCH (10:20)
--- NOTE | 2022-02-13 10:45 | Nephrology Progress Note ---
Date of Service February 13, 2022 Assessment & Plan (1) AUBREE (acute kidney injury): Plan: Patient with a acute kidney injury due to ischemic and toxic ATN in setting of sepsis and rhabdomyolysis. Creatinine is 5.1 from a baseline of 2. Patient is anuric. Metabolic acidosis and hyperkalemia have improved with bicarb drip. Pressor requirements have reduced and patient is now only on Lauri-Synephrine. Patient remains comatose despite being off sedation. He also has ischemic peripheries. Overall prognosis is guarded. Family still discussing going forward. Family will have a meeting with a director information security. Family is moving towards comfort measures on -Monitor input output -no need for diuretics unless worsening hypoxia -Patient cannot tolerate dialysis due to ongoing shock and even if he did, dialysis will not improve his overall prognosis -Discussed case with the ICU attending -Palliative care consult is recommended (2) Rhabdomyolysis: Plan: CK is about 7000 today will monitor CK daily. (3) Respiratory failure: Plan: Patient is on mechanical ventilation per ICU. CXR showed cardiomegally but no pulm vascular congestion. Will continue to assess potential need for ultrafiltration if BP improves although this is not likely to improve his overall prognosis Admission and Anticipated Discharge Date Admission Date: February 08, 2022 Subjective Seen for acute renal failure and rhabdomyolysis. Patient remains intubated and comatose. He remains on Lauri-Synephrine and anuric. Review of Systems Review of Systems: Unable to obtain due to intubation Physical Exam Physical Exam: General exam: Intubated and unresponsive HEENT: Pupils are equal and minimally reactive to light Neck: No JVD Respiratory system: Clear breath sounds bilaterally. Gastrointestinal: Abdomen is soft, non distended, non tender, bowel sounds are present CVS: Regular rate and rhythm. No murmurs, rubs or gallops Musculoskeletal: No joint or muscle tenderness Extremities: Non tender, 1+ edema, Neuro: Intubated, nonresponsive Skin: Gangrene of the digits right hand more than left, mottled skin on the extremities Results & Data ([facility]) Vital Signs (Past 12 Hours) Vital Signs Temp Pulse Resp BP Pulse Ox Pulse Ox 02/13/22 08:18 96 H 25 H 98 02/13/22 06:00 106 H 22 98 02/13/22 05:00 109 H 28 H 121/84 96 02/13/22 04:00 36.9 C 107 H 28 H 119/76 97 02/13/22 03:08 104 H 23 98 02/13/22 03:00 106 H 27 H 121/79 98 02/13/22 02:00 105 H 30 H 120/78 98 02/13/22 01:00 98 H 32 H 123/83 98 02/13/22 00:00 36.6 C 104 H 26 H 116/67 97 96 02/12/22 23:00 104 H 25 H 111/77 98 02/12/22 22:56 93 H 27 H 97 Laboratory Results 02/13/22 05:33 02/13/22 02/13/22 05:33 05:33 WBC 30.26 H* RBC 4.61 L MCV 82.2 MCH 28.9 MCHC 35.1 RDW Std Deviation 42.2 RDW Coeff of Umesh 14.0 Plt Count 27 L* Phosphorus 8.0 H Albumin 2.1 L (1) Rhabdomyolysis Rhabdomyolysis type: non-traumatic Qualified Code(s): M62.82 - Rhabdomyolysis (2) Respiratory failure Chronicity: acute on chronic Respiratory failure complication: hypoxia Qualified Code(s): J96.21 - Acute and chronic respiratory failure with hypoxia
[2022-02-13 10:57] LABS: Fibrinogen 367 mg/dl (184-400)
[2022-02-13] MEDS ORDERED: STAT IV STA (11:35)
[2022-02-13] MEDS ORDERED: CALCIUM GLUCONATE 10% 2,000 MG in DEXTROSE 5% 50 ML IV ONE (11:50)
--- NOTE | 2022-02-13 12:49 | Hospitalist Progress Note ---
Date of Service February 13, 2022 Assessment & Plan (1) Acute respiratory failure with hypoxia: Plan: Brought into ER via ambulance with increasing shortness of breath and lethargy and unable to get up from floor following a fall Initially was found to be hypoxic with O2 sats in the 70s by EMS in the field Concern for pulmonary embolism with patient history of CVA, tachycardia, hypoxia, confusion - ABG: pH 7.25, PO2 280, HCO3 18, Co2 20 He was intubated in the emergency room and was admitted to ICU Appreciate sap bobj developer input and recommendation Remains intubated in the ICU and sedated No improvement of his condition Remains intubated and sedated without any significant improvement of current condition Remains sedated on vent//unresponsive-CT scan remains unremarkable Condition seems to be deteriorating (2) Septic shock: Plan: Admitted with high fever, high white count, hypotension, renal impairment and increasing lactic acid - UA appears to be grossly infected, likely underlying UTI, WBC of 10.5 with left shift - Abx with IV zosyn and vanc. Got 1 dose of daptomycin in the ER but hold this due to renal function -Checking renal ultrasound, 1 was conducted on 01/18/2022 as an outpatient which showed left-sided nephrolithiasis, no hydronephrosis, trabecular bladder Blood and urine culture have been taken-blood culture is growing gram-positive cocci in clusters Has been getting reasonable amount of fluid Repeat lactate remains elevated Clinically condition has not been changed Has been on pressor resents to maintain blood pressure Elevated LFTs likely secondary to shock liver Mottled appearance of the appendices-prognosis remains poor Blood cultures are growing MSSA and antibiotic is changed to intravenous cefazolin and remains on IV doxycycline as well Remains hyperthermic with increasing white count, procalcitonin remains elevated and platelet counts are decreasing Likely source of bacteremia seems to be from his skin break at the heels and anterior knees on both sides Still no signs of control of infection White count remains elevated and creatinine has been deteriorating though fever has subsided We will continue current antibiotic Increasing mottled appearance of the extremities-condition has not been getting any better White count has been increasing though the infection seems to be under control Increasing mottled appearance of the distal part of extremities and that has been progressing Still requiring pressor resents to maintain blood pressure Prognosis remains very poor Transaminitis LFTs have been worsening Secondary to shock liver Thrombocytopenia Likely secondary to sepsis No therapeutic anticoagulant Platelets are decreasing (3) AUBREE (acute kidney injury): Plan: Baseline creatinine around 1.7 Creatinine noted to be high at 2.8 on admission and that went up further Appreciate nephrology input and recommendation Creatinine has been worsening and the patient is not for dialysis as of yet Still requiring Levophed to maintain blood pressure Creatinine has been going up and so is BUN (4) CKD (chronic kidney disease) stage 3, GFR 30-59 ml/min: (5) Elevated troponin: Plan: -Troponin 1135, second set pending, trend Q6H x 3 -Doubt any ACS -Echo is grossly intact (6) Rhabdomyolysis: Plan: Secondary to fall and remained on the ground CK level is elevated to 23,360 Has been getting reasonable amount of intravenous fluid Will monitor kidney function and the CK level We will monitor CK level-total CK level has improved significantly, went down to 7392 from 23,000 CPK level has been increasing-levels are a bit down today (7) Diabetes mellitus, type 2: Plan: - [facility] last A1c was 7.5 in October 2021, recheck for tomorrow morning -Holding metformin and trajenta -Has been getting insulin drip (8) Hypertension: Plan: -Hold metoprolol tartrate -Patient missed aspirin and Plavix today, placed on heparin drip, per day team tomorrow to hold these medications -Presented with hypotensive shock secondary to sepsis -Has been requiring pressor agents to maintain blood pressure -Remains hypotensive on pressors and-requiring Levophed to maintain blood pressure (9) Hyperlipidemia: Plan: -Hold statin due to rhabdomyolysis (10) Hypothyroidism: Plan: -Convert levothyroxine to IV if remains intubated tomorrow (11) History of CVA (cerebrovascular accident): Plan: -History of such in August and June 2020, no residual deficits -Follows with Dr. Jin with [facility] neurology -Aspirin and Plavix as above FEN: PIV x 2, 18 and 20 guage/ NSS/ NPO DVT PPx: - teds, scds, CODE: Full code Dispo: From home, likely to remain in the hospital x 1-2 days Prognosis is very poor-the sap bobj developer is keeping in touch with the family members Admission and Anticipated Discharge Date Admission Date: February 08, 2022 Subjective 02/09/2022 The patient was seen and examined in ICU He remains intubated and sedated 02/10/2022 The patient was seen and examined in ICU He remains intubated and sedated with pressor support 02/11/2022 The patient was seen and examined in ICU He remains intubated and sedated with pressor support 02/12/2022 The patient was seen and examined in ICU in presence of the family members He remains intubated and unresponsive 02/13/2022 The patient was seen and examined in ICU He remains intubated and sedated Overall condition seems to be deteriorating Review of Systems Review of Systems: Unobtainable due to endotracheal tube Physical Exam Physical Exam: Condition has been deteriorating Constitutional: well developed, well nourished, + ill appearing and + obese ENMT: external ear and nose normal, oropharynx normal Neck: trachea midline, no thyromegaly Respiratory: no respiratory distress Auscultation: + diminished lung sounds and + crackles (Coarse crackles bilaterally and transmitted sounds from trachea) Cardiovascular: Rate/Rhythm: regular rate, regular rhythm and + tachycardic Heart Sounds: normal S1 and normal S2; no murmur Extremities: + edema (1+ edema bilaterally) Gastrointestinal (Abdomen): Inspection/Auscultation: normal bowel sounds; abdomen not distended Percussion/Palpation: abdomen soft Skin: Increasing extremity mottled area with coldness Neurologic: Remains sedated and intubated Results & Data Results & Data ([facility]) Vital Signs (Past 12 Hours) Vital Signs Temp Pulse Resp BP Pulse Ox 02/13/22 11:39 99 H 23 97 02/13/22 11:00 106 H 26 H 99/77 L 02/13/22 10:00 99 H 26 H 106/72 97 02/13/22 09:00 106 H 24 113/75 97 02/13/22 08:18 96 H 25 H 98 02/13/22 08:00 102 H 24 113/74 97 02/13/22 07:00 105 H 24 113/81 98 02/13/22 06:00 106 H 22 98 02/13/22 05:00 109 H 28 H 121/84 96 02/13/22 04:00 36.9 C 107 H 28 H 119/76 97 02/13/22 03:08 104 H 23 98 02/13/22 03:00 106 H 27 H 121/79 98 02/13/22 02:00 105 H 30 H 120/78 98 02/13/22 01:00 98 H 32 H 123/83 98 Laboratory Results Short CBC 02/13/22 Range/Units 05:33 WBC 30.26 H* (4.8-10.8) K/uL Hgb 13.3 L (14.0-18.0) g/dL Hct 37.9 L (42-52) % Plt Count 27 L* (130-400) K/uL BMP 02/13/22 05:33 Sodium 125 L Potassium 4.7 Chloride 89 L Carbon Dioxide 19 L BUN 119 H D Creatinine 6.68 H* D Glucose 150 H Calcium 5.8 L* Cardiac Enzymes 02/13/22 Range/Units 05:33 Total Creatine Kinase 7830 H (30-223) U/L Liver Function 02/13/22 Range/Units 05:33 Total Bilirubin 5.5 H (0.2-1.0) mg/dl Direct Bilirubin 3.6 H (0-0.2) mg/dl AST 373 H (13-39) U/L ALT 96 H (7-52) U/L Alkaline Phosphatase 201 H (34-104) U/L Albumin 2.1 L (3.4-5.0) gm/dl Medications Administered Current Inpatient Medications Dextrose (Dextrose 50% 50 Ml Syringe) 25 - 50 ml IV UD PRN; Protocol PRN Reason: Hypoglycemia Protocol Stop: 03/10/22 15:11 Last Admin: 02/10/22 22:18 Dose: 25 ml Documented by: Glucagon (Glucagon For Inj 1 Mg Vial) 1 mg SQ UD PRN; Protocol PRN Reason: Hypoglycemia Protocol Stop: 03/10/22 15:11 Glucose (Glucose 10 Tabs/Tube) 4 - 8 tabs PO UD PRN; Protocol PRN Reason: Hypoglycemia Protocol Stop: 03/10/22 15:11 Glucose (Glucose 40% Gel 15 Gm Tube) 15 - 30 gm PO UD PRN; Protocol PRN Reason: Hypoglycemia Protocol Stop: 03/10/22 15:11 Pantoprazole Sodium 40 mg/ (Syringe) 10 mls @ 5 mls/min IV BID ISAEL Stop: 03/11/22 08:59 Last Admin: 02/13/22 08:17 Dose: 5 mls/min Documented by: Phenylephrine HCl 40 mg/ (Sodium Chloride) 504 mls @ 29.484 mls/hr IV .Q17H6M [facility]; Protocol Stop: 03/12/22 18:29 Last Titration: 02/13/22 07:14 Dose: 0.4 mcg/kg/min, 29.5 mls/hr Documented by: Hydrocortisone Sodium (Succinate 50 mg/ Syringe) 1 mls @ 4 mls/min IV TID [facility] Stop: 03/13/22 08:59 Last Admin: 02/13/22 08:18 Dose: 4 mls/min Documented by: Cefazolin Sodium (Ancef 1000mg) 1,000 mg in 7.5 mls @ 2.5 mls/min IV Q24H [facility]; Protocol Stop: 02/24/22 09:59 Last Admin: 02/13/22 10:20 Dose: 2.5 mls/min Documented by: Insulin Aspart (Insulin Aspart Per Unit) 0 units SC Q4 [facility] Stop: 03/13/22 03:59 Last Admin: 02/13/22 12:31 Dose: Not Given Documented by: Levothyroxine Sodium (Levothyroxine Sodium 75 Mcg Tablet) 75 mcg PO DAILY@0600 [facility] Stop: 03/11/22 05:59 Last Admin: 02/13/22 05:39 Dose: 75 mcg Documented by: Miscellaneous (Carbohydrates For Hypoglycemia ) 15 - 30 gm PO UD PRN PRN Reason: Hypoglycemia Protocol Stop: 03/10/22 15:11 Vitamin D (Cholecalciferol 1,000 Units 25 Mcg Tab) 2,000 units PO QAM [facility] Stop: 03/11/22 08:59 (1) Rhabdomyolysis Rhabdomyolysis type: non-traumatic Qualified Code(s): M62.82 - Rhabdomyolysis
[2022-02-13] MEDS ORDERED: LORazepam 0.5 MG in SYRINGE 0.25 ML IV PRN (19:19)
[2022-02-13] MEDS ORDERED: ATROPINE SULFATE 1% OP SOLN 5 ML BTL SL PRN (19:19)
[2022-02-13] MEDS ORDERED: LORazepam 0.5 MG TAB PO PRN (19:19)
[2022-02-13] MEDS ORDERED: ONDANSETRON 4 MG OD TAB SL PRN (19:19)
[2022-02-13] MEDS ORDERED: HYDROmorphone INJ 0.5 MG/0.5 ML SYR IV PRN (19:19)
[2022-02-13] MEDS ORDERED: ONDANSETRON INJ 2 MG/ML 2 ML VIAL IV PRN (19:19)
[2022-02-13] MEDS ORDERED: GLYCOPYRROLATE 0.2 MG/ML VIAL IV PRN (19:19)
--- NOTE | 2022-02-13 19:25 | Communication Note ---
Date of Service: February 13, 20221914: Immediately after change of shift, I was approached by nursing staff as the patient had been terminally extubated earlier in the shift, however he did not have full comfort measures orders placed. I did present at bedside at 1914 and had conversation with patient's daughter who was there. She was requesting medication for his breathing and secretions. I did reiterate that at this point, we are transitioning to full comfort measures which she was agreeable to. I explained that we would discontinue all life prolonging medications. Again she agrees. She is agreeable to narcotic dosing as well as anxiolytics if needed. For comfort measure orders were placed. Additional family did arrive at bedside to help with comforting daughter. I have personally spent 25 minutes of critical care time in the direct management of this patient. This is a life/limb threatening event. This includes time spent evaluating patient, direct bedside care, chart review, placing orders, interpretation of diagnostic studies, discussion with consultants, patient, and family members, as well as other required patient management activities. This time is exclusive of all separately billable procedures, and teaching time and separate from and in addition to any other critical care service time. Coding Level of Care Code Critical Care ea addt'l 30 min Time Spent (min) 25
--- NOTE | 2022-02-13 20:25 | Discharge Summary ---
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 He presents today after increased gait instability last evening. provides history as the patient is intubated during my evaluation. states that last evening the patient had a worsening gait and that he was struggling to walk around the house. He had multiple falls and ended up crawling back to the bedroom and went to bed around 8 PM. She heard him get up twice in the middle of the night and the first time to go use the bathroom and he fell in the bathroom and crawled back to bed again. He then got up later in the late morning at some unknown time, however did not come back to the room. She found him on the floor unable to get up, and he had laid there for approximately 4 hours. She called EMS and he was brought to the hospital. She notes that he was complaining of shaking and chills and turned the heat up to 77 in the house yesterday. She is unaware of what medications he takes as the patient manages these himself, but reports he uses a pillbox and took his medicines yesterday. Denies any recent changes in medications. Principal Diagnosis Respiratory failure, septic shock Discharge Data Allergies Allergy/AdvReac Type Severity Reaction Status Date / Time lisinopril AdvReac Intermediate cough Verified 07/08/20 12:16 Consultations 02/08/22 11:54 ED Decision to Admit Stat 02/08/22 12:45 Consult Railroad Worker Routine 02/09/22 07:21 Consult Nephrology Routine 02/13/22 19:20 Consult Palliative Care Routine Ordered Studies 02/08/22 10:07 CT head/brain wo con Stat 02/08/22 13:15 CT abd pelvis wo con Stat 02/08/22 14:52 US point of care ultrasound Stat 02/12/22 10:16 CT head/brain wo con Routine Hospital Course (1) Acute respiratory failure with hypoxia: Brought into ER via ambulance with increasing shortness of breath and lethargy and unable to get up from floor following a fall Initially was found to be hypoxic with O2 sats in the 70s by EMS in the field Concern for pulmonary embolism with patient history of CVA, tachycardia, hypoxia, confusion - ABG: pH 7.25, PO2 280, HCO3 18, Co2 20 He was intubated in the emergency room and was admitted to ICU Appreciate hydraulic technician input and recommendation Remains intubated in the ICU and sedated No improvement of his condition Remains intubated and sedated without any significant improvement of current c ondition Remains sedated on vent//unresponsive-CT scan remains unremarkable Condition seems to be deteriorating (2) Septic shock: Admitted with high fever, high white count, hypotension, renal impairment and increasing lactic acid - UA appears to be grossly infected, likely underlying UTI, WBC of 10.5 with left shift - Abx with IV zosyn and vanc. Got 1 dose of daptomycin in the ER but hold this due to renal function -Checking renal ultrasound, 1 was conducted on 01/18/2022 as an outpatient which showed left-sided nephrolithiasis, no hydronephrosis, trabecular bladder Blood and urine culture have been taken-blood culture is growing gram-positive cocci in clusters Has been getting reasonable amount of fluid Repeat lactate remains elevated Clinically condition has not been changed Has been on pressor resents to maintain blood pressure Elevated LFTs likely secondary to shock liver Mottled appearance of the appendices-prognosis remains poor Blood cultures are growing MSSA and antibiotic is changed to intravenous cefazolin and remains on IV doxycycline as well Remains hyperthermic with increasing white count, procalcitonin remains elevated and platelet counts are decreasing Likely source of bacteremia seems to be from his skin break at the heels and anterior knees on both sides Still no signs of control of infection White count remains elevated and creatinine has been deteriorating though fever has subsided We will continue current antibiotic Increasing mottled appearance of the extremities-condition has not been getting any better White count has been increasing though the infection seems to be under control Increasing mottled appearance of the distal part of extremities and that has been progressing Still requiring pressor resents to maintain blood pressure Prognosis remains very poor Transaminitis LFTs have been worsening Secondary to shock liver Thrombocytopenia Likely secondary to sepsis No therapeutic anticoagulant Platelets are decreasing (3) AUBREE (acute kidney injury): Baseline creatinine around 1.7 Creatinine noted to be high at 2.8 on admission and that went up further Appreciate nephrology input and recommendation Creatinine has been worsening and the patient is not for dialysis as of yet Still requiring Levophed to maintain blood pressure Creatinine has been going up and so is BUN (4) CKD (chronic kidney disease) stage 3, GFR 30-59 ml/min: (5) Elevated troponin: -Troponin 1135, second set pending, trend Q6H x 3 -Doubt any ACS -Echo is grossly intact (6) Rhabdomyolysis: Secondary to fall and remained on the ground CK level is elevated to 23,360 Has been getting reasonable amount of intravenous fluid Will monitor kidney function and the CK level We will monitor CK level-total CK level has improved significantly, went down to 7392 from 23,000 CPK level has been increasing-levels are a bit down today (7) Diabetes mellitus, type 2: - [facility], last A1c was 7.5 in October 2021, recheck for tomorrow morning -Holding metformin and trajenta -Has been getting insulin drip (8) Hypertension: -Hold metoprolol tartrate -Patient missed aspirin and Plavix today, placed on heparin drip, per day team tomorrow to hold these medications -Presented with hypotensive shock secondary to sepsis -Has been requiring pressor agents to maintain blood pressure -Remains hypotensive on pressors and-requiring Levophed to maintain blood pressure (9) Hyperlipidemia: -Hold statin due to rhabdomyolysis (10) Hypothyroidism: -Convert levothyroxine to IV if remains intubated tomorrow (11) History of CVA (cerebrovascular accident): -History of such in August and June 2020, no residual deficits -Follows with Dr. Jin with [facility] neurology -Aspirin and Plavix as above (Above documentation of medical issues as per Dr. Angela.) 02/13/22 7 PM Comfort measures orders initiated after terminal extubation. 8:45 PM Patient pronounced . Cause of : Respiratory failure, septic shock Total time to prepare this discharge summary was less than 10 minutes. Total Time Total Time Spent Total Time Spent (In Minutes): less than 10 minutes Discharge Plan Discharge Items Patient Disposition: Other Date/Time: 02/13/22 20:45
--- NOTE | 2022-02-13 20:55 | Death Pronouncement Note ---
Date of Service February 13, 2022 Pronouncement Note Admission Date February 08, 2022 Date and Time of Date of : 02/13/22 Time of : 20:45 Additional Data Confirmation of : no pulse, no respirations, no heart sounds and pupils fixed and dilated Family: at bedside Attending/PCP notified?: Yes Attending physician: Raheem Angela MD Was code activated?: No
== END 2022-02-13 22:15 | disposition expired | DRG 870 ==
LOC: ED 09:50 → SUATTDRO 12:45 → 1E 12:45